=== PATIENT | female | born 1950 | race Caucasian/White ===

== ENCOUNTER → 2016-11-09 | Outpatient (CLI) | payer MEDICARE ==
[2016-11-09 07:26] LABS: INR 2.87
== END ==
LOC: M LAB 06:56
PROVIDERS: ATTEND Nurse Practitioner Family
DX: Z95.4 Presence of other heart-valve replacement (principal); Z51.81 Encounter for therapeutic drug level monitoring; Z79.01 Long term (current) use of anticoagulants

== ENCOUNTER → 2016-12-14 | Outpatient (CLI) | payer MEDICARE ==
[2016-12-14 12:28] LABS: INR 2.77
== END ==
LOC: M LAB 11:22
PROVIDERS: ATTEND Nurse Practitioner Family
DX: Z51.81 Encounter for therapeutic drug level monitoring (principal); Z79.01 Long term (current) use of anticoagulants; Z95.2 Presence of prosthetic heart valve

== ENCOUNTER → 2017-01-11 | Outpatient (CLI) | payer MEDICARE ==
[2017-01-11 07:12] LABS: MEAN CORPUSCULAR HEMOGLOBIN 31.2 pg (27.0-33.0); MEAN CORPUSCULAR HGB CONC 33.3 g/dl (32.0-36.5); MEAN CORPUSCULAR VOLUME 93.6 fl (80.0-96.0)
[2017-01-11 07:19] LABS: INR 2.64
[2017-01-11 07:40] LABS: ALBUMIN 3.6 GM/DL (3.2-5.2); ALBUMIN/GLOBULIN RATIO 1.16 (1.00-1.93); ALKALINE PHOSPHATASE 87 U/L (45-117); ALT/SGPT 31 U/L (12-78); ANION GAP 9 MEQ/L (8-16); AST/SGOT 25 U/L (15-37); BILIRUBIN,TOTAL 0.5 MG/DL (0.2-1.0); BLOOD UREA NITROGEN 15 MG/DL (7-18); CALCIUM LEVEL 8.2 MG/DL (8.8-10.2); CARBON DIOXIDE LEVEL 26 MEQ/L (21-32); CHLORIDE LEVEL 108 MEQ/L (98-107); CHOLESTEROL LEVEL 166 MG/DL (<200); GLOMERULAR FILTRATION RATE > 60.0 (>45); GLUCOSE, FASTING 84 MG/DL (80-110); POTASSIUM SERUM 3.8 MEQ/L (3.5-5.1); SODIUM LEVEL 143 MEQ/L (136-145); TOTAL PROTEIN 6.7 GM/DL (6.4-8.2); TRIGLYCERIDES LEVEL 71 MG/DL (<150)
== END ==
LOC: M LAB 06:47
PROVIDERS: ATTEND Internal Medicine Cardiovascular Disease
DX: I35.0 Nonrheumatic aortic (valve) stenosis (principal); Z79.01 Long term (current) use of anticoagulants; I10 Essential (primary) hypertension; E78.5 Hyperlipidemia, unspecified; E55.9 Vitamin D deficiency, unspecified

== ENCOUNTER → 2017-02-11 | Outpatient (CLI) | payer MEDICARE ==
[2017-02-11 14:35] LABS: INR 2.86
== END ==
LOC: M LAB 13:58
PROVIDERS: ATTEND Internal Medicine Cardiovascular Disease
DX: Z51.81 Encounter for therapeutic drug level monitoring (principal); Z79.01 Long term (current) use of anticoagulants

== ENCOUNTER → 2017-03-16 | Outpatient (CLI) | payer MEDICARE ==
[2017-03-16 15:38] LABS: INR 2.87
== END ==
LOC: M LAB 14:52
PROVIDERS: ATTEND Nurse Practitioner Family
DX: Z51.81 Encounter for therapeutic drug level monitoring (principal); Z79.01 Long term (current) use of anticoagulants

== ENCOUNTER → 2017-03-31 | Outpatient (CLI) | payer MEDICARE ==
[~2017-03-31] MED LIST: BUPR150T5 PO; BUPR200T; COUM1TAB17 PO; COUM2.5T11 PO; CYCL10TA PO; CYCL5TA PO; DRIS50002 PO; ESCI10TA2 PO; GABA-279 PO; GABA-283; GABA-283 PO; METO10TA2 PO; MIRA3350 PO; NORCOTAB PO; OMEP20CA3 PO; OYSCTAB PO; PERC5TAB6 PO; SIMV20TA2; SIMV20TA2 PO; TIZA4CAP3 PO; TRAM50TA2; TRAM50TA2 PO; TYLE500T78 PO; WARF-18
--- NOTE | 2017-03-31 13:42 | REPMRS ---
Patient History The patient states she had a clinical breast exam in 03/2017. Patient is postmenopausal. Family history of breast cancer in mother at age 50 or over. Digital Woman Screen Mammo: March 31, 2017 - Exam #: [id number] Bilateral CC and MLO view(s) were taken. Technologist: Sally Garner, Technologist Prior study comparison: December 19, 2015, digital woman screen mammo performed at [facility]. November 12, 2014, digital woman screen mammo performed at [facility]. November 10, 2013, digital woman screen mammo performed at [facility]. FINDINGS: There are scattered fibroglandular densities. There is a moderate amount of residual fibroglandular tissue which is fairly symmetric. There is no interval development of dominant mass, architectural distortion, or clustered microcalcification typical of malignancy. There has been no change in the appearance of the mammogram from the prior studies. ASSESSMENT: BI-RADS/ACR category 1 mammogram. Negative. Recommendation Routine screening mammogram of both breasts in 1 year (for women over age 40). This mammogram was interpreted with the aid of an FDA-approved computer-aided dectection system. Electronically Signed By: John Garnica MD 03/31/17 [id number]
== END ==
LOC: M WHC 10:40
PROVIDERS: ATTEND Nurse Practitioner Family
DX: Z12.31 Encounter for screening mammogram for malignant neoplasm of breast (principal); Z78.0 Asymptomatic menopausal state; Z80.3 Family history of malignant neoplasm of breast
CPT/HCPCS: G0202; G0463

== ENCOUNTER 2017-04-07 16:26 | Emergency (ER) | payer MEDICARE ==
[~2017-04-07] VITALS: Ht 154.9 cm; Wt 65.9 kg
[2017-04-07 16:27] VITALS: BP 119/72
[2017-04-07] MEDS ORDERED: OMEP20CA3 PO (16:43)
[2017-04-07] MEDS ORDERED: TRAM50TA2 (16:43)
[2017-04-07] MEDS ORDERED: WARF-18 (16:43)
[2017-04-07] MEDS ORDERED: SIMV20TA2 (16:43)
[2017-04-07] MEDS ORDERED: GABA-283 (16:43)
[2017-04-07] MEDS ORDERED: GABA-279 PO (16:43)
[2017-04-07] MEDS ORDERED: BUPR200T (16:43)
[2017-04-07] MEDS ORDERED: METO10TA2 PO (16:43)
[2017-04-07] MEDS ORDERED: NORCOTAB PO (17:05)
[2017-04-07] MEDS ORDERED: MIRA3350 PO (17:05)
[2017-04-07] MEDS ORDERED: CYCL5TA PO (17:08)
[2017-04-23] MEDS ORDERED: COUM2.5T11 PO (13:09)
== END 2017-04-07 17:27 | disposition home or self-care (01) ==
LOC: M ED 16:59
DX: S39.012A Strain of muscle, fascia and tendon of lower back, initial encounter (principal); X50.9XXA Other and unspecified overexertion or strenuous movements or postures, initial encounter; Y92.019 Unspecified place in single-family (private) house as the place of occurrence of the external cause; Y93.89 Activity, other specified; Y99.8 Other external cause status; K21.9 Gastro-esophageal reflux disease without esophagitis; F32.9 Major depressive disorder, single episode, unspecified; F17.200 Nicotine dependence, unspecified, uncomplicated; Z95.2 Presence of prosthetic heart valve; Z90.79 Acquired absence of other genital organ(s); Z95.820 Peripheral vascular angioplasty status with implants and grafts; Z87.39 Personal history of other diseases of the musculoskeletal system and connective tissue; Z79.01 Long term (current) use of anticoagulants; Z79.899 Other long term (current) drug therapy

== ENCOUNTER 2017-04-09 16:04 | Emergency (ER) | payer MEDICARE ==
[~2017-04-09] VITALS: Ht 154.9 cm; Wt 65.0 kg
[~2017-04-09 16:04] MED LIST changes: -BUPR150T5 PO; -COUM1TAB17 PO; -COUM2.5T11 PO; -CYCL10TA PO; -DRIS50002 PO; -ESCI10TA2 PO; -GABA-283 PO; -OYSCTAB PO; -PERC5TAB6 PO; -SIMV20TA2 PO; -TIZA4CAP3 PO; -TRAM50TA2 PO; -TYLE500T78 PO
[2017-04-09] MEDS ORDERED: COUM1TAB17 PO (16:21)
[2017-04-09] MEDS ORDERED: PERC5TAB6 PO (18:46)
[2017-04-09] MEDS ORDERED: CYCL10TA PO (18:46)
[2017-04-09 18:53] VITALS: BP 134/84
[2017-04-23] MEDS ORDERED: COUM2.5T11 PO (13:09)
== END 2017-04-09 18:56 | disposition home or self-care (01) ==
LOC: M ED 18:50
DX: M54.5 Low back pain (principal); M54.6 Pain in thoracic spine; Z79.899 Other long term (current) drug therapy

== ENCOUNTER → 2017-04-14 | Outpatient (CLI) | payer MEDICARE ==
[~2017-04-14] MED LIST changes: +BUPR150T5 PO; +COUM1TAB17 PO; +COUM2.5T11 PO; +CYCL10TA PO; +DRIS50002 PO; +ESCI10TA2 PO; +GABA-283 PO; +OYSCTAB PO; +PERC5TAB6 PO; +SIMV20TA2 PO; +TIZA4CAP3 PO; +TRAM50TA2 PO; +TYLE500T78 PO
--- NOTE | 2017-04-14 18:17 | REP ---
Lumbar spine series, complete: 04/14/2017. Comparison MRI lumbar spine 02/20/2013, x-ray 04/06/2012. Clinical history: Low back pain. Five views show pedicles, spinous and transverse processes grossly intact. There is very subtle dextrorotation of the upper lumbar spine. Lower thoracic levels and visualized ribs intact. Heavy vascular calcification aorta and iliac vessels. SI joints with some sclerosis iliac margin, left greater than right. No narrowing of the joint spaces, erosion or visible fractures of the sacrum. That portion of iliac wings and acetabuli seen intact. Hip joint spaces preserved. Oblique views show facet arthropathy at L5-S1, less at L4-5 but there is no spondylolysis or spondylolisthesis. There is disc space narrowing at L5-S1, L4-5 and with a few millimeters of anterolisthesis of L4 on L5, felt related to that facet arthritis. There is no spondylolysis, compression deformity or other acute finding. Impression: 1. Facet arthropathy at L4-5 and L5-S1, some degenerative disc disease at those levels. Slight disc space narrowing, and a few millimeters of anterolisthesis of L4 on L5 due to facet arthritis. There is no compression deformity or destructive lesion. 2. Heavy vascular calcifications aortoiliac vessels. 3. Incidental note of cardiac valve replacement. Signed by Humberto Shafer MD 04/14/2017 08:28 P
== END ==
LOC: M WUC 16:03
PROVIDERS: ATTEND Physician Assistant
DX: M54.5 Low back pain (principal)

== ENCOUNTER → 2017-04-19 | Outpatient (CLI) | payer MEDICARE ==
[2017-04-19 14:53] LABS: MEAN CORPUSCULAR HEMOGLOBIN 31.2 pg (27.0-33.0); MEAN CORPUSCULAR HGB CONC 32.6 g/dl (32.0-36.5); MEAN CORPUSCULAR VOLUME 95.5 fl (80.0-96.0); RED CELL DISTRIBUTION WIDTH 13.5 % (11.5-14.5); WHITE BLOOD COUNT 5.6 K/mm3 (4.0-10.0)
[2017-04-19 15:02] LABS: INR 3.39
[2017-04-19 15:36] LABS: ALBUMIN 3.5 GM/DL (3.2-5.2); ALKALINE PHOSPHATASE 129 U/L (45-117); ALT/SGPT 38 U/L (12-78); ANION GAP 7 MEQ/L (8-16); AST/SGOT 26 U/L (15-37); BILIRUBIN,TOTAL 0.6 MG/DL (0.2-1.0); BLOOD UREA NITROGEN 16 MG/DL (7-18); CALCIUM LEVEL 8.4 MG/DL (8.8-10.2); CARBON DIOXIDE LEVEL 26 MEQ/L (21-32); CHLORIDE LEVEL 110 MEQ/L (98-107); CHOLESTEROL LEVEL 150 MG/DL (<200); CREATININE FOR GFR 0.91 MG/DL (0.55-1.02); GLOMERULAR FILTRATION RATE > 60.0 (>45); GLUCOSE, FASTING 99 MG/DL (80-110); POTASSIUM SERUM 3.9 MEQ/L (3.5-5.1); SODIUM LEVEL 143 MEQ/L (136-145); TRIGLYCERIDES LEVEL 92 MG/DL (<150)
== END ==
LOC: M LAB 14:03
PROVIDERS: ATTEND Nurse Practitioner Family
DX: I10 Essential (primary) hypertension (principal); Z79.01 Long term (current) use of anticoagulants

== ENCOUNTER 2017-04-23 09:51 | Inpatient (IN) | payer MEDICARE ==
[~2017-04-23] VITALS: Ht 154.9 cm; Wt 65.7 kg
[~2017-04-23 09:51] MED LIST changes: -BUPR150T5 PO; -COUM2.5T11 PO; -CYCL5TA PO; +CYCL5TAB PO; -DRIS50002 PO; -ESCI10TA2 PO; -GABA-283 PO; -OYSCTAB PO; +PERC5TAB12 PO; -PERC5TAB6 PO; -SIMV20TA2 PO; -TIZA4CAP3 PO; -TRAM50TA2 PO; -TYLE500T78 PO
[2017-04-23] MEDS ORDERED: MORPHINE 4 MG/ML 1ML SYRINGE IV ONE ×2 (10:15→11:30)
[2017-04-23] MEDS ORDERED: ONDANSETRON 4MG/2ML VIAL (J2405) IV ONE (10:15)
[2017-04-23 10:33] LABS: MEAN CORPUSCULAR HEMOGLOBIN 31.2 pg (27.0-33.0); MEAN CORPUSCULAR HGB CONC 33.5 g/dl (32.0-36.5); RED CELL DISTRIBUTION WIDTH 13.5 % (11.5-14.5); WHITE BLOOD COUNT 11.2 K/mm3 (4.0-10.0)
[2017-04-23 10:43] LABS: INR 3.52
[2017-04-23 10:56] LABS: ANION GAP 9 MEQ/L (8-16); BLOOD UREA NITROGEN 14 MG/DL (7-18); CALCIUM LEVEL 8.8 MG/DL (8.8-10.2); CARBON DIOXIDE LEVEL 22 MEQ/L (21-32); CHLORIDE LEVEL 108 MEQ/L (98-107); CREATININE FOR GFR 0.79 MG/DL (0.55-1.02); GLOMERULAR FILTRATION RATE > 60.0 (>45); GLUCOSE, FASTING 102 MG/DL (80-110); POTASSIUM SERUM 3.8 MEQ/L (3.5-5.1); SODIUM LEVEL 139 MEQ/L (136-145)
--- NOTE | 2017-04-23 11:16 | REP ---
CT BRAIN WITHOUT CONTRAST: REASON: Fall. Patient on Coumadin. COMPARISON: 04/22/2012 TECHNIQUE: 4.5 mm contiguous transaxial sections were obtained from the skull base to the cerebral convexities with thin cuts through the posterior fossa without the administration of intravenous contrast. FINDINGS: The ventricles and sulci are consistent with the patient's age. There are no extra-axial fluid collections. There is no mass effect. The deep cerebral white matter is consistent with the patient's age. The orbital and petrous structures , cerebellopontine angles, and posterior fossa are unremarkable. The sella turcica, cavernous, and paracavernous structures are essentially unremarkable. The visualized portions of the paranasal sinuses and mastoid air cells are clear. Images of the skull base show no gross abnormality. IMPRESSION: Essentially unremarkable CT examination of the brain. There has been no significant change from the prior exam. Incidental note is again made of cavum septum pellucidum et vergae and there is an unchanged tiny lacunar infarct in the left basal ganglia. Signed by Duane Fuller DO 04/23/2017 12:58 P
--- NOTE | 2017-04-23 11:34 | REP ---
Clinical: Trauma. Technique: Two neutral views of the left shoulder. Findings: There is a comminuted fracture involving the distal clavicle. Underlying osteopenia and age-related degenerative changes are appreciated. The glenohumeral joint appears intact. Impression: Comminuted fracture of the distal clavicle. Signed by Figueroa Blount MD 04/23/2017 11:26 A
--- NOTE | 2017-04-23 11:38 | REP ---
Clinical: Trauma . Technique: AP, lateral, bilateral oblique views of the left elbow. Findings: No acute fracture or dislocation is appreciated. Joint spaces and surrounding soft tissues appear normal. Lateral view demonstrates normal positioning to the anterior and posterior fat pads without evidence for effusion/hemarthrosis. No subcutaneous emphysema or foreign body identified. Impression: Normal left elbow radiographs. Signed by Figueroa Blount MD 04/23/2017 11:30 A
--- NOTE | 2017-04-23 11:40 | REP ---
Clinical: Trauma. Technique: PA and lateral. Comparison: 04/22/2012 Findings: Mediastinum and cardiac silhouette are stable. Lung chaney demonstrate diffuse chronic interstitial changes and chronic-appearing fibroatelectatic changes. Superimposed left lower lobe infiltrate and possible small layering effusion suggested. No pneumothorax. Comminuted fracture to the left clavicle. Impression: 1. Chronic changes with superimposed left lower lobe infiltrate and possible small pleural effusion. 2. Comminuted fracture to the distal left clavicle. Signed by Figueroa Blount MD 04/23/2017 11:32 A
--- NOTE | 2017-04-23 12:28 | REP ---
Clinical: Trauma. Comparison: None. Findings: A comminuted fracture of the distal left clavicle is appreciated. The remainder of the left shoulder appears intact. The remainder of the osseous structures demonstrate age-related osteopenia and degenerative changes without further acute fracture or pathology identified. Lung chaney demonstrate chronic changes with moderate bilateral lower lobe consolidations. No pleural effusion or pneumothorax. Tracheobronchial tree is patent. The mediastinum demonstrates cardiomegaly with extensive atherosclerotic changes to the thoracic aorta and coronary arteries as well as evidence for prior sternotomy, CABG, and aortic valve repair. Ascending thoracic aortic aneurysm measures between 4.7 - 5.5 cm diameter. No evidence for mediastinal fluid or trauma/injury. No significant adenopathy. Impression: 1. Acute comminuted fracture of the distal left clavicle. The remainder of the visualized osseous structures throughout the thorax appear intact. 2. Ascending thoracic aortic aneurysm measuring between 4.7 - 5.5 cm along with cardiomegaly and extensive atherosclerotic changes to the thoracic aorta and coronary arteries as well as evidence for prior sternotomy, CABG and aortic valve repair. No prior examinations are available for comparison. Correlation is recommended. 3. Moderate bibasilar consolidations without effusion or pneumothorax. Signed by Figueroa Blount MD 04/23/2017 12:20 P
[2017-04-23] MEDS ORDERED: GABA-283 PO (13:09)
[2017-04-23] MEDS ORDERED: COUM2.5T17 PO (13:09)
[2017-04-23] MEDS ORDERED: SIMV20TA2 PO (13:09)
[2017-04-23] MEDS ORDERED: GABA-279 PO (13:09)
[2017-04-23] MEDS ORDERED: METO10TA2 PO (13:09)
[2017-04-23] MEDS ORDERED: OMEP20CA3 PO (13:09)
[2017-04-23] MEDS ORDERED: TRAM50TA2 PO (13:13)
[2017-04-23] MEDS ORDERED: BUPR150T5 PO (13:13)
[2017-04-23] MEDS ORDERED: ESCI10TA2 PO (13:13)
[2017-04-23] MEDS ORDERED: TYLE500T78 PO (13:15)
[2017-04-23] MEDS ORDERED: DRIS50002 PO (13:15)
[2017-04-23] MEDS ORDERED: TIZA4CAP3 PO (13:16)
[2017-04-23] MEDS ORDERED: OYSCTAB PO (13:18)
[2017-04-23] MEDS ORDERED: HYDROmorphone 2 MG TAB PO ONE (14:30)
[2017-04-23] MEDS ORDERED: ACETAMINOPHEN 500 MG TAB PO PRN (14:45)
[2017-04-23 16:00] VITALS: BP 167/91
[2017-04-23] MEDS: GABAPENTIN 400 MG CAP PO SCH ×2 (16:26→20:23)
[2017-04-23] MEDS: NS 1,000 ML IV SCH (16:26)
[2017-04-23] MEDS: METOCLOPRAMIDE 10 MG TAB PO SCH ×2 (16:26→20:22)
[2017-04-23] MEDS: cefTRIAXone SOD 2 GM in D5W MINI-BAG PLUS 50 ML IV SCH (16:27)
[2017-04-23] MEDS: AZITHROMYCIN INJ 500 MG, VIAL MATE ADAPTER 1 EACH in D5W 250 ML IV SCH (16:27)
[2017-04-23 18:40] LABS: INR 3.73
[2017-04-23] MEDS: SIMVASTATIN 20 MG TAB PO SCH (20:21)
[2017-04-23] MEDS: buPROPion **SR TABLET** (ZYBAN) 150MG PO SCH (20:21)
[2017-04-23] MEDS: tiZANidine 4 MG TAB PO PRN (20:21)
[2017-04-23] MEDS: DOCUSATE SODIUM 100 MG CAP PO SCH (20:22)
[2017-04-23] MEDS: GABAPENTIN 100 MG CAP PO SCH (20:22)
[2017-04-23] MEDS: MORPHINE 2 MG/ML 1ML SYRINGE IV PRN (20:23)
[2017-04-23] MEDS: ACETAMINOPHEN TAB 650MG DOSE (2X325MG) PO PRN (20:23)
[2017-04-23 22:00] VITALS: BP 110/69
--- NOTE | 2017-04-24 01:11 | HPE ---
DATE OF ADMISSION: 04/23/2017 PRIMARY CARE PROVIDER: Karen Broussard NP. CHIEF COMPLAINT: Status post fall. HISTORY OF PRESENT ILLNESS: 66-year-old female who woke up this morning attempting to get off the bed, rolled off and fell landing on the left side striking her shoulder and chest on the floor. She also struck her head by the night stand, sustained a left shoulder bruise. In the emergency department (ED), x-ray revealed comminuted fracture of the clavicle. Patient reports history of osteoporosis. She reports severe pain along the clavicle, left shoulder and left side of chest. REVIEW OF SYSTEMS: 10-point systems assessed are negative except listed above in history of present illness (HPI). PAST MEDICAL HISTORY: Includes: 1. Aortic stenosis. 2. Abdominal aortic aneurysm (AAA) thoracic. 3. Osteoporosis. 4. Hyperlipidemia. 5. Depression. 6. Lacunar infarct. 7. Lower back sprain. PAST SURGICAL HISTORY: 1. Status post aortic valve replacement with mechanical valve. 2. Status post mitral valve replacement with mechanical valve. 3. Hysterectomy. 4. Carpal tunnel surgery. 5. Coronary artery bypass graft (CABG). FAMILY HISTORY: Father had rheumatoid arthritis. Mother had breast cancer. SOCIAL HISTORY: Patient is an ex-smoker, quit 2 days ago, smoked a pack a day for 18 years or more. Drinks alcohol, wine occasionally. Denies illicit drug use. She is a and has two children. 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 ALLERGIES TO MEDICATIONS: None. LIST OF HOME MEDICATIONS: Includes: - calcium 500 mg once a day - tramadol 50 mg three times a day as needed for pain - vitamin D 50,000 units once a month - warfarin 2.5 mg four times a week and then 5 mg three times a week - bupropion 150 mg by mouth twice a day - escitalopram 10 mg daily - gabapentin 100 mg at night - gabapentin 400 mg by mouth three times a day - metoclopramide 10 mg by mouth four times a day - omeprazole 20 mg daily - simvastatin 20 mg at night - tizanidine 4 mg by mouth twice a day as needed for spasm PHYSICAL EXAMINATION: VITAL SIGNS: Blood pressure 167/91, pulse 97, respiratory rate 18, oxygen saturation 98% on 2 liters of oxygen, temperature 98.9 degrees Fahrenheit. GENERAL: Patient is alert, oriented to person, place, time and circumstance in agony now secondary to pain. HEENT: Pupils are equal, round and reactive to light. Extraocular muscles are intact. Anicteric sclerae. Mucous membranes are moist. Neck is supple, tender along the clavicle. No palpable adenopathy. CARDIOVASCULAR SYSTEM: S1, S2 present, positive systolic murmur. RESPIRATORY SYSTEM: Positive rales at the left lower base. Appropriate air entry with lungs. GASTROINTESTINAL: Abdomen is soft, nontender, nondistended. Bowel sounds are normal. RECTAL: Exam deferred. MUSCULOSKELETAL SYSTEM: Patient has no edema, cyanosis or calf tenderness. Pulses are palpable in all extremities. The shoulder the left side is tender, so is the chest on the left. SKIN: Warm, dry, acyanotic with bruising on the left shoulder. NEUROLOGIC: Nonfocal findings. LABORATORIES: Hematology: White blood cell count 11, hemoglobin 13, hematocrit 38, platelets 251. Coagulopathy: INR of 3.73, PT 38.8. Chemistry: Sodium 139, potassium 3.8, chloride 108, bicarbonate 22, BUN 14, creatinine 0.79, fasting glucose 102, GFR greater than 60, calcium 8.8. Total CK 286, troponin I less than 0.02. IMAGING STUDIES: X-ray of the shoulder on the left showed comminuted fracture of the distal clavicle. CT scan of the brain revealed no significant change from prior scan. X-ray of the elbow is normal. Chest x-ray: Chronic changes with superimposed left lower lobe infiltrate and possible small effusion, comminuted fracture of the distal left clavicle. CT scan of the chest without contrast confirmed left lower lobe pneumonia, ascending thoracic aneurysm measuring 4.7-5.5 along with cardiomegaly, signs of CABG and aortic repair, moderate bibasilar consolidation without effusion or pneumothorax. IMPRESSION: Includes: 1. Left clavicular pathological fracture. 2. Left shoulder contusion. 3. Bilateral lower lobe pneumonia. 4. History of osteoporosis. 5. History of depression, stable. 6. History of hyperlipidemia. PLAN: Patient is admitted to medical/surgical floor. Continued antibiotics for the pneumonia, Rocephin, Zithromax. Morphine for pain control. Home medications were resumed except for Coumadin due to slightly elevated international normalized ratio (INR). Please resume when INR is less than 3 or close to 3.
[2017-04-24] MEDS: NS 1,000 ML IV SCH ×2 (01:29→10:03)
[2017-04-24] MEDS: ACETAMINOPHEN TAB 650MG DOSE (2X325MG) PO PRN ×3 (04:45→15:58)
[2017-04-24] MEDS: MORPHINE 2 MG/ML 1ML SYRINGE IV PRN ×6 (04:46→21:34)
[2017-04-24 06:00] VITALS: BP 126/75
--- NOTE | 2017-04-24 07:21 | ECGEPIP ---
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
--- NOTE | 2017-04-24 09:43 | CR ---
DATE OF CONSULTATION: 04/24/2017 CHIEF COMPLAINT: Left shoulder pain. HISTORY: I was asked to see this 66-year-old because she had fell and broke her clavicle. She had been treated for pneumonia. She injured herself 2 days ago; she was seen in the emergency room (ER) where they did x-rays of the shoulder that reflected a comminuted distal clavicle fracture. She had rings on her fingers, but she knew enough to take the rings off her fingers once she fell and felt the shoulder was injured. REVIEW OF SYSTEMS: 10-point review of systems assessed, negative aside from the pain in the left shoulder under musculoskeletal. MEDICAL HISTORY: Aortic stenosis, aortic abdominal aneurysm, osteoporosis, hyperlipidemia, depression, lacunar infarct, low back sprain for which she treats with Dr. [facility]. SURGICAL HISTORY: Includes aortic valve replacement, mitral valve replacement, hysterectomy, carpal tunnel release, bypass graft. FAMILY HISTORY: Rheumatoid arthritis and breast cancer. SOCIAL HISTORY: Does not smoke but smoked up until just a couple of days ago when she was diagnosed with pneumonia. Drinks occasionally. She is a and retired. ALLERGIES: No known drug allergies. MEDICATIONS AT HOME: Include calcium, tramadol, vitamin D, warfarin, bupropion, escitalopram, gabapentin, metoclopramide, omeprazole, simvastatin, tizanidine. CLINICAL EXAMINATION: She is alert, oriented and cooperative. Mood and affect are appropriate. She is charming. She is out of bed, sitting at the bedside. There is mild edema in the left hand and wrist and no rings on the fingers. She had no pain with elbow motion on the left side. No deformity on the right side. Left shoulder - there is some left shoulder pain with movement, with forward flexion and abduction and there is ecchymosis and swelling over the distal clavicle. She is otherwise neurologically intact. She is not short of breath. Healthy skin in the face, upper and lower extremities. Imaging studies reflect comminuted left distal clavicle fracture. IMPRESSION: Left distal clavicle fracture, closed, comminuted, traumatic. RECOMMENDATIONS: I recommend use of a sling to protect the shoulder when she is out and about. This will need to come off several times a day, and this was carefully explained to the patient, who voiced an understanding. She can do pendulum exercises. She can followup in the orthopedic group anytime in the next 1-2 weeks. This was explained to the patient. For further details, please refer to medical record.
[2017-04-24] MEDS: tiZANidine 4 MG TAB PO PRN ×2 (10:04→18:02)
[2017-04-24] MEDS: GABAPENTIN 400 MG CAP PO SCH ×3 (10:04→21:00)
[2017-04-24] MEDS: buPROPion **SR TABLET** (ZYBAN) 150MG PO SCH ×2 (10:04→21:00)
[2017-04-24] MEDS: METOCLOPRAMIDE 10 MG TAB PO SCH ×4 (10:04→21:00)
[2017-04-24] MEDS: OMEPRAZOLE 20 MG CAP PO SCH (10:05)
[2017-04-24] MEDS: ESCITALOPRAM OXALATE 10 MG TAB (LEXAPRO) PO SCH (10:05)
[2017-04-24] MEDS: DOCUSATE SODIUM 100 MG CAP PO SCH ×2 (10:05→21:00)
[2017-04-24 10:45] LABS: MEAN CORPUSCULAR HGB CONC 33.1 g/dl (32.0-36.5); MEAN CORPUSCULAR VOLUME 93.6 fl (80.0-96.0); RED CELL DISTRIBUTION WIDTH 13.5 % (11.5-14.5); WHITE BLOOD COUNT 7.8 K/mm3 (4.0-10.0)
[2017-04-24 10:51] LABS: INR 4.34
[2017-04-24 11:27] LABS: ANION GAP 6 MEQ/L (8-16); BLOOD UREA NITROGEN 13 MG/DL (7-18); CARBON DIOXIDE LEVEL 24 MEQ/L (21-32); CHLORIDE LEVEL 111 MEQ/L (98-107); CREATININE FOR GFR 0.65 MG/DL (0.55-1.02); GLOMERULAR FILTRATION RATE > 60.0 (>45); GLUCOSE, FASTING 104 MG/DL (80-110); POTASSIUM SERUM 3.6 MEQ/L (3.5-5.1); SODIUM LEVEL 141 MEQ/L (136-145)
[2017-04-24] MEDS ORDERED: VITAMIN D 50,000 UNITS CAPSULE (ERGOCALCIFEROL 1.25MG) PO ONE (12:00)
[2017-04-24] MEDS: traMADol 50 MG TAB PO PRN ×2 (12:20→21:32)
--- NOTE | 2017-04-24 13:14 | IPN ---
DATE: 04/24/2017 The patient is seen and examined. Reported significant left shoulder and left chest wall pain, worsened with breathing, worsened with movement, bruising on the left shoulder. Denies any palpitations, abdominal pain, diarrhea, constipation. Tolerating oral. No nausea or vomiting. VITAL SIGNS: Temperature 98.6, pulse 90, respirations 16, blood pressure 126/75, pulse oximetry 92% on 2 liters nasal cannula. LABORATORY DATA: CBC: WBC 7.8, hemoglobin and hematocrit 11.8/35.7, platelets 240. Chemistry: Sodium 141, potassium 3.6, chloride 111, bicarbonate 24, BUN 13, creatinine 0.65. PHYSICAL EXAMINATION: GENERAL: The patient is alert, comfortable, in no acute distress. HEENT: Pupils are equal and reactive. Normocephalic, atraumatic. CARDIAC: 2/6 systolic murmur, regular. S1, S2. PULMONARY: Diminished breath sounds in the left lower base. No wheeze, rales or rhonchi. GASTROINTESTINAL: Soft and nontender. Positive bowel sounds. EXTREMITIES: No edema in bilateral lower extremities. Left shoulder tender to palpation with bruising. Left sided chest is also tender to palpation. ASSESSMENT AND PLAN: This is a 66-year-old female patient with underlying medical history of aortic stenosis, abdominal aortic aneurysm, and thoracic aortic aneurysm, osteoporosis, dyslipidemia, depression, lacunar infarction, lower back pain, who presented status post fall. The patient woke in the morning and attempted to get off the bed and subsequently rolled off and fell and hit her left sided body. Was found to have a left distal clavicle fracture, closed. 1. Left distal clavicular fracture. Orthopedics consulted. Sling has been ordered. Physical therapy (PT) and occupational therapy (OT). Pain medication as prescribed. 2. Left chest wall contusion. Incentive spirometry. Pain medication as prescribed. Continue to monitor. 3. Bilateral lower lobe pneumonia versus atelectasis. Continue antibiotics as ordered. The patient is on azithromycin and Rocephin. Followup cultures. 4. Supratherapeutic INR. The patient has a mechanical valve. Holding Coumadin. Goal INR of 2.5 to 3.5. Continue to monitor. We will give fresh frozen plasma if it is too much elevation. 5. Dyslipidemia. Continue statin. 6. Aortic stenosis of aortic and mitral valve. Coumadin on hold given supratherapeutic INR. Continue to follow. Monitor INR. 7. Depression. Continue current medications. 8. Chronic lower back pain. Continue current medications. 9. Deep vein thrombosis (DVT) prophylaxis. The patient has supratherapeutic INR. Continue to follow. DISPOSITION: Pending clinical improvement. Physical therapy (PT) and occupational therapy (OT).
[2017-04-24 14:00] VITALS: BP 103/67
[2017-04-24] MEDS: cefTRIAXone SOD 2 GM in D5W MINI-BAG PLUS 50 ML IV SCH (15:59)
[2017-04-24] MEDS: AZITHROMYCIN INJ 500 MG, VIAL MATE ADAPTER 1 EACH in D5W 250 ML IV SCH (17:09)
[2017-04-24] MEDS ORDERED: tiZANidine 4 MG TAB PO PRN (21:00)
[2017-04-24] MEDS: SIMVASTATIN 20 MG TAB PO SCH (21:00)
[2017-04-24] MEDS: GABAPENTIN 100 MG CAP PO SCH (21:18)
[2017-04-24 22:00] VITALS: BP 106/65
[2017-04-25] MEDS: tiZANidine 4 MG TAB PO PRN ×3 (02:56→18:15)
[2017-04-25] MEDS: MORPHINE 2 MG/ML 1ML SYRINGE IV PRN ×5 (02:57→21:51)
[2017-04-25 05:44] LABS: MEAN CORPUSCULAR HEMOGLOBIN 30.3 pg (27.0-33.0); MEAN CORPUSCULAR HGB CONC 32.7 g/dl (32.0-36.5); MEAN CORPUSCULAR VOLUME 92.7 fl (80.0-96.0); RED CELL DISTRIBUTION WIDTH 13.6 % (11.5-14.5); WHITE BLOOD COUNT 6.8 K/mm3 (4.0-10.0)
[2017-04-25 05:52] LABS: INR 3.76
[2017-04-25 06:00] VITALS: BP 101/62
[2017-04-25] MEDS: traMADol 50 MG TAB PO PRN ×2 (06:20→15:54)
[2017-04-25 06:24] LABS: ANION GAP 7 MEQ/L (8-16); BLOOD UREA NITROGEN 13 MG/DL (7-18); CALCIUM LEVEL 7.8 MG/DL (8.8-10.2); CARBON DIOXIDE LEVEL 24 MEQ/L (21-32); CHLORIDE LEVEL 109 MEQ/L (98-107); CREATININE FOR GFR 0.65 MG/DL (0.55-1.02); GLOMERULAR FILTRATION RATE > 60.0 (>45); GLUCOSE, FASTING 95 MG/DL (80-110); POTASSIUM SERUM 3.2 MEQ/L (3.5-5.1); SODIUM LEVEL 140 MEQ/L (136-145)
[2017-04-25] MEDS: POTASSIUM CHLORIDE 10 MEQ SR TABLET PO SCH (10:00)
[2017-04-25] MEDS: buPROPion **SR TABLET** (ZYBAN) 150MG PO SCH ×2 (10:01→21:49)
[2017-04-25] MEDS: METOCLOPRAMIDE 10 MG TAB PO SCH ×4 (10:01→21:49)
[2017-04-25] MEDS: GABAPENTIN 400 MG CAP PO SCH ×3 (10:01→21:50)
[2017-04-25] MEDS: ESCITALOPRAM OXALATE 10 MG TAB (LEXAPRO) PO SCH (10:01)
[2017-04-25] MEDS: DOCUSATE SODIUM 100 MG CAP PO SCH ×2 (10:01→21:50)
[2017-04-25] MEDS: OMEPRAZOLE 20 MG CAP PO SCH (10:01)
[2017-04-25] MEDS: ACETAMINOPHEN TAB 650MG DOSE (2X325MG) PO PRN ×2 (10:57→21:48)
--- NOTE | 2017-04-25 13:05 | IPN ---
DATE OF SERVICE: 04/25/2017 The patient is seen and examined. Reported left shoulder and left chest wall pain to be improving, but still pretty painful. Denies any shortness of breath, palpitations, diarrhea, or constipation. Tolerating oral. No nausea or vomiting. VITAL SIGNS: Temperature 98.3, pulse 78, respirations 16, blood pressure 106/65, pulse oximetry 92% on room air. LABORATORY DATA: WBC 6.8, hemoglobin and hematocrit 11.1 over 30.8, platelets 218. Chemistry: Sodium 140, potassium 3.2, chloride 109, bicarbonate 24, BUN 13, creatinine 0.65. C-reactive protein 6.6. INR 3.76. PHYSICAL EXAMINATION: GENERAL: The patient is alert and oriented times three, in no acute distress. HEENT: Normocephalic, atraumatic. Pupils are equal and reactive. CARDIAC: Mechanical sounds 2 or 3/6 systolic murmurs. S1, S2. PULMONARY: Diminished breath sounds left lower base. No wheeze, rales or rhonchi. GASTROINTESTINAL: Soft and nontender. Positive bowel sounds. EXTREMITIES: No edema in bilateral lower extremities. Left shoulder tender to palpation with bruising and left chest wall also tender to palpation. ASSESSMENT AND PLAN: This is a 66-year-old female patient with underlying medical history of aortic stenosis, abdominal aortic aneurysm, and thoracic aortic aneurysm, osteoporosis, dyslipidemia, depression, lacunar infarct, lower back pain, who presented status post fall. The patient woke in the morning and attempted to get off the bed and subsequently rolled off and fell hitting her left side of her body. Was found to have a left distal clavicle fracture, closed. PROBLEMS: 1. Left distal clavicular fracture. Orthopedics consulted. A sling has been ordered. Physical therapy (PT) and occupational therapy (OT). Pain medication as prescribed. 2. Left chest wall contusion. Incentive spirometry. Pain medication as prescribed. Continue to monitor. 3. Bilateral lower lobe pneumonia versus atelectasis. Continue antibiotics as ordered. The patient is on azithromycin and Rocephin. Followup cultures. 4. Supratherapeutic INR. The patient has mechanical valves. Restarting Coumadin. Goal INR of 2.5 to 3.5. Continue to monitor for signs of bleeding. 5. Dyslipidemia. Continue statin. 6. Aortic stenosis of aortic and mitral valve. Coumadin is on hold given supratherapeutic INR. Continue to monitor. 7. Depression. Continue current medication. 8. Chronic lower back pain. Continue current medications. 9. Deep vein thrombosis (DVT) prophylaxis. The patient has supratherapeutic INR on anticoagulation. DISPOSITION: Pending clinical improvement. Physical therapy (PT) and occupational therapy (OT).
[2017-04-25 14:00] VITALS: BP 104/65
[2017-04-25] MEDS: cefTRIAXone SOD 2 GM in D5W MINI-BAG PLUS 50 ML IV SCH (16:03)
[2017-04-25] MEDS: WARFARIN SOD 2.5 MG TAB PO SCH (16:03)
[2017-04-25] MEDS: AZITHROMYCIN 250 MG TAB PO SCH (18:15)
[2017-04-25] MEDS: GABAPENTIN 100 MG CAP PO SCH (21:48)
[2017-04-25] MEDS: SIMVASTATIN 20 MG TAB PO SCH (21:50)
[2017-04-25 22:00] VITALS: BP 119/79
[2017-04-26] MEDS: traMADol 50 MG TAB PO PRN ×3 (01:34→17:09)
[2017-04-26] MEDS: MORPHINE 2 MG/ML 1ML SYRINGE IV PRN ×3 (04:53→21:30)
[2017-04-26] MEDS: tiZANidine 4 MG TAB PO PRN ×2 (04:53→14:58)
[2017-04-26] MEDS: ACETAMINOPHEN TAB 650MG DOSE (2X325MG) PO PRN (04:54)
[2017-04-26 06:00] VITALS: BP 119/70
[2017-04-26 06:18] LABS: MEAN CORPUSCULAR HEMOGLOBIN 31.3 pg (27.0-33.0); MEAN CORPUSCULAR HGB CONC 33.2 g/dl (32.0-36.5); MEAN CORPUSCULAR VOLUME 94.1 fl (80.0-96.0); RED CELL DISTRIBUTION WIDTH 13.8 % (11.5-14.5); WHITE BLOOD COUNT 6.5 K/mm3 (4.0-10.0)
[2017-04-26 06:24] LABS: INR 3.47
[2017-04-26 06:32] LABS: ANION GAP 5 MEQ/L (8-16); BLOOD UREA NITROGEN 13 MG/DL (7-18); CALCIUM LEVEL 8.4 MG/DL (8.8-10.2); CARBON DIOXIDE LEVEL 26 MEQ/L (21-32); CHLORIDE LEVEL 111 MEQ/L (98-107); CREATININE FOR GFR 0.58 MG/DL (0.55-1.02); GLOMERULAR FILTRATION RATE > 60.0 (>45); GLUCOSE, FASTING 84 MG/DL (80-110); MAGNESIUM LEVEL 2.1 MG/DL (1.8-2.4); POTASSIUM SERUM 3.9 MEQ/L (3.5-5.1); SODIUM LEVEL 142 MEQ/L (136-145)
[2017-04-26] MEDS: ESCITALOPRAM OXALATE 10 MG TAB (LEXAPRO) PO SCH (09:04)
[2017-04-26] MEDS: POTASSIUM CHLORIDE 10 MEQ SR TABLET PO SCH (09:04)
[2017-04-26] MEDS: DOCUSATE SODIUM 100 MG CAP PO SCH ×2 (09:04→20:52)
[2017-04-26] MEDS: GABAPENTIN 400 MG CAP PO SCH ×3 (09:04→20:52)
[2017-04-26] MEDS: METOCLOPRAMIDE 10 MG TAB PO SCH ×4 (09:04→20:52)
[2017-04-26] MEDS: OMEPRAZOLE 20 MG CAP PO SCH (09:04)
[2017-04-26] MEDS: buPROPion **SR TABLET** (ZYBAN) 150MG PO SCH ×2 (09:07→20:52)
--- NOTE | 2017-04-26 13:27 | IPN ---
DATE OF SERVICE: 04/26/2017 The patient is seen and examined. Continues to report left shoulder pain and left sided chest wall pain. Denies any fevers or chills, abdominal pain, shortness of breath. Coughing has improved. Tolerating oral. Reported about 6 out of 10 pain. VITAL SIGNS: Temperature 98.4, pulse 77, respirations 18, blood pressure 119/70, pulse oximetry 94% on 1 liter nasal cannula. LABORATORY DATA: WBC 6.5, hemoglobin and hematocrit 10.2 over 30.6, platelets 235. Chemistry: Sodium 142, potassium 3.9, chloride 111, bicarbonate 26, BUN 13, creatinine 0.58. PHYSICAL EXAMINATION: GENERAL: The patient is alert and oriented times three, in no acute distress. HEENT: Normocephalic, atraumatic. Pupils equal, round and reactive. CARDIAC: Mechanical heart sounds, 3/6 systolic murmur. S1, S2, regular. PULMONARY: Diminished breath sounds left lower base. No wheeze, rales or rhonchi. GASTROINTESTINAL: Soft and nontender. Positive bowel sounds. EXTREMITIES: No edema in bilateral lower extremities. Left shoulder tender to palpation with bruising. Chest wall also tender to palpation. ASSESSMENT AND PLAN: This is a 66-year-old female patient with underlying medical history of aortic stenosis, abdominal aortic aneurysm, thoracic aortic aneurysm, osteoporosis, dyslipidemia, depression, lacunar infarct and lower back pain who presented status post fall. The patient woke in the morning and attempted to get off the bed and subsequently rolled off and fell hitting her left side of her body. She was found to have a left distal clavicle fracture, closed. PROBLEMS: 1. Closed left distal clavicular fracture. Orthopedics consulted. A sling has been ordered. Physical therapy (PT) and occupational therapy (OT). Pain medication as prescribed. 2. Left chest wall contusion. Incentive spirometry. Radiologic image appreciated. Pain medication as ordered. 3. Bilateral lower lobe pneumonia versus atelectasis. Incentive spirometry. Continue antibiotics, azithromycin and Rocephin. Followup cultures. 4. Supratherapeutic INR. The patient has mechanical valve. Restarting Coumadin. Goal INR of 2.5 to 3.5. Continue to monitor for signs of bleeding. Monitor H/H. 5. Dyslipidemia. Continue statin. 6. Aortic stenosis and artifical aortic and mitral valve. Continue Coumadin. Followup INR. 7. Depression. Continue current medication. 8. Chronic lower back pain. Continue current medication. 9. Deep vein thrombosis (DVT) prophylaxis. The patient on Coumadin with therapeutic INR. Continue to monitor. DISPOSITION: Physical therapy (PT) and occupational therapy (OT).
[2017-04-26 14:00] VITALS: BP 110/69
[2017-04-26] MEDS: cefTRIAXone SOD 2 GM in D5W MINI-BAG PLUS 50 ML IV SCH (15:05)
[2017-04-26] MEDS ORDERED: WARFARIN SOD 4 MG TAB PO SCH (17:00)
[2017-04-26] MEDS ORDERED: WARFARIN SOD 5 MG TAB PO SCH (17:00)
[2017-04-26] MEDS: AZITHROMYCIN 250 MG TAB PO SCH (18:00)
[2017-04-26] MEDS: SIMVASTATIN 20 MG TAB PO SCH (20:52)
[2017-04-26] MEDS: GABAPENTIN 100 MG CAP PO SCH (20:52)
[2017-04-26 22:00] VITALS: BP 144/83
[2017-04-27 05:53] LABS: MEAN CORPUSCULAR HEMOGLOBIN 31.4 pg (27.0-33.0); MEAN CORPUSCULAR HGB CONC 32.9 g/dl (32.0-36.5); MEAN CORPUSCULAR VOLUME 95.5 fl (80.0-96.0); RED CELL DISTRIBUTION WIDTH 13.8 % (11.5-14.5); WHITE BLOOD COUNT 5.9 K/mm3 (4.0-10.0)
[2017-04-27 05:59] LABS: INR 2.89
[2017-04-27 06:00] VITALS: BP 148/82
[2017-04-27 06:19] LABS: ANION GAP 7 MEQ/L (8-16); BLOOD UREA NITROGEN 10 MG/DL (7-18); CALCIUM LEVEL 8.6 MG/DL (8.8-10.2); CARBON DIOXIDE LEVEL 25 MEQ/L (21-32); CHLORIDE LEVEL 110 MEQ/L (98-107); CREATININE FOR GFR 0.61 MG/DL (0.55-1.02); GLOMERULAR FILTRATION RATE > 60.0 (>45); GLUCOSE, FASTING 86 MG/DL (80-110); MAGNESIUM LEVEL 2.2 MG/DL (1.8-2.4); SODIUM LEVEL 142 MEQ/L (136-145)
[2017-04-27] MEDS: GABAPENTIN 400 MG CAP PO SCH ×3 (08:35→20:15)
[2017-04-27] MEDS: OMEPRAZOLE 20 MG CAP PO SCH (08:35)
[2017-04-27] MEDS: DOCUSATE SODIUM 100 MG CAP PO SCH ×2 (08:35→20:15)
[2017-04-27] MEDS: buPROPion **SR TABLET** (ZYBAN) 150MG PO SCH ×2 (08:35→20:15)
[2017-04-27] MEDS: METOCLOPRAMIDE 10 MG TAB PO SCH ×4 (08:36→20:16)
[2017-04-27] MEDS: ESCITALOPRAM OXALATE 10 MG TAB (LEXAPRO) PO SCH (08:36)
[2017-04-27] MEDS: traMADol 50 MG TAB PO PRN (08:36)
[2017-04-27] MEDS: POTASSIUM CHLORIDE 10 MEQ SR TABLET PO SCH (08:37)
[2017-04-27] MEDS: PERCOCET 5MG/325MG TAB PO PRN ×2 (11:35→16:19)
[2017-04-27 12:00] VITALS: BP 122/76
[2017-04-27] MEDS: LIDOCAINE 5% OINT 30 GM TOP SCH ×2 (12:33→20:16)
[2017-04-27 14:00] VITALS: BP 132/77
[2017-04-27] MEDS ORDERED: MORPHINE 2 MG/ML 1ML SYRINGE IV PRN (14:30)
[2017-04-27] MEDS: tiZANidine 4 MG TAB PO PRN (14:37)
[2017-04-27] MEDS: cefTRIAXone SOD 2 GM in D5W MINI-BAG PLUS 50 ML IV SCH (15:38)
[2017-04-27] MEDS: WARFARIN SOD 2.5 MG TAB PO SCH (16:18)
--- NOTE | 2017-04-27 16:38 | IPN ---
DATE: 04/27/2017 The patient is seen and examined. Continues to report left shoulder pain and left chest wall pain. The patient reported that the pain medication is only taking off the edge of the left shoulder and the left chest wall pain. The left chest wall pain seems to worsen with breathing and coughing. Denies any fevers or chills, abdominal pain, nausea or vomiting. Tolerating diet. VITAL SIGNS: Temperature 98.5, pulse 90, respirations 18, blood pressure 122/76, pulse oximetry 90% on room air. LABORATORY DATA: WBC 5.9, hemoglobin and hematocrit 10.3/31.3, platelets 265. Chemistry: Sodium 142, potassium 4, chloride 110, bicarbonate 25, BUN 10, creatinine 0.6. PHYSICAL EXAMINATION: GENERAL: The patient is alert and oriented times three, in no acute distress. HEENT: Normocephalic, atraumatic. Pupils equal, round and reactive. CARDIAC: Mechanical heart sounds, 3/6 systolic murmur. S1, S2, regular. PULMONARY: Diminished breath sounds in left lower base. No wheeze, rales or rhonchi. GASTROINTESTINAL: Soft and nontender. Positive bowel sounds. EXTREMITIES: No edema in bilateral lower extremities. Left shoulder tender to palpation. Chest wall also tender to palpation. ASSESSMENT AND PLAN: This is a 66-year-old female patient with underlying medical history of aortic stenosis, abdominal and thoracic aortic aneurysm, osteoporosis, dyslipidemia, depression, lacunar infarct and lower back pain who presented status post fall. The patient woke in the morning and attempted to get off the bed and subsequently rolled off and fell hitting her left side of her body. She was found to have a left distal clavicle fracture, closed. PROBLEMS: 1. Closed left distal clavicular fracture. Orthopedics consulted. A sling has been ordered. Physical therapy (PT) and occupational therapy (OT). Pain medication as prescribed. Attempted to switch from IV to oral. Percocet has been ordered along with the patient's tramadol, as well as Lidocaine ointment. 2. Left chest wall pain. Incentive spirometry. Radiologic image appreciated. Pain medication as ordered. Lidocaine ointment. 3. Bilateral lower lobe pneumonia versus atelectasis. Incentive spirometry. Continue antibiotics, azithromycin and Rocephin. Followup cultures. 4. Supratherapeutic INR. The patient has mechanical valve. Continue Coumadin. Goal INR of 2.5 to 3.5. Continue to monitor for signs of bleeding. Followup hemoglobin and hematocrit. 5. Dyslipidemia. Continue statin. 6. Aortic stenosis with mechanical aortic and mitral valve. Continue Coumadin. Followup INR. 7. Depression. Continue current medication. 8. Chronic lower back pain. Continue current medication. 9. Deep vein thrombosis (DVT) prophylaxis. The patient on Coumadin with therapeutic INR. Continue to monitor. DISPOSITION: Physical therapy (PT) and occupational therapy (OT). Pain control.
[2017-04-27] MEDS: AZITHROMYCIN 250 MG TAB PO SCH (17:51)
[2017-04-27] MEDS: SIMVASTATIN 20 MG TAB PO SCH (20:16)
[2017-04-27] MEDS: GABAPENTIN 100 MG CAP PO SCH (20:16)
[2017-04-27 22:00] VITALS: BP 134/86
[2017-04-28] MEDS: PERCOCET 5MG/325MG TAB PO PRN ×2 (00:18→10:32)
[2017-04-28 06:00] VITALS: BP 129/81
[2017-04-28 07:08] LABS: MEAN CORPUSCULAR HEMOGLOBIN 31.1 pg (27.0-33.0); MEAN CORPUSCULAR HGB CONC 33.2 g/dl (32.0-36.5); MEAN CORPUSCULAR VOLUME 93.8 fl (80.0-96.0); RED CELL DISTRIBUTION WIDTH 13.5 % (11.5-14.5); WHITE BLOOD COUNT 5.1 K/mm3 (4.0-10.0)
[2017-04-28 07:12] LABS: INR 2.76
[2017-04-28 07:26] LABS: ANION GAP 9 MEQ/L (8-16); BLOOD UREA NITROGEN 10 MG/DL (7-18); CALCIUM LEVEL 8.8 MG/DL (8.8-10.2); CARBON DIOXIDE LEVEL 24 MEQ/L (21-32); CHLORIDE LEVEL 109 MEQ/L (98-107); CREATININE FOR GFR 0.61 MG/DL (0.55-1.02); GLOMERULAR FILTRATION RATE > 60.0 (>45); GLUCOSE, FASTING 84 MG/DL (80-110); MAGNESIUM LEVEL 2.2 MG/DL (1.8-2.4); POTASSIUM SERUM 3.9 MEQ/L (3.5-5.1); SODIUM LEVEL 142 MEQ/L (136-145)
[2017-04-28] MEDS: DOCUSATE SODIUM 100 MG CAP PO SCH (08:53)
[2017-04-28] MEDS: GABAPENTIN 400 MG CAP PO SCH (08:53)
[2017-04-28] MEDS: OMEPRAZOLE 20 MG CAP PO SCH (08:53)
[2017-04-28] MEDS: buPROPion **SR TABLET** (ZYBAN) 150MG PO SCH (08:53)
[2017-04-28] MEDS: traMADol 50 MG TAB PO PRN (08:53)
[2017-04-28] MEDS: ESCITALOPRAM OXALATE 10 MG TAB (LEXAPRO) PO SCH (08:53)
[2017-04-28] MEDS: POTASSIUM CHLORIDE 10 MEQ SR TABLET PO SCH (08:54)
[2017-04-28] MEDS: METOCLOPRAMIDE 10 MG TAB PO SCH ×2 (08:54→12:27)
[2017-04-28] MEDS: LIDOCAINE 5% OINT 30 GM TOP SCH (09:00)
[2017-04-28 10:02] VITALS: O2SAT 98
[2017-04-28] MEDS ORDERED: LIDO5OIN28 TOP (11:48)
[2017-04-28] MEDS ORDERED: OXYC1TAB23 PO (11:48)
[2017-04-28] MEDS ORDERED: CEFD1CAP8 PO (11:48)
--- NOTE | 2017-04-28 16:33 | DSES ---
DATE OF ADMISSION: 04/23/2017 DATE OF DISCHARGE: 04/28/2017 PRIMARY CARE PROVIDER: Karen Broussard NP ORTHOPEDIC SURGEON: Michael Cid MD FINAL DIAGNOSES: 1. Closed left distal clavicular fracture. 2. Chest wall bruising. 3. Bilateral lower lobe pneumonia. 4. Supratherapeutic INR. 5. Dyslipidemia. 6. History of aortic stenosis with mechanical aortic and mitral valve. 7. Depression. 8. Chronic lower back pain. HISTORY OF PRESENT ILLNESS: This is a 66-year-old female patient with underlying medical history of valvular heart disease with mechanical valve, abdominal aortic aneurysm and thoracic aortic aneurysm, osteoporosis, dyslipidemia, depression, lacunar infarct, lower back pain. Patient woke up in the morning, attempted to get off the bed, rolled off the bed and fell, landing on the left side of her body, striking her shoulder and left side of her chest to the floor, also hitting her head on the night stand, sustaining a left shoulder bruise. Presented to the emergency room with pain, found to have a clavicular fracture. Subsequently, patient was admitted. CT scan of the head was done along with CT of the chest, x-ray of the chest, x-ray of the elbow and shoulders. Fracture was noticed. Orthopedics was consulted. Physical therapy/occupational therapy (PT/OT) was done. Pain regimen was given. INR was followed and managed. Coumadin was managed and dosage was adjusted. Antibiotics were started. Culture was sent. Patient's condition progressively improved with treatment. Tolerating PT and OT. Home health care referral was made for home with OT. Appreciate orthopedic consultation. Splint was given to the patient. Patient currently tolerating oral, comfortable, in no acute distress, ready for discharge with further care as outpatient. Followup with orthopedic surgeon as outpatient. VITAL SIGNS: Temperature 98.1, pulse 84, respirations 18, blood pressure 129/81, pulse oximetry 92% on room air. GENERAL: Patient alert and oriented times three, in no acute distress. HEENT: Normocephalic, atraumatic. CARDIAC: 3/6 systolic murmur, mechanical sound, S1, S2, regular. PULMONARY: Diminished breath sounds left lower base. No wheezes, rales, or rhonchi. GASTROINTESTINAL (GI): Soft, nontender. Positive bowel sounds. EXTREMITIES: No edema bilateral lower extremities. Left shoulder tender to palpation. Mild bruise chest wall, left-sided, tenderness to palpation. LABORATORY DATA: WBC 5.1, hemoglobin and hematocrit 10.3/31, platelets 256. Chemistry: Sodium 142, potassium 3.9, chloride 109, bicarbonate 24, BUN 10, creatinine 0.6. Respiratory panel negative. Blood cultures negative to date. DISCHARGE MEDICATIONS: - cefdinir 300 mg by mouth twice a day for 5 more days - lidocaine ointment 5% twice a day one tube for 7 days - Percocet 5/325 every 6 hours as needed - acetaminophen 500 mg by mouth daily as needed - bupropion 150 mg by mouth twice a day - Lexapro 10 mg by mouth daily - gabapentin 400 mg by mouth three times a day and 100 mg by mouth nightly - Reglan 10 mg by mouth four times a day - omeprazole 20 mg by mouth daily - Os-Anand 500 mg by mouth daily - Zocor 20 mg by mouth daily - Zanaflex 4 mg by mouth twice a day - tramadol 50 mg by mouth three times a day as needed - vitamin D 50,000 units by mouth once monthly - Coumadin 5 mg by mouth three times a week and 2.5 mg by mouth four times a week DISCHARGE INSTRUCTIONS: Patient is instructed to followup with primary care provider in 7 days and followup with orthopedic surgeon in 10 days. Home with occupational therapy (OT). Return to the hospital if symptoms worsen.
[2017-04-28] MEDS ORDERED: WARFARIN SOD 5 MG TAB PO SCH (17:00)
== END 2017-04-28 13:00 | disposition home health service (06) | DRG 562 ==
LOC: M ED 09:51 → M ED INP 14:24 → M MSPAV 15:53 → M MS5PR 04-27 11:45
PROVIDERS: ADMIT Hospitalist; ATTEND Hospitalist
DX: S42.032A Displaced fracture of lateral end of left clavicle, initial encounter for closed fracture (principal); J18.9 Pneumonia, unspecified organism; S20.20XA Contusion of thorax, unspecified, initial encounter; M54.5 Low back pain; F32.9 Major depressive disorder, single episode, unspecified; I35.0 Nonrheumatic aortic (valve) stenosis; E78.5 Hyperlipidemia, unspecified; I71.4 Abdominal aortic aneurysm, without rupture; I71.2 Thoracic aortic aneurysm, without rupture; W06.XXXA Fall from bed, initial encounter; Y92.009 Unspecified place in unspecified non-institutional (private) residence as the place of occurrence of the external cause; Z79.899 Other long term (current) drug therapy; Z87.891 Personal history of nicotine dependence

== ENCOUNTER → 2017-05-11 | Outpatient (REF) | payer MEDICARE ==
[~2017-05-11] MED LIST changes: +BUPR150T5 PO; +CEFD1CAP8 PO; +COUM2.5T17 PO; +DRIS50002 PO; +ESCI10TA2 PO; +GABA-283 PO; +LIDO5OIN28 TOP; +OXYC1TAB23 PO; +OYSCTAB PO; +SIMV20TA2 PO; +TIZA4CAP3 PO; +TRAM50TA2 PO; +TYLE500T78 PO
[2017-05-12 10:27] LABS: INR 4.16
== END ==
LOC: M LAB REF 10:25
PROVIDERS: ATTEND Internal Medicine Cardiovascular Disease
DX: I48.91 Unspecified atrial fibrillation (principal)

== ENCOUNTER → 2017-05-13 | Outpatient (REF) | payer MEDICARE ==
[2017-05-13 14:57] LABS: INR 2.59
== END ==
LOC: M LAB REF 13:54
PROVIDERS: ATTEND Nurse Practitioner Family
DX: Z51.81 Encounter for therapeutic drug level monitoring (principal); Z79.01 Long term (current) use of anticoagulants; I48.0 Paroxysmal atrial fibrillation

== ENCOUNTER → 2017-06-03 | Outpatient (REF) | payer MEDICARE ==
[2017-06-03 18:12] LABS: INR 3.67
== END ==
LOC: M LAB REF 17:01
PROVIDERS: ATTEND Nurse Practitioner Family
DX: Z51.81 Encounter for therapeutic drug level monitoring (principal); Z79.01 Long term (current) use of anticoagulants

== ENCOUNTER → 2017-06-10 | Outpatient (REF) | payer MEDICARE ==
[2017-06-10 15:53] LABS: INR 3.83
== END ==
LOC: M LAB REF 15:11
PROVIDERS: ATTEND Internal Medicine Cardiovascular Disease
DX: Z86.73 Personal history of transient ischemic attack (TIA), and cerebral infarction without residual deficits (principal); I48.91 Unspecified atrial fibrillation; I10 Essential (primary) hypertension

== ENCOUNTER → 2017-06-18 | Outpatient (CLI) | payer MEDICARE ==
[2017-06-18 09:37] LABS: INR 2.14
== END ==
LOC: M LAB 08:41
PROVIDERS: ATTEND Internal Medicine Cardiovascular Disease
DX: Z51.81 Encounter for therapeutic drug level monitoring (principal); Z79.01 Long term (current) use of anticoagulants

== ENCOUNTER → 2017-06-25 | Outpatient (CLI) | payer MEDICARE ==
[2017-06-25 11:22] LABS: MEAN CORPUSCULAR HEMOGLOBIN 31.7 pg (27.0-33.0); MEAN CORPUSCULAR VOLUME 93.3 fl (80.0-96.0); RED CELL DISTRIBUTION WIDTH 13.4 % (11.5-14.5); WHITE BLOOD COUNT 6.4 K/mm3 (4.0-10.0)
[2017-06-25 11:52] LABS: INR 2.62
[2017-06-25 12:27] LABS: ALBUMIN/GLOBULIN RATIO 1.14 (1.00-1.93); ALKALINE PHOSPHATASE 127 U/L (45-117); ALT/SGPT 39 U/L (12-78); ANION GAP 9 MEQ/L (8-16); AST/SGOT 24 U/L (15-37); BILIRUBIN,TOTAL 0.7 MG/DL (0.2-1.0); BLOOD UREA NITROGEN 14 MG/DL (7-18); CALCIUM LEVEL 8.9 MG/DL (8.8-10.2); CARBON DIOXIDE LEVEL 25 MEQ/L (21-32); CHLORIDE LEVEL 107 MEQ/L (98-107); CHOLESTEROL LEVEL 156 MG/DL (<200); CREATININE FOR GFR 0.87 MG/DL (0.55-1.02); GLOMERULAR FILTRATION RATE > 60.0 (>45); GLUCOSE, FASTING 82 MG/DL (80-110); POTASSIUM SERUM 4.8 MEQ/L (3.5-5.1); SODIUM LEVEL 141 MEQ/L (136-145); TOTAL PROTEIN 7.5 GM/DL (6.4-8.2); TRIGLYCERIDES LEVEL 75 MG/DL (<150)
== END ==
LOC: M LAB 10:12
PROVIDERS: ATTEND Nurse Practitioner Family
DX: E78.00 Pure hypercholesterolemia, unspecified (principal); I10 Essential (primary) hypertension; Z51.81 Encounter for therapeutic drug level monitoring; Z79.01 Long term (current) use of anticoagulants

== ENCOUNTER → 2017-07-27 | Outpatient (CLI) | payer MEDICARE ==
[2017-07-27 06:52] LABS: INR 2.23
== END ==
LOC: M LAB 06:22
PROVIDERS: ATTEND Nurse Practitioner Family
DX: Z95.2 Presence of prosthetic heart valve (principal)

== ENCOUNTER → 2017-09-01 | Outpatient (CLI) | payer MEDICARE ==
[2017-09-01 11:21] LABS: INR 1.55
== END ==
LOC: M LAB 10:22
PROVIDERS: ATTEND Nurse Practitioner Family
DX: Z95.2 Presence of prosthetic heart valve (principal); Z79.01 Long term (current) use of anticoagulants

== ENCOUNTER → 2017-09-10 | Outpatient (CLI) | payer MEDICARE ==
[2017-09-10 07:15] LABS: INR 2.13
== END ==
LOC: M LAB 06:15
PROVIDERS: ATTEND Nurse Practitioner Family
DX: Z51.81 Encounter for therapeutic drug level monitoring (principal); Z79.01 Long term (current) use of anticoagulants; Z95.2 Presence of prosthetic heart valve

== ENCOUNTER → 2017-09-17 | Outpatient (CLI) | payer MEDICARE ==
[2017-09-17 08:57] LABS: INR 2.53
== END ==
LOC: M LAB 07:35
PROVIDERS: ATTEND Nurse Practitioner Family
DX: I35.1 Nonrheumatic aortic (valve) insufficiency (principal)

== ENCOUNTER → 2017-09-24 | Outpatient (CLI) | payer MEDICARE ==
[2017-09-24 15:18] LABS: INR 2.27
== END ==
LOC: M LAB 14:28
PROVIDERS: ATTEND Nurse Practitioner Family
DX: Z95.2 Presence of prosthetic heart valve (principal)

== ENCOUNTER → 2017-10-19 | Outpatient (CLI) | payer MEDICARE ==
[2017-10-19 10:54] LABS: INR 2.94
== END ==
LOC: M LAB 10:18
PROVIDERS: ATTEND Nurse Practitioner Family
DX: Z79.01 Long term (current) use of anticoagulants (principal)

== ENCOUNTER → 2017-11-03 | Outpatient (CLI) | payer MEDICARE ==
[2017-11-03 13:32] LABS: HEMATOCRIT 40.5 % (36.0-47.0); MEAN CORPUSCULAR HEMOGLOBIN 29.3 pg (27.0-33.0); MEAN CORPUSCULAR HGB CONC 32.1 g/dl (32.0-36.5); MEAN CORPUSCULAR VOLUME 91.4 fl (80.0-96.0); PLATELET COUNT, AUTOMATED 208 10^3/uL (150-450); RED BLOOD COUNT 4.43 10^6/uL (4.00-5.40); RED CELL DISTRIBUTION WIDTH 13.8 % (11.5-14.5); WHITE BLOOD COUNT 5.5 10^3/uL (4.0-10.0)
[2017-11-03 13:49] LABS: INR 2.17
[2017-11-03 15:09] LABS: TOTAL 25(OH) VITAMIN D 49.2 NG/ML (30.0-100.0)
[2017-11-03 15:15] LABS: ALBUMIN 3.9 GM/DL (3.2-5.2); ALBUMIN/GLOBULIN RATIO 1.08 (1.00-1.93); ALKALINE PHOSPHATASE 108 U/L (45-117); ALT/SGPT 34 U/L (12-78); ANION GAP 9 MEQ/L (8-16); AST/SGOT 24 U/L (7-37); BILIRUBIN,TOTAL 0.7 MG/DL (0.2-1.0); BLOOD UREA NITROGEN 16 MG/DL (7-18); CALCIUM LEVEL 8.8 MG/DL (8.8-10.2); CARBON DIOXIDE LEVEL 25 MEQ/L (21-32); CHLORIDE LEVEL 107 MEQ/L (98-107); CHOLESTEROL LEVEL 187 MG/DL (<200); CHOLESTEROL RISK RATIO 1.908 (<5); CPK CREATINE PHOSPHOKINASE 126 U/L (26-192); CREATININE FOR GFR 0.84 MG/DL (0.55-1.02); GLOMERULAR FILTRATION RATE > 60.0 (>45); GLUCOSE, FASTING 81 MG/DL (80-110); HDL CHOLESTEROL 98 MG/DL (>40); LDL CHOLESTEROL 74.4 MG/DL (<100); NON-HDL-C 89 MG/DL; SODIUM LEVEL 141 MEQ/L (136-145); TOTAL PROTEIN 7.5 GM/DL (6.4-8.2); TRIGLYCERIDES LEVEL 73 MG/DL (<150)
== END ==
LOC: M LAB 12:44
DX: Z51.81 Encounter for therapeutic drug level monitoring (principal); Z79.01 Long term (current) use of anticoagulants; E78.00 Pure hypercholesterolemia, unspecified; I10 Essential (primary) hypertension; E55.9 Vitamin D deficiency, unspecified; Z95.2 Presence of prosthetic heart valve
CPT/HCPCS: 82550

== ENCOUNTER → 2017-11-17 | Outpatient (CLI) | payer MEDICARE ==
[2017-11-17 14:52] LABS: INR 1.91; PROTHROMBIN TIME 22.5 SECONDS (12.4-14.5)
== END ==
LOC: M LAB 13:52
DX: Z79.01 Long term (current) use of anticoagulants (principal); Z95.2 Presence of prosthetic heart valve
CPT/HCPCS: 85610

== ENCOUNTER → 2017-12-08 | Outpatient (CLI) | payer MEDICARE ==
[2017-12-08 14:09] LABS: PROTHROMBIN TIME 29.8 SECONDS (12.4-14.5)
== END ==
LOC: M LAB 13:33
DX: Z95.2 Presence of prosthetic heart valve (principal)
CPT/HCPCS: 85610

== ENCOUNTER → 2018-01-11 | Outpatient (CLI) | payer MEDICARE ==
[2018-01-11 09:43] LABS: HEMATOCRIT 40.8 % (36.0-47.0); HEMOGLOBIN 13.1 g/dl (12.0-16.0); MEAN CORPUSCULAR HEMOGLOBIN 29.6 pg (27.0-33.0); MEAN CORPUSCULAR HGB CONC 32.1 g/dl (32.0-36.5); MEAN CORPUSCULAR VOLUME 92.1 fl (80.0-96.0); PLATELET COUNT, AUTOMATED 208 10^3/uL (150-450); RED BLOOD COUNT 4.43 10^6/uL (4.00-5.40); RED CELL DISTRIBUTION WIDTH 13.3 % (11.5-14.5); WHITE BLOOD COUNT 5.3 10^3/uL (4.0-10.0)
[2018-01-11 09:57] LABS: INR 2.85; PROTHROMBIN TIME 31.1 SECONDS (12.4-14.5)
[2018-01-11 10:15] LABS: TOTAL 25(OH) VITAMIN D 48.6 NG/ML (30.0-100.0)
[2018-01-11 10:44] LABS: ALBUMIN 3.8 GM/DL (3.2-5.2); ALBUMIN/GLOBULIN RATIO 1.15 (1.00-1.93); ALKALINE PHOSPHATASE 93 U/L (45-117); ALT/SGPT 36 U/L (12-78); ANION GAP 9 MEQ/L (8-16); AST/SGOT 28 U/L (7-37); BILIRUBIN,TOTAL 0.7 MG/DL (0.2-1.0); BLOOD UREA NITROGEN 16 MG/DL (7-18); CALCIUM LEVEL 8.8 MG/DL (8.8-10.2); CARBON DIOXIDE LEVEL 27 MEQ/L (21-32); CHLORIDE LEVEL 107 MEQ/L (98-107); CHOLESTEROL LEVEL 165 MG/DL (<200); CHOLESTEROL RISK RATIO 2.115 (<5); CPK CREATINE PHOSPHOKINASE 96 U/L (26-192); CREATININE FOR GFR 0.93 MG/DL (0.55-1.30); GLOMERULAR FILTRATION RATE > 60.0 (>45); GLUCOSE, FASTING 74 MG/DL (70-100); HDL CHOLESTEROL 78 MG/DL (>40); NON-HDL-C 87 MG/DL; SODIUM LEVEL 143 MEQ/L (136-145); TOTAL PROTEIN 7.1 GM/DL (6.4-8.2); TRIGLYCERIDES LEVEL 95 MG/DL (<150)
== END ==
LOC: M LAB 08:47
DX: Z51.81 Encounter for therapeutic drug level monitoring (principal); Z79.01 Long term (current) use of anticoagulants; Z95.2 Presence of prosthetic heart valve; E55.9 Vitamin D deficiency, unspecified; E78.5 Hyperlipidemia, unspecified; I10 Essential (primary) hypertension
CPT/HCPCS: 82550

== ENCOUNTER → 2018-02-10 | Outpatient (CLI) | payer MEDICARE ==
[2018-02-10 11:27] LABS: INR 3.74; PROTHROMBIN TIME 38.8 SECONDS (12.4-14.5)
== END ==
LOC: M LAB 10:17
DX: Z51.81 Encounter for therapeutic drug level monitoring (principal); Z79.01 Long term (current) use of anticoagulants; Z95.2 Presence of prosthetic heart valve
CPT/HCPCS: 85610

== ENCOUNTER → 2018-03-07 | Outpatient (CLI) | payer MEDICARE ==
[2018-03-07 11:10] LABS: INR 3.14; PROTHROMBIN TIME 33.7 SECONDS (12.4-14.5)
== END ==
LOC: M LAB 10:32
DX: Z95.2 Presence of prosthetic heart valve (principal); Z79.01 Long term (current) use of anticoagulants
CPT/HCPCS: 85610

== ENCOUNTER → 2018-03-28 | Outpatient (CLI) | payer MEDICARE | LOC: M PAIN 09:45 | DX: M54.40 Lumbago with sciatica, unspecified side (principal); M54.2 Cervicalgia; G89.29 Other chronic pain; M19.90 Unspecified osteoarthritis, unspecified site; M85.80 Other specified disorders of bone density and structure, unspecified site; Z79.01 Long term (current) use of anticoagulants; Z79.899 Other long term (current) drug therapy; Z87.891 Personal history of nicotine dependence; Z86.73 Personal history of transient ischemic attack (TIA), and cerebral infarction without residual deficits; Z95.2 Presence of prosthetic heart valve | CPT/HCPCS: G0463 ==

== ENCOUNTER → 2018-04-13 | Outpatient (CLI) | payer MEDICARE ==
[2018-04-13 10:25] LABS: INR 3.17
== END ==
LOC: M LAB 09:44
DX: Z51.81 Encounter for therapeutic drug level monitoring (principal); Z79.01 Long term (current) use of anticoagulants
CPT/HCPCS: 85610

== ENCOUNTER → 2018-04-25 | Outpatient (CLI) | payer MEDICARE | LOC: M PAIN 14:00 | DX: M54.40 Lumbago with sciatica, unspecified side (principal); M54.2 Cervicalgia; G89.29 Other chronic pain; J44.9 Chronic obstructive pulmonary disease, unspecified; M19.90 Unspecified osteoarthritis, unspecified site; K21.9 Gastro-esophageal reflux disease without esophagitis; M85.80 Other specified disorders of bone density and structure, unspecified site; Z79.899 Other long term (current) drug therapy; Z79.01 Long term (current) use of anticoagulants; Z87.891 Personal history of nicotine dependence | CPT/HCPCS: G0463 ==

== ENCOUNTER → 2018-05-09 | Outpatient (CLI) | payer MEDICARE ==
[2018-05-09 07:19] LABS: HEMATOCRIT 41.4 % (36.0-47.0); HEMOGLOBIN 13.8 g/dl (12.0-15.5); MEAN CORPUSCULAR HEMOGLOBIN 30.2 pg (27.0-33.0); MEAN CORPUSCULAR HGB CONC 33.3 g/dl (32.0-36.5); MEAN CORPUSCULAR VOLUME 90.6 fl (80.0-96.0); PLATELET COUNT, AUTOMATED 232 10^3/uL (150-450); RED BLOOD COUNT 4.57 10^6/uL (4.00-5.40); RED CELL DISTRIBUTION WIDTH 13.2 % (11.5-14.5); WHITE BLOOD COUNT 6.9 10^3/uL (4.0-10.0)
[2018-05-09 07:33] LABS: INR 3.17; PROTHROMBIN TIME 33.3 SECONDS (12.1-14.4)
[2018-05-09 07:53] LABS: ALBUMIN 3.7 GM/DL (3.2-5.2); ALBUMIN/GLOBULIN RATIO 1.03 (1.00-1.93); ALKALINE PHOSPHATASE 112 U/L (45-117); ALT/SGPT 21 U/L (12-78); ANION GAP 10 MEQ/L (8-16); AST/SGOT 14 U/L (7-37); BILIRUBIN,TOTAL 0.7 MG/DL (0.2-1.0); BLOOD UREA NITROGEN 19 MG/DL (7-18); CALCIUM LEVEL 8.7 MG/DL (8.8-10.2); CARBON DIOXIDE LEVEL 25 MEQ/L (21-32); CHLORIDE LEVEL 108 MEQ/L (98-107); CHOLESTEROL LEVEL 164 MG/DL (<200); CHOLESTEROL RISK RATIO 2.216 (<5); CPK CREATINE PHOSPHOKINASE 80 U/L (26-192); CREATININE FOR GFR 1.01 MG/DL (0.55-1.30); GLOMERULAR FILTRATION RATE 58.2 (>45); GLUCOSE, FASTING 93 MG/DL (70-100); HDL CHOLESTEROL 74 MG/DL (>40); LDL CHOLESTEROL 71.8 MG/DL (<100); NON-HDL-C 90 MG/DL; POTASSIUM SERUM 3.7 MEQ/L (3.5-5.1); SODIUM LEVEL 143 MEQ/L (136-145); TOTAL PROTEIN 7.3 GM/DL (6.4-8.2); TRIGLYCERIDES LEVEL 91 MG/DL (<150)
== END ==
LOC: M LAB 06:33
DX: Z95.2 Presence of prosthetic heart valve (principal); E78.00 Pure hypercholesterolemia, unspecified; E55.9 Vitamin D deficiency, unspecified
CPT/HCPCS: 82550

== ENCOUNTER → 2018-06-03 | Outpatient (CLI) | payer MEDICARE | LOC: M PAIN 09:45 | DX: G89.29 Other chronic pain (principal); M54.40 Lumbago with sciatica, unspecified side; M54.2 Cervicalgia; M81.0 Age-related osteoporosis without current pathological fracture; K21.9 Gastro-esophageal reflux disease without esophagitis; J44.9 Chronic obstructive pulmonary disease, unspecified; H26.9 Unspecified cataract; Z87.891 Personal history of nicotine dependence; Z79.01 Long term (current) use of anticoagulants; Z79.891 Long term (current) use of opiate analgesic; Z79.899 Other long term (current) drug therapy | CPT/HCPCS: G0463 ==

== ENCOUNTER → 2018-06-08 | Outpatient (CLI) | payer MEDICARE ==
[2018-06-08 10:55] LABS: PROTHROMBIN TIME 46.9 SECONDS (12.1-14.4)
== END ==
LOC: M LAB 10:15
DX: I48.0 Paroxysmal atrial fibrillation (principal); Z95.2 Presence of prosthetic heart valve
CPT/HCPCS: 85610

== ENCOUNTER → 2018-07-11 | Outpatient (CLI) | payer MEDICARE | LOC: M PAIN 13:45 | DX: M54.40 Lumbago with sciatica, unspecified side (principal); M54.2 Cervicalgia; J44.9 Chronic obstructive pulmonary disease, unspecified; M19.90 Unspecified osteoarthritis, unspecified site; M81.0 Age-related osteoporosis without current pathological fracture; Z79.01 Long term (current) use of anticoagulants; Z79.891 Long term (current) use of opiate analgesic; Z79.899 Other long term (current) drug therapy; Z87.891 Personal history of nicotine dependence | CPT/HCPCS: G0463 ==

== ENCOUNTER 2018-07-14 21:24 | Emergency (ER) | payer MEDICARE ==
[2018-07-14] MEDS: ALBUTEROL SULFATE 2.5 MG/0.5 ML INH NEB SOLN NEB ×3 (23:37)
[2018-07-15 00:36] LABS: BASO % 0.3 % (0.0-1.0); EOS # 0.1 10^3/uL (0.0-0.50); EOS % 0.8 % (0.0-3.0); HEMATOCRIT 44.5 % (36.0-47.0); HEMOGLOBIN 14.4 g/dl (12.0-15.5); IMMATURE GRANULOCYTE % 0.6 % (0-3.0); LYMPH # 1.8 10^3/uL (1.5-4.5); LYMPH % 22.9 % (24.0-44.0); MEAN CORPUSCULAR HEMOGLOBIN 30.4 pg (27.0-33.0); MEAN CORPUSCULAR HGB CONC 32.4 g/dl (32.0-36.5); MEAN CORPUSCULAR VOLUME 93.9 fl (80.0-96.0); MONO # 0.8 10^3/uL (0.0-0.8); MONO % 10.9 % (0.0-5.0); NEUTROPHILS % 64.5 % (36.0-66.0); PLATELET COUNT, AUTOMATED 224 10^3/uL (150-450); RED BLOOD COUNT 4.74 10^6/uL (4.00-5.40); RED CELL DISTRIBUTION WIDTH 13.6 % (11.5-14.5); WHITE BLOOD COUNT 7.7 10^3/uL (4.0-10.0)
[2018-07-15 01:09] LABS: INR 2.17; PROTHROMBIN TIME 24.6 SECONDS (12.1-14.4)
[2018-07-15 01:10] LABS: PARTIAL THROMBOPLASTIN TIME 33.5 SECONDS (25.4-37.6)
[2018-07-15 01:35] LABS: ALBUMIN 4.2 GM/DL (3.2-5.2); ALBUMIN/GLOBULIN RATIO 1.11 (1.00-1.93); ALKALINE PHOSPHATASE 104 U/L (45-117); ALT/SGPT 31 U/L (12-78); ANION GAP 13 MEQ/L (8-16); AST/SGOT 27 U/L (7-37); BILIRUBIN,DIRECT 0.2 MG/DL (0.0-0.2); BILIRUBIN,TOTAL 0.6 MG/DL (0.2-1.0); BLOOD UREA NITROGEN 20 MG/DL (7-18); CALCIUM LEVEL 8.9 MG/DL (8.8-10.2); CARBON DIOXIDE LEVEL 22 MEQ/L (21-32); CHLORIDE LEVEL 108 MEQ/L (98-107); CPK CREATINE PHOSPHOKINASE 124 U/L (26-192); CREATININE FOR GFR 1.08 MG/DL (0.55-1.30); FREE T4 1.15 NG/DL (0.76-1.46); GLOMERULAR FILTRATION RATE 53.9 (>45); GLUCOSE, FASTING 98 MG/DL (70-100); LIPASE 181 U/L (73-393); MB/CK RELATIVE INDEX 0.97 (< OR =4); NT-PRO BNP 224 PG/ML (<125); POTASSIUM SERUM 3.6 MEQ/L (3.5-5.1); SODIUM LEVEL 143 MEQ/L (136-145); TROPONIN I < 0.02 NG/ML (< 0.10)
[2018-07-15] MEDS: methylPREDNISolone INJ 125 MG/2 ML VIAL (J2930) IV (01:49)
== END 2018-07-15 02:13 | disposition home or self-care (01) ==
LOC: M ED 21:24
DX: I44.7 Left bundle-branch block, unspecified (principal); E78.5 Hyperlipidemia, unspecified; K21.9 Gastro-esophageal reflux disease without esophagitis; M54.9 Dorsalgia, unspecified; F32.9 Major depressive disorder, single episode, unspecified; Z87.891 Personal history of nicotine dependence; Z79.01 Long term (current) use of anticoagulants
CPT/HCPCS: J2930

== ENCOUNTER → 2018-07-27 | Outpatient (CLI) | payer MEDICARE | LOC: M WHC 13:28 | DX: Z12.31 Encounter for screening mammogram for malignant neoplasm of breast (principal); Z78.0 Asymptomatic menopausal state; Z80.3 Family history of malignant neoplasm of breast | CPT/HCPCS: 77067 ==

== ENCOUNTER → 2018-08-01 | Outpatient (CLI) | payer MEDICARE ==
[2018-08-01 14:01] LABS: INR 3.09; PROTHROMBIN TIME 32.6 SECONDS (12.1-14.4)
== END ==
LOC: M LAB 13:17
DX: I48.0 Paroxysmal atrial fibrillation (principal); Z95.2 Presence of prosthetic heart valve
CPT/HCPCS: 85610

== ENCOUNTER → 2018-09-05 | Outpatient (CLI) | payer MEDICARE ==
[2018-09-05 08:26] LABS: HEMATOCRIT 41.1 % (36.0-47.0); HEMOGLOBIN 13.5 g/dl (12.0-15.5); MEAN CORPUSCULAR HEMOGLOBIN 30.8 pg (27.0-33.0); MEAN CORPUSCULAR HGB CONC 32.8 g/dl (32.0-36.5); MEAN CORPUSCULAR VOLUME 93.8 fl (80.0-96.0); PLATELET COUNT, AUTOMATED 211 10^3/uL (150-450); RED BLOOD COUNT 4.38 10^6/uL (4.00-5.40); RED CELL DISTRIBUTION WIDTH 13.1 % (11.5-14.5); WHITE BLOOD COUNT 4.5 10^3/uL (4.0-10.0)
[2018-09-05 08:50] LABS: INR 2.87; PROTHROMBIN TIME 30.7 SECONDS (12.1-14.4)
[2018-09-05 09:42] LABS: ALBUMIN 3.5 GM/DL (3.2-5.2); ALBUMIN/GLOBULIN RATIO 1.06 (1.00-1.93); ALKALINE PHOSPHATASE 89 U/L (45-117); ALT/SGPT 36 U/L (12-78); ANION GAP 9 MEQ/L (8-16); AST/SGOT 30 U/L (7-37); BILIRUBIN,TOTAL 0.5 MG/DL (0.2-1.0); BLOOD UREA NITROGEN 18 MG/DL (7-18); CALCIUM LEVEL 8.5 MG/DL (8.8-10.2); CARBON DIOXIDE LEVEL 25 MEQ/L (21-32); CHLORIDE LEVEL 108 MEQ/L (98-107); CHOLESTEROL LEVEL 154 MG/DL (<200); CHOLESTEROL RISK RATIO 2.444 (<5); CPK CREATINE PHOSPHOKINASE 83 U/L (26-192); CREATININE FOR GFR 0.95 MG/DL (0.55-1.30); GLOMERULAR FILTRATION RATE > 60.0 (>45); GLUCOSE, FASTING 76 MG/DL (70-100); HDL CHOLESTEROL 63 MG/DL (>40); LDL CHOLESTEROL 71 MG/DL (<100); NON-HDL-C 91 MG/DL; POTASSIUM SERUM 3.9 MEQ/L (3.5-5.1); SODIUM LEVEL 142 MEQ/L (136-145); TOTAL PROTEIN 6.8 GM/DL (6.4-8.2); TRIGLYCERIDES LEVEL 100 MG/DL (<150)
[2018-09-05 10:27] LABS: TOTAL 25(OH) VITAMIN D 57.5 NG/ML (30.0-100.0)
== END ==
LOC: M LAB 07:28
DX: E78.00 Pure hypercholesterolemia, unspecified (principal); I10 Essential (primary) hypertension; E55.9 Vitamin D deficiency, unspecified; Z79.01 Long term (current) use of anticoagulants; Z79.899 Other long term (current) drug therapy
CPT/HCPCS: 82550

== ENCOUNTER → 2018-09-12 | Outpatient (CLI) | payer MEDICARE | LOC: M CARPUL 10:52 | DX: Z95.2 Presence of prosthetic heart valve (principal); I44.7 Left bundle-branch block, unspecified | CPT/HCPCS: 93306 ==

== ENCOUNTER → 2018-09-21 | Outpatient (CLI) | payer MEDICARE | LOC: M PAIN 13:15 | DX: M54.40 Lumbago with sciatica, unspecified side (principal); G89.29 Other chronic pain; J44.9 Chronic obstructive pulmonary disease, unspecified; K21.9 Gastro-esophageal reflux disease without esophagitis; M19.90 Unspecified osteoarthritis, unspecified site; Z79.01 Long term (current) use of anticoagulants; Z79.891 Long term (current) use of opiate analgesic; Z79.899 Other long term (current) drug therapy; Z87.891 Personal history of nicotine dependence; Z95.2 Presence of prosthetic heart valve | CPT/HCPCS: G0463 ==

== ENCOUNTER → 2018-10-10 | Outpatient (CLI) | payer MEDICARE ==
[~2018-10-10] MED LIST changes: +ALBU83IN NEB; +COMP1MIS3 XX; -DRIS50002 PO; +DRIS50003 PO; +GABA-1171 PO; -GABA-279 PO; -GABA-283; -GABA-283 PO; +GABA-845; +GABA-845 PO; +PRED20TA PO; +TIZA4CAP PO; -TIZA4CAP3 PO; +VENTAER INH
[2018-10-10 07:40] LABS: INR 2.36; PROTHROMBIN TIME 26.3 SECONDS (12.1-14.4)
== END ==
LOC: M LAB 06:55
PROVIDERS: ATTEND Nurse Practitioner Family
DX: I48.0 Paroxysmal atrial fibrillation (principal); Z95.2 Presence of prosthetic heart valve

== ENCOUNTER → 2018-11-14 | Outpatient (CLI) | payer MEDICARE ==
[2018-11-14 12:47] LABS: INR 2.65; PROTHROMBIN TIME 28.8 SECONDS (12.1-14.4)
== END ==
LOC: M LAB 11:55
PROVIDERS: ATTEND Nurse Practitioner Family
DX: Z95.2 Presence of prosthetic heart valve (principal); I48.0 Paroxysmal atrial fibrillation

== ENCOUNTER → 2018-12-06 | Outpatient (CLI) | payer MEDICARE ==
--- NOTE | 2018-12-21 00:43 | ECWPNPC ---
PATIENT NAME: SANDRO LOVE : 1950 GENDER: FEMALE VISIT DATE: 12/06/2018 DISCHARGE DATE: 12/06/18 1515 VISIT LOCKED DATE TIME: PHYSICIAN: CARLOS GARZA RESOURCE: CARLOS GARZA REASON FOR APPOINTMENT 1. BACK HISTORY OF PRESENT ILLNESS HISTORY OF PRESENT ILLNESS: HHERE FOR F/U OF CHRONIC GENERALIZED PAIN.RATING PAIN VAS 8/10.PAIN IS DESCRIBED CONTINUOUS,ACHING AND BURNING.PAIN IS AWAKENING HER FROM SLEEP.TRAMADOL IS INEFFECTIVE AND SHE IS TAKING 4 PER DAY. PAIN THE PATIENT DESCRIBES THE PAIN... FALL RISK SCREENING: SCREENING :NO FALLS IN THE PAST YEAR CURRENT MEDICATIONS TAKING NEURONTIN 400MG CAPSULE 1 CAP ORALLY THREE X DAILY TAKING WARFARIN SODIUM 2.5 MG TABLET 1 TAB ORALLY 2TABS ON SAT/ OTHERWISE 1 TAB TAKING WELLBUTRIN SR 200 MG TABLET EXTENDED RELEASE 12 HOUR 1 TABLET ORALLY TWICE A DAY TAKING GABAPENTIN 100 MG CAPSULE ORALLY AT BEDTIME, TAKES 400MG 3 X DAILY BESIDES TAKING SIMVASTATIN 20 MG TABLET 1 TABLET IN THE EVENING ORALLY ONCE A DAY TAKING VITAMIN D 64353 U CAPSULE 1 CAPSULE ORALLY ONCE A MONTH TAKING METOCLOPRAMIDE HCL 10 MG TABLET ORALLY FOUR TIMES DAILY TAKING SYMBICORT 160-4.5 MCG/ACT AEROSOL 2 PUFFS INHALATION DAILY TAKING TRAMADOL HCL 50 MG TABLET 1-2 ORALLY 1 AM,1@12N,1 LATE AFTERNOON AND 1 AT BED MDD4 NOT-TAKING OMEPRAZOLE 20 MG CAPSULE DELAYED RELEASE 1 CAPSULE ORALLY ONCE A DAY NOT-TAKING DULERA 200-5 MCG/ACT AEROSOL 2 PUFFS INHALATION TWICE A DAY NOT-TAKING BUTRANS 10 MCG/HR PATCH WEEKLY 1 PATCH TO SKIN TRANSDERMAL 1 PATCH Q7 DAYS=MDD DISCONTINUED GABAPENTIN 400 MG CAPSULE 1 CAPSULE ORALLY THREE TIMES A DAY DISCONTINUED TRAMADOL HCL 50 MG TABLET 1 TABLET NEEDED ORALLY EVERY 6 HRS MDD4 MEDICATION LIST REVIEWED AND RECONCILED WITH THE PATIENT PAST MEDICAL HISTORY OSTEOPOROSIS (NO TREATMENT)BMD YEARS AGO DDD/DD CATARACTS FX LEFT KNEE 09/2015 ARTHRITIS ACID REFLUX CHRONIC PAIN COPD ALLERGIES N.K.D.A. SURGICAL HISTORY HYSTERECTOMY / BSO--HEAVY BLEEDING 1977 WRIST SURGERY FELICIA. AORTA AND MITRAL VALVE REPLACED 1969 AND 1994 REPAIR OF FX. LEFT WRIST, PLATE AND SCREWS 06/07 COLONOSCOPY X 1 REFUSES ANYMORE FAMILY HISTORY FATHER: 72 YRS, [place], DIAGNOSED WITH DIABETES, HEART DISEASE, OTHER MOTHER: 62 YRS, CANCER, BREAST WITH METS, DIAGNOSED WITH CANCER SIBLINGS: ALIVE, LUNG CANCER SISTER.SISTER BLADDER CANCER 2 SON(S) - HEALTHY. NO OVARY OR COLON CANCER NEPHEW BRAIN CANCER AT AGE 34MOTHER HAD BREAST CANCER. SOCIAL HISTORY GENERAL: TOBACCO USE ARE YOU A:FORMER SMOKER BMI CARE GOAL FOLLOW-UP ABOVE NORMAL BMI FOLLOW-UPGIVING ENCOURAGEMENT TO EXERCISE ALCOHOL SCREENING DID YOU HAVE A DRINK CONTAINING ALCOHOL IN THE PAST YEAR?NO POINTS0 INTERPRETATIONNEGATIVE RECREATIONAL DRUG USE DRUG USE?NO CAFFEINE >5/DAY. HIV / HEP-C SCREENING HIV TEST OFFERED TO PATIENT:NO HEP-C TEST OFFERED TO PATIENT:NO MANDAEISM [id number] JEW LANGUAGE LANGUAGES SPOKEN:[place] EDUCATION LEVEL OF EDUCATION:FINISHED HIGH SCHOOL LEARNING BARRIERS / SPECIAL NEEDS CHANGE FROM LAST VISIT?NO BARRIERS TO LEARNING?NO HEARING IMPAIRED?NO VISION IMPAIRED?YES :CORRECTIVE LENSES COGNITIVELY IMPAIRED?NO READINESS TO LEARN?YES LEARNING PREFERENCES?NO LEARNING CAPABILITIES PRESENT?YES EMOTIONAL BARRIERS?NO SPECIAL DEVICES?NO PARKING PATROLLER NEEDED?NO DOMESTIC VIOLENCE NONE. OCCUPATION: 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 EXERCISE: NO REGULAR EXERCISE. MARITAL STATUS: . OTHERS AT HOME: ROOM-MATE, MALE. PAIN CLINIC PFS, CLERGY, PUBLIC HEALTH REFERRALS HAS THE PATIENT BEEN EDUCATED REGARDING HIS/HER PLAN OF CARE?YES HAS THE PATIENT BEEN EDUCATED REGARDING PAIN, THE RISK FOR PAIN, THE IMPORTANCE OF EFFECTIVE PAIN MANAGEMENT, AND THE PAIN ASSESSMENT PROCESS?YES ADVANCE DIRECTIVE ADVANCE DIRECTIVE DISCUSSED WITH PATIENT:YES DECLINED INFO AT THIS TIME HOSPITALIZATION/MAJOR DIAGNOSTIC PROCEDURE NONE OTHER THAN SURGERIES REVIEW OF SYSTEMS REVIEWED BY: PROVIDER: CARLOS TABOR . CONSTITUTIONAL: ANY CHANGE IN YOUR MEDICAL CONDITION? NO . CHILLS NO . FEVER NO . INFECTION: DO YOU HAVE NEW INFECTIONS? NO . DO YOU HAVE HISTORY OF MRSA? NO . MUSCULOSKELETAL: ANY NEW PATTERNS OF PAIN OR NUMBNESS? NO . GASTROENTEROLOGY: ANY NEW CHANGE IN BOWEL CONTROL? NO . GENITOURINARY: ANY NEW CHANGE IN BLADDER CONTROL? NO . IS THERE A CHANCE YOU COULD BE ? NO . HEMATOLOGY/LYMPH: DO YOU TAKE ANY BLOOD THINNERS? (FOR EXAMPLE- COUMADIN, PLAVIX, AGGRENOX, PLATEL, PRADAXA, OR XARELTO) YES, COUMADIN . WHEN WAS YOUR LAST DOSE? DATE: TIME: . NEUROLOGY: HAVE YOU FALLEN IN THE PAST 12 MONTHS? NO . ANY NEW EXTREMITY NUMBNESS OR WEAKNESS? NO . CARDIOLOGY: DO YOU HAVE A PACEMAKER OR DEFIBRILLATOR? NO . RESPIRATORY: HAVE YOU BEEN SICK IN THE PAST WEEK? NO . FEVER NO . FLU LIKE SYMPTOMS? NO . COUGH NO . INTEGUMENTARY: DO YOU HAVE ANY RASHES OR OPEN SORES? NO . ALLERGIC/IMMUNO: ARE YOU ALLERGIC TO IV DYE? NO . ANY NEW ALLERGIES? NO . PSYCHIATRIC: DO YOU HAVE THOUGHTS OF HURTING YOURSELF OR SOMEONE ELSE? NO . ARE YOU ABUSED, NEGLECTED, OR IN AN UNSAFE ENVIRONMENT? NO . ENDOCRINOLOGY: ARE YOU DIABETIC? NO . OTHER: DO YOU NEED ANY PRESCRIPTIONS? NO . IF YES, PLEASE LIST: ____ . ANY NEW PROBLEMS WITH YOUR MEDICATIONS? NO . WHEN DID YOU LAST EAT? ____ . WHEN DID YOU LAST DRINK? ____ . WHAT DID YOU LAST DRINK? ____ . NAME OF PERSON DRIVING YOU HOME? ____ . DO YOU HAVE ANY OTHER QUESTIONS OR CONCERNS YES, SHINGLES VACCINE 12/04/18 . VITAL SIGNS WT 155.2 LBS, HT 61 IN, BMI 29.32 INDEX, BP 137/80 MM HG, HR 93 /MIN, RR 16 /MIN, TEMP 97.5 F, OXYGEN SAT % 96%, NA INITIALS SC 14:27. EXAMINATION GENERAL EXAMINATION: GENERAL APPEARANCE:AWAKE,ALERT ,PLEAASANT . PSYCHAFFECT NORMAL . LUNGS:LUNG HERNANDEZ ARE CLEAR TO AUSCULTATION BILATERALLY. GOOD MOVEMENT OF AIR . HEART:S1, S2 IN A REGULAR RATE AND RHYTHM. NO SIGNIFICANT MURMURS, RUBS OR GALLOPS NOTED . ASSESSMENTS LUMBAGO OF MULTIPLE SITES IN SPINE WITH SCIATICA - M54.40 (PRIMARY) TREATMENT LUMBAGO OF MULTIPLE SITES IN SPINE WITH SCIATICA START ACETAMINOPHEN-CODEINE TABLET, 300-30 MG, 1 TABLET NEEDED, ORALLY, EVERY 6 HRS PRN MDD4, 30 DAY(S), 100, REFILLS 0 NOTES: STOP TRAMADOL, ISTOP REGISTRY REVIEWED AND DEMONSTRATES COMPLLIANCE. (REF # ) , [facility] NARCOTIC AGREEMENT WAS REVIEWED AND SIGNED TODAY BY THE PATIENT. SEE ATTACHED DOCUMENT FOR FULL DETAILS; SPECIFIC ISSUES WERE REVIEWED: 1) KEEP PAIN MEDS IN THEIR ORIGINAL BOTTLES AND ANY WEEKLY PLANNERS ARE TO BE BROUGHT TO THE PAIN CENTER AT EVERY VISIT. 2) THE PATIENT IS NOT TO INCREASE DOSING OR TIMING OF THEIR PAIN MEDICATION WITHOUT SPECIFIC DIRECTION OF THEIR PAIN CENTERPROVIDER (NOT ER OR OTHER PROVIDERS). 3) ALL PAIN MEDS ARE TO BE KEPT SECURED, IN A LOCKED BOX. 4) NO PAIN MEDS ARE TO BE SHARED WITH ANY OTHER PERSON FOR ANY REASON. 5) NO PAIN MEDS MAY BE TAKEN FROM ANY FRIENDS OR RELATIVES FOR ANY REASON 6) NO MEDS OR SUBSTANCES WHICH ARE NOT LEGAL ARE TO BE USED- NO MARIJUANA, NO COCAINE, AMPHETAMINES, HEROIN, OR OTHERS ARE EVER TO BE USED. 7)URINE TESTING IS DONE TO ACCOUNT FOR MEDS AND SUBSTANCES BEING TAKEN AND WILL BE DONE RANDOMLY., RISKS AND BENEFITS OF NARCOTIC/OPIOD MEDICATIONS WERE REVIEWED WITH PATIENT - THIS INCLUDES BUT IS NOT LIMITED TO RISK OF DEPENDANCE/DEVELOPMENT OF ADDICTION, MOOD DISTURBANCE AND DEPRESSION, OSTEOPOROSIS, HORMONAL AND LABIDAL CHANGES, RESPIRATORY DEPRESSION AND . PATIENT IS ADVISED NOT TO DRIVE OR DRINK ALCOHOL WHILE ON THESE MEDICATIONS. PREVENTIVE MEDICINE PAIN CLINIC TEACHING: MEDICATIONS MEDICATION CHANGES REVIEWED WITH PATIENT. PROCEDURE CODES FA211 ESTABILISHED PATIENT [facility] CHARGE DISPOSITION & COMMUNICATION FOLLOW UP 2 MONTHS ELECTRONICALLY SIGNED BY LEANDER SALEH ON 12/20/2018 AT 05:15 PM EST DISCLAIMER : THIS IS A VISIT SUMMARY EXTRACTED FROM THE [employer] CHART. IT IS NOT A COPY OF THE [employer] PROGRESS NOTE. MARVIN
== END ==
LOC: M PAIN 14:15
PROVIDERS: ATTEND Nurse Practitioner Family
DX: M54.40 Lumbago with sciatica, unspecified side (principal); G89.29 Other chronic pain; M19.90 Unspecified osteoarthritis, unspecified site; J44.9 Chronic obstructive pulmonary disease, unspecified; M81.0 Age-related osteoporosis without current pathological fracture; Z79.01 Long term (current) use of anticoagulants; Z79.899 Other long term (current) drug therapy; Z95.2 Presence of prosthetic heart valve; Z87.891 Personal history of nicotine dependence

== ENCOUNTER → 2018-12-13 | Outpatient (CLI) | payer MEDICARE ==
[2018-12-13 12:02] LABS: INR 2.17; PROTHROMBIN TIME 24.6 SECONDS (12.1-14.4)
== END ==
LOC: M LAB 11:09
PROVIDERS: ATTEND Nurse Practitioner Family
DX: Z79.01 Long term (current) use of anticoagulants (principal)

== ENCOUNTER → 2018-12-20 | Outpatient (CLI) | payer MEDICARE ==
[2018-12-20 11:14] LABS: INR 1.82; PROTHROMBIN TIME 21.4 SECONDS (12.1-14.4)
== END ==
LOC: M LAB 10:30
PROVIDERS: ATTEND Nurse Practitioner Family
DX: I48.0 Paroxysmal atrial fibrillation (principal); Z95.2 Presence of prosthetic heart valve

== ENCOUNTER → 2019-01-04 | Outpatient (CLI) | payer MEDICARE ==
[2019-01-04 10:45] LABS: INR 1.98; PROTHROMBIN TIME 22.9 SECONDS (12.1-14.4)
== END ==
LOC: M LAB 09:52
PROVIDERS: ATTEND Nurse Practitioner Family
DX: Z79.01 Long term (current) use of anticoagulants (principal)

== ENCOUNTER → 2019-01-18 | Outpatient (CLI) | payer MEDICARE ==
[2019-01-18 14:45] LABS: INR 2.17; PROTHROMBIN TIME 24.6 SECONDS (12.1-14.4)
== END ==
LOC: M LAB 14:17
PROVIDERS: ATTEND Nurse Practitioner Family
DX: Z51.81 Encounter for therapeutic drug level monitoring (principal); Z79.01 Long term (current) use of anticoagulants; Z95.2 Presence of prosthetic heart valve

== ENCOUNTER → 2019-02-01 | Outpatient (CLI) | payer MEDICARE ==
[~2019-02-01] MED LIST changes: +HYDR-3715 PO; -NORCOTAB PO
[2019-02-01 08:54] LABS: INR 2.86; PROTHROMBIN TIME 30.6 SECONDS (12.1-14.4)
== END ==
LOC: M LAB 08:01
PROVIDERS: ATTEND Nurse Practitioner Family
DX: Z79.01 Long term (current) use of anticoagulants (principal); Z95.4 Presence of other heart-valve replacement

== ENCOUNTER → 2019-02-03 | Outpatient (CLI) | payer MEDICARE ==
--- NOTE | 2019-02-04 00:29 | ECWPNPC ---
PATIENT NAME: SANDRO LOVE : 1950 GENDER: FEMALE VISIT DATE: 02/03/2019 DISCHARGE DATE: 02/03/19 1416 VISIT LOCKED DATE TIME: PHYSICIAN: FRANTZ BRIZUELA RESOURCE: FRANTZ BRIZUELA REASON FOR APPOINTMENT 1. BACK HISTORY OF PRESENT ILLNESS HISTORY OF PRESENT ILLNESS: PAIN THE PATIENT DESCRIBES THE PAINDURING THE LAST MONTH SEVERITY - PAIN SCORE OF8/10 68 YR OD FEMALE WITH HX OF LOW BACK PAIN.SHE RATES HER PAIN AT 8/10 AND SAYS THIS IS HER BASELINE. PATIENT WOULD ALSO LIKE T DISCARD TYLENOL #3 TODAY HERE IN OFFICE. FALL RISK SCREENING: SCREENING :NO FALLS REPORTED IN THE LAST YEAR CURRENT MEDICATIONS TAKING NEURONTIN 400MG CAPSULE 1 CAP ORALLY THREE X DAILY TAKING WARFARIN SODIUM 2.5 MG TABLET 1 TAB ORALLY 2TABS ON , WEDNESDAY, WEDNESDAY. 1 TABLET ON WED, WED, WED, SUN TAKING WELLBUTRIN SR 200 MG TABLET EXTENDED RELEASE 12 HOUR 1 TABLET ORALLY TWICE A DAY TAKING GABAPENTIN 100 MG CAPSULE ORALLY AT BEDTIME, TAKES 400MG 3 X DAILY BESIDES TAKING SIMVASTATIN 20 MG TABLET 1 TABLET IN THE EVENING ORALLY ONCE A DAY TAKING VITAMIN D 28075 U CAPSULE 1 CAPSULE ORALLY ONCE A MONTH TAKING METOCLOPRAMIDE HCL 10 MG TABLET ORALLY FOUR TIMES DAILY TAKING SYMBICORT 160-4.5 MCG/ACT AEROSOL 2 PUFFS INHALATION DAILY TAKING TRAMADOL HCL 50 MG TABLET DIRECTED ORALLY Q6H PRN MDD4 TAKING TYLENOL EX ST ARTHRITIS PAIN 500 MG TABLET 1 TABLET NEEDED ORALLY EVERY 6 HRS NOT-TAKING TRAMADOL HCL 50 MG TABLET 1-2 ORALLY 1 AM,1@12N,1 LATE AFTERNOON AND 1 AT BED MDD4, NOTES: DUPLICATE NOT-TAKING ACETAMINOPHEN-CODEINE 300-30 MG TABLET 1 TABLET NEEDED ORALLY EVERY 6 HRS NOT-TAKING COLACE 100 MG CAPSULE 1 CAPSULE NEEDED ORALLY BID NOT-TAKING ACETAMINOPHEN-CODEINE 300-30 MG TABLET 1 TABLET NEEDED ORALLY Q8H PRN MDD3 #45TAB SHOULD LAST 30 DAYS NOT-TAKING TYLENOL WITH CODEINE #3 300-30 MG TABLET 1 TABLET NEEDED Q 8 HOURS PRN MDD3 ORALLY DIRECTED NOT-TAKING OMEPRAZOLE 20 MG CAPSULE DELAYED RELEASE 1 CAPSULE ORALLY ONCE A DAY NOT-TAKING DULERA 200-5 MCG/ACT AEROSOL 2 PUFFS INHALATION TWICE A DAY NOT-TAKING BUTRANS 10 MCG/HR PATCH WEEKLY 1 PATCH TO SKIN TRANSDERMAL 1 PATCH Q7 DAYS=MDD MEDICATION LIST REVIEWED AND RECONCILED WITH THE PATIENT PAST MEDICAL HISTORY OSTEOPOROSIS (NO TREATMENT)BMD YEARS AGO DDD/DD CATARACTS FX LEFT KNEE 09/2015 ARTHRITIS ACID REFLUX CHRONIC PAIN COPD ALLERGIES N.K.D.A. SURGICAL HISTORY HYSTERECTOMY / BSO--HEAVY BLEEDING 1977 WRIST SURGERY FELICIA. AORTA AND MITRAL VALVE REPLACED 1969 AND 1994 REPAIR OF FX. LEFT WRIST, PLATE AND SCREWS 06/07 COLONOSCOPY X 1 REFUSES ANYMORE FAMILY HISTORY FATHER: 72 YRS, [place], DIAGNOSED WITH DIABETES, HEART DISEASE, OTHER MOTHER: 62 YRS, CANCER, BREAST WITH METS, CANCER SIBLINGS: ALIVE, LUNG CANCER SISTER.SISTER BLADDER CANCER 2 SON(S) - HEALTHY. NO OVARY OR COLON CANCER NEPHEW BRAIN CANCER AT AGE 34\NMOTHER HAD BREAST CANCER. SOCIAL HISTORY GENERAL: TOBACCO USE ARE YOU A:FORMER SMOKER LATEX QUESTIONNAIRE LATEX ALLERGY : HAVE YOU EVER DEVELOPED ANY TYPE OF REACTION AFTER HANDLING LATEX PRODUCTS SUCH RUBBER GLOVES, CONDOMS, DIAPHRAGMS, BALLOONS, SOCKS, OR UNDERWEAR?NO LATEX ALLERGY : HAVE YOU EVER DEVELOPED ANY TYPE OF REACTION DURING OR AFTER DENTAL APPOINTMENT, VAGINAL/RECTAL EXAMINATION, SURGICAL PROCEDURE, OR ANY OTHER EXPOSURE?NO LATEX RISK : HAVE YOU EVER HAD ANY DIFFICULTY BREATHING OR HIVES AFTER EATING OR HANDLING ANY FRUITS, OR VEGETABLES; SUCH KIWI, BANANAS, STONE FRUITS, OR CHESTNUTSNO LATEX RISK : DO YOU HAVE A PREVIOUS PERSONAL HISTORY OF MORE THAN NINE SURGERIES, SPINA BIFIDA, OR REPEATED CATHERTIZATIONS? NO LATEX RISK : ARE YOU FREQUENTLY EXPOSED TO LATEX PRODUCTS IN YOUR OCCUPATION?NO DATE ASKED : 02/03/2019 BMI CARE GOAL FOLLOW-UP ABOVE NORMAL BMI FOLLOW-UPGIVING ENCOURAGEMENT TO EXERCISE ALCOHOL SCREENING DID YOU HAVE A DRINK CONTAINING ALCOHOL IN THE PAST YEAR?NO POINTS0 INTERPRETATIONNEGATIVE RECREATIONAL DRUG USE DRUG USE?NO CAFFEINE >5/DAY. HIV / HEP-C SCREENING HIV TEST OFFERED TO PATIENT:NO HEP-C TEST OFFERED TO PATIENT:NO MU-ISM [id number] SHINTO LANGUAGE LANGUAGES SPOKEN:SYRIAC EDUCATION LEVEL OF EDUCATION:FINISHED HIGH SCHOOL LEARNING BARRIERS / SPECIAL NEEDS CHANGE FROM LAST VISIT?NO BARRIERS TO LEARNING?NO HEARING IMPAIRED?NO VISION IMPAIRED?YES :CORRECTIVE LENSES COGNITIVELY IMPAIRED?NO READINESS TO LEARN?YES LEARNING PREFERENCES?NO LEARNING CAPABILITIES PRESENT?YES EMOTIONAL BARRIERS?NO SPECIAL DEVICES?NO PATTERNMAKER PLASTICS NEEDED?NO DOMESTIC VIOLENCE NONE. OCCUPATION: 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 EXERCISE: NO REGULAR EXERCISE. MARITAL STATUS: . OTHERS AT HOME: ROOM-MATE, MALE. PAIN CLINIC PFS, CLERGY, PUBLIC HEALTH REFERRALS HAS THE PATIENT BEEN EDUCATED REGARDING HIS/HER PLAN OF CARE?YES HAS THE PATIENT BEEN EDUCATED REGARDING PAIN, THE RISK FOR PAIN, THE IMPORTANCE OF EFFECTIVE PAIN MANAGEMENT, AND THE PAIN ASSESSMENT PROCESS?YES ADVANCE DIRECTIVE ADVANCE DIRECTIVE DISCUSSED WITH PATIENT:YES DECLINED INFO AND ASSISTANCE AT THIS TIME 02/03/19 REVIEWED WITH PT 02/03/19 1335 BV. HOSPITALIZATION/MAJOR DIAGNOSTIC PROCEDURE NONE OTHER THAN SURGERIES REVIEW OF SYSTEMS REVIEWED BY: PROVIDER: RAJ . CONSTITUTIONAL: ANY CHANGE IN YOUR MEDICAL CONDITION? NO . CHILLS NO . FEVER NO . INFECTION: DO YOU HAVE NEW INFECTIONS? NO . DO YOU HAVE HISTORY OF MRSA? NO . MUSCULOSKELETAL: ANY NEW PATTERNS OF PAIN OR NUMBNESS? NO . GASTROENTEROLOGY: ANY NEW CHANGE IN BOWEL CONTROL? NO . GENITOURINARY: ANY NEW CHANGE IN BLADDER CONTROL? YES, PT COMPLAINS OF URGENCY AND STRESS INCONTINENCE FOR THE PAST MONTH THAT SHE STATES IS NEW TO HER. . IS THERE A CHANCE YOU COULD BE ? NO . HEMATOLOGY/LYMPH: DO YOU TAKE ANY BLOOD THINNERS? (FOR EXAMPLE- COUMADIN, PLAVIX, AGGRENOX, PLATEL, PRADAXA, OR XARELTO) COUMADIN, YES . WHEN WAS YOUR LAST DOSE? DATE: TIME: . NEUROLOGY: HAVE YOU FALLEN IN THE PAST 12 MONTHS? NO . ANY NEW EXTREMITY NUMBNESS OR WEAKNESS? NO . CARDIOLOGY: DO YOU HAVE A PACEMAKER OR DEFIBRILLATOR? NO . RESPIRATORY: HAVE YOU BEEN SICK IN THE PAST WEEK? NO . FEVER NO . FLU LIKE SYMPTOMS? NO . COUGH NO . INTEGUMENTARY: DO YOU HAVE ANY RASHES OR OPEN SORES? NO . ALLERGIC/IMMUNO: ARE YOU ALLERGIC TO IV DYE? NO . ANY NEW ALLERGIES? NO . PSYCHIATRIC: DO YOU HAVE THOUGHTS OF HURTING YOURSELF OR SOMEONE ELSE? NO . ARE YOU ABUSED, NEGLECTED, OR IN AN UNSAFE ENVIRONMENT? NO . ENDOCRINOLOGY: ARE YOU DIABETIC? NO . OTHER: DO YOU NEED ANY PRESCRIPTIONS? NO . IF YES, PLEASE LIST: ____ . ANY NEW PROBLEMS WITH YOUR MEDICATIONS? NO . WHEN DID YOU LAST EAT? ____ . WHEN DID YOU LAST DRINK? ____ . WHAT DID YOU LAST DRINK? ____ . NAME OF PERSON DRIVING YOU HOME? ____ . DO YOU HAVE ANY OTHER QUESTIONS OR CONCERNS NO . VITAL SIGNS WT 154 LBS, HT 61 IN, BMI 29.09 INDEX, BP 134/75 MM HG, HR 82 /MIN, RR 16 /MIN, TEMP 98.2 F, OXYGEN SAT % 95%, NA INITIALS AW 1319, REVIEWED BY: BV. EXAMINATION GENERAL EXAMINATION: GENERAL APPEARANCE:NO ACUTE DISTRESS, WELL NOURISHED AND HYDRATED. PSYCHAPPROPRIATE MOOD AND AFFECT . LUNGS:CLEAR TO AUSCULTATION BILATERALLY, NO WHEEZES, RHONCHI, RALES. HEART:NO MURMURS, REGULAR RATE AND RHYTHM. BACK:LIMITED ROM PAIN WITH TENDERNESS TO LUMBAR PARASPINAL MUSCLES. ASSESSMENTS LUMBAGO OF MULTIPLE SITES IN SPINE WITH SCIATICA - M54.40 (PRIMARY) TREATMENT LUMBAGO OF MULTIPLE SITES IN SPINE WITH SCIATICA STOP ACETAMINOPHEN-CODEINE TABLET, 300-30 MG, 1 TABLET NEEDED, ORALLY, EVERY 6 HRS CLINICAL NOTES: PATIENT SAYS SHE HAS SOPPED TAKING TYLENOL #3 AND RE STARTED TRAMADOL., ISTOP REGISTRY REVIEWED AND DEMONSTRATES COMPLLIANCE. (REF #[id number] ) BRINGS IN MEDICATIONS WHICH IS APPROPRIATE FOR WHAT WAS DISPENSED. RECENT URINE TOXICOLOGY REVIEWED. NO UNAUTHORIZED MEDICATIONS. NO ILLICIT SUBSTANCES AND PRESCRIBED MEDICATIONS WERE PRESENT. URINE TOX TODAY. PROCEDURE CODES FA211 ESTABILISHED PATIENT [facility] FACILITY CHARGE DISPOSITION & COMMUNICATION FOLLOW UP 3 MONTHS ELECTRONICALLY SIGNED BY LEANDER SWANSON ON 02/03/2019 AT 03:34 PM EDT DISCLAIMER : THIS IS A VISIT SUMMARY EXTRACTED FROM THE [employer] CHART. IT IS NOT A COPY OF THE [employer] PROGRESS NOTE. MARVIN
== END ==
LOC: M PAIN 13:30
PROVIDERS: ATTEND Nurse Practitioner Family
DX: M54.40 Lumbago with sciatica, unspecified side (principal); J44.9 Chronic obstructive pulmonary disease, unspecified; M19.90 Unspecified osteoarthritis, unspecified site; M81.0 Age-related osteoporosis without current pathological fracture; Z79.01 Long term (current) use of anticoagulants; Z79.899 Other long term (current) drug therapy; Z87.891 Personal history of nicotine dependence

== ENCOUNTER → 2019-03-29 | Outpatient (CLI) | payer MEDICARE ==
[2019-03-29 10:36] LABS: HEMOGLOBIN 14.3 g/dl (12.0-15.5); MEAN CORPUSCULAR HEMOGLOBIN 32.1 pg (27.0-33.0); MEAN CORPUSCULAR HGB CONC 33.3 g/dl (32.0-36.5); MEAN CORPUSCULAR VOLUME 96.6 fl (80.0-96.0); PLATELET COUNT, AUTOMATED 204 10^3/uL (150-450); RED BLOOD COUNT 4.45 10^6/uL (4.00-5.40)
[2019-03-29 10:47] LABS: INR 3.32; PROTHROMBIN TIME 34.5 SECONDS (12.1-14.4)
[2019-03-29 11:17] LABS: ALT/SGPT 29 U/L (12-78); BILIRUBIN,TOTAL 0.7 MG/DL (0.2-1.0); BLOOD UREA NITROGEN 19 MG/DL (7-18); CARBON DIOXIDE LEVEL 26 MEQ/L (21-32); CHLORIDE LEVEL 106 MEQ/L (98-107); CHOLESTEROL LEVEL 177 MG/DL (<200); CPK CREATINE PHOSPHOKINASE 86 U/L (26-192); CREATININE FOR GFR 0.88 MG/DL (0.55-1.30); GLOMERULAR FILTRATION RATE > 60.0 (>45); GLUCOSE, FASTING 84 MG/DL (70-100); HDL CHOLESTEROL 79 MG/DL (>40); LDL CHOLESTEROL 80 MG/DL (<100); NON-HDL-C 98 MG/DL; POTASSIUM SERUM 4.1 MEQ/L (3.5-5.1); SODIUM LEVEL 140 MEQ/L (136-145); TOTAL PROTEIN 7.3 GM/DL (6.4-8.2); TRIGLYCERIDES LEVEL 91 MG/DL (<150)
== END ==
LOC: M LAB 10:06
PROVIDERS: ATTEND Nurse Practitioner Family
DX: I48.0 Paroxysmal atrial fibrillation (principal); Z95.2 Presence of prosthetic heart valve; Z79.01 Long term (current) use of anticoagulants

== ENCOUNTER → 2019-05-05 | Outpatient (CLI) | payer MEDICARE ==
[~2019-05-05] MED LIST changes: -OMEP20CA3 PO; +OMEP20CA4 PO
--- NOTE | 2019-05-17 02:11 | ECWPNPC ---
PATIENT NAME: SANDRO LOVE : 1950 GENDER: FEMALE VISIT DATE: 05/05/2019 DISCHARGE DATE: 05/05/19 1032 VISIT LOCKED DATE TIME: PHYSICIAN: CARLOS GARZA RESOURCE: CARLOS GARZA REASON FOR APPOINTMENT 1. BACK HISTORY OF PRESENT ILLNESS HISTORY OF PRESENT ILLNESS: HERE FOR F/U OF CHRONIC GENERALIZED PAIN.RATING PAIN VAS 8/10.PAIN IS DESCRIBED CONTINUOUS,ACHING AND BURNING.PAIN IS AWAKENING HER FROM SLEEP.TRAMADOL IS SOMEWHAT EFFECTIVE.STATES HIP PAIN IS WORSE LATELY. PAIN THE PATIENT DESCRIBES THE PAIN... THE PATIENT DESCRIBES THE PAIN... FALL RISK SCREENING: SCREENING :NO FALLS REPORTED IN THE LAST YEAR CURRENT MEDICATIONS TAKING NEURONTIN 400MG CAPSULE 1 CAP ORALLY THREE X DAILY TAKING WARFARIN SODIUM 2.5 MG TABLET 1 TAB ORALLY 2TABS ON , WEDNESDAY, WEDNESDAY. 1 TABLET ON WED, WED, WED, SUN TAKING WELLBUTRIN SR 200 MG TABLET EXTENDED RELEASE 12 HOUR 1 TABLET ORALLY TWICE A DAY TAKING GABAPENTIN 100 MG CAPSULE 2 TABS ORALLY AT BEDTIME, TAKES 400MG 3 X DAILY BESIDES TAKING SIMVASTATIN 20 MG TABLET 1 TABLET IN THE EVENING ORALLY ONCE A DAY TAKING VITAMIN D 86578 U CAPSULE 1 CAPSULE ORALLY ONCE A MONTH TAKING METOCLOPRAMIDE HCL 10 MG TABLET ORALLY FOUR TIMES DAILY TAKING SYMBICORT 160-4.5 MCG/ACT AEROSOL 2 PUFFS INHALATION DAILY TAKING TYLENOL EX ST ARTHRITIS PAIN 500 MG TABLET 1 TABLET NEEDED ORALLY EVERY 6 HRS TAKING TRAMADOL HCL 50 MG TABLET DIRECTED ORALLY Q6H PRN MDD4 TAKING OMEPRAZOLE 20 MG CAPSULE DELAYED RELEASE 1 CAPSULE ORALLY ONCE A DAY NOT-TAKING TRAMADOL HCL 50 MG TABLET 1-2 ORALLY 1 AM,1@12N,1 LATE AFTERNOON AND 1 AT BED MDD4, NOTES: DUPLICATE NOT-TAKING COLACE 100 MG CAPSULE 1 CAPSULE NEEDED ORALLY BID NOT-TAKING ACETAMINOPHEN-CODEINE 300-30 MG TABLET 1 TABLET NEEDED ORALLY Q8H PRN MDD3 #45TAB SHOULD LAST 30 DAYS NOT-TAKING TYLENOL WITH CODEINE #3 300-30 MG TABLET 1 TABLET NEEDED Q 8 HOURS PRN MDD3 ORALLY DIRECTED NOT-TAKING DULERA 200-5 MCG/ACT AEROSOL 2 PUFFS INHALATION TWICE A DAY NOT-TAKING BUTRANS 10 MCG/HR PATCH WEEKLY 1 PATCH TO SKIN TRANSDERMAL 1 PATCH Q7 DAYS=MDD MEDICATION LIST REVIEWED AND RECONCILED WITH THE PATIENT PAST MEDICAL HISTORY OSTEOPOROSIS (NO TREATMENT)BMD YEARS AGO DDD/DD CATARACTS FX LEFT KNEE 09/2015 ARTHRITIS ACID REFLUX CHRONIC PAIN COPD LUMBAGP MULTIPLE SITES WITH SCIATICA ALLERGIES N.K.D.A. SURGICAL HISTORY HYSTERECTOMY / BSO--HEAVY BLEEDING 1977 WRIST SURGERY FELICIA. AORTA AND MITRAL VALVE REPLACED 1969 AND 1994 REPAIR OF FX. LEFT WRIST, PLATE AND SCREWS 06/07 COLONOSCOPY X 1 REFUSES ANYMORE FAMILY HISTORY FATHER: 72 YRS, [place], DIAGNOSED WITH OTHER, DIABETES, HEART DISEASE MOTHER: 62 YRS, CANCER, BREAST WITH METS, CANCER SIBLINGS: ALIVE, LUNG CANCER SISTER. SISTER BLADDER CANCER,LUNG CANCER, HEART DISEASE, CANCER 2 SON(S) - HEALTHY. NO OVARY OR COLON CANCER NEPHEW BRAIN CANCER AT AGE 34\NMOTHER HAD BREAST CANCER. SOCIAL HISTORY GENERAL: TOBACCO USE ARE YOU A:FORMER SMOKER HIV / HEP-C SCREENING HIV TEST OFFERED TO PATIENT:NO HEP-C TEST OFFERED TO PATIENT:NO OTHERS AT HOME: ROOM-MATE, MALE. EDUCATION LEVEL OF EDUCATION:FINISHED HIGH SCHOOL DIET: REGULAR. LANGUAGE LANGUAGES SPOKEN:GREENLANDIC DOMESTIC VIOLENCE NONE. BMI CARE GOAL FOLLOW-UP ABOVE NORMAL BMI FOLLOW-UPGIVING ENCOURAGEMENT TO EXERCISE RECREATIONAL DRUG USE DRUG USE?NO EXERCISE: NO REGULAR EXERCISE. LEARNING BARRIERS / SPECIAL NEEDS CHANGE FROM LAST VISIT?NO BARRIERS TO LEARNING?NO HEARING IMPAIRED?NO VISION IMPAIRED?YES :CORRECTIVE LENSES COGNITIVELY IMPAIRED?NO READINESS TO LEARN?YES LEARNING PREFERENCES?NO LEARNING CAPABILITIES PRESENT?YES EMOTIONAL BARRIERS?NO SPECIAL DEVICES?NO MANAGEMENT TRAINEE NEEDED?NO PAIN CLINIC PFS, CLERGY, PUBLIC HEALTH REFERRALS HAS THE PATIENT BEEN EDUCATED REGARDING HIS/HER PLAN OF CARE?YES HAS THE PATIENT BEEN EDUCATED REGARDING PAIN, THE RISK FOR PAIN, THE IMPORTANCE OF EFFECTIVE PAIN MANAGEMENT, AND THE PAIN ASSESSMENT PROCESS?YES LATEX QUESTIONNAIRE LATEX ALLERGY : HAVE YOU EVER DEVELOPED ANY TYPE OF REACTION AFTER HANDLING LATEX PRODUCTS SUCH RUBBER GLOVES, CONDOMS, DIAPHRAGMS, BALLOONS, SOCKS, OR UNDERWEAR?NO LATEX ALLERGY : HAVE YOU EVER DEVELOPED ANY TYPE OF REACTION DURING OR AFTER DENTAL APPOINTMENT, VAGINAL/RECTAL EXAMINATION, SURGICAL PROCEDURE, OR ANY OTHER EXPOSURE?NO LATEX RISK : HAVE YOU EVER HAD ANY DIFFICULTY BREATHING OR HIVES AFTER EATING OR HANDLING ANY FRUITS, OR VEGETABLES; SUCH KIWI, BANANAS, STONE FRUITS, OR CHESTNUTSNO LATEX RISK : DO YOU HAVE A PREVIOUS PERSONAL HISTORY OF MORE THAN NINE SURGERIES, SPINA BIFIDA, OR REPEATED CATHERIZATIONS? NO LATEX RISK : ARE YOU FREQUENTLY EXPOSED TO LATEX PRODUCTS IN YOUR OCCUPATION?NO DATE ASKED : 05/05/2019 CAFFEINE >5/DAY. ADVANCE DIRECTIVE ADVANCE DIRECTIVE DISCUSSED WITH PATIENT:YES 05/05/19 PT DOES NOT HAVE ANY ADVANCED DIRECTIVES AND SHE DECLINES INFORMATION ON HCP AT THIS TIME. AD JAINISM [id number] [facility] STATUS: . ALCOHOL SCREENING DID YOU HAVE A DRINK CONTAINING ALCOHOL IN THE PAST YEAR?NO POINTS0 INTERPRETATIONNEGATIVE OCCUPATION: [employer]. REVIEWED WITH PT 02/03/19 1335 BV. HOSPITALIZATION/MAJOR DIAGNOSTIC PROCEDURE FRACTURED LEFT SHOULDER 2018 REVIEW OF SYSTEMS REVIEWED BY: PROVIDER: CARLOS TABOR . CONSTITUTIONAL: ANY CHANGE IN YOUR MEDICAL CONDITION? NO . CHILLS NO . FEVER NO . INFECTION: DO YOU HAVE NEW INFECTIONS? NO . DO YOU HAVE HISTORY OF MRSA? NO . MUSCULOSKELETAL: ANY NEW PATTERNS OF PAIN OR NUMBNESS? YES, INCREASE IN BILATERAL HIP PAIN FOR THE PAST 2 MONTHS. STATES WHEN SHE WALKS SHE FEELS LIKE SHE IS GOING TO FALL FORWARD. SHE HAS TO STOP AND REST OFTEN . GASTROENTEROLOGY: ANY NEW CHANGE IN BOWEL CONTROL? NO . GENITOURINARY: ANY NEW CHANGE IN BLADDER CONTROL? NO . IS THERE A CHANCE YOU COULD BE ? NO . HEMATOLOGY/LYMPH: DO YOU TAKE ANY BLOOD THINNERS? (FOR EXAMPLE- COUMADIN, PLAVIX, AGGRENOX, PLATEL, PRADAXA, OR XARELTO) YES, COUMADIN . WHEN WAS YOUR LAST DOSE? DATE: TIME:05/04/191999 . NEUROLOGY: HAVE YOU FALLEN IN THE PAST 12 MONTHS? NO . ANY NEW EXTREMITY NUMBNESS OR WEAKNESS? NO . CARDIOLOGY: DO YOU HAVE A PACEMAKER OR DEFIBRILLATOR? NO . RESPIRATORY: HAVE YOU BEEN SICK IN THE PAST WEEK? NO . FEVER NO . FLU LIKE SYMPTOMS? NO . COUGH NO . INTEGUMENTARY: DO YOU HAVE ANY RASHES OR OPEN SORES? NO . ALLERGIC/IMMUNO: ARE YOU ALLERGIC TO IV DYE? NO . ANY NEW ALLERGIES? NO . PSYCHIATRIC: DO YOU HAVE THOUGHTS OF HURTING YOURSELF OR SOMEONE ELSE? NO . ARE YOU ABUSED, NEGLECTED, OR IN AN UNSAFE ENVIRONMENT? NO . ENDOCRINOLOGY: ARE YOU DIABETIC? NO . OTHER: DO YOU NEED ANY PRESCRIPTIONS? NO . IF YES, PLEASE LIST: ____ . ANY NEW PROBLEMS WITH YOUR MEDICATIONS? NO . WHEN DID YOU LAST EAT? ____ . WHEN DID YOU LAST DRINK? ____ . WHAT DID YOU LAST DRINK? ____ . NAME OF PERSON DRIVING YOU HOME? ____ . DO YOU HAVE ANY OTHER QUESTIONS OR CONCERNS NO STATES SHE IS THAT THE PAIN IN HER HIPS ARE INTERFERRING WITH HER WALKING . VITAL SIGNS WT 151.8 LBS, HT 61 IN, BMI 28.68 INDEX, BP 120/70 MM HG, HR 74 /MIN, RR 16 /MIN, TEMP 96.9 F, OXYGEN SAT % 94%, SAFE IN ENV? (Y/N) Y, NA INITIALS SC 09:36, REVIEWED BY: MARIBEL. EXAMINATION GENERAL EXAMINATION: GENERALAWAKE,ALERT ,PLEAASANT . PSYCHAFFECT NORMAL . LUNGS:LUNG HERNANDEZ ARE CLEAR TO AUSCULTATION BILATERALLY. GOOD MOVEMENT OF AIR . HEART:S1, S2 IN A REGULAR RATE AND RHYTHM. NO SIGNIFICANT MURMURS, RUBS OR GALLOPS NOTED . ASSESSMENTS LUMBAGO OF MULTIPLE SITES IN SPINE WITH SCIATICA - M54.40 (PRIMARY) TREATMENT LUMBAGO OF MULTIPLE SITES IN SPINE WITH SCIATICA CONTINUE GABAPENTIN CAPSULE, 100 MG, 2 TABS, ORALLY, AT BEDTIME, TAKES 400MG 3 X DAILY BESIDES CONTINUE TRAMADOL HCL TABLET, 50 MG, DIRECTED, ORALLY, Q6H PRN MDD4 CONTINUE TYLENOL EX ST ARTHRITIS PAIN TABLET, 500 MG, 1 TABLET NEEDED, ORALLY, EVERY 6 HRS NOTES: ISTOP REGISTRY REVIEWED AND DEMONSTRATES COMPLLIANCE. BRINGS IN MEDICATIONS WHICH IS APPROPRIATE FOR WHAT WAS DISPENSED. RECENT URINE TOXICOLOGY REVIEWED. NO UNAUTHORIZED MEDICATIONS. NO ILLICIT SUBSTANCES AND PRESCRIBED MEDICATIONS WERE PRESENT. , RISKS AND BENEFITS OF NARCOTIC/OPIOD MEDICATIONS WERE REVIEWED WITH PATIENT - THIS INCLUDES BUT IS NOT LIMITED TO RISK OF DEPENDANCE/DEVELOPMENT OF ADDICTION, MOOD DISTURBANCE AND DEPRESSION, OSTEOPOROSIS, HORMONAL AND LABIDAL CHANGES, RESPIRATORY DEPRESSION AND . PATIENT IS ADVISED NOT TO DRIVE OR DRINK ALCOHOL WHILE ON THESE MEDICATIONS. PROCEDURE CODES FA211 ESTABILISHED PATIENT [facility] CHARGE DISPOSITION & COMMUNICATION FOLLOW UP 3 MONTHS (REASON: MED MGMNT) ELECTRONICALLY SIGNED BY LEANDER SALEH ON 05/15/2019 AT 01:27 PM EDT DISCLAIMER : THIS IS A VISIT SUMMARY EXTRACTED FROM THE [employer] CHART. IT IS NOT A COPY OF THE [employer] PROGRESS NOTE. MTDD
== END ==
LOC: M PAIN 09:30
PROVIDERS: ATTEND Nurse Practitioner Family
DX: M54.40 Lumbago with sciatica, unspecified side (principal); G89.29 Other chronic pain; M81.0 Age-related osteoporosis without current pathological fracture; M19.90 Unspecified osteoarthritis, unspecified site; K21.9 Gastro-esophageal reflux disease without esophagitis; J44.9 Chronic obstructive pulmonary disease, unspecified; Z95.4 Presence of other heart-valve replacement; Z87.891 Personal history of nicotine dependence; Z79.01 Long term (current) use of anticoagulants; Z79.891 Long term (current) use of opiate analgesic; Z79.899 Other long term (current) drug therapy

== ENCOUNTER → 2019-05-11 | Outpatient (CLI) | payer MEDICARE ==
[2019-05-11 11:02] LABS: INR 3.03; PROTHROMBIN TIME 31.3 SECONDS (11.8-14.0)
== END ==
LOC: M LAB 10:20
PROVIDERS: ATTEND Nurse Practitioner Family
DX: Z79.01 Long term (current) use of anticoagulants (principal)

== ENCOUNTER → 2019-06-13 | Outpatient (CLI) | payer MEDICARE ==
[2019-06-13 12:20] LABS: PROTHROMBIN TIME 47.8 SECONDS (11.8-14.0)
[2019-06-13 13:50] LABS: INR 5.14
== END ==
LOC: M LAB 11:26
PROVIDERS: ATTEND Nurse Practitioner Family
DX: Z79.01 Long term (current) use of anticoagulants (principal); Z95.2 Presence of prosthetic heart valve

== ENCOUNTER → 2019-06-15 | Outpatient (CLI) | payer MEDICARE ==
[2019-06-15 14:08] LABS: INR 2.44; PROTHROMBIN TIME 26.3 SECONDS (11.8-14.0)
== END ==
LOC: M LAB 13:05
PROVIDERS: ATTEND Nurse Practitioner Family
DX: Z79.01 Long term (current) use of anticoagulants (principal)

== ENCOUNTER → 2019-07-12 | Outpatient (CLI) | payer MEDICARE ==
[~2019-07-12] MED LIST changes: +OMEP1CAP73 PO; -OMEP20CA4 PO; -SIMV20TA2; -SIMV20TA2 PO; +SIMV20TA22; +SIMV20TA22 PO
[2019-07-12 15:04] LABS: INR 1.93; PROTHROMBIN TIME 21.8 SECONDS (11.8-14.0)
== END ==
LOC: M LAB 14:15
PROVIDERS: ATTEND Nurse Practitioner Family
DX: Z51.81 Encounter for therapeutic drug level monitoring (principal); Z79.01 Long term (current) use of anticoagulants

== ENCOUNTER → 2019-07-26 | Outpatient (CLI) | payer MEDICARE ==
[~2019-07-26] MED LIST changes: -OMEP1CAP73 PO; +OMEP20CA4 PO; +SIMV20TA2; +SIMV20TA2 PO; -SIMV20TA22; -SIMV20TA22 PO
[2019-07-26 16:05] LABS: INR 3.02; PROTHROMBIN TIME 31.3 SECONDS (11.8-14.0)
== END ==
LOC: M LAB 14:26
PROVIDERS: ATTEND Nurse Practitioner Family
DX: Z95.2 Presence of prosthetic heart valve (principal)

== ENCOUNTER → 2019-07-28 | Outpatient (CLI) | payer MEDICARE ==
--- NOTE | 2019-07-28 21:34 | ECHO ---
DATE OF PROCEDURE: 07/28/2019 REFERRING PHYSICIAN: Karen Broussard NP INDICATION: Aortic valve replacement, shortness of breath. HEIGHT: 61 inches WEIGHT: 150 pounds DIMENSIONS IVS: 1.0 LV: 4.3 LVPW: 1.0 LA: 4.0 Aorta: 5.8 Ascending aorta: 4.4 Mitral E-wave velocity 70, A-wave: 115 FINDINGS The study is of very limited technical quality with extremely poor visualization. The patient is in sinus rhythm. Left ventricle is normal size and overall probably normal systolic function, but the visualization was limited and I cannot rule out even substantial wall motion abnormalities. Right ventricle was also poorly seen. Left atrium is enlarged. Right atrium was poorly visualized. There is probably bioprosthetic valve in aortic position but it was so poorly seen that I cannot comment on its structure. Same applies for mitral likely bioprosthesis. Tricuspid valve appears normal. Pulmonic valve also appears normal. No pericardial effusion is noted. Inferior vena cava is relatively small caliber. Aortic root is markedly dilated at 5.8 cm and ascending aorta is enlarged as well as 4.4 cm. Abdominal aorta appears normal. Doppler interrogation of aortic probably bioprosthesis reveals mean gradient 8 and peak gradient 15. No apparent insufficiency. Mitral valve appears functionally competent. I do not appreciate any evidence for stenosis or insufficiency based on very limited views. Tricuspid valve is functionally competent. Pulmonic valve is the same. Evaluation of diastolic function is inconclusive, based on mitral inflow pattern, most likely grade 1 diastolic dysfunction. CONCLUSION 1. Study is of markedly limited technical quality. 2. Normal LV size with overall likely normal systolic function, grade 1 diastolic dysfunction. 3. Poorly visualized bioprosthesis in aortic position, gradient is within normal range and no apparent insufficiency. 4. Poorly visualized bioprosthesis in mitral position without significant insufficiency. 5. Suggestive of normal central venous pressure. 6. Unable to estimate pulmonary artery pressure. 7. Very dilated aortic root at 5.8 cm and ascending aorta 4.4 cm. COMMENT SBE prophylaxis is recommended. If not previously known further evaluation for ascending aorta should be performed most likely CT scan. MTDD
== END ==
LOC: M CARPUL 12:19
PROVIDERS: ATTEND Nurse Practitioner Family
DX: R07.9 Chest pain, unspecified (principal); I34.0 Nonrheumatic mitral (valve) insufficiency

== ENCOUNTER → 2019-08-02 | Outpatient (CLI) | payer MEDICARE ==
[2019-08-02 15:20] LABS: HEMATOCRIT 41.4 % (36.0-47.0); HEMOGLOBIN 13.6 g/dl (12.0-15.5); MEAN CORPUSCULAR HEMOGLOBIN 32.1 pg (27.0-33.0); MEAN CORPUSCULAR HGB CONC 32.9 g/dl (32.0-36.5); MEAN CORPUSCULAR VOLUME 97.6 fl (80.0-96.0); PLATELET COUNT, AUTOMATED 218 10^3/uL (150-450); RED BLOOD COUNT 4.24 10^6/uL (4.00-5.40); WHITE BLOOD COUNT 5.4 10^3/uL (4.0-10.0)
[2019-08-02 15:43] LABS: ALBUMIN 3.6 GM/DL (3.2-5.2); ALT/SGPT 26 U/L (12-78); BILIRUBIN,TOTAL 0.7 MG/DL (0.2-1.0); BLOOD UREA NITROGEN 17 MG/DL (7-18); CALCIUM LEVEL 8.8 MG/DL (8.8-10.2); CARBON DIOXIDE LEVEL 30 MEQ/L (21-32); CHLORIDE LEVEL 109 MEQ/L (98-107); CHOLESTEROL LEVEL 152 MG/DL (<200); CHOLESTEROL RISK RATIO 2.202 (<5); CPK CREATINE PHOSPHOKINASE 87 U/L (26-192); CREATININE FOR GFR 0.91 MG/DL (0.55-1.30); GLOMERULAR FILTRATION RATE > 60.0 (>45); GLUCOSE, FASTING 76 MG/DL (70-100); HDL CHOLESTEROL 69 MG/DL (>40); LDL CHOLESTEROL 49 MG/DL (<100); NON-HDL-C 83 MG/DL; POTASSIUM SERUM 3.8 MEQ/L (3.5-5.1); SODIUM LEVEL 144 MEQ/L (136-145); TOTAL PROTEIN 6.8 GM/DL (6.4-8.2); TRIGLYCERIDES LEVEL 169 MG/DL (<150)
== END ==
LOC: M LAB 14:21
PROVIDERS: ATTEND Internal Medicine Cardiovascular Disease
DX: E78.5 Hyperlipidemia, unspecified (principal)

== ENCOUNTER → 2019-08-08 | Outpatient (CLI) | payer MEDICARE | LOC: M PAIN 10:00 | PROVIDERS: ATTEND Nurse Practitioner Family | DX: M54.40 Lumbago with sciatica, unspecified side (principal); G89.29 Other chronic pain; M81.0 Age-related osteoporosis without current pathological fracture; M19.90 Unspecified osteoarthritis, unspecified site; K21.9 Gastro-esophageal reflux disease without esophagitis; J44.9 Chronic obstructive pulmonary disease, unspecified; Z87.891 Personal history of nicotine dependence; Z79.01 Long term (current) use of anticoagulants; Z79.891 Long term (current) use of opiate analgesic; Z79.899 Other long term (current) drug therapy ==

== ENCOUNTER → 2019-08-15 | Outpatient (CLI) | payer MEDICARE ==
[2019-08-15 15:03] LABS: INR 4.97; PROTHROMBIN TIME 46.5 SECONDS (11.8-14.0)
== END ==
LOC: M LAB 13:44
PROVIDERS: ATTEND Nurse Practitioner Family
DX: Z51.81 Encounter for therapeutic drug level monitoring (principal); Z79.01 Long term (current) use of anticoagulants

== ENCOUNTER → 2019-08-18 | Outpatient (CLI) | payer MEDICARE ==
[2019-08-18 10:44] LABS: INR 2.23; PROTHROMBIN TIME 24.5 SECONDS (11.8-14.0)
== END ==
LOC: M LAB 09:54
PROVIDERS: ATTEND Nurse Practitioner Family
DX: Z51.81 Encounter for therapeutic drug level monitoring (principal); Z79.01 Long term (current) use of anticoagulants

== ENCOUNTER → 2019-08-25 | Outpatient (CLI) | payer MEDICARE ==
[2019-08-25 10:43] LABS: INR 1.88; PROTHROMBIN TIME 21.4 SECONDS (11.8-14.0)
== END ==
LOC: M LAB 09:54
PROVIDERS: ATTEND Nurse Practitioner Family
DX: Z79.01 Long term (current) use of anticoagulants (principal)

== ENCOUNTER → 2019-08-28 | Outpatient (CLI) | payer MEDICARE ==
--- NOTE | 2019-08-28 09:20 | REP ---
BILATERAL SCREENING DIGITAL MAMMOGRAM WITH 3D TOMOSYNTHESIS: There are no palpable abnormalities or other breast complaints. The the patient states she had a clinical breast examination 08/2019. The the patient states she performs self-breast examinations zero times per year. The Tyrer Cuzick Score is: 4.9% . Comparison is 11/09/2012. The breasts are heterogeneously dense, which could obscure small masses. There is no dominant mass, micro calcific cluster or architectural distortion that would indicate malignancy. There are multiple benign calcifications, as previously. There are no additional findings on 3D tomosynthesiss. There is no change from the prior study. Impression: BIRADS/ACR category 2 mammogram. Benign findings. Recommendation: Routine annual screening mammography. Because of the increased breast density, annual adjunctive breast MRI in addition to screening mammography is recommended. These can be performed at alternating six month intervals. This mammogram was interpreted with the aid of a FDA approved computer-aided detection system. A. Negative mammogram reports should not delay biopsy if a dominant or clinically suspicious mass is present. B. Not all breast cancers are identified by mammography or tomosynthesis. C. Adenosis and dense breasts may obscure an underlying neoplasm. Patient letter M1 dense breasts. Electronically Signed by Nain Cohen MD 08/28/2019 09:11 A
== END ==
LOC: M WHC 07:59
PROVIDERS: ATTEND Nurse Practitioner Family
DX: Z12.31 Encounter for screening mammogram for malignant neoplasm of breast (principal); R92.1 Mammographic calcification found on diagnostic imaging of breast
CPT/HCPCS: 77063; 77067; G0463

== ENCOUNTER → 2019-09-04 | Outpatient (CLI) | payer MEDICARE ==
--- NOTE | 2019-09-04 13:30 | REP ---
Single view left hip: 09/04/2019. Indication: Left hip pain. Comparison: New 06/19/2014. New. Findings: There is no fracture, subluxation or dislocation. Joint space narrowing is present. Femoral artery atherosclerotic disease is noted. No additional significant soft tissue abnormalities are detected. Impression: There is no evidence of acute fracture. Electronically Signed by Chong Rod DO 09/04/2019 01:22 P
== END ==
LOC: M WUC 12:15
PROVIDERS: ATTEND Nurse Practitioner Family
DX: M25.552 Pain in left hip (principal)

== ENCOUNTER → 2019-09-20 | Outpatient (CLI) | payer MEDICARE ==
[~2019-09-20] MED LIST changes: -SIMV20TA2; -SIMV20TA2 PO; +SIMV20TA22; +SIMV20TA22 PO
[2019-09-20 10:21] LABS: INR 3.33; PROTHROMBIN TIME 33.7 SECONDS (11.8-14.0)
== END ==
LOC: M LAB 09:38
PROVIDERS: ATTEND Nurse Practitioner Family
DX: Z79.01 Long term (current) use of anticoagulants (principal)

== ENCOUNTER → 2019-11-02 | Outpatient (CLI) | payer MEDICARE ==
[~2019-11-02] MED LIST changes: +OMEP-172 PO; -OMEP20CA4 PO
--- NOTE | 2019-11-02 12:07 | REP ---
INDICATION: Spondylolisthesis. PROCEDURE: MRI lumbar spine without contrast COMPARISON STUDIES: No prior similar studies FINDINGS: There is evidence of compression deformity at the inferior endplate of L1 and superior endplate of L2 with perhaps 25% loss of height of L2. The conus ends normally at the L1-2 disc level. There is no evidence of cord impingement or cord compression although there is mild retropulsion of the disc at the levels of the compression fracture. On the sagittal T2-weighted images, alignment is otherwise within normal limits. There is no significant canal stenosis. On review of axial images, At L1-2 disc bulge with cmli-am-gbwxtnqo canal narrowing and qxgk-gw-plcqyjhw bilateral foraminal narrowing At L2-3 no significant canal or foraminal narrowing At L3-4 disc bulge centered to the left narrows the left neural foramen, there is moderate foraminal narrowing. At L4-5 there is a slight anterolisthesis of L4 over L5 with ryqr-rq-yuzeqmcf canal narrowing and rdbp-on-mqymsrva bilateral foraminal narrowing At L5-S1 loss of disc height results in mild canal narrowing and moderate bilateral foraminal narrowing. There is also chronic compression deformity of T12 and inferior endplate depressions at T11 and T10 levels. IMPRESSION: 1. Chronic compression deformities as described without limiting canal stenosis. 2. Signal characteristics suggest that the inferior endplate depression and L1 may be recent. 3. Multilevel foraminal narrowing as described, appears more significant at L3-4 and L5 S1 levels on the left. Electronically Signed by Hira Pollock MD 11/02/2019 11:59 A
== END ==
LOC: M PLARAD 08:59
PROVIDERS: ATTEND Physician Assistant Surgical
DX: M43.16 Spondylolisthesis, lumbar region (principal); M51.26 Other intervertebral disc displacement, lumbar region

== ENCOUNTER → 2019-11-08 | Outpatient (CLI) | payer MEDICARE ==
[~2019-11-08] MED LIST changes: -OMEP-172 PO; +OMEP1CAP73 PO
--- NOTE | 2019-11-25 08:53 | ECWPNPC ---
PATIENT NAME: SANDRO LOVE : 1950 GENDER: FEMALE VISIT DATE: 11/08/2019 DISCHARGE DATE: 11/08/19 1110 VISIT LOCKED DATE TIME: PHYSICIAN: CARLOS GARZA RESOURCE: CARLOS GARZA REASON FOR APPOINTMENT 1. MED MGMNT HISTORY OF PRESENT ILLNESS HISTORY OF PRESENT ILLNESS: HERE FOR F/U OF CHRONIC GENERALIZED PAIN.RATING PAIN VAS 8/10.TRAMADOL IS MINIMALLY EFFECTIVE.STATES FELL IN AUGUST AND LEFT HIP PAIN IS WORSE LATELY.USING TRAMADOL 50MG QID.ON GABAPENTIN 400MG TID PLUS 200MG AT BEDTIME FOR RLS PRESCRIBED BY PRIMARY CARE. PAIN THE PATIENT DESCRIBES THE PAIN... FALL RISK SCREENING: SCREENING :NO FALLS REPORTED IN THE LAST YEAR CURRENT MEDICATIONS TAKING NEURONTIN 400MG CAPSULE 1 CAP ORALLY THREE X DAILY TAKING WARFARIN SODIUM 2.5 MG TABLET 1 TAB ORALLY 2 TABS ON AND WED, 1 TAB REMAINING DAYS TAKING WELLBUTRIN SR 200 MG TABLET EXTENDED RELEASE 12 HOUR 1 TABLET ORALLY TWICE A DAY TAKING SIMVASTATIN 20 MG TABLET 1 TABLET IN THE EVENING ORALLY ONCE A DAY TAKING VITAMIN D 34734 U CAPSULE 1 CAPSULE ORALLY ONCE A MONTH TAKING METOCLOPRAMIDE HCL 10 MG TABLET ORALLY FOUR TIMES DAILY TAKING SYMBICORT 160-4.5 MCG/ACT AEROSOL 2 PUFFS INHALATION DAILY TAKING OMEPRAZOLE 20 MG CAPSULE DELAYED RELEASE 1 CAPSULE ORALLY ONCE A DAY TAKING GABAPENTIN 100 MG CAPSULE 2 TABS ORALLY AT BEDTIME, TAKES 400MG 3 X DAILY BESIDES TAKING TYLENOL EX ST ARTHRITIS PAIN 500 MG TABLET 1 TABLET NEEDED ORALLY EVERY 6 HRS TAKING TRAMADOL HCL 50 MG TABLET DIRECTED ORALLY Q6H PRN MDD4 NOT-TAKING COLACE 100 MG CAPSULE 1 CAPSULE NEEDED ORALLY BID NOT-TAKING ACETAMINOPHEN-CODEINE 300-30 MG TABLET 1 TABLET NEEDED ORALLY Q8H PRN MDD3 #45TAB SHOULD LAST 30 DAYS NOT-TAKING TYLENOL WITH CODEINE #3 300-30 MG TABLET 1 TABLET NEEDED Q 8 HOURS PRN MDD3 ORALLY DIRECTED NOT-TAKING DULERA 200-5 MCG/ACT AEROSOL 2 PUFFS INHALATION TWICE A DAY NOT-TAKING BUTRANS 10 MCG/HR PATCH WEEKLY 1 PATCH TO SKIN TRANSDERMAL 1 PATCH Q7 DAYS=MDD MEDICATION LIST REVIEWED AND RECONCILED WITH THE PATIENT PAST MEDICAL HISTORY OSTEOPOROSIS (NO TREATMENT)BMD YEARS AGO DDD/DD CATARACTS FX LEFT KNEE 09/2015 ARTHRITIS ACID REFLUX CHRONIC PAIN COPD LUMBAGP MULTIPLE SITES WITH SCIATICA ALLERGIES N.K.D.A. SURGICAL HISTORY HYSTERECTOMY / BSO--HEAVY BLEEDING 1977 WRIST SURGERY FELICIA. AORTA AND MITRAL VALVE REPLACED 1969 AND 1994 REPAIR OF FX. LEFT WRIST, PLATE AND SCREWS 06/07 COLONOSCOPY X 1 REFUSES ANYMORE HOSPITALIZATION/MAJOR DIAGNOSTIC PROCEDURE FRACTURED LEFT SHOULDER 2018 SURGERIES REVIEW OF SYSTEMS REVIEWED BY: PROVIDER: CARLOS TABOR . CONSTITUTIONAL: ANY CHANGE IN YOUR MEDICAL CONDITION? NO . CHILLS NO . FEVER NO . INFECTION: DO YOU HAVE NEW INFECTIONS? NO . DO YOU HAVE HISTORY OF MRSA? NO . MUSCULOSKELETAL: ANY NEW PATTERNS OF PAIN OR NUMBNESS? YES PAIN "ITS A CONSTANT ACHE" IN BACK AND HURTS TO TAKE A STEP . GASTROENTEROLOGY: ANY NEW CHANGE IN BOWEL CONTROL? NO . GENITOURINARY: ANY NEW CHANGE IN BLADDER CONTROL? NO . IS THERE A CHANCE YOU COULD BE ? NO . HEMATOLOGY/LYMPH: DO YOU TAKE ANY BLOOD THINNERS? (FOR EXAMPLE- COUMADIN, PLAVIX, AGGRENOX, PLATEL, PRADAXA, OR XARELTO) NO . WHEN WAS YOUR LAST DOSE? DATE: TIME:11-07-19 8 PM . NEUROLOGY: HAVE YOU FALLEN IN THE PAST 12 MONTHS? YES FELL AUGUST 31 2019 AND IS SEEING ORTHOPEDICS . ANY NEW EXTREMITY NUMBNESS OR WEAKNESS? NO . CARDIOLOGY: DO YOU HAVE A PACEMAKER OR DEFIBRILLATOR? NO . RESPIRATORY: HAVE YOU BEEN SICK IN THE PAST WEEK? NO . FEVER NO . FLU LIKE SYMPTOMS? NO . COUGH NO . INTEGUMENTARY: DO YOU HAVE ANY RASHES OR OPEN SORES? NO . ALLERGIC/IMMUNO: ARE YOU ALLERGIC TO IV DYE? NO . ANY NEW ALLERGIES? NO . PSYCHIATRIC: DO YOU HAVE THOUGHTS OF HURTING YOURSELF OR SOMEONE ELSE? NO . ARE YOU ABUSED, NEGLECTED, OR IN AN UNSAFE ENVIRONMENT? NO . ENDOCRINOLOGY: ARE YOU DIABETIC? NO . OTHER: DO YOU NEED ANY PRESCRIPTIONS? NO . IF YES, PLEASE LIST: ____ . ANY NEW PROBLEMS WITH YOUR MEDICATIONS? NO . WHEN DID YOU LAST EAT? ____ . WHEN DID YOU LAST DRINK? ____ . WHAT DID YOU LAST DRINK? ____ . NAME OF PERSON DRIVING YOU HOME? ____ . DO YOU HAVE ANY OTHER QUESTIONS OR CONCERNS NO . VITAL SIGNS WT 150 LBS, HT 61 IN, BMI 28.34 INDEX, BP 135/77 MM HG, HR 83 /MIN, RR 18 /MIN, TEMP 98.2 F, REVIEWED BY: KG. EXAMINATION GENERAL EXAMINATION: GENERALAWAKE,ALERT ,PLEAASANT . PSYCHAFFECT NORMAL . LUNGS:LUNG HERNANDEZ ARE CLEAR TO AUSCULTATION BILATERALLY. GOOD MOVEMENT OF AIR . HEART:S1, S2 IN A REGULAR RATE AND RHYTHM. NO SIGNIFICANT MURMURS, RUBS OR GALLOPS NOTED . ASSESSMENTS LUMBAGO OF MULTIPLE SITES IN SPINE WITH SCIATICA - M54.40 (PRIMARY) TREATMENT LUMBAGO OF MULTIPLE SITES IN SPINE WITH SCIATICA STOP TRAMADOL HCL TABLET, 50 MG, DIRECTED, ORALLY, Q6H PRN MDD4 REFILL COLACE CAPSULE, 100 MG, 1 CAPSULE NEEDED, ORALLY, BID, 30 DAY(S), 60 CAPSULE, REFILLS 5 START NORCO TABLET, 5-325 MG, 1 TABLET NEEDED, ORALLY, EVERY 6 HRS FOR SEVERE PAIN EPISODES MDD4 #100 TAB SHOULD LAST 30 DAYS, 30 DAYS, 100, REFILLS 0 NOTES: ISTOP REGISTRY REVIEWED AND DEMONSTRATES COMPLLIANCE. BRINGS IN MEDICATIONS WHICH IS APPROPRIATE FOR WHAT WAS DISPENSED. RECENT URINE TOXICOLOGY REVIEWED. NO UNAUTHORIZED MEDICATIONS. NO ILLICIT SUBSTANCES AND PRESCRIBED MEDICATIONS WERE PRESENT. , RISKS OF NARCOTIC/OPIOD MEDICATIONS INCLUDES BUT IS NOT LIMITED TO RISK OF DEPENDANCE/DEVELOPMENT OF ADDICTION, MOOD DISTURBANCE AND DEPRESSION, OSTEOPOROSIS, HORMONAL AND LABIDAL CHANGES, RESPIRATORY DEPRESSION AND . PATIENT IS ADVISED NOT TO DRIVE OR DRINK ALCOHOL WHILE ON THESE MEDICATIONS. PREVENTIVE MEDICINE PAIN CLINIC TEACHING: MEDICATIONS HYDROCODONE AND COLACE PRINTED INFORMATION GIVEN. PROCEDURE CODES FA211 ESTABILISHED PATIENT [facility] CHARGE DISPOSITION & COMMUNICATION FOLLOW UP 4-6 WEEKS (REASON: MED MANAGEMENT) ELECTRONICALLY SIGNED BY LEANDER SALEH ON 11/24/2019 AT 09:45 AM EST DISCLAIMER : THIS IS A VISIT SUMMARY EXTRACTED FROM THE [employer] CHART. IT IS NOT A COPY OF THE [employer] PROGRESS NOTE. MARVIN
== END ==
LOC: M PAIN 10:00
PROVIDERS: ATTEND Nurse Practitioner Family
DX: M54.40 Lumbago with sciatica, unspecified side (principal); Z79.891 Long term (current) use of opiate analgesic; Z79.899 Other long term (current) drug therapy
CPT/HCPCS: 36415; 85610; G0463

== ENCOUNTER → 2019-11-08 | Outpatient (CLI) | payer MEDICARE ==
[2019-11-08 12:50] LABS: INR 2.87
== END ==
LOC: M LAB 11:20
PROVIDERS: ATTEND Nurse Practitioner Family
DX: Z51.81 Encounter for therapeutic drug level monitoring (principal); Z79.01 Long term (current) use of anticoagulants; Z95.2 Presence of prosthetic heart valve

== ENCOUNTER → 2019-12-06 | Outpatient (CLI) | payer MEDICARE ==
[2019-12-06 13:19] LABS: INR 2.76; PROTHROMBIN TIME 29.1 SECONDS (11.8-14.0)
== END ==
LOC: M LAB 12:19
PROVIDERS: ATTEND Nurse Practitioner Family
DX: Z51.81 Encounter for therapeutic drug level monitoring (principal); Z79.01 Long term (current) use of anticoagulants

== ENCOUNTER → 2019-12-06 | Outpatient (CLI) | payer MEDICARE ==
--- NOTE | 2019-12-22 05:12 | ECWPNPC ---
PATIENT NAME: SANDRO LOVE : 1950 GENDER: FEMALE VISIT DATE: 12/06/2019 DISCHARGE DATE: 12/06/19 1151 VISIT LOCKED DATE TIME: PHYSICIAN: CARLOS GARZA RESOURCE: CARLOS GARZA REASON FOR APPOINTMENT 1. 4-6 WEEKS HISTORY OF PRESENT ILLNESS HISTORY OF PRESENT ILLNESS: HERE FOR FOLLOW-UP AND MEDICINE MANAGEMENT OF CHRONIC LOW BACK PAIN. AT HER LAST VISIT, WE STOPPED TRAMADOL AND STARTED HYDROCODONE 5/325 WITH INSTRUCTIONS TO TAKE IT SPARINGLY FOR SEVERE PAIN EPISODES. STATES THAT THIS IS VERY HELPFUL. SHE BROUGHT IN TRAMADOL FOR FORMAL WASTING. BRINGS IN HYDROCODONE, WHICH DEMONSTRATES THAT SHE IS USING THIS SPARINGLY WITH 100 TABLETS TO LAST 30 DAYS. RATING PAIN LEVEL 7/10 VAS. REPORTING BETTER SLEEP DUE TO IMPROVED PAIN CONTROL. PAIN THE PATIENT DESCRIBES THE PAIN... FALL RISK SCREENING: SCREENING :NO FALLS REPORTED IN THE LAST YEAR CURRENT MEDICATIONS TAKING NEURONTIN 400MG CAPSULE 1 CAP ORALLY THREE X DAILY TAKING WARFARIN SODIUM 2.5 MG TABLET 1 TAB ORALLY 2 TABS ON AND WED, 1 TAB REMAINING DAYS TAKING WELLBUTRIN SR 200 MG TABLET EXTENDED RELEASE 12 HOUR 1 TABLET ORALLY TWICE A DAY TAKING SIMVASTATIN 20 MG TABLET 1 TABLET IN THE EVENING ORALLY ONCE A DAY TAKING VITAMIN D 67732 U CAPSULE 1 CAPSULE ORALLY ONCE A MONTH TAKING METOCLOPRAMIDE HCL 10 MG TABLET ORALLY FOUR TIMES DAILY TAKING SYMBICORT 160-4.5 MCG/ACT AEROSOL 2 PUFFS INHALATION DAILY TAKING OMEPRAZOLE 20 MG CAPSULE DELAYED RELEASE 1 CAPSULE ORALLY ONCE A DAY TAKING GABAPENTIN 100 MG CAPSULE 2 TABS ORALLY AT BEDTIME, TAKES 400MG 3 X DAILY BESIDES TAKING TYLENOL EX ST ARTHRITIS PAIN 500 MG TABLET 1 TABLET NEEDED ORALLY EVERY 6 HRS TAKING COLACE 100 MG CAPSULE 1 CAPSULE NEEDED ORALLY BID TAKING NORCO 5-325 MG TABLET 1 TABLET NEEDED ORALLY EVERY 6 HRS FOR SEVERE PAIN EPISODES MDD4 #100 TAB SHOULD LAST 30 DAYS NOT-TAKING ACETAMINOPHEN-CODEINE 300-30 MG TABLET 1 TABLET NEEDED ORALLY Q8H PRN MDD3 #45TAB SHOULD LAST 30 DAYS NOT-TAKING TYLENOL WITH CODEINE #3 300-30 MG TABLET 1 TABLET NEEDED Q 8 HOURS PRN MDD3 ORALLY DIRECTED NOT-TAKING DULERA 200-5 MCG/ACT AEROSOL 2 PUFFS INHALATION TWICE A DAY NOT-TAKING BUTRANS 10 MCG/HR PATCH WEEKLY 1 PATCH TO SKIN TRANSDERMAL 1 PATCH Q7 DAYS=MDD MEDICATION LIST REVIEWED AND RECONCILED WITH THE PATIENT PAST MEDICAL HISTORY OSTEOPOROSIS (NO TREATMENT)BMD YEARS AGO DDD/DD CATARACTS FX LEFT KNEE 09/2015 ARTHRITIS ACID REFLUX CHRONIC PAIN COPD LUMBAGP MULTIPLE SITES WITH SCIATICA ALLERGIES N.K.D.A. SURGICAL HISTORY HYSTERECTOMY / BSO--HEAVY BLEEDING 1977 WRIST SURGERY FELICIA. AORTA AND MITRAL VALVE REPLACED 1969 AND 1994 REPAIR OF FX. LEFT WRIST, PLATE AND SCREWS 06/07 COLONOSCOPY X 1 REFUSES ANYMORE FAMILY HISTORY FATHER: 72 YRS, [place], DIAGNOSED WITH DIABETES, UNSPECIFIED HEART DISEASE, OTHER SPECIFIED CONDITIONS INFLUENCING HEALTH STATUS MOTHER: 62 YRS, CANCER, BREAST WITH METS, OTHER MALIGNANT NEOPLASM OF UNSPECIFIED SITE SIBLINGS: ALIVE, SISTER SHERRY LUNG AND BLADDER CANCER SISTER DELORES LUNG CANCER [place], UNSPECIFIED HEART DISEASE, OTHER MALIGNANT NEOPLASM OF UNSPECIFIED SITE 2 SON(S) - HEALTHY. NO OVARY OR COLON CANCER NEPHEW BRAIN CANCER AT AGE 34\NMOTHER HAD BREAST CANCER. SOCIAL HISTORY GENERAL: TOBACCO USE ARE YOU A:FORMER SMOKER HOW LONG HAS IT BEEN SINCE YOU LAST SMOKED?1-5 YEARS HIV / HEP-C SCREENING HIV TEST OFFERED TO PATIENT:NO HEP-C TEST OFFERED TO PATIENT:NO OTHERS AT HOME: ROOM-MATE, MALE. EDUCATION LEVEL OF EDUCATION:FINISHED HIGH SCHOOL DIET: REGULAR. LANGUAGE LANGUAGES SPOKEN:SAMI DOMESTIC VIOLENCE DO YOU FEEL SAFE IN YOUR ENVIRONMENT?YES BMI CARE GOAL FOLLOW-UP ABOVE NORMAL BMI FOLLOW-UPGIVING ENCOURAGEMENT TO EXERCISE RECREATIONAL DRUG USE DRUG USE?NO EXERCISE: NO REGULAR EXERCISE. LEARNING BARRIERS / SPECIAL NEEDS CHANGE FROM LAST VISIT?NO BARRIERS TO LEARNING?NO HEARING IMPAIRED?NO VISION IMPAIRED?YES COGNITIVELY IMPAIRED?NO :CORRECTIVE LENSES READINESS TO LEARN?YES LEARNING PREFERENCES?NO LEARNING CAPABILITIES PRESENT?YES EMOTIONAL BARRIERS?NO SPECIAL DEVICES?NO BENCH JEWELER NEEDED?NO PAIN CLINIC PFS, CLERGY, PUBLIC HEALTH REFERRALS HAS THE PATIENT BEEN EDUCATED REGARDING HIS/HER PLAN OF CARE?YES HAS THE PATIENT BEEN EDUCATED REGARDING PAIN, THE RISK FOR PAIN, THE IMPORTANCE OF EFFECTIVE PAIN MANAGEMENT, AND THE PAIN ASSESSMENT PROCESS?YES LATEX QUESTIONNAIRE LATEX ALLERGY : HAVE YOU EVER DEVELOPED ANY TYPE OF REACTION AFTER HANDLING LATEX PRODUCTS SUCH RUBBER GLOVES, CONDOMS, DIAPHRAGMS, BALLOONS, SOCKS, OR UNDERWEAR?NO LATEX ALLERGY : HAVE YOU EVER DEVELOPED ANY TYPE OF REACTION DURING OR AFTER DENTAL APPOINTMENT, VAGINAL/RECTAL EXAMINATION, SURGICAL PROCEDURE, OR ANY OTHER EXPOSURE?NO LATEX RISK : HAVE YOU EVER HAD ANY DIFFICULTY BREATHING OR HIVES AFTER EATING OR HANDLING ANY FRUITS, OR VEGETABLES; SUCH KIWI, BANANAS, STONE FRUITS, OR CHESTNUTSNO LATEX RISK : DO YOU HAVE A PREVIOUS PERSONAL HISTORY OF MORE THAN NINE SURGERIES, SPINA BIFIDA, OR REPEATED CATHERIZATIONS? NO LATEX RISK : ARE YOU FREQUENTLY EXPOSED TO LATEX PRODUCTS IN YOUR OCCUPATION?NO DATE ASKED : 08/28/2019 CAFFEINE >5/DAY. ADVANCE DIRECTIVE ADVANCE DIRECTIVE DISCUSSED WITH PATIENT:YES 12/06/2019 PT DOES NOT HAVE ANY ADVANCED DIRECTIVES AND SHE DECLINES INFORMATION ON HCP AT THIS TIME. JS CONFUCIANIST [id number] CONGREGATIONAL MARITAL STATUS: . 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 REVIEWED WITH PT 02/03/19 1335 BVREVIEWED WITH PATIENT 12/06/2019 1128 JS. HOSPITALIZATION/MAJOR DIAGNOSTIC PROCEDURE FRACTURED LEFT SHOULDER 2018 SURGERIES REVIEW OF SYSTEMS REVIEWED BY: PROVIDER: CARLOS TABOR . CONSTITUTIONAL: ANY CHANGE IN YOUR MEDICAL CONDITION? NO . CHILLS NO . FEVER NO . INFECTION: DO YOU HAVE NEW INFECTIONS? NO . DO YOU HAVE HISTORY OF MRSA? NO . MUSCULOSKELETAL: ANY NEW PATTERNS OF PAIN OR NUMBNESS? NO . GASTROENTEROLOGY: ANY NEW CHANGE IN BOWEL CONTROL? NO . GENITOURINARY: ANY NEW CHANGE IN BLADDER CONTROL? NO . IS THERE A CHANCE YOU COULD BE ? NO . HEMATOLOGY/LYMPH: DO YOU TAKE ANY BLOOD THINNERS? (FOR EXAMPLE- COUMADIN, PLAVIX, AGGRENOX, PLATEL, PRADAXA, OR XARELTO) YES, COUMADIN . WHEN WAS YOUR LAST DOSE? DATE: 12/05/19TIME: 1999 . NEUROLOGY: HAVE YOU FALLEN IN THE PAST 12 MONTHS? YES, STATES FALL PRIOR TO LAST VISIT, DISCUSSED AT PREVIOUS VISIT . ANY NEW EXTREMITY NUMBNESS OR WEAKNESS? NO . CARDIOLOGY: DO YOU HAVE A PACEMAKER OR DEFIBRILLATOR? NO . RESPIRATORY: HAVE YOU BEEN SICK IN THE PAST WEEK? NO . FEVER NO . FLU LIKE SYMPTOMS? NO . COUGH NO . INTEGUMENTARY: DO YOU HAVE ANY RASHES OR OPEN SORES? NO . ALLERGIC/IMMUNO: ARE YOU ALLERGIC TO IV DYE? NO . ANY NEW ALLERGIES? NO . PSYCHIATRIC: DO YOU HAVE THOUGHTS OF HURTING YOURSELF OR SOMEONE ELSE? NO . ARE YOU ABUSED, NEGLECTED, OR IN AN UNSAFE ENVIRONMENT? NO . ENDOCRINOLOGY: ARE YOU DIABETIC? NO . OTHER: DO YOU NEED ANY PRESCRIPTIONS? YES . IF YES, PLEASE LIST: ____HYDROCODONE . ANY NEW PROBLEMS WITH YOUR MEDICATIONS? NO . WHEN DID YOU LAST EAT? ____ . WHEN DID YOU LAST DRINK? ____ . WHAT DID YOU LAST DRINK? ____ . NAME OF PERSON DRIVING YOU HOME? ____ . DO YOU HAVE ANY OTHER QUESTIONS OR CONCERNS NO . VITAL SIGNS WT 153.8 LBS, HT 61 IN, BMI 29.06 INDEX, BP 128/72 MM HG, HR 74 /MIN, RR 18 /MIN, TEMP 97.5 F, OXYGEN SAT % 97%, SAFE IN ENV? (Y/N) YES, REVIEWED BY: OMAR. EXAMINATION GENERAL EXAMINATION: GENERALAWAKE,ALERT ,PLEAASANT . PSYCHAFFECT NORMAL . LUNGS:LUNG HERNANDEZ ARE CLEAR TO AUSCULTATION BILATERALLY. GOOD MOVEMENT OF AIR . HEART:S1, S2 IN A REGULAR RATE AND RHYTHM. NO SIGNIFICANT MURMURS, RUBS OR GALLOPS NOTED . ASSESSMENTS LUMBAGO OF MULTIPLE SITES IN SPINE WITH SCIATICA - M54.40 (PRIMARY) TREATMENT LUMBAGO OF MULTIPLE SITES IN SPINE WITH SCIATICA REFILL NORCO TABLET, 5-325 MG, 1 TABLET NEEDED, ORALLY, EVERY 6 HRS FOR SEVERE PAIN EPISODES MDD4 #100 TAB SHOULD LAST 30 DAYS, 30 DAYS, 100, REFILLS 0 CONTINUE COLACE CAPSULE, 100 MG, 1 CAPSULE NEEDED, ORALLY, BID NOTES: ISTOP REGISTRY REVIEWED AND DEMONSTRATES COMPLLIANCE. BRINGS IN MEDICATIONS WHICH IS APPROPRIATE FOR WHAT WAS DISPENSED. RECENT URINE TOXICOLOGY REVIEWED. NO UNAUTHORIZED MEDICATIONS. NO ILLICIT SUBSTANCES AND PRESCRIBED MEDICATIONS WERE PRESENT. , RISKS OF NARCOTIC/OPIOD MEDICATIONS INCLUDES BUT IS NOT LIMITED TO RISK OF DEPENDANCE/DEVELOPMENT OF ADDICTION, MOOD DISTURBANCE AND DEPRESSION, OSTEOPOROSIS, HORMONAL AND LABIDAL CHANGES, RESPIRATORY DEPRESSION AND . PATIENT IS ADVISED NOT TO DRIVE OR DRINK ALCOHOL WHILE ON THESE MEDICATIONS. PROCEDURE CODES FA211 ESTABILISHED PATIENT [facility] CHARGE DISPOSITION & COMMUNICATION FOLLOW UP 3 MONTHS (REASON: MED MGMNT) ELECTRONICALLY SIGNED BY LEANDER SALEH ON 12/21/2019 AT 12:42 PM EST DISCLAIMER : THIS IS A VISIT SUMMARY EXTRACTED FROM THE [employer] CHART. IT IS NOT A COPY OF THE [employer] PROGRESS NOTE. MELISSAD
== END ==
LOC: M PAIN 10:45
PROVIDERS: ATTEND Nurse Practitioner Family
DX: M54.40 Lumbago with sciatica, unspecified side (principal); M81.0 Age-related osteoporosis without current pathological fracture; K21.9 Gastro-esophageal reflux disease without esophagitis; G89.29 Other chronic pain; J44.9 Chronic obstructive pulmonary disease, unspecified; Z87.891 Personal history of nicotine dependence; Z79.01 Long term (current) use of anticoagulants; Z79.891 Long term (current) use of opiate analgesic; Z79.899 Other long term (current) drug therapy

== ENCOUNTER → 2019-12-20 | Outpatient (CLI) | payer MEDICARE ==
[2019-12-20 15:22] LABS: HEMATOCRIT 42.1 % (36.0-47.0); HEMOGLOBIN 13.4 g/dl (12.0-15.5); MEAN CORPUSCULAR HGB CONC 31.8 g/dl (32.0-36.5); MEAN CORPUSCULAR VOLUME 94.4 fl (80.0-96.0); PLATELET COUNT, AUTOMATED 215 10^3/uL (150-450); RED BLOOD COUNT 4.46 10^6/uL (4.00-5.40); WHITE BLOOD COUNT 6.5 10^3/uL (4.0-10.0)
[2019-12-20 15:51] LABS: ALBUMIN 4.1 GM/DL (3.2-5.2); ALT/SGPT 38 U/L (12-78); BILIRUBIN,TOTAL 1.3 MG/DL (0.2-1.0); BLOOD UREA NITROGEN 13 MG/DL (7-18); CALCIUM LEVEL 8.9 MG/DL (8.8-10.2); CARBON DIOXIDE LEVEL 28 MEQ/L (21-32); CHLORIDE LEVEL 108 MEQ/L (98-107); CHOLESTEROL LEVEL 183 MG/DL (<200); CHOLESTEROL RISK RATIO 2.407 (<5); CPK CREATINE PHOSPHOKINASE 93 U/L (26-192); CREATININE FOR GFR 0.82 MG/DL (0.55-1.30); GLOMERULAR FILTRATION RATE > 60.0 (>45); GLUCOSE, FASTING 81 MG/DL (70-100); HDL CHOLESTEROL 76 MG/DL (>40); LDL CHOLESTEROL 79 MG/DL (<100); NON-HDL-C 107 MG/DL; POTASSIUM SERUM 3.8 MEQ/L (3.5-5.1); SODIUM LEVEL 142 MEQ/L (136-145); TOTAL PROTEIN 7.1 GM/DL (6.4-8.2); TRIGLYCERIDES LEVEL 142 MG/DL (<150)
[2019-12-20 15:59] LABS: TOTAL 25(OH) VITAMIN D 32.5 NG/ML (30.0-100.0)
== END ==
LOC: M LAB 14:22
PROVIDERS: ATTEND Nurse Practitioner Family
DX: I10 Essential (primary) hypertension (principal); E78.5 Hyperlipidemia, unspecified; E55.9 Vitamin D deficiency, unspecified

== ENCOUNTER → 2020-01-09 | Outpatient (CLI) | payer MEDICARE ==
[2020-01-09 14:24] LABS: INR 3.26; PROTHROMBIN TIME 33.2 SECONDS (11.8-14.0)
== END ==
LOC: M LAB 13:23
PROVIDERS: ATTEND Internal Medicine Cardiovascular Disease
DX: Z51.81 Encounter for therapeutic drug level monitoring (principal); Z79.01 Long term (current) use of anticoagulants

== ENCOUNTER → 2020-01-09 | Outpatient (CLI) | payer MEDICARE ==
[~2020-01-09] MED LIST changes: +CYCL-707 PO; -CYCL10TA PO
--- NOTE | 2020-01-25 03:05 | ECWPNPC ---
PATIENT NAME: SANDRO LOVE : 1950 GENDER: FEMALE VISIT DATE: 01/09/2020 DISCHARGE DATE: 01/09/20 1549 VISIT LOCKED DATE TIME: PHYSICIAN: CARLOS GARZA RESOURCE: CARLOS GARZA REASON FOR APPOINTMENT 1. NBP HIP HISTORY OF PRESENT ILLNESS HISTORY OF PRESENT ILLNESS: HERE FOR FOLLOW-UP OF CHRONIC GENERALIZED BACK PAIN. DESCRIBES PAIN CONTINUOUS, ACHING AND SORE. RATING PAIN LEVEL AN 8/10 VAS. USING HYDROCODONE SPARINGLY FOR SEVERE PAIN EPISODES AND FINDS IT HELPFUL. DENIES SIDE EFFECTS. PAIN THE PATIENT DESCRIBES THE PAIN... FALL RISK SCREENING: SCREENING :NO FALLS REPORTED IN THE LAST YEAR CURRENT MEDICATIONS TAKING NEURONTIN 400MG CAPSULE 1 CAP ORALLY THREE X DAILY TAKING WARFARIN SODIUM 2.5 MG TABLET 1 TAB ORALLY 2 TABS ON AND WED, 1 TAB REMAINING DAYS TAKING WELLBUTRIN SR 200 MG TABLET EXTENDED RELEASE 12 HOUR 1 TABLET ORALLY TWICE A DAY TAKING SIMVASTATIN 20 MG TABLET 1 TABLET IN THE EVENING ORALLY ONCE A DAY TAKING VITAMIN D 27031 U CAPSULE 1 CAPSULE ORALLY ONCE A MONTH TAKING METOCLOPRAMIDE HCL 10 MG TABLET ORALLY FOUR TIMES DAILY TAKING SYMBICORT 160-4.5 MCG/ACT AEROSOL 2 PUFFS INHALATION DAILY TAKING OMEPRAZOLE 20 MG CAPSULE DELAYED RELEASE 1 CAPSULE ORALLY ONCE A DAY TAKING GABAPENTIN 100 MG CAPSULE 2 TABS ORALLY AT BEDTIME, TAKES 400MG 3 X DAILY BESIDES TAKING TYLENOL EX ST ARTHRITIS PAIN 500 MG TABLET 1 TABLET NEEDED ORALLY EVERY 6 HRS TAKING COLACE 100 MG CAPSULE 1 CAPSULE NEEDED ORALLY BID TAKING NORCO 5-325 MG TABLET 1 TABLET NEEDED ORALLY EVERY 6 HRS FOR SEVERE PAIN EPISODES MDD4 #100 TAB SHOULD LAST 30 DAYS NOT-TAKING ACETAMINOPHEN-CODEINE 300-30 MG TABLET 1 TABLET NEEDED ORALLY Q8H PRN MDD3 #45TAB SHOULD LAST 30 DAYS NOT-TAKING TYLENOL WITH CODEINE #3 300-30 MG TABLET 1 TABLET NEEDED Q 8 HOURS PRN MDD3 ORALLY DIRECTED NOT-TAKING DULERA 200-5 MCG/ACT AEROSOL 2 PUFFS INHALATION TWICE A DAY NOT-TAKING BUTRANS 10 MCG/HR PATCH WEEKLY 1 PATCH TO SKIN TRANSDERMAL 1 PATCH Q7 DAYS=MDD MEDICATION LIST REVIEWED AND RECONCILED WITH THE PATIENT PAST MEDICAL HISTORY OSTEOPOROSIS (NO TREATMENT)BMD YEARS AGO DDD/DD CATARACTS FX LEFT KNEE 09/2015 ARTHRITIS ACID REFLUX CHRONIC PAIN COPD LUMBAGP MULTIPLE SITES WITH SCIATICA ALLERGIES N.K.D.A. SURGICAL HISTORY HYSTERECTOMY / BSO--HEAVY BLEEDING 1977 WRIST SURGERY FELICIA. AORTA AND MITRAL VALVE REPLACED 1969 AND 1994 REPAIR OF FX. LEFT WRIST, PLATE AND SCREWS 06/07 COLONOSCOPY X 1 REFUSES ANYMORE FAMILY HISTORY FATHER: 72 YRS, [place], DIAGNOSED WITH DIABETES, UNSPECIFIED HEART DISEASE, OTHER SPECIFIED CONDITIONS INFLUENCING HEALTH STATUS MOTHER: 62 YRS, CANCER, BREAST WITH METS, OTHER MALIGNANT NEOPLASM OF UNSPECIFIED SITE SIBLINGS: ALIVE, SISTER SHERRY LUNG AND BLADDER CANCER SISTER DELORES LUNG CANCER [place], UNSPECIFIED HEART DISEASE, OTHER MALIGNANT NEOPLASM OF UNSPECIFIED SITE 2 SON(S) - HEALTHY. NO OVARY OR COLON CANCER NEPHEW BRAIN CANCER AT AGE 34\NMOTHER HAD BREAST CANCER. SOCIAL HISTORY GENERAL: TOBACCO USE ARE YOU A:FORMER SMOKER HOW LONG HAS IT BEEN SINCE YOU LAST SMOKED?1-5 YEARS HIV / HEP-C SCREENING HIV TEST OFFERED TO PATIENT:NO HEP-C TEST OFFERED TO PATIENT:NO OTHERS AT HOME: ROOM-MATE, MALE. EDUCATION LEVEL OF EDUCATION:FINISHED HIGH SCHOOL DIET: REGULAR. LANGUAGE LANGUAGES SPOKEN:UPPER SORBIAN DOMESTIC VIOLENCE DO YOU FEEL SAFE IN YOUR ENVIRONMENT?YES BMI CARE GOAL FOLLOW-UP ABOVE NORMAL BMI FOLLOW-UPGIVING ENCOURAGEMENT TO EXERCISE RECREATIONAL DRUG USE DRUG USE?NO EXERCISE: NO REGULAR EXERCISE. LEARNING BARRIERS / SPECIAL NEEDS CHANGE FROM LAST VISIT?NO BARRIERS TO LEARNING?NO HEARING IMPAIRED?NO VISION IMPAIRED?YES COGNITIVELY IMPAIRED?NO :CORRECTIVE LENSES READINESS TO LEARN?YES LEARNING PREFERENCES?NO LEARNING CAPABILITIES PRESENT?YES EMOTIONAL BARRIERS?NO SPECIAL DEVICES?NO SILVER CHASER NEEDED?NO PAIN CLINIC PFS, CLERGY, PUBLIC HEALTH REFERRALS WAS THE PROVIDER NOTIFIED OF ANY PERTINENT INFO?YES HAS THE PATIENT BEEN EDUCATED REGARDING HIS/HER PLAN OF CARE?YES HAS THE PATIENT BEEN EDUCATED REGARDING PAIN, THE RISK FOR PAIN, THE IMPORTANCE OF EFFECTIVE PAIN MANAGEMENT, AND THE PAIN ASSESSMENT PROCESS?YES LATEX QUESTIONNAIRE LATEX ALLERGY : HAVE YOU EVER DEVELOPED ANY TYPE OF REACTION AFTER HANDLING LATEX PRODUCTS SUCH RUBBER GLOVES, CONDOMS, DIAPHRAGMS, BALLOONS, SOCKS, OR UNDERWEAR?NO LATEX ALLERGY : HAVE YOU EVER DEVELOPED ANY TYPE OF REACTION DURING OR AFTER DENTAL APPOINTMENT, VAGINAL/RECTAL EXAMINATION, SURGICAL PROCEDURE, OR ANY OTHER EXPOSURE?NO DATE ASKED : 08/28/2019 LATEX RISK : HAVE YOU EVER HAD ANY DIFFICULTY BREATHING OR HIVES AFTER EATING OR HANDLING ANY FRUITS, OR VEGETABLES; SUCH KIWI, BANANAS, STONE FRUITS, OR CHESTNUTSNO LATEX RISK : DO YOU HAVE A PREVIOUS PERSONAL HISTORY OF MORE THAN NINE SURGERIES, SPINA BIFIDA, OR REPEATED CATHERIZATIONS? NO LATEX RISK : ARE YOU FREQUENTLY EXPOSED TO LATEX PRODUCTS IN YOUR OCCUPATION?NO CAFFEINE >5/DAY. ADVANCE DIRECTIVE ADVANCE DIRECTIVE DISCUSSED WITH PATIENT:YES PT DOES NOT HAVE ANY ADVANCED DIRECTIVES AND SHE DECLINES INFORMATION ON HCP AT THIS TIME. JAIN [id number] EPISCOPAL MARITAL STATUS: . 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 HOSPITALIZATION/MAJOR DIAGNOSTIC PROCEDURE FRACTURED LEFT SHOULDER 2018 SURGERIES REVIEW OF SYSTEMS REVIEWED BY: PROVIDER: CARLOS TABOR . CONSTITUTIONAL: ANY CHANGE IN YOUR MEDICAL CONDITION? NO . CHILLS NO . FEVER NO . INFECTION: DO YOU HAVE NEW INFECTIONS? NO . DO YOU HAVE HISTORY OF MRSA? NO . MUSCULOSKELETAL: ANY NEW PATTERNS OF PAIN OR NUMBNESS? NO . GASTROENTEROLOGY: ANY NEW CHANGE IN BOWEL CONTROL? NO . GENITOURINARY: ANY NEW CHANGE IN BLADDER CONTROL? NO . IS THERE A CHANCE YOU COULD BE ? NO . HEMATOLOGY/LYMPH: DO YOU TAKE ANY BLOOD THINNERS? (FOR EXAMPLE- COUMADIN, PLAVIX, AGGRENOX, PLATEL, PRADAXA, OR XARELTO) YES, COUMADIN 01/07 8PM . WHEN WAS YOUR LAST DOSE? DATE: TIME: . NEUROLOGY: HAVE YOU FALLEN IN THE PAST 12 MONTHS? YES, PT STATES THAT SHE FELL WHILE AT MD APPT, CUT ABOVE EYE, WAS GOING TO MRI APPT, PT STATES THAT SHE TOOK VALIUM PRIOR TO MRI APPT AND PT STATES THAT IT MADE HER SLEEPY AND SHE FELL. DS . ANY NEW EXTREMITY NUMBNESS OR WEAKNESS? NO . CARDIOLOGY: DO YOU HAVE A PACEMAKER OR DEFIBRILLATOR? NO . RESPIRATORY: HAVE YOU BEEN SICK IN THE PAST WEEK? NO . FEVER NO . FLU LIKE SYMPTOMS? NO . COUGH NO . INTEGUMENTARY: DO YOU HAVE ANY RASHES OR OPEN SORES? NO . ALLERGIC/IMMUNO: ARE YOU ALLERGIC TO IV DYE? NO . ANY NEW ALLERGIES? NO . PSYCHIATRIC: DO YOU HAVE THOUGHTS OF HURTING YOURSELF OR SOMEONE ELSE? NO . ARE YOU ABUSED, NEGLECTED, OR IN AN UNSAFE ENVIRONMENT? NO . ENDOCRINOLOGY: ARE YOU DIABETIC? NO . OTHER: DO YOU NEED ANY PRESCRIPTIONS? NO . IF YES, PLEASE LIST: ____ . ANY NEW PROBLEMS WITH YOUR MEDICATIONS? NO . WHEN DID YOU LAST EAT? ____ . WHEN DID YOU LAST DRINK? ____ . WHAT DID YOU LAST DRINK? ____ . NAME OF PERSON DRIVING YOU HOME? ____ . DO YOU HAVE ANY OTHER QUESTIONS OR CONCERNS NO . VITAL SIGNS WT 156.0 LBS, HT 61 IN, BMI 29.47 INDEX, BP 135/75 MM HG, HR 73 /MIN, RR 16 /MIN, TEMP 98.0 F, OXYGEN SAT % 97, SAFE IN ENV? (Y/N) Y, REVIEWED BY: SUZANNE. EXAMINATION GENERAL EXAMINATION: GENERALAWAKE,ALERT ,PLEAASANT . PSYCHAFFECT NORMAL . LUNGS:LUNG HERNANDEZ ARE CLEAR TO AUSCULTATION BILATERALLY. GOOD MOVEMENT OF AIR . HEART:S1, S2 IN A REGULAR RATE AND RHYTHM. NO SIGNIFICANT MURMURS, RUBS OR GALLOPS NOTED . ASSESSMENTS LUMBAGO OF MULTIPLE SITES IN SPINE WITH SCIATICA - M54.40 (PRIMARY) TREATMENT LUMBAGO OF MULTIPLE SITES IN SPINE WITH SCIATICA CONTINUE COLACE CAPSULE, 100 MG, 1 CAPSULE NEEDED, ORALLY, BID CONTINUE NORCO TABLET, 5-325 MG, 1 TABLET NEEDED, ORALLY, EVERY 6 HRS FOR SEVERE PAIN EPISODES MDD4 #100 TAB SHOULD LAST 30 DAYS NOTES: ISTOP REGISTRY REVIEWED AND DEMONSTRATES COMPLLIANCE. BRINGS IN MEDICATIONS WHICH IS APPROPRIATE FOR WHAT WAS DISPENSED. RECENT URINE TOXICOLOGY REVIEWED. NO UNAUTHORIZED MEDICATIONS. NO ILLICIT SUBSTANCES AND PRESCRIBED MEDICATIONS WERE PRESENT.RISKS OF NARCOTIC/OPIOD MEDICATIONS INCLUDES BUT IS NOT LIMITED TO RISK OF DEPENDANCE/DEVELOPMENT OF ADDICTION, MOOD DISTURBANCE AND DEPRESSION, OSTEOPOROSIS, HORMONAL AND LABIDAL CHANGES, RESPIRATORY DEPRESSION AND . PATIENT IS ADVISED NOT TO DRIVE OR DRINK ALCOHOL WHILE ON THESE MEDICATIONS,. PREVENTIVE MEDICINE PAIN CLINIC TEACHING: THE PATIENT HAS BEEN EDUCATED REGARDING HIS/HER PLAN OF CARE : DISCUSSED AND REVIEWED WRITTEN AND VERBAL INSTRUCTIONS WITH PATIENT REGARDING TREATMENT PLAN, PT ACKNOWLEDGED UNDERSTANDING. SUZANNE PROCEDURE CODES FA211 ESTABILISHED PATIENT [facility] CHARGE DISPOSITION & COMMUNICATION FOLLOW UP 3 MONTHS (REASON: MED MGMNT) ELECTRONICALLY SIGNED BY LEANDER SALEH ON 01/24/2020 AT 12:15 PM EDT DISCLAIMER : THIS IS A VISIT SUMMARY EXTRACTED FROM THE [employer] CHART. IT IS NOT A COPY OF THE [employer] PROGRESS NOTE. MARVIN
== END ==
LOC: M PAIN 14:15
PROVIDERS: ATTEND Nurse Practitioner Family
DX: M54.40 Lumbago with sciatica, unspecified side (principal); M81.0 Age-related osteoporosis without current pathological fracture; K21.9 Gastro-esophageal reflux disease without esophagitis; G89.29 Other chronic pain; J44.9 Chronic obstructive pulmonary disease, unspecified; H26.9 Unspecified cataract; Z87.891 Personal history of nicotine dependence; Z79.01 Long term (current) use of anticoagulants; Z79.891 Long term (current) use of opiate analgesic; Z79.899 Other long term (current) drug therapy
CPT/HCPCS: 36415; 85610; G0463

== ENCOUNTER → 2020-02-06 | Outpatient (CLI) | payer MEDICARE ==
[2020-02-06 11:24] LABS: INR 3.2; PROTHROMBIN TIME 32.7 SECONDS (11.8-14.0)
== END ==
LOC: M LAB 10:41
PROVIDERS: ATTEND Nurse Practitioner Family
DX: Z79.01 Long term (current) use of anticoagulants (principal)

== ENCOUNTER → 2020-03-06 | Outpatient (CLI) | payer MEDICARE ==
--- NOTE | 2020-03-07 00:29 | ECWPNPC ---
PATIENT NAME: SANDRO LOVE : 1950 GENDER: FEMALE VISIT DATE: 03/06/2020 DISCHARGE DATE: 03/06/20935 VISIT LOCKED DATE TIME: PHYSICIAN: CARLOS GARZA RESOURCE: CARLOS GARZA REASON FOR APPOINTMENT 1. BACK/MED MGMNT HISTORY OF PRESENT ILLNESS HISTORY OF PRESENT ILLNESS: HERE FOR FOLLOW-UP OF CHRONIC GENERALIZED BACK PAIN. DESCRIBES PAIN CONTINUOUS, ACHING AND SORE. RATING PAIN LEVEL AN 7/10 VAS. USING HYDROCODONE SPARINGLY FOR SEVERE PAIN EPISODES AND FINDS IT HELPFUL. DENIES SIDE EFFECTS. PAIN THE PATIENT DESCRIBES THE PAIN... FALL RISK SCREENING: SCREENING :NO FALLS REPORTED IN THE LAST YEAR CURRENT MEDICATIONS TAKING NEURONTIN 400MG CAPSULE 1 CAP ORALLY THREE X DAILY TAKING WARFARIN SODIUM 2.5 MG TABLET 1 TAB ORALLY DAILY TAKING WELLBUTRIN SR 200 MG TABLET EXTENDED RELEASE 12 HOUR 1 TABLET ORALLY TWICE A DAY TAKING SIMVASTATIN 20 MG TABLET 1 TABLET IN THE EVENING ORALLY ONCE A DAY TAKING VITAMIN D 58649 U CAPSULE 1 CAPSULE ORALLY ONCE A MONTH TAKING METOCLOPRAMIDE HCL 10 MG TABLET ORALLY FOUR TIMES DAILY TAKING OMEPRAZOLE 20 MG CAPSULE DELAYED RELEASE 1 CAPSULE ORALLY ONCE A DAY TAKING GABAPENTIN 100 MG CAPSULE 2 TABS ORALLY AT BEDTIME, TAKES 400MG 3 X DAILY BESIDES TAKING TYLENOL EX ST ARTHRITIS PAIN 500 MG TABLET 1 TABLET NEEDED ORALLY EVERY 6 HRS TAKING NORCO 5-325 MG TABLET 1 TABLET NEEDED ORALLY EVERY 6 HRS FOR SEVERE PAIN EPISODES MDD4 #100 TAB SHOULD LAST 30 DAYS NOT-TAKING SYMBICORT 160-4.5 MCG/ACT AEROSOL 2 PUFFS INHALATION DAILY NOT-TAKING COLACE 100 MG CAPSULE 1 CAPSULE NEEDED ORALLY BID NOT-TAKING ACETAMINOPHEN-CODEINE 300-30 MG TABLET 1 TABLET NEEDED ORALLY Q8H PRN MDD3 #45TAB SHOULD LAST 30 DAYS NOT-TAKING TYLENOL WITH CODEINE #3 300-30 MG TABLET 1 TABLET NEEDED Q 8 HOURS PRN MDD3 ORALLY DIRECTED NOT-TAKING DULERA 200-5 MCG/ACT AEROSOL 2 PUFFS INHALATION TWICE A DAY NOT-TAKING BUTRANS 10 MCG/HR PATCH WEEKLY 1 PATCH TO SKIN TRANSDERMAL 1 PATCH Q7 DAYS=MDD MEDICATION LIST REVIEWED AND RECONCILED WITH THE PATIENT PAST MEDICAL HISTORY OSTEOPOROSIS (NO TREATMENT)BMD YEARS AGO DDD/DD CATARACTS FX LEFT KNEE 09/2015 ARTHRITIS ACID REFLUX CHRONIC PAIN COPD LUMBAGP MULTIPLE SITES WITH SCIATICA ALLERGIES N.K.D.A. SURGICAL HISTORY HYSTERECTOMY / BSO--HEAVY BLEEDING 1977 WRIST SURGERY FELICIA. AORTA AND MITRAL VALVE REPLACED 1969 AND 1994 REPAIR OF FX. LEFT WRIST, PLATE AND SCREWS 06/07 COLONOSCOPY X 1 REFUSES ANYMORE FAMILY HISTORY FATHER: 72 YRS, [place], DIAGNOSED WITH OTHER SPECIFIED CONDITIONS INFLUENCING HEALTH STATUS, DIABETES, UNSPECIFIED HEART DISEASE MOTHER: 62 YRS, CANCER, BREAST WITH METS, OTHER MALIGNANT NEOPLASM OF UNSPECIFIED SITE SIBLINGS: ALIVE, SISTER SHERRY LUNG AND BLADDER CANCER SISTER DELORES LUNG CANCER MT, UNSPECIFIED HEART DISEASE, OTHER MALIGNANT NEOPLASM OF UNSPECIFIED SITE 2 SON(S) - HEALTHY. NO OVARY OR COLON CANCER NEPHEW BRAIN CANCER AT AGE 34\NMOTHER HAD BREAST CANCER. SOCIAL HISTORY GENERAL: TOBACCO USE ARE YOU A:FORMER SMOKER HOW LONG HAS IT BEEN SINCE YOU LAST SMOKED?1-5 YEARS LATEX QUESTIONNAIRE LATEX ALLERGY : HAVE YOU EVER DEVELOPED ANY TYPE OF REACTION AFTER HANDLING LATEX PRODUCTS SUCH RUBBER GLOVES, CONDOMS, DIAPHRAGMS, BALLOONS, SOCKS, OR UNDERWEAR?NO LATEX ALLERGY : HAVE YOU EVER DEVELOPED ANY TYPE OF REACTION DURING OR AFTER DENTAL APPOINTMENT, VAGINAL/RECTAL EXAMINATION, SURGICAL PROCEDURE, OR ANY OTHER EXPOSURE?NO DATE ASKED : 08/28/2019 LATEX RISK : HAVE YOU EVER HAD ANY DIFFICULTY BREATHING OR HIVES AFTER EATING OR HANDLING ANY FRUITS, OR VEGETABLES; SUCH KIWI, BANANAS, STONE FRUITS, OR CHESTNUTSNO LATEX RISK : DO YOU HAVE A PREVIOUS PERSONAL HISTORY OF MORE THAN NINE SURGERIES, SPINA BIFIDA, OR REPEATED CATHERIZATIONS? NO LATEX RISK : ARE YOU FREQUENTLY EXPOSED TO LATEX PRODUCTS IN YOUR OCCUPATION?NO BMI CARE GOAL FOLLOW-UP ABOVE NORMAL BMI FOLLOW-UPGIVING ENCOURAGEMENT TO EXERCISE ALCOHOL SCREENING DID YOU HAVE A DRINK CONTAINING ALCOHOL IN THE PAST YEAR?YES HOW OFTEN DID YOU HAVE SIX OR MORE DRINKS ON ONE OCCASION IN THE PAST YEAR?NEVER (0 POINTS) HOW MANY DRINKS DID YOU HAVE ON A TYPICAL DAY WHEN YOU WERE DRINKING IN THE PAST YEAR?1 OR 2 (0 POINTS) HOW OFTEN DID YOU HAVE A DRINK CONTAINING ALCOHOL IN THE PAST YEAR?MONTHLY OR LESS (1 POINT) POINTS1 INTERPRETATIONNEGATIVE RECREATIONAL DRUG USE DRUG USE?NO CAFFEINE >5/DAY. 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 EXERCISE: NO REGULAR EXERCISE. MARITAL STATUS: . OTHERS AT HOME: ROOM-MATE, MALE. NEW PATIENT PAIN DIARY TODAY'S VISIT 03/06/20 PATIENT DESCRIBES PAIN :ACHING, BURNING, HAVE IT ALL THE TIME FROM 0-10, WHAT LEVEL IS YOUR PAIN TODAY?7 UP TO 9 AT TIMES, BASELINE PAIN LEVEL IS A 7 PRECIPITATING FACTORS WORSE WITH ACTIVITY SUCH SWEEPING, VACUUMING ALLEVIATING FACTORS REST, PAIN MEDICATIONS PAIN CLINIC PFS, CLERGY, PUBLIC HEALTH REFERRALS WAS THE PROVIDER NOTIFIED OF ANY PERTINENT INFO?YES HAS THE PATIENT BEEN EDUCATED REGARDING HIS/HER PLAN OF CARE?YES HAS THE PATIENT BEEN EDUCATED REGARDING PAIN, THE RISK FOR PAIN, THE IMPORTANCE OF EFFECTIVE PAIN MANAGEMENT, AND THE PAIN ASSESSMENT PROCESS?YES ADVANCE DIRECTIVE ADVANCE DIRECTIVE DISCUSSED WITH PATIENT:YES PT DOES NOT HAVE ANY ADVANCED DIRECTIVES AND SHE DECLINES INFORMATION ON HCP AT THIS TIME. HOSPITALIZATION/MAJOR DIAGNOSTIC PROCEDURE FRACTURED LEFT SHOULDER 2018 SURGERIES REVIEW OF SYSTEMS REVIEWED BY: PROVIDER: CARLOS TABOR . CONSTITUTIONAL: ANY CHANGE IN YOUR MEDICAL CONDITION? NO . CHILLS NO . FEVER NO . INFECTION: DO YOU HAVE NEW INFECTIONS? NO . DO YOU HAVE HISTORY OF MRSA? NO . MUSCULOSKELETAL: ANY NEW PATTERNS OF PAIN OR NUMBNESS? NO . GASTROENTEROLOGY: ANY NEW CHANGE IN BOWEL CONTROL? NO . GENITOURINARY: ANY NEW CHANGE IN BLADDER CONTROL? NO . IS THERE A CHANCE YOU COULD BE ? NO . HEMATOLOGY/LYMPH: DO YOU TAKE ANY BLOOD THINNERS? (FOR EXAMPLE- COUMADIN, PLAVIX, AGGRENOX, PLATEL, PRADAXA, OR XARELTO) YES COUMADIN . WHEN WAS YOUR LAST DOSE? DATE: TIME: . NEUROLOGY: HAVE YOU FALLEN IN THE PAST 12 MONTHS? NO . ANY NEW EXTREMITY NUMBNESS OR WEAKNESS? NO . CARDIOLOGY: DO YOU HAVE A PACEMAKER OR DEFIBRILLATOR? NO . RESPIRATORY: HAVE YOU BEEN SICK IN THE PAST WEEK? NO . FEVER NO . FLU LIKE SYMPTOMS? NO . COUGH NO . INTEGUMENTARY: DO YOU HAVE ANY RASHES OR OPEN SORES? NO . ALLERGIC/IMMUNO: ARE YOU ALLERGIC TO IV DYE? NO . ANY NEW ALLERGIES? NO . PSYCHIATRIC: DO YOU HAVE THOUGHTS OF HURTING YOURSELF OR SOMEONE ELSE? NO . ARE YOU ABUSED, NEGLECTED, OR IN AN UNSAFE ENVIRONMENT? NO . ENDOCRINOLOGY: ARE YOU DIABETIC? NO . OTHER: DO YOU NEED ANY PRESCRIPTIONS? YES . IF YES, PLEASE LIST: ____NORCO . ANY NEW PROBLEMS WITH YOUR MEDICATIONS? NO . WHEN DID YOU LAST EAT? ____ . WHEN DID YOU LAST DRINK? ____ . WHAT DID YOU LAST DRINK? ____ . NAME OF PERSON DRIVING YOU HOME? ____ . DO YOU HAVE ANY OTHER QUESTIONS OR CONCERNS NO . VITAL SIGNS WT 156.8 LBS, HT 61 IN, BMI 29.62 INDEX, BP 124/72 MM HG, HR 83 /MIN, RR 16 /MIN, TEMP 97.2 F, OXYGEN SAT % 97%, SAFE IN ENV? (Y/N) YES, NA INITIALS AW 0855, REVIEWED BY: ILYA. EXAMINATION GENERAL EXAMINATION: GENERALAWAKE,ALERT ,PLEAASANT . PSYCHAFFECT NORMAL . LUNGS:LUNG HERNANDEZ ARE CLEAR TO AUSCULTATION BILATERALLY. GOOD MOVEMENT OF AIR . HEART:S1, S2 IN A REGULAR RATE AND RHYTHM. NO SIGNIFICANT MURMURS, RUBS OR GALLOPS NOTED . ASSESSMENTS LUMBAGO OF MULTIPLE SITES IN SPINE WITH SCIATICA - M54.40 (PRIMARY) TREATMENT LUMBAGO OF MULTIPLE SITES IN SPINE WITH SCIATICA REFILL NORCO TABLET, 5-325 MG, 1 TABLET NEEDED, ORALLY, EVERY 6 HRS FOR SEVERE PAIN EPISODES MDD4 #100 TAB SHOULD LAST 30 DAYS, 30 DAYS, 100, REFILLS 0 NOTES: ISTOP REGISTRY REVIEWED AND DEMONSTRATES COMPLLIANCE. BRINGS IN MEDICATIONS WHICH IS APPROPRIATE FOR WHAT WAS DISPENSED. RECENT URINE TOXICOLOGY REVIEWED. NO UNAUTHORIZED MEDICATIONS. NO ILLICIT SUBSTANCES AND PRESCRIBED MEDICATIONS WERE PRESENT. PROCEDURE CODES FA211 ESTABILISHED PATIENT [facility] FACILITY CHARGE DISPOSITION & COMMUNICATION FOLLOW UP 3 MONTHS (REASON: MED MGMNT) ELECTRONICALLY SIGNED BY LEANDER SALEH ON 03/06/2020 AT 12:26 PM EDT DISCLAIMER : THIS IS A VISIT SUMMARY EXTRACTED FROM THE [employer] CHART. IT IS NOT A COPY OF THE [employer] PROGRESS NOTE. MTDD
== END ==
LOC: M PAIN 09:15
PROVIDERS: ATTEND Nurse Practitioner Family
DX: M54.40 Lumbago with sciatica, unspecified side (principal); G89.29 Other chronic pain; K21.9 Gastro-esophageal reflux disease without esophagitis; J44.9 Chronic obstructive pulmonary disease, unspecified; Z87.891 Personal history of nicotine dependence; Z95.2 Presence of prosthetic heart valve; Z79.01 Long term (current) use of anticoagulants; Z79.899 Other long term (current) drug therapy
CPT/HCPCS: 36415; 85610; G0463

== ENCOUNTER → 2020-03-06 | Outpatient (CLI) | payer MEDICARE ==
[2020-03-06 11:04] LABS: INR 3.26; PROTHROMBIN TIME 33.2 SECONDS (11.8-14.0)
== END ==
LOC: M LAB 10:04
PROVIDERS: ATTEND Nurse Practitioner Family
DX: Z95.2 Presence of prosthetic heart valve (principal); Z79.01 Long term (current) use of anticoagulants

== ENCOUNTER → 2020-03-26 | Outpatient (CLI) | payer MEDICARE ==
[2020-03-26 07:22] LABS: HEMATOCRIT 43.1 % (36.0-47.0); HEMOGLOBIN 13.9 g/dl (12.0-15.5); MEAN CORPUSCULAR HEMOGLOBIN 30.1 pg (27.0-33.0); MEAN CORPUSCULAR HGB CONC 32.3 g/dl (32.0-36.5); MEAN CORPUSCULAR VOLUME 93.3 fl (80.0-96.0); PLATELET COUNT, AUTOMATED 200 10^3/uL (150-450); RED BLOOD COUNT 4.62 10^6/uL (4.00-5.40); WHITE BLOOD COUNT 5.1 10^3/uL (4.0-10.0)
[2020-03-26 07:32] LABS: INR 3.28; PROTHROMBIN TIME 33.4 SECONDS (11.8-14.0)
[2020-03-26 07:49] LABS: ALBUMIN 3.8 GM/DL (3.2-5.2); ALT/SGPT 28 U/L (12-78); BILIRUBIN,TOTAL 0.8 MG/DL (0.2-1.0); BLOOD UREA NITROGEN 18 MG/DL (7-18); CARBON DIOXIDE LEVEL 30 MEQ/L (21-32); CHLORIDE LEVEL 107 MEQ/L (98-107); CHOLESTEROL LEVEL 183 MG/DL (<200); CHOLESTEROL RISK RATIO 2.652 (<5); CPK CREATINE PHOSPHOKINASE 72 U/L (26-192); CREATININE FOR GFR 0.86 MG/DL (0.55-1.30); GLOMERULAR FILTRATION RATE > 60.0 (>45); GLUCOSE, FASTING 87 MG/DL (70-100); HDL CHOLESTEROL 69 MG/DL (>40); LDL CHOLESTEROL 83 MG/DL (<100); NON-HDL-C 114 MG/DL; POTASSIUM SERUM 3.9 MEQ/L (3.5-5.1); SODIUM LEVEL 141 MEQ/L (136-145); TOTAL PROTEIN 7.2 GM/DL (6.4-8.2); TRIGLYCERIDES LEVEL 154 MG/DL (<150)
[2020-03-26 09:17] LABS: TOTAL 25(OH) VITAMIN D 57.7 NG/ML (30.0-100.0)
== END ==
LOC: M LAB 06:58
PROVIDERS: ATTEND Nurse Practitioner Family
DX: Z51.81 Encounter for therapeutic drug level monitoring (principal); Z79.01 Long term (current) use of anticoagulants; Z95.2 Presence of prosthetic heart valve; I10 Essential (primary) hypertension; E78.5 Hyperlipidemia, unspecified; E55.9 Vitamin D deficiency, unspecified

== ENCOUNTER → 2020-05-14 | Outpatient (CLI) | payer MEDICARE ==
[~2020-05-14] MED LIST changes: +BUPR1TAB52 PO; +HYDR-3713 PO; +SYMB16INH INH; +VITA50005 PO; +WARF-18 PO
[2020-05-14 08:40] LABS: INR 2.36; PROTHROMBIN TIME 25.6 SECONDS (11.8-14.0)
== END ==
LOC: M LAB 07:32
PROVIDERS: ATTEND Nurse Practitioner Family
DX: Z95.2 Presence of prosthetic heart valve (principal); Z79.01 Long term (current) use of anticoagulants

== ENCOUNTER 2020-06-05 14:20 | Inpatient (IN) | payer MEDICARE ==
[~2020-06-05 14:20] MED LIST changes: -BUPR1TAB52 PO; -HYDR-3713 PO; -SYMB16INH INH; -VITA50005 PO; -WARF-18 PO
[2020-06-05] MEDS ORDERED: MORPHINE 2 MG/ML 1ML VIAL (J2270) ONE (15:52)
[2020-06-05] MEDS ORDERED: SENOKOT S TAB As Ordered ONE (20:45)
[2020-06-05] MEDS ORDERED: SIMVASTATIN 20 MG TAB As Ordered ONE (20:46)
[2020-06-05] MEDS ORDERED: buPROPion **XL** TABLET 150MG (WELLBUTRIN XL) As Ordered ONE (20:46)
[2020-06-05] MEDS ORDERED: GABAPENTIN 100 MG CAP As Ordered ONE (20:46)
[2020-06-05] MEDS ORDERED: PERCOCET 5MG/325MG TAB As Ordered ONE (20:46)
[2020-06-06] MEDS ORDERED: zolPIDEM TARTRATE 5 MG TAB As Ordered ONE (02:21)
[2020-06-06] MEDS ORDERED: PERCOCET 5MG/325MG TAB As Ordered ONE ×4 (02:31→18:16)
[2020-06-06] MEDS ORDERED: GABAPENTIN 400 MG CAP As Ordered ONE ×3 (06:20→18:16)
[2020-06-06] MEDS ORDERED: SENOKOT S TAB As Ordered ONE ×2 (08:57→20:40)
[2020-06-06] MEDS ORDERED: OMEPRAZOLE 20 MG CAP As Ordered ONE (08:57)
[2020-06-06] MEDS ORDERED: METOCLOPRAMIDE 10 MG TAB As Ordered ONE (08:58)
[2020-06-06] MEDS ORDERED: buPROPion (WELLBUTRIN SR) 100 MG SR TAB ONE (09:00)
[2020-06-06] MEDS ORDERED: SYMBICORT 160/4.5MCG INHALER 6GM ONE (10:00)
[2020-06-06] MEDS ORDERED: SIMVASTATIN 20 MG TAB As Ordered ONE (20:40)
[2020-06-06] MEDS ORDERED: GABAPENTIN 100 MG CAP As Ordered ONE (20:40)
[2020-06-06] MEDS ORDERED: WARFARIN SOD 2.5MG TAB As Ordered ONE (21:07)
[2020-06-07] MEDS ORDERED: GABAPENTIN 400 MG CAP As Ordered ONE ×3 (06:29→18:35)
[2020-06-07] MEDS ORDERED: PERCOCET 5MG/325MG TAB As Ordered ONE ×4 (06:56→20:22)
[2020-06-07] MEDS ORDERED: buPROPion **XL** TABLET 150MG (WELLBUTRIN XL) As Ordered ONE (09:08)
[2020-06-07] MEDS ORDERED: OMEPRAZOLE 20 MG CAP As Ordered ONE (09:08)
[2020-06-07] MEDS ORDERED: SENNA 8.6 MG TAB (SENOKOT) As Ordered ONE (09:08)
[2020-06-07] MEDS ORDERED: METOCLOPRAMIDE 10 MG TAB As Ordered ONE (09:08)
[2020-06-07] MEDS ORDERED: POTASSIUM CHLORIDE 10 MEQ SR TABLET As Ordered ONE (09:13)
[2020-06-07] MEDS ORDERED: SYMBICORT 160/4.5MCG INHALER 6GM ONE (10:00)
[2020-06-07] MEDS ORDERED: GABAPENTIN 100 MG CAP As Ordered ONE (20:21)
[2020-06-07] MEDS ORDERED: SENOKOT S TAB As Ordered ONE (20:22)
[2020-06-07] MEDS ORDERED: WARFARIN SOD 2.5MG TAB As Ordered ONE (20:22)
[2020-06-07] MEDS ORDERED: SIMVASTATIN 20 MG TAB As Ordered ONE (20:22)
[2020-06-08] MEDS ORDERED: PERCOCET 5MG/325MG TAB As Ordered ONE ×5 (01:21→23:40)
[2020-06-08] MEDS ORDERED: GABAPENTIN 400 MG CAP As Ordered ONE ×3 (06:04→17:22)
[2020-06-08] MEDS ORDERED: SENOKOT S TAB As Ordered ONE ×2 (09:54→23:34)
[2020-06-08] MEDS ORDERED: OMEPRAZOLE 20 MG CAP As Ordered ONE (09:54)
[2020-06-08] MEDS ORDERED: buPROPion **XL** TABLET 150MG (WELLBUTRIN XL) As Ordered ONE (09:55)
[2020-06-08] MEDS ORDERED: METOCLOPRAMIDE 10 MG TAB As Ordered ONE (09:55)
[2020-06-08] MEDS ORDERED: SYMBICORT 160/4.5MCG INHALER 6GM ONE (10:00)
[2020-06-08] MEDS ORDERED: buPROPion (WELLBUTRIN SR) 100 MG SR TAB ONE (11:00)
[2020-06-08] MEDS ORDERED: SIMVASTATIN 20 MG TAB As Ordered ONE (23:34)
[2020-06-08] MEDS ORDERED: MORPHINE 2 MG/ML 1ML VIAL (J2270) As Ordered ONE (23:34)
[2020-06-08] MEDS ORDERED: GABAPENTIN 100 MG CAP As Ordered ONE (23:34)
[2020-06-08] MEDS ORDERED: WARFARIN SOD 2.5MG TAB As Ordered ONE (23:35)
[2020-06-09] MEDS ORDERED: GABAPENTIN 400 MG CAP As Ordered ONE ×3 (06:36→17:35)
[2020-06-09] MEDS ORDERED: PERCOCET 5MG/325MG TAB As Ordered ONE ×2 (06:39→15:26)
[2020-06-09] MEDS ORDERED: OMEPRAZOLE 20 MG CAP As Ordered ONE (09:15)
[2020-06-09] MEDS ORDERED: METOCLOPRAMIDE 10 MG TAB As Ordered ONE (09:16)
[2020-06-09] MEDS ORDERED: SENOKOT S TAB As Ordered ONE ×2 (09:16→20:31)
[2020-06-09] MEDS ORDERED: SYMBICORT 160/4.5MCG INHALER 6GM ONE (10:00)
[2020-06-09] MEDS ORDERED: ACETAMINOPHEN TAB 650MG DOSE (2X325MG) As Ordered ONE ×2 (10:50→20:37)
[2020-06-09] MEDS ORDERED: traMADol 50 MG TAB As Ordered ONE (10:50)
[2020-06-09] MEDS ORDERED: GABAPENTIN 100 MG CAP As Ordered ONE (20:31)
[2020-06-09] MEDS ORDERED: WARFARIN SOD 2.5MG TAB As Ordered ONE (20:31)
[2020-06-09] MEDS ORDERED: SIMVASTATIN 20 MG TAB As Ordered ONE (20:31)
[2020-06-10] MEDS ORDERED: ACETAMINOPHEN TAB 650MG DOSE (2X325MG) As Ordered ONE (03:11)
[2020-06-10] MEDS ORDERED: traMADol 50 MG TAB As Ordered ONE (03:12)
[2020-06-10] MEDS ORDERED: GABAPENTIN 400 MG CAP As Ordered ONE ×2 (05:39→12:26)
[2020-06-10] MEDS ORDERED: OMEPRAZOLE 20 MG CAP As Ordered ONE (08:25)
[2020-06-10] MEDS ORDERED: METOCLOPRAMIDE 10 MG TAB As Ordered ONE (08:26)
[2020-06-10] MEDS ORDERED: SENOKOT S TAB As Ordered ONE (08:26)
[2020-06-10] MEDS ORDERED: PERCOCET 5MG/325MG TAB As Ordered ONE (08:38)
[2020-06-10] MEDS ORDERED: SYMBICORT 160/4.5MCG INHALER 6GM ONE (10:00)
[2020-06-10] MEDS ORDERED: buPROPion (WELLBUTRIN SR) 100 MG SR TAB ONE (12:00)
[2020-06-11] MEDS ORDERED: HYDR-3713 PO (09:29)
[2020-06-11] MEDS ORDERED: BUPR1TAB52 PO (09:29)
[2020-06-11] MEDS ORDERED: GABA-845 PO (09:29)
[2020-06-11] MEDS ORDERED: WARF-18 PO (09:29)
[2020-06-11] MEDS ORDERED: SYMB16INH INH (09:29)
[2020-06-11] MEDS ORDERED: GABA-1171 PO (09:29)
[2020-06-11] MEDS ORDERED: VITA50005 PO (09:29)
--- NOTE | 2020-06-27 14:02 | CR ---
DATE: 06/06/2020 ATTENDING: Michael Cid MD CHIEF COMPLAINT: Left shoulder and left pelvic fractures. HISTORY OF PRESENT ILLNESS: Jyoti came into the emergency room yesterday after having fallen two weeks ago in her home. She states the pain got to be so bad that she had to call an ambulance to come into the emergency room. She states her pain is in the inguinal crease on the left side. Also, significant pain in the left shoulder with any kind of movement. She denies any paresthesias. PAST MEDICAL HISTORY: Her past medical history was reviewed. PHYSICAL EXAMINATION: Reveals a well-developed, well-nourished in no acute distress alert female. She was alert and oriented times three. Normocephalic, atraumatic. Lungs: Clear to auscultation bilaterally. Heart: Regular rate and rhythm. Abdomen: Bowel sounds were present. Abdomen was soft and nontender. Musculoskeletal: Inspection of the left shoulder revealed diffuse swelling to the glenohumeral joints, diffuse tenderness to palpation about the left shoulder. Range of motion was not attempted due to pain. She showed intact sensation to light touch throughout the upper extremities. She had good car groomer strength. Palpable radial pulse. Inspection of the pelvis revealed intact skin. She is tender over the pubic symphysis. Has pain with pelvic compression. Left leg showed intact sensation to light touch throughout. She had good strength to the ankle on the left. Palpable distal pulses. Internal/external rotation of the hip was non-irritable. IMAGES: I did review the CT scan and x-rays showing a displaced left superior and inferior pubic ramus fractures, incidental note of significant pubic symphysis degenerative change. CT of the left shoulder showed a comminuted glenoid fracture and the distal clavicle fracture. There is a small fragment involving the inferior glenoid that is displaced, but otherwise the remainder of the glenoid surface is intact. IMPRESSION: 1. Displaced left glenoid fracture and left clavicle fracture. 2. Displaced left superior and inferior public ramus fractures. PLAN: Plan will be to recommend subacute rehab while she is healing. She was a poor ambulator with no assistive devices before the fall. It is going to be difficult given the nature of her injuries with both being on the left side to get her into a walker, so we are recommending right lower extremity pivot transfers and slide board transfers only. She is going to use a wheelchair for longer distances. She is nonweightbearing to the left upper extremity and toe touch weightbearing to the left lower extremity. She will follow up in our office within two weeks whether or not she is discharged home or in subacute rehab. Will need updated x-rays at that visit. She communicated understanding and agreement of the plan and this was relayed to her nurse. For further information, please see the medical record. MARVIN
[2020-07-23 09:05] LABS: INR 4.38; PROTHROMBIN TIME 42.9 SECONDS (12.5-14.3)
[2020-07-23 09:06] LABS: PARTIAL THROMBOPLASTIN TIME 87.8 SECONDS (24.2-38.5)
[2020-07-24 20:39] LABS: BASO % 0.1 % (0.0-1.0); EOS # 0.1 10^3/uL (0.0-0.5); EOS % 0.9 % (0.0-3.0); HEMOGLOBIN 8.3 g/dl (12.0-15.5); LYMPH # 0.5 10^3/uL (1.5-5.0); MEAN CORPUSCULAR HEMOGLOBIN 30.1 pg (27.0-33.0); MEAN CORPUSCULAR HGB CONC 31.9 g/dl (32.0-36.5); MEAN CORPUSCULAR VOLUME 94.2 fl (80.0-96.0); MONO # 0.9 10^3/uL (0.0-0.8); NEUTROPHILS # 6.1 10^3/uL (1.5-8.5); NEUTROPHILS % 78.8 % (36.0-66.0); PLATELET COUNT, AUTOMATED 302 10^3/uL (150-450); RED BLOOD COUNT 2.76 10^6/uL (4.00-5.40); WHITE BLOOD COUNT 7.7 10^3/uL (4.0-10.0)
[2020-07-28 16:43] LABS: BASO % 0.3 % (0.0-1.0); EOS # 0.2 10^3/uL (0.0-0.5); EOS % 2.9 % (0.0-3.0); HEMATOCRIT 26.2 % (36.0-47.0); HEMOGLOBIN 8.3 g/dl (12.0-15.5); LYMPH # 0.7 10^3/uL (1.5-5.0); LYMPH % 9.4 % (24.0-44.0); MEAN CORPUSCULAR HEMOGLOBIN 30.5 pg (27.0-33.0); MEAN CORPUSCULAR HGB CONC 31.7 g/dl (32.0-36.5); MEAN CORPUSCULAR VOLUME 96.3 fl (80.0-96.0); MONO # 0.9 10^3/uL (0.0-0.8); MONO % 12.4 % (0.0-5.0); NEUTROPHILS # 5.4 10^3/uL (1.5-8.5); NEUTROPHILS % 73.5 % (36.0-66.0); PLATELET COUNT, AUTOMATED 313 10^3/uL (150-450); RED BLOOD COUNT 2.72 10^6/uL (4.00-5.40); WHITE BLOOD COUNT 7.3 10^3/uL (4.0-10.0)
[2020-07-28 17:29] LABS: INR 3.69; PROTHROMBIN TIME 37.5 SECONDS (12.5-14.3)
[2020-08-04 06:50] LABS: INR 3.47; PROTHROMBIN TIME 35.7 SECONDS (12.5-14.3)
[2020-08-04 18:21] LABS: INR 3.24; PROTHROMBIN TIME 33.8 SECONDS (12.5-14.3)
[2020-08-20 09:58] LABS: INR 2.3; PROTHROMBIN TIME 25.8 SECONDS (12.5-14.3)
[2020-08-28 04:46] LABS: ALBUMIN 2.9 GM/DL (3.2-5.2); ALT/SGPT 21 U/L (12-78); BILIRUBIN,DIRECT 0.3 MG/DL (0.0-0.2); BILIRUBIN,TOTAL 1.5 MG/DL (0.2-1.0); BLOOD UREA NITROGEN 15 MG/DL (7-18); CALCIUM LEVEL 7.9 MG/DL (8.8-10.2); CARBON DIOXIDE LEVEL 26 MEQ/L (21-32); CHLORIDE LEVEL 109 MEQ/L (98-107); GLOMERULAR FILTRATION RATE > 60.0 (>45); GLUCOSE, FASTING 91 MG/DL (70-100); POTASSIUM SERUM 3.4 MEQ/L (3.5-5.1); SODIUM LEVEL 140 MEQ/L (136-145); TOTAL PROTEIN 6.2 GM/DL (6.4-8.2)
[2020-08-28 22:09] LABS: ALBUMIN 2.8 GM/DL (3.2-5.2); ALT/SGPT 21 U/L (12-78); BILIRUBIN,TOTAL 1.4 MG/DL (0.2-1.0); BLOOD UREA NITROGEN 16 MG/DL (7-18); CALCIUM LEVEL 8.4 MG/DL (8.8-10.2); CARBON DIOXIDE LEVEL 27 MEQ/L (21-32); CHLORIDE LEVEL 106 MEQ/L (98-107); CREATININE FOR GFR 0.67 MG/DL (0.55-1.30); GLOMERULAR FILTRATION RATE > 60.0 (>45); GLUCOSE, FASTING 85 MG/DL (70-100); POTASSIUM SERUM 3.2 MEQ/L (3.5-5.1); SODIUM LEVEL 139 MEQ/L (136-145); TOTAL PROTEIN 6.1 GM/DL (6.4-8.2)
== END 2020-06-10 12:40 | DRG 563 ==
LOC: M ED 14:20 → M MS5PR 16:15 → M ED 16:20
PROVIDERS: ADMIT Family Medicine; ATTEND Family Medicine
DX: S42.142A Displaced fracture of glenoid cavity of scapula, left shoulder, initial encounter for closed fracture (principal); S32.592A Other specified fracture of left pubis, initial encounter for closed fracture; W10.9XXA Fall (on) (from) unspecified stairs and steps, initial encounter; Y92.009 Unspecified place in unspecified non-institutional (private) residence as the place of occurrence of the external cause; I10 Essential (primary) hypertension; Z95.2 Presence of prosthetic heart valve

== ENCOUNTER 2020-06-10 12:40 | Inpatient (IN) | payer MEDICARE ==
[2020-06-10] MEDS ORDERED: buPROPion (WELLBUTRIN SR) 100 MG SR TAB ONE (13:00)
[2020-06-10] MEDS ORDERED: ACETAMINOPHEN TAB 650MG DOSE (2X325MG) As Ordered ONE (13:54)
[2020-06-10] MEDS ORDERED: GABAPENTIN 400 MG CAP As Ordered ONE (16:09)
[2020-06-10] MEDS ORDERED: WARFARIN SOD 2.5MG TAB As Ordered ONE (16:09)
[2020-06-10] MEDS ORDERED: ACETAMINOPHEN 500 MG TAB As Ordered ONE ×2 (16:09→21:00)
[2020-06-10] MEDS ORDERED: oxyCODONE 5MG TAB As Ordered ONE ×2 (16:10→21:01)
[2020-06-10] MEDS ORDERED: LIDOCAINE 5% (LIDODERM) PATCH As Ordered ONE (20:58)
[2020-06-10] MEDS ORDERED: SENOKOT S TAB As Ordered ONE (20:59)
[2020-06-10] MEDS ORDERED: GABAPENTIN 300 MG CAP As Ordered ONE (20:59)
[2020-06-10] MEDS ORDERED: SIMVASTATIN 20 MG TAB As Ordered ONE (20:59)
[2020-06-10] MEDS ORDERED: SENNA 8.6 MG TAB (SENOKOT) As Ordered ONE (21:00)
[2020-06-11] MEDS ORDERED: oxyCODONE 5MG TAB As Ordered ONE ×3 (05:21→15:41)
[2020-06-11] MEDS ORDERED: OMEPRAZOLE 20 MG CAP As Ordered ONE (08:04)
[2020-06-11] MEDS ORDERED: GABAPENTIN 400 MG CAP As Ordered ONE ×2 (08:04→15:40)
[2020-06-11] MEDS ORDERED: ACETAMINOPHEN 500 MG TAB As Ordered ONE ×2 (08:05→15:40)
[2020-06-11] MEDS ORDERED: SENNA 8.6 MG TAB (SENOKOT) As Ordered ONE (08:05)
[2020-06-11] MEDS ORDERED: METOCLOPRAMIDE 10 MG TAB As Ordered ONE (08:05)
[2020-06-11] MEDS ORDERED: BUPR1TAB52 PO (09:29)
[2020-06-11] MEDS ORDERED: HYDR-3713 PO (09:29)
[2020-06-11] MEDS ORDERED: GABA-1171 PO (09:29)
[2020-06-11] MEDS ORDERED: SYMB16INH INH (09:29)
[2020-06-11] MEDS ORDERED: VITA50005 PO (09:29)
[2020-06-11] MEDS ORDERED: WARF-18 PO (09:29)
[2020-06-11] MEDS ORDERED: GABA-845 PO (09:29)
[2020-06-11] MEDS ORDERED: ONDANSETRON 4 MG ORAL DISINTEGRATING TAB PO PRN (09:30)
[2020-06-11] MEDS ORDERED: traZODone 25MG PER 1/2 TABLET PO PRN (09:30)
[2020-06-11] MEDS ORDERED: WARFARIN SOD 3MG TAB As Ordered ONE (15:41)
[2020-06-11] MEDS ORDERED: WARFARIN SOD 2.5MG TAB PO SCH (17:00)
[2020-06-11 20:00] VITALS: BP 98/62
[2020-06-11] MEDS: SYMBICORT 160/4.5MCG INHALER 6GM INH SCH (20:00)
[2020-06-11] MEDS: IPRATROPIUM 0.5MG/ALBUTEROL 2.5MG INH SOL UD 3ML (DUONEB) NEB SCH (20:00)
[2020-06-11] MEDS: oxyCODONE 5MG TAB PO PRN (20:14)
[2020-06-11] MEDS: buPROPion (WELLBUTRIN SR) 100 MG SR TAB PO SCH (20:15)
[2020-06-11] MEDS: GABAPENTIN 300 MG CAP PO SCH (20:15)
[2020-06-11] MEDS: SIMVASTATIN 20 MG TAB PO SCH (20:15)
[2020-06-11] MEDS: SENOKOT S TAB PO SCH (20:15)
[2020-06-11] MEDS: LIDOCAINE 5% (LIDODERM) PATCH TD SCH (20:16)
[2020-06-11] MEDS: REMEDY PHYTOPLEX Z-GUARD PASTE 113GM TUBE (FROM STOREROOM PRODUCT) TOP SCH (20:16)
[2020-06-11 21:19] LABS: BASO % 0.3 % (0.0-1.0); EOS # 0.1 10^3/uL (0.0-0.5); EOS % 1.4 % (0.0-3.0); HEMATOCRIT 29.2 % (36.0-47.0); HEMOGLOBIN 8.9 g/dl (12.0-15.5); LYMPH # 0.6 10^3/uL (1.5-5.0); LYMPH % 7.5 % (24.0-44.0); MEAN CORPUSCULAR HEMOGLOBIN 30.4 pg (27.0-33.0); MEAN CORPUSCULAR HGB CONC 30.5 g/dl (32.0-36.5); MEAN CORPUSCULAR VOLUME 99.7 fl (80.0-96.0); MONO # 0.8 10^3/uL (0.0-0.8); MONO % 10.7 % (0.0-5.0); NEUTROPHILS # 6.2 10^3/uL (1.5-8.5); PLATELET COUNT, AUTOMATED 410 10^3/uL (150-450); RED BLOOD COUNT 2.93 10^6/uL (4.00-5.40); WHITE BLOOD COUNT 7.9 10^3/uL (4.0-10.0)
[2020-06-11 21:27] LABS: INR 2.75; PROTHROMBIN TIME 29.7 SECONDS (11.8-14.0)
[2020-06-11] MEDS: ACETAMINOPHEN 500 MG TAB PO SCH (22:24)
[2020-06-12] MEDS: ACETAMINOPHEN 500 MG TAB PO SCH ×3 (05:57→20:40)
[2020-06-12 06:00] VITALS: BP 134/69
[2020-06-12] MEDS: oxyCODONE 5MG TAB PO PRN ×4 (06:08→19:00)
[2020-06-12 07:49] LABS: INR 2.7; PROTHROMBIN TIME 29.3 SECONDS (11.8-14.0)
[2020-06-12] MEDS: IPRATROPIUM 0.5MG/ALBUTEROL 2.5MG INH SOL UD 3ML (DUONEB) NEB SCH ×3 (07:58→19:44)
[2020-06-12] MEDS: SYMBICORT 160/4.5MCG INHALER 6GM INH SCH ×2 (07:58→19:44)
[2020-06-12] MEDS: OMEPRAZOLE 20 MG CAP PO SCH (08:17)
[2020-06-12] MEDS: GABAPENTIN 400 MG CAP PO SCH ×2 (08:17→16:01)
[2020-06-12] MEDS: SENOKOT S TAB PO SCH ×2 (08:17→20:41)
[2020-06-12] MEDS: REMEDY PHYTOPLEX Z-GUARD PASTE 113GM TUBE (FROM STOREROOM PRODUCT) TOP SCH ×3 (08:18→20:41)
[2020-06-12] MEDS: buPROPion (WELLBUTRIN SR) 100 MG SR TAB PO SCH ×2 (08:18→20:41)
[2020-06-12] MEDS ORDERED: METOCLOPRAMIDE 10 MG TAB PO SCH (09:00)
[2020-06-12 14:00] VITALS: BP 110/66
[2020-06-12] MEDS: WARFARIN SOD 4MG TAB PO SCH (16:01)
[2020-06-12] MEDS ORDERED: WARFARIN SOD 3MG TAB PO SCH (17:00)
[2020-06-12 20:00] VITALS: BP 123/66
[2020-06-12] MEDS: SIMVASTATIN 20 MG TAB PO SCH (20:40)
[2020-06-12] MEDS: GABAPENTIN 300 MG CAP PO SCH (20:40)
[2020-06-12] MEDS: LIDOCAINE 5% (LIDODERM) PATCH TD SCH (20:41)
[2020-06-13] MEDS: oxyCODONE 5MG TAB PO PRN ×5 (00:57→19:33)
[2020-06-13] MEDS: ACETAMINOPHEN 500 MG TAB PO SCH ×3 (05:56→21:00)
[2020-06-13 06:00] VITALS: BP 129/66
[2020-06-13] MEDS: OMEPRAZOLE 20 MG CAP PO SCH (07:39)
[2020-06-13] MEDS: GABAPENTIN 400 MG CAP PO SCH ×2 (07:39→17:06)
[2020-06-13] MEDS: buPROPion (WELLBUTRIN SR) 100 MG SR TAB PO SCH ×2 (07:40→21:00)
[2020-06-13] MEDS: SENOKOT S TAB PO SCH ×3 (07:40→20:59)
[2020-06-13] MEDS: REMEDY PHYTOPLEX Z-GUARD PASTE 113GM TUBE (FROM STOREROOM PRODUCT) TOP SCH ×3 (07:40→20:11)
[2020-06-13] MEDS: IPRATROPIUM 0.5MG/ALBUTEROL 2.5MG INH SOL UD 3ML (DUONEB) NEB SCH ×3 (08:00→18:26)
[2020-06-13] MEDS: SYMBICORT 160/4.5MCG INHALER 6GM INH SCH ×2 (08:22→18:26)
[2020-06-13 08:44] LABS: INR 2.94; PROTHROMBIN TIME 31.3 SECONDS (11.8-14.0)
[2020-06-13 14:00] VITALS: BP 124/68
[2020-06-13] MEDS: WARFARIN SOD 4MG TAB PO SCH (17:06)
[2020-06-13] MEDS: METOCLOPRAMIDE 5 MG TAB PO SCH (18:27)
[2020-06-13 20:00] VITALS: BP 110/71
[2020-06-13] MEDS: SIMVASTATIN 20 MG TAB PO SCH (20:59)
[2020-06-13] MEDS: LIDOCAINE 5% (LIDODERM) PATCH TD SCH (20:59)
[2020-06-13] MEDS: GABAPENTIN 300 MG CAP PO SCH (21:00)
[2020-06-14] MEDS: oxyCODONE 5MG TAB PO PRN ×4 (04:23→21:10)
[2020-06-14] MEDS: ACETAMINOPHEN 500 MG TAB PO SCH ×3 (05:57→21:12)
[2020-06-14 06:00] VITALS: BP 93/69
[2020-06-14] MEDS: buPROPion (WELLBUTRIN SR) 100 MG SR TAB PO SCH ×2 (07:36→21:09)
[2020-06-14] MEDS: SENOKOT S TAB PO SCH ×2 (07:36→21:10)
[2020-06-14] MEDS: OMEPRAZOLE 20 MG CAP PO SCH (07:36)
[2020-06-14] MEDS: METOCLOPRAMIDE 5 MG TAB PO SCH (07:36)
[2020-06-14] MEDS: GABAPENTIN 300 MG CAP PO SCH ×3 (07:36→21:10)
[2020-06-14] MEDS: REMEDY PHYTOPLEX Z-GUARD PASTE 113GM TUBE (FROM STOREROOM PRODUCT) TOP SCH ×3 (07:37→21:00)
[2020-06-14] MEDS: IPRATROPIUM 0.5MG/ALBUTEROL 2.5MG INH SOL UD 3ML (DUONEB) NEB SCH ×3 (07:51→18:17)
[2020-06-14] MEDS: SYMBICORT 160/4.5MCG INHALER 6GM INH SCH ×2 (07:51→18:17)
[2020-06-14 08:38] LABS: BASO % 0.4 % (0.0-1.0); EOS # 0.1 10^3/uL (0.0-0.5); EOS % 0.8 % (0.0-3.0); HEMATOCRIT 29.5 % (36.0-47.0); HEMOGLOBIN 9.1 g/dl (12.0-15.5); LYMPH # 0.6 10^3/uL (1.5-5.0); LYMPH % 7.7 % (24.0-44.0); MEAN CORPUSCULAR HGB CONC 30.8 g/dl (32.0-36.5); MEAN CORPUSCULAR VOLUME 97.4 fl (80.0-96.0); MONO # 0.7 10^3/uL (0.0-0.8); MONO % 8.8 % (0.0-5.0); NEUTROPHILS % 81.2 % (36.0-66.0); PLATELET COUNT, AUTOMATED 452 10^3/uL (150-450); RED BLOOD COUNT 3.03 10^6/uL (4.00-5.40); WHITE BLOOD COUNT 7.4 10^3/uL (4.0-10.0)
[2020-06-14 08:43] LABS: INR 3.53; PROTHROMBIN TIME 36.2 SECONDS (11.8-14.0)
[2020-06-14 09:03] LABS: BLOOD UREA NITROGEN 15 MG/DL (7-18); CALCIUM LEVEL 8.6 MG/DL (8.8-10.2); CARBON DIOXIDE LEVEL 25 MEQ/L (21-32); CHLORIDE LEVEL 111 MEQ/L (98-107); CREATININE FOR GFR 0.65 MG/DL (0.55-1.30); GLOMERULAR FILTRATION RATE > 60.0 (>45); GLUCOSE, FASTING 144 MG/DL (70-100); POTASSIUM SERUM 3.5 MEQ/L (3.5-5.1); SODIUM LEVEL 141 MEQ/L (136-145)
[2020-06-14 14:00] VITALS: BP 106/61
[2020-06-14] MEDS: WARFARIN SOD 4MG TAB PO SCH (16:29)
[2020-06-14 20:30] VITALS: BP 111/67
[2020-06-14] MEDS: LIDOCAINE 5% (LIDODERM) PATCH TD SCH (21:09)
[2020-06-14] MEDS: SIMVASTATIN 20 MG TAB PO SCH (21:10)
[2020-06-15] MEDS: oxyCODONE 5MG TAB PO PRN ×4 (01:52→17:51)
[2020-06-15 05:44] VITALS: BP 124/68
[2020-06-15] MEDS: ACETAMINOPHEN 500 MG TAB PO SCH ×3 (05:53→20:35)
[2020-06-15] MEDS: SYMBICORT 160/4.5MCG INHALER 6GM INH SCH ×2 (06:27→18:04)
[2020-06-15] MEDS: IPRATROPIUM 0.5MG/ALBUTEROL 2.5MG INH SOL UD 3ML (DUONEB) NEB SCH ×3 (06:32→18:04)
[2020-06-15 07:24] LABS: INR 3.93; PROTHROMBIN TIME 39.4 SECONDS (11.8-14.0)
[2020-06-15] MEDS: buPROPion (WELLBUTRIN SR) 100 MG SR TAB PO SCH ×2 (08:34→20:34)
[2020-06-15] MEDS: OMEPRAZOLE 20 MG CAP PO SCH (08:34)
[2020-06-15] MEDS: METOCLOPRAMIDE 5 MG TAB PO SCH (08:34)
[2020-06-15] MEDS: GABAPENTIN 300 MG CAP PO SCH ×3 (08:34→20:35)
[2020-06-15] MEDS: SENOKOT S TAB PO SCH ×2 (08:34→20:34)
[2020-06-15] MEDS: REMEDY PHYTOPLEX Z-GUARD PASTE 113GM TUBE (FROM STOREROOM PRODUCT) TOP SCH ×3 (08:37→20:36)
--- NOTE | 2020-06-15 12:42 | CR.PDOC ---
General Date of Consultation: Jun 15, 2020 Consultation REASON FOR CONSULTATION/CHIEF COMPLAINT: Medical co-management HISTORY OF PRESENT ILLNESS: 69 yo female admitted to ARU s/p fall with left pe lvic fracture, left clavicle and humeral fracture. Medicine consulted for assistance with management of anti-coagulation therapy for mechanical prosthetic aortic, prosthetic mitral valve. ALLERGIES: Please see below. HOME MEDICATIONS: Please see below. 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 General: NAD, sitting comfortably in chair eating breakfast HEENT: NC/AT, EOMI Lungs: CTA B/L Heart: +S1S2, RRR Abd: soft, NT, +BS Ext: no edema LABORATORY DATA: Please see below. ASSESSMENT/PLAN: 69 yo female with PMHx mechanical prosthetic aortic/prosthetic mitral valve, admitted to ARU s/p fall, with left pelvic, clavicle and humeral fracture. #falls/fracture - as per primary team #mechanical prosthetic aortic, prosthetic mitral valve - INR elevated today - hold coumadin - ideal target for INR 3-3.5 - discussed with cardiology dr mcpherson, assistance appreciated #HTN/HLD #peripheral neuropathy #CHF? - fluid restriction #DVT prophylaxis - as above therapeutic on coumadin Dispo: continue to monitor INR, adjust coumadin as needed - will continue to follow. Vital Signs/I&O Vital Signs Date Time Temp Pulse Resp B/P (MAP) Pulse Ox O2 Delivery O2 Flow Rate FiO2 06/15/20 12:10 18 Room Air 06/15/20 05:44 97.4 78 124/68 (86) 96 I&O- Last 24 Hours up to 6 AM 06/15/20 06:00 Intake Total 1100 ml Balance 1100 ml Laboratory Data Labs 24H Laboratory Tests 2 06/15/20 06:43: Prothrombin Time 39.4H, Prothromb Time International Ratio 3.93 Allergies Coded Allergies: No Known Drug Allergies (Verified Allergy, Unknown, 06/11/20) Home Medications Scheduled Budesonide/Formoterol (Symbicort 160-4.5 Mcg Inhaler) 6 Gm Hfa.aer.ad, 2 PUFF INH DAILY, (Reported) PATIENT STATES ONLY TAKES DAILY Bupropion HCl (Bupropion HCl Sr) 100 Mg Tab.sr.12h, 200 MG PO BID, (Reported) Ergocalciferol (Vitamin D2) (Vitamin D2) 50,000 Units Cap, 50,000 UNITS PO QMONTH, (Reported) FIRST OF EVERY MONTH Gabapentin (Gabapentin) 100 Mg Capsule, 200 MG PO QHS, (Reported) Gabapentin (Gabapentin) 400 Mg Capsule, 400 MG PO TID, (Reported) Omeprazole (Omeprazole) 20 Mg Cap, 20 MG PO DAILY, (Reported) Simvastatin (Simvastatin) 20 Mg Tab, 20 MG PO QHS, (Reported) Warfarin Sodium (Warfarin Sodium) 2.5 Mg Tablet, 2.5 MG PO QHS, (Reported) Scheduled PRN Hydrocodone/Acetaminophen (Hydrocodone-Acetamin 5-325 mg) 1 Each Tablet, 1 TAB PO Q6H PRN for PAIN, (Reported) Metoclopramide HCl (Metoclopramide HCl) 10 Mg Tab, 10 MG PO DAILY PRN for NAUSEA OR VOMITING, (Reported) ÁNGEL NOONAN MD Jun 15, 2020 12:42
[2020-06-15 14:00] VITALS: BP 87/57
[2020-06-15 15:00] VITALS: BP 110/62
[2020-06-15 20:20] VITALS: BP 118/70
[2020-06-15] MEDS: SIMVASTATIN 20 MG TAB PO SCH (20:36)
[2020-06-15] MEDS: LIDOCAINE 5% (LIDODERM) PATCH TD SCH (20:36)
[2020-06-15 23:20] LABS: BLOOD UREA NITROGEN 13 MG/DL (7-18); CALCIUM LEVEL 8.4 MG/DL (8.8-10.2); CARBON DIOXIDE LEVEL 21 MEQ/L (21-32); CHLORIDE LEVEL 113 MEQ/L (98-107); CREATININE FOR GFR 0.55 MG/DL (0.55-1.30); GLOMERULAR FILTRATION RATE > 60.0 (>45); GLUCOSE, FASTING 82 MG/DL (70-100); POTASSIUM SERUM 4.3 MEQ/L (3.5-5.1); SODIUM LEVEL 141 MEQ/L (136-145)
[2020-06-16] MEDS: oxyCODONE 5MG TAB PO PRN ×3 (05:40→15:34)
[2020-06-16] MEDS: ACETAMINOPHEN 500 MG TAB PO SCH ×3 (05:41→21:03)
[2020-06-16 05:58] VITALS: BP 110/56
[2020-06-16] MEDS: OMEPRAZOLE 20 MG CAP PO SCH (07:30)
[2020-06-16] MEDS: buPROPion (WELLBUTRIN SR) 100 MG SR TAB PO SCH ×2 (07:30→21:02)
[2020-06-16] MEDS: METOCLOPRAMIDE 5 MG TAB PO SCH (07:30)
[2020-06-16] MEDS: SENOKOT S TAB PO SCH ×2 (07:30→21:02)
[2020-06-16] MEDS: GABAPENTIN 300 MG CAP PO SCH ×3 (07:30→21:02)
[2020-06-16] MEDS: REMEDY PHYTOPLEX Z-GUARD PASTE 113GM TUBE (FROM STOREROOM PRODUCT) TOP SCH ×3 (07:31→21:00)
[2020-06-16] MEDS: SYMBICORT 160/4.5MCG INHALER 6GM INH SCH ×2 (07:44→18:17)
[2020-06-16] MEDS: IPRATROPIUM 0.5MG/ALBUTEROL 2.5MG INH SOL UD 3ML (DUONEB) NEB SCH ×3 (07:45→18:17)
[2020-06-16 08:03] LABS: INR 3.25; PROTHROMBIN TIME 33.9 SECONDS (11.8-14.0)
[2020-06-16 14:00] VITALS: BP 115/63
[2020-06-16] MEDS: WARFARIN SOD 4MG TAB PO SCH (17:10)
[2020-06-16 17:21] LABS: INR 2.61; PROTHROMBIN TIME 28.5 SECONDS (11.8-14.0)
[2020-06-16 20:00] VITALS: BP 100/62
[2020-06-16] MEDS: SIMVASTATIN 20 MG TAB PO SCH (21:02)
[2020-06-16] MEDS: LIDOCAINE 5% (LIDODERM) PATCH TD SCH (21:03)
[2020-06-17] MEDS: oxyCODONE 5MG TAB PO PRN ×2 (03:02→09:04)
[2020-06-17] MEDS: ACETAMINOPHEN 500 MG TAB PO SCH (05:48)
[2020-06-17 06:00] VITALS: BP 103/62
[2020-06-17] MEDS: IPRATROPIUM 0.5MG/ALBUTEROL 2.5MG INH SOL UD 3ML (DUONEB) NEB SCH ×2 (07:20→12:58)
[2020-06-17] MEDS: SYMBICORT 160/4.5MCG INHALER 6GM INH SCH (07:20)
[2020-06-17 07:29] LABS: BASO % 0.4 % (0.0-1.0); EOS # 0.1 10^3/uL (0.0-0.5); EOS % 1.3 % (0.0-3.0); HEMATOCRIT 30.9 % (36.0-47.0); HEMOGLOBIN 9.3 g/dl (12.0-15.5); LYMPH # 0.6 10^3/uL (1.5-5.0); LYMPH % 10.8 % (24.0-44.0); MEAN CORPUSCULAR HEMOGLOBIN 30.2 pg (27.0-33.0); MEAN CORPUSCULAR HGB CONC 30.1 g/dl (32.0-36.5); MEAN CORPUSCULAR VOLUME 100.3 fl (80.0-96.0); MONO # 0.5 10^3/uL (0.0-0.8); MONO % 9.4 % (0.0-5.0); NEUTROPHILS # 4.3 10^3/uL (1.5-8.5); PLATELET COUNT, AUTOMATED 493 10^3/uL (150-450); RED BLOOD COUNT 3.08 10^6/uL (4.00-5.40); WHITE BLOOD COUNT 5.6 10^3/uL (4.0-10.0)
[2020-06-17 07:39] LABS: INR 3.27; PROTHROMBIN TIME 34.1 SECONDS (11.8-14.0)
[2020-06-17 08:06] LABS: BLOOD UREA NITROGEN 16 MG/DL (7-18); CALCIUM LEVEL 8.5 MG/DL (8.8-10.2); CARBON DIOXIDE LEVEL 26 MEQ/L (21-32); CHLORIDE LEVEL 109 MEQ/L (98-107); CREATININE FOR GFR 0.63 MG/DL (0.55-1.30); GLOMERULAR FILTRATION RATE > 60.0 (>45); GLUCOSE, FASTING 82 MG/DL (70-100); SODIUM LEVEL 142 MEQ/L (136-145)
[2020-06-17] MEDS: REMEDY PHYTOPLEX Z-GUARD PASTE 113GM TUBE (FROM STOREROOM PRODUCT) TOP SCH (09:00)
[2020-06-17] MEDS: METOCLOPRAMIDE 5 MG TAB PO SCH (09:00)
[2020-06-17] MEDS: buPROPion (WELLBUTRIN SR) 100 MG SR TAB PO SCH (09:03)
[2020-06-17] MEDS: OMEPRAZOLE 20 MG CAP PO SCH (09:04)
[2020-06-17] MEDS: SENOKOT S TAB PO SCH (09:04)
[2020-06-17] MEDS: GABAPENTIN 300 MG CAP PO SCH (09:04)
--- NOTE | 2020-06-20 12:42 | IPNPDOC ---
PM&R Progress Note DATE OF SERVICE: Jun 12, 2020 Junior Bookkeeper Progress Note SUBJECTIVE: Patient reporting she feels well overall and is looking forward to going home. MELODY- denies chest pain, difficulty breathing, diarrhea, constipation, + bilat LE tremor (chronic), + left groin and arm pain ALLERGIES: See Below MEDICATIONS: Reviewed, see below. OBJECTIVE: VITAL SIGNS: Please see below. PHYSICAL EXAMINATION: GENERAL: sitting up in bed, no acute distress HEENT: Normocephalic, atraumatic PERRL, EOMI CARDIOVASCULAR: S1, S2, +systolic murmur, No lower limb edema or calf tenderness LUNGS: CTA ABDOMEN: Soft, nontender, nondistended. Normoactive bowel sounds throughout MUSCULOSKELETAL: 5/5 RUE and RLE, law secretary on left 5/5 (limited due to recent fracture), LLE >3/5 (limited due to recent pelvic fracture) NEUROLOGICAL: Alert and oriented times three, sensation intact to light touch throughout +bilateral LE twitching SKIN: intact LABORATORY DATA: Reviewed. Please see below. MICROBIOLOGY: Please see below. ASSESSMENT AND PLAN:69 F pmh mitral/aortic valvel replacement s/p fall with left pubic fracture and left glenoid/clavicle fracture 1. Rehab- c/u PT/OT, patient advancing with angelo-walker, ok to do pendulum shoulder swings, NWB to LUE and WBAT to LLE -IMPROVEMENT RN ordered for intermittent dysphagia 2. Neuro- patient reporting ever since she started reglan she has had restless legs and that gabapentin was started by her physician to counteract these tremors- f/u with PMD 3. Cardiac- c/u COumadin goal INR 3-3.5 for mitral and aortic valve repair, per patient both are mechanical -recent ECHO showing chronic diastolic CHF, monitor for fluid overload 4. Resp- hx of COPD c/u symbicort and Duonebs 5. GI ppx- omeprazole 6. - patient voiding well 7. Pain- c/u tylenol, oxycodone, and gabapentin 8. Dispo- TBD Allergies Coded Allergies: No Known Drug Allergies (Verified Allergy, Unknown, 06/11/20) Vital Signs Vital Signs Date Time Temp Pulse Resp B/P (MAP) Pulse Ox O2 Delivery O2 Flow Rate FiO2 06/17/20 10:00 16 06/17/20 06:00 97.9 76 103/62 (76) 95 Room Air Current Medications Current Medications Current Medications Medications (Trade) Dose Ordered Sig/Peter Route PRN Reason Start Time Stop Time Status Last Admin Dose Admin Acetaminophen (Tylenol Tab) 1,000 mg Q8H PO 06/11/20 22:00 06/17/20 14:36 DC 06/17/20 05:48 Albuterol/ Ipratropium (Duoneb (Ipr 0.5mg/Alb 2.5mg)) 3 ml RTID NEB 06/11/20 20:00 06/17/20 14:36 DC 06/17/20 12:58 Budesonide/ Formoterol Fumarate (Symbicort 160/ 4.5mcg) 2 puff RBID INH 06/11/20 20:00 06/17/20 14:36 DC 06/17/20 07:20 Bupropion HCl (Wellbutrin Sr) 200 mg BID PO 06/11/20 21:00 06/17/20 14:36 DC 06/17/20 09:03 Gabapentin (Neurontin) 400 mg BID@0900,1600 PO 06/12/20 09:00 06/13/20 17:48 DC 06/13/20 17:06 Gabapentin (Neurontin) 600 mg BID@0900,1600 PO 06/14/20 09:00 06/17/20 14:36 DC 06/17/20 09:04 Gabapentin (Neurontin) 600 mg QHS PO 06/11/20 21:00 06/17/20 14:36 DC 06/16/20 21:02 Home Med (Med Rec Complete!) ASDIRECTED XX 06/11/20 09:30 06/11/20 09:31 DC Lidocaine (Lidoderm Patch) 1 patch QHS TD 06/11/20 21:00 06/17/20 14:36 DC 06/16/20 21:03 Metoclopramide HCl (Reglan) 5 mg DAILY PO 06/13/20 18:00 06/17/20 14:36 DC 06/16/20 07:30 Metoclopramide HCl (Reglan) 10 mg DAILY PO 06/12/20 09:00 06/12/20 14:43 DC 06/12/20 08:18 Non-Formulary Medication ( See Comment Field Below ) REMOVE LIDODERM PATCH DAILY@0900 XX 06/12/20 09:00 06/17/20 14:36 DC 06/17/20 09:06 Omeprazole (PriLOSEC) 20 mg DAILY PO 06/12/20 09:00 06/17/20 14:36 DC 06/17/20 09:04 Ondansetron HCl (Zofran Odt) 4 mg Q6HP PRN PO NAUSEA OR VOMITING 06/11/20 09:30 06/17/20 14:36 DC 06/15/20 16:58 Oxycodone HCl (Roxicodone, Oxyir) 5 mg Q4HP PRN PO PAIN >7/10 06/11/20 09:30 06/17/20 14:36 DC 06/17/20 09:04 Senna/Docusate Sodium (Senokot S) 1 tab BID PO 06/11/20 21:00 06/17/20 14:36 DC 06/17/20 09:04 Simvastatin (Zocor) 20 mg QHS PO 06/11/20 21:00 06/17/20 14:36 DC 06/16/20 21:02 Trazodone HCl (Desyrel) 25 mg QHSP PRN PO INSOMNIA 06/11/20 09:30 06/17/20 14:36 DC Warfarin Sodium (Coumadin) 2.5 mg DAILY@17 PO 06/11/20 17:00 06/11/20 14:45 DC Warfarin Sodium (Coumadin) 3 mg DAILY@17 PO 06/12/20 17:00 06/12/20 11:49 DC Warfarin Sodium (Coumadin) 4 mg DAILY@17 PO 06/12/20 17:00 06/17/20 14:36 DC 06/16/20 17:10 LYNDON MORALES MD Jun 20, 2020 12:42
--- NOTE | 2020-06-20 12:43 | IPNPDOC ---
PM&R Progress Note DATE OF SERVICE: Jun 13, 2020 Traffic And Transport Planner Progress Note SUBJECTIVE: Patient reporting she wants to go home Wednesday, but was advised to stay longer as she is still unsteady on her feet. MELODY- denies chest pain, difficulty breathing, diarrhea, constipation, + bilat LE tremor (chronic), + left groin and arm pain ALLERGIES: See Below MEDICATIONS: Reviewed, see below. OBJECTIVE: VITAL SIGNS: Please see below. PHYSICAL EXAMINATION: GENERAL: sitting up in bed, no acute distress HEENT: Normocephalic, atraumatic PERRL, EOMI CARDIOVASCULAR: S1, S2, +systolic murmur, No lower limb edema or calf tenderness LUNGS: CTA ABDOMEN: Soft, nontender, nondistended. Normoactive bowel sounds throughout MUSCULOSKELETAL: 5/5 RUE and RLE, mining support worker on left 5/5 (limited due to recent fracture), LLE >3/5 (limited due to recent pelvic fracture) NEUROLOGICAL: Alert and oriented times three, sensation intact to light touch throughout +bilateral LE twitching SKIN: intact LABORATORY DATA: Reviewed. Please see below. MICROBIOLOGY: Please see below. ASSESSMENT AND PLAN:69 F pmh mitral/aortic valvel replacement s/p fall with left pubic fracture and left glenoid/clavicle fracture 1. Rehab- c/u PT/OT, patient advancing with angelo-walker, ok to do pendulum shoulder swings, NWB to LUE and WBAT to LLE- patient still reuqiring assistance with mobility -BELT MOLDER ordered for intermittent dysphagia 2. Neuro- patient reporting ever since she started reglan she has had restless legs and that gabapentin was started by her physician to counteract these tremors- f/u with PMD 3. Cardiac- c/u COumadin goal INR 3-3.5 for mitral and aortic valve repair, per patient both are mechanical -recent ECHO showing chronic diastolic CHF, monitor for fluid overload 4. Resp- hx of COPD c/u symbicort and Duonebs 5. GI ppx- omeprazole 6. - patient voiding well 7. Pain- c/u tylenol, oxycodone, and gabapentin 8. Dispo- TBD Allergies Coded Allergies: No Known Drug Allergies (Verified Allergy, Unknown, 06/11/20) Vital Signs Vital Signs Date Time Temp Pulse Resp B/P (MAP) Pulse Ox O2 Delivery O2 Flow Rate FiO2 8/24/20 10:00 16 06/17/20 06:00 97.9 76 103/62 (76) 95 Room Air Current Medications Current Medications Current Medications Medications (Trade) Dose Ordered Sig/Peter Route PRN Reason Start Time Stop Time Status Last Admin Dose Admin Acetaminophen (Tylenol Tab) 1,000 mg Q8H PO 06/11/20 22:00 06/17/20 14:36 DC 06/17/20 05:48 Albuterol/ Ipratropium (Duoneb (Ipr 0.5mg/Alb 2.5mg)) 3 ml RTID NEB 06/11/20 20:00 06/17/20 14:36 DC 06/17/20 12:58 Budesonide/ Formoterol Fumarate (Symbicort 160/ 4.5mcg) 2 puff RBID INH 06/11/20 20:00 06/17/20 14:36 DC 06/17/20 07:20 Bupropion HCl (Wellbutrin Sr) 200 mg BID PO 06/11/20 21:00 06/17/20 14:36 DC 06/17/20 09:03 Gabapentin (Neurontin) 400 mg BID@0900,1600 PO 06/12/20 09:00 06/13/20 17:48 DC 06/13/20 17:06 Gabapentin (Neurontin) 600 mg BID@0900,1600 PO 06/14/20 09:00 06/17/20 14:36 DC 06/17/20 09:04 Gabapentin (Neurontin) 600 mg QHS PO 06/11/20 21:00 06/17/20 14:36 DC 06/16/20 21:02 Home Med (Med Rec Complete!) ASDIRECTED XX 06/11/20 09:30 06/11/20 09:31 DC Lidocaine (Lidoderm Patch) 1 patch QHS TD 06/11/20 21:00 06/17/20 14:36 DC 06/16/20 21:03 Metoclopramide HCl (Reglan) 5 mg DAILY PO 06/13/20 18:00 06/17/20 14:36 DC 06/16/20 07:30 Metoclopramide HCl (Reglan) 10 mg DAILY PO 06/12/20 09:00 06/12/20 14:43 DC 06/12/20 08:18 Non-Formulary Medication ( See Comment Field Below ) REMOVE LIDODERM PATCH DAILY@0900 XX 06/12/20 09:00 06/17/20 14:36 DC 06/17/20 09:06 Omeprazole (PriLOSEC) 20 mg DAILY PO 06/12/20 09:00 06/17/20 14:36 DC 06/17/20 09:04 Ondansetron HCl (Zofran Odt) 4 mg Q6HP PRN PO NAUSEA OR VOMITING 06/11/20 09:30 06/17/20 14:36 DC 06/15/20 16:58 Oxycodone HCl (Roxicodone, Oxyir) 5 mg Q4HP PRN PO PAIN >7/10 06/11/20 09:30 06/17/20 14:36 DC 06/17/20 09:04 Senna/Docusate Sodium (Senokot S) 1 tab BID PO 06/11/20 21:00 06/17/20 14:36 DC 06/17/20 09:04 Simvastatin (Zocor) 20 mg QHS PO 06/11/20 21:00 06/17/20 14:36 DC 06/16/20 21:02 Trazodone HCl (Desyrel) 25 mg QHSP PRN PO INSOMNIA 06/11/20 09:30 06/17/20 14:36 DC Warfarin Sodium (Coumadin) 2.5 mg DAILY@17 PO 06/11/20 17:00 06/11/20 14:45 DC Warfarin Sodium (Coumadin) 3 mg DAILY@17 PO 06/12/20 17:00 06/12/20 11:49 DC Warfarin Sodium (Coumadin) 4 mg DAILY@17 PO 06/12/20 17:00 06/17/20 14:36 DC 06/16/20 17:10 LYNDON MORALES MD Jun 20, 2020 12:43
--- NOTE | 2020-08-02 15:52 | PMRDS ---
DATE OF ADMISSION: 06/10/2020 DATE OF DISCHARGE: 06/17/2020 CHIEF COMPLAINT/ DISCHARGE DIAGNOSES: Left pelvic fracture and left glenoid and clavicle fracture. HISTORY OF PRESENT ILLNESS: A 69-year-old female with a past medical history of aortic/mitral valve mechanical valve replacement, hypertension, hyperlipidemia, peripheral polyneuropathy, who fell at home and presented to [facility] ([facility]) on 06/06/2020 after falling [address] of the shoulder showed a left glenoid fracture and left clavicle fracture, and CT pelvis showed "displaced left superior and inferior pubic ramus fracture." She was evaluated by therapy and deemed to be nonoperable and was treated for pain. She had anemia and difficulty urinating. She was evaluated by therapy and found to have impairments in mobility and activities of daily living (ADLs) and deemed to be medically appropriate for discharge to acute rehabilitation unit (ARU). On admission, patient reports she has had left-sided facial droop for years but does not recall having had a stroke. She states she is not urinating as well as she usually does but denies pain. PAST MEDICAL HISTORY: As per history of present illness (HPI). HOSPITAL COURSE: Patient was admitted and enrolled in a comprehensive physical therapy(PT)/occupational therapy (OT) program. She received 24-hour nursing supervision, and weekly team meetings were held to discuss her progress. Patient was maintained in therapeutic dosing of warfarin for her aortic and mitral valve. She maintained nonweightbearing to the left upper extremity and was weightbearing as tolerated the left lower extremity. Patient was able to void well, and her urinary status was monitored with bladder scans and postvoid residuals. Her pain was controlled with Tylenol and oxycodone in addition to gabapentin. She remained hemodynamically stable during her hospital course and made steady gains in therapy and was deemed medically and functionally stable to return home. DISCHARGE MEDICATIONS: As per instructions. FUNCTIONAL HISTORY ON DISCHARGE: Patient was functionally appropriate for discharge home with help to be provided by her housemate. Thank you for this referral. MARVIN
== END 2020-06-17 13:45 | disposition home or self-care (01) | DRG 560 ==
LOC: M PM&R 12:40
PROVIDERS: ADMIT Physical Medicine & Rehabilitation; ATTEND Physical Medicine & Rehabilitation
DX: S42.142D Displaced fracture of glenoid cavity of scapula, left shoulder, subsequent encounter for fracture with routine healing (principal); I50.32 Chronic diastolic (congestive) heart failure; S42.002D Fracture of unspecified part of left clavicle, subsequent encounter for fracture with routine healing; S32.512D Fracture of superior rim of left pubis, subsequent encounter for fracture with routine healing; W19.XXXD Unspecified fall, subsequent encounter; Y92.9 Unspecified place or not applicable; R29.810 Facial weakness; D64.9 Anemia, unspecified; R26.81 Unsteadiness on feet; R33.9 Retention of urine, unspecified; J44.9 Chronic obstructive pulmonary disease, unspecified; E78.5 Hyperlipidemia, unspecified; I11.0 Hypertensive heart disease with heart failure; R13.10 Dysphagia, unspecified; G62.9 Polyneuropathy, unspecified; G25.81 Restless legs syndrome; Z95.2 Presence of prosthetic heart valve; Z87.891 Personal history of nicotine dependence; Z79.01 Long term (current) use of anticoagulants; Z79.891 Long term (current) use of opiate analgesic; Z79.899 Other long term (current) drug therapy

== ENCOUNTER → 2020-06-19 | Outpatient (REF) | payer MEDICARE ==
[~2020-06-19] MED LIST changes: +BUPR1TAB52 PO; +HYDR-3713 PO; +SYMB16INH INH; +VITA50005 PO; +WARF-18 PO
[2020-06-19 16:17] LABS: INR 2.9
== END ==
LOC: M SHH 15:17
PROVIDERS: ATTEND Physical Medicine & Rehabilitation
DX: S32.89XA Fracture of other parts of pelvis, initial encounter for closed fracture (principal); S42.302A Unspecified fracture of shaft of humerus, left arm, initial encounter for closed fracture; X58.XXXA Exposure to other specified factors, initial encounter; Y92.9 Unspecified place or not applicable; G89.29 Other chronic pain; J44.9 Chronic obstructive pulmonary disease, unspecified; E78.00 Pure hypercholesterolemia, unspecified; F33.8 Other recurrent depressive disorders; R11.0 Nausea; K21.9 Gastro-esophageal reflux disease without esophagitis; Z79.01 Long term (current) use of anticoagulants; Z95.4 Presence of other heart-valve replacement

== ENCOUNTER → 2020-07-03 | Outpatient (REF) | payer MEDICARE ==
[2020-07-03 13:25] LABS: HEMATOCRIT 36.7 % (36.0-47.0); HEMOGLOBIN 11.5 g/dl (12.0-15.5); MEAN CORPUSCULAR HEMOGLOBIN 30.3 pg (27.0-33.0); MEAN CORPUSCULAR HGB CONC 31.3 g/dl (32.0-36.5); MEAN CORPUSCULAR VOLUME 96.8 fl (80.0-96.0); PLATELET COUNT, AUTOMATED 274 10^3/uL (150-450); RED BLOOD COUNT 3.79 10^6/uL (4.00-5.40); WHITE BLOOD COUNT 4.7 10^3/uL (4.0-10.0)
[2020-07-03 13:51] LABS: ALBUMIN 3.5 GM/DL (3.2-5.2); ALT/SGPT 21 U/L (12-78); BILIRUBIN,TOTAL 0.8 MG/DL (0.2-1.0); BLOOD UREA NITROGEN 20 MG/DL (7-18); CALCIUM LEVEL 8.8 MG/DL (8.8-10.2); CARBON DIOXIDE LEVEL 23 MEQ/L (21-32); CHLORIDE LEVEL 108 MEQ/L (98-107); CHOLESTEROL LEVEL 150 MG/DL (<200); CHOLESTEROL RISK RATIO 2.238 (<5); CPK CREATINE PHOSPHOKINASE 59 U/L (26-192); CREATININE FOR GFR 0.69 MG/DL (0.55-1.30); GLOMERULAR FILTRATION RATE > 60.0 (>45); GLUCOSE, FASTING 74 MG/DL (70-100); HDL CHOLESTEROL 67 MG/DL (>40); LDL CHOLESTEROL 67 MG/DL (<100); NON-HDL-C 83 MG/DL; POTASSIUM SERUM 3.8 MEQ/L (3.5-5.1); SODIUM LEVEL 137 MEQ/L (136-145); TRIGLYCERIDES LEVEL 79 MG/DL (<150)
[2020-07-03 13:58] LABS: TOTAL 25(OH) VITAMIN D 63.4 NG/ML (30.0-100.0)
== END ==
LOC: M SHH 12:33
PROVIDERS: ATTEND Nurse Practitioner Family
DX: I10 Essential (primary) hypertension (principal); E78.5 Hyperlipidemia, unspecified; E55.9 Vitamin D deficiency, unspecified; Z51.81 Encounter for therapeutic drug level monitoring

== ENCOUNTER → 2020-07-03 | Outpatient (REF) | payer MEDICARE ==
[2020-07-03 13:39] LABS: INR 3.19; PROTHROMBIN TIME 33.4 SECONDS (11.8-14.0)
== END ==
LOC: M SHH 12:36
PROVIDERS: ATTEND Physical Medicine & Rehabilitation
DX: Z51.81 Encounter for therapeutic drug level monitoring (principal)

== ENCOUNTER → 2020-07-15 | Outpatient (CLI) | payer MEDICARE | LOC: M PAIN 11:21 | PROVIDERS: ATTEND Nurse Practitioner Family | DX: M47.816 Spondylosis without myelopathy or radiculopathy, lumbar region (principal); Z79.891 Long term (current) use of opiate analgesic ==

== ENCOUNTER 2020-08-03 11:41 | Emergency (ER) | payer MEDICARE ==
[~2020-08-03] VITALS: Ht 154.9 cm; Wt 64.7 kg
--- NOTE | 2020-08-03 13:36 | REPVR ---
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 COMPARISON: CT Head without contrast 06/05/2020 12:37 PM FINDINGS: Brain: There are chronic lacunar infarcts. There is moderate high signal abnormality in the periventricular white matter and centrum semiovale, best seen on the flair images. These changes are nonspecific but likely represent chronic small vessel ischemic change. Cerebral ventricles: There is a cavum vergae. Bones/joints: Unremarkable. Paranasal sinuses: Normal as visualized. No acute sinusitis. Mastoid air cells: Normal as visualized. No mastoid effusion. Orbits: Unremarkable. Soft tissues: Unremarkable. IMPRESSION: 1. There are chronic lacunar infarcts. 2. There is moderate high signal abnormality in the periventricular white matter and centrum semiovale, best seen on the flair images. These changes are nonspecific but likely represent chronic small vessel ischemic change. No acute infarct is identified. Electronically signed by: Ulices Jansen On 08/03/2020 13:36:24 PM
--- NOTE | 2020-08-03 14:00 | REPVR ---
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 Exam focused on the arteries. COMPARISON: CT Head without contrast 06/05/2020 12:37 PM FINDINGS: ANTERIOR CIRCULATION: Right internal carotid artery: There is asymmetric diminished flow signal within the right cervical and intracranial internal carotid artery compared to the left. Right middle cerebral artery: No occlusion or significant stenosis. No aneurysm. Right anterior cerebral artery: See "Right vertebral artery" finding. Left internal carotid artery: There is asymmetric diminished flow signal within the right cervical and intracranial internal carotid artery compared to the left. Left middle cerebral artery: No occlusion or significant stenosis. No aneurysm. Left anterior cerebral artery: No occlusion or significant stenosis. No aneurysm. POSTERIOR CIRCULATION: Right vertebral artery: Flow signal within the right intracranial vertebral artery is not reliably identified. This appearance could be due to occlusion of this artery or congenital hypoplasia. Left vertebral artery: No occlusion or significant stenosis. No aneurysm. Basilar artery: No occlusion or significant stenosis. No aneurysm. Right posterior cerebral artery: No occlusion or significant stenosis. No aneurysm. Left posterior cerebral artery: No occlusion or significant stenosis. No aneurysm. Other findings: There is a cavum vergae. IMPRESSION: 1. Flow signal within the right intracranial vertebral artery is not reliably identified. This appearance could be due to occlusion of this artery or congenital hypoplasia. 2. There is asymmetric diminished flow signal within the right cervical and intracranial internal carotid artery compared to the left. Follow-up CT or MR angiography of the cervical vessels is recommended. Electronically signed by: Ulices Jansen On 08/03/2020 14:00:22 PM
[2020-08-03] MEDS ORDERED: ACETAMINOPHEN TAB 650MG DOSE (2X325MG) PO ONE (14:15)
[2020-08-03 14:34] VITALS: BP 161/85
[2020-08-03 14:49] LABS: HEMATOCRIT 40.5 % (36.0-47.0); HEMOGLOBIN 12.6 g/dl (12.0-15.5); MEAN CORPUSCULAR HEMOGLOBIN 29.4 pg (27.0-33.0); MEAN CORPUSCULAR HGB CONC 31.1 g/dl (32.0-36.5); MEAN CORPUSCULAR VOLUME 94.4 fl (80.0-96.0); PLATELET COUNT, AUTOMATED 240 10^3/uL (150-450); RED BLOOD COUNT 4.29 10^6/uL (4.00-5.40); WHITE BLOOD COUNT 5.2 10^3/uL (4.0-10.0)
[2020-08-03 15:00] LABS: INR 4.67; PROTHROMBIN TIME 45.1 SECONDS (12.5-14.3)
== END 2020-08-03 14:36 | disposition home or self-care (01) ==
LOC: M ED 11:41
DX: H54.61 Unqualified visual loss, right eye, normal vision left eye (principal); R93.0 Abnormal findings on diagnostic imaging of skull and head, not elsewhere classified; I51.9 Heart disease, unspecified; I10 Essential (primary) hypertension; Z79.01 Long term (current) use of anticoagulants; Z79.899 Other long term (current) drug therapy

== ENCOUNTER → 2020-08-09 | Outpatient (CLI) | payer MEDICARE | LOC: M LAB 10:57 | PROVIDERS: ATTEND Optometrist | DX: M31.6 Other giant cell arteritis (principal) ==

== ENCOUNTER → 2020-08-21 | Outpatient (CLI) | payer MEDICARE ==
[2020-08-21 11:14] LABS: INR 3.4; PROTHROMBIN TIME 35.1 SECONDS (12.5-14.3)
== END ==
LOC: M LAB 10:06
PROVIDERS: ATTEND Internal Medicine Cardiovascular Disease
DX: Z79.01 Long term (current) use of anticoagulants (principal)

== ENCOUNTER → 2020-09-30 | Outpatient (CLI) | payer MEDICARE ==
[2020-09-30 12:40] LABS: INR 3.52; PROTHROMBIN TIME 36.1 SECONDS (12.5-14.3)
== END ==
LOC: M LAB 11:52
PROVIDERS: ATTEND Nurse Practitioner Family
DX: Z79.01 Long term (current) use of anticoagulants (principal)

== ENCOUNTER → 2020-09-30 | Outpatient (CLI) | payer MEDICARE ==
[2020-09-30 12:28] LABS: HEMATOCRIT 42.4 % (36.0-47.0); HEMOGLOBIN 13.1 g/dl (12.0-15.5); MEAN CORPUSCULAR HEMOGLOBIN 28.7 pg (27.0-33.0); MEAN CORPUSCULAR HGB CONC 30.9 g/dl (32.0-36.5); PLATELET COUNT, AUTOMATED 212 10^3/uL (150-450); RED BLOOD COUNT 4.56 10^6/uL (4.00-5.40); WHITE BLOOD COUNT 5.3 10^3/uL (4.0-10.0)
[2020-09-30 12:40] LABS: INR 3.6; PROTHROMBIN TIME 36.7 SECONDS (12.5-14.3)
[2020-09-30 12:56] LABS: ALT/SGPT 33 U/L (12-78); BLOOD UREA NITROGEN 13 MG/DL (7-18); CARBON DIOXIDE LEVEL 26 MEQ/L (21-32); CHLORIDE LEVEL 108 MEQ/L (98-107); CHOLESTEROL LEVEL 159 MG/DL (<200); CHOLESTEROL RISK RATIO 2.038 (<5); CREATININE FOR GFR 0.81 MG/DL (0.55-1.30); GLOMERULAR FILTRATION RATE > 60.0 (>39); GLUCOSE, FASTING 85 MG/DL (70-100); HDL CHOLESTEROL 78 MG/DL (>40); LDL CHOLESTEROL 59 MG/DL (<100); NON-HDL-C 81 MG/DL; POTASSIUM SERUM 3.9 MEQ/L (3.5-5.1); SODIUM LEVEL 139 MEQ/L (136-145); TOTAL PROTEIN 7.4 GM/DL (6.4-8.2); TRIGLYCERIDES LEVEL 110 MG/DL (<150)
== END ==
LOC: M LAB 11:48
PROVIDERS: ATTEND Internal Medicine Cardiovascular Disease
DX: Z79.01 Long term (current) use of anticoagulants (principal); Z79.899 Other long term (current) drug therapy

== ENCOUNTER → 2020-10-08 | Outpatient (CLI) | payer MEDICARE ==
[2020-10-08 10:32] LABS: INR 2.11; PROTHROMBIN TIME 24.1 SECONDS (12.5-14.3)
== END ==
LOC: M LAB 09:41
PROVIDERS: ATTEND Nurse Practitioner Family
DX: Z95.2 Presence of prosthetic heart valve (principal); Z79.01 Long term (current) use of anticoagulants

== ENCOUNTER → 2020-10-14 | Outpatient (CLI) | payer MEDICARE ==
--- NOTE | 2020-10-15 05:25 | ECWPNPC ---
PATIENT NAME: SANDRO LOVE : 1950 GENDER: FEMALE VISIT DATE: 10/14/2020 DISCHARGE DATE: 10/14/20 1221 VISIT LOCKED DATE TIME: PHYSICIAN: CARLOS GARZA RESOURCE: CARLOS GARZA REASON FOR APPOINTMENT 1. BACK PAIN HISTORY OF PRESENT ILLNESS GENERAL: HERE FOR ROUTINE 3 MONTH FOLLOW-UP AND MEDICATION MANAGEMENT FOR CHRONIC LOW BACK PAIN. FINDS CURRENT CHRONIC PAIN MEDICATION, HYDROCODONE 7.5/325 SOMEWHAT EFFECTIVE AT REDUCING PAIN AND KEEPING HER FUNCTIONAL. DENIES ADVERSE SIDE EFFECTS WITH MEDICATION. BRINGS IN HER MEDICATION WHICH IS APPROPRIATE FOR WHAT WAS DISPENSED. REPORTING NORMAL BOWEL AND BLADDER FUNCTION. SUFFERS FROM PERSISTENT LEFT SHOULDER PAIN AND IS IN PHYSICAL THERAPY PER [facility]. SHE INJURED HER SHOULDER IN A FALL INJURY IN MAY 2020. -. FALL RISK SCREENING: SCREENING :TWO OR MORE FALLS WITH INJURY IN THE PAST YEAR PAIN SCREENING: PATIENT HAS A COMPLAINT OF ACUTE OR CHRONIC PAIN :YES LOCATION OF PAIN:LEFT SHOULDER, UPPER BACK, LOW BACK INTENSITY OF PAIN (SCALE OF 1 TO 10):8 WHAT DOES YOUR PAIN FEEL LIKE:ACHING DURATION:CONTINOUS PAIN IS INCREASED BY:ACTIVITIES, PROLONGED STANDING, OTHERS LIFTING PAIN IS DECREASED BY:USE OF PAIN MEDICATIONS, SITTING, OTHERS SITTING IN RECLINER CHAIR NURSING NOTE: -. PAIN CENTER INTAKE QUESTIONS: DO YOU HAVE A HISTORY OF MRSA? :NO DO YOU TAKE A BLOOD THINNERS? :YES DO YOU HAVE ANY BLEEDING DISORDERS? :NO ANY NEW NUMBNESS OR WEAKNESS IN YOUR LEGS OR ARMS? :NO ANY PACEMAKER,DEFIBRILLATOR, OR DORSAL COLUMN STIMULATOR? :NO DO YOU HAVE ANY RASHES OR OPEN SORES? :NO ARE YOU ALLERGIC TO IV DYE? :NO ARE YOU DIABETIC? :NO ANY NEW PROBLEMS WITH YOUR MEDICATIONS? :NO HAVE YOU RECEIVED A VACCINE IN THE PAST 30 DAYS? :NO DO YOU PLAN TO RECEIVE A VACCINE IN THE NEXT 21 DAYS? :NO DO YOU NEED ANY PRESCRIPTION? :NO DO YOU TAKE ANY IMMUNOSUPPRESSIVE MEDICATIONS? :NO IS THERE A CHANCE YOU COULD BE ? :NO ARE YOU BREAST FEEDING? :NO CURRENT MEDICATIONS TAKING NEURONTIN 400MG CAPSULE 1 CAP ORALLY THREE X DAILY TAKING WARFARIN SODIUM 2.5 MG TABLET 1 TAB ORALLY DAILY TAKING WELLBUTRIN SR 200 MG TABLET EXTENDED RELEASE 12 HOUR 1 TABLET ORALLY TWICE A DAY TAKING SIMVASTATIN 20 MG TABLET 1 TABLET IN THE EVENING ORALLY ONCE A DAY TAKING VITAMIN D 32117 U CAPSULE 1 CAPSULE ORALLY ONCE A MONTH TAKING METOCLOPRAMIDE HCL 10 MG TABLET ORALLY FOUR TIMES A DAY NEEDED TAKING OMEPRAZOLE 20 MG CAPSULE DELAYED RELEASE 1 CAPSULE ORALLY ONCE A DAY TAKING GABAPENTIN 100 MG CAPSULE 2 TABS ORALLY AT BEDTIME, TAKES 400MG 3 X DAILY BESIDES TAKING TYLENOL EX ST ARTHRITIS PAIN 500 MG TABLET 1 TABLET NEEDED ORALLY EVERY 6 HRS TAKING NORCO 7.5-325 MG TABLET 1 TABLET NEEDED ORALLY EVERY 6 HRS, MDD = 4 NOT-TAKING NORCO 5-325 MG TABLET 1 TABLET NEEDED ORALLY EVERY 6 HRS FOR SEVERE PAIN EPISODES MDD4 #100 TAB SHOULD LAST 30 DAYS NOT-TAKING SYMBICORT 160-4.5 MCG/ACT AEROSOL 2 PUFFS INHALATION DAILY NOT-TAKING COLACE 100 MG CAPSULE 1 CAPSULE NEEDED ORALLY BID NOT-TAKING ACETAMINOPHEN-CODEINE 300-30 MG TABLET 1 TABLET NEEDED ORALLY Q8H PRN MDD3 #45TAB SHOULD LAST 30 DAYS NOT-TAKING TYLENOL WITH CODEINE #3 300-30 MG TABLET 1 TABLET NEEDED Q 8 HOURS PRN MDD3 ORALLY DIRECTED NOT-TAKING DULERA 200-5 MCG/ACT AEROSOL 2 PUFFS INHALATION TWICE A DAY NOT-TAKING BUTRANS 10 MCG/HR PATCH WEEKLY 1 PATCH TO SKIN TRANSDERMAL 1 PATCH Q7 DAYS=MDD MEDICATION LIST REVIEWED AND RECONCILED WITH THE PATIENT PAST MEDICAL HISTORY OSTEOPOROSIS (NO TREATMENT)BMD YEARS AGO DDD/DD CATARACTS FX LEFT KNEE 09/2015 ARTHRITIS ACID REFLUX CHRONIC PAIN COPD LUMBAGP MULTIPLE SITES WITH SCIATICA FRACTURE LEFT SHOULDER 05/27/20 RIGHT EYE GLAUCOMA ALLERGIES N.K.D.A. SURGICAL HISTORY HYSTERECTOMY / BSO--HEAVY BLEEDING 1977 WRIST SURGERY FELICIA. AORTA AND MITRAL VALVE REPLACED 1969 AND 1994 REPAIR OF FX. LEFT WRIST, PLATE AND SCREWS 06/07 COLONOSCOPY X 1 REFUSES ANYMORE FAMILY HISTORY FATHER: 72 YRS, [place], DIAGNOSED WITH UNSPECIFIED HEART DISEASE, DIABETES, OTHER SPECIFIED CONDITIONS INFLUENCING HEALTH STATUS MOTHER: 62 YRS, CANCER, BREAST WITH METS, OTHER MALIGNANT NEOPLASM OF UNSPECIFIED SITE SIBLINGS: ALIVE, SISTER SHERRY LUNG AND BLADDER CANCER SISTER DELORES LUNG CANCER [place], UNSPECIFIED HEART DISEASE, OTHER MALIGNANT NEOPLASM OF UNSPECIFIED SITE 2 SON(S) - HEALTHY. NO OVARY OR COLON CANCER NEPHEW BRAIN CANCER AT AGE 34\NMOTHER HAD BREAST CANCER. SOCIAL HISTORY GENERAL: TOBACCO USE ARE YOU A:FORMER SMOKER HOW LONG HAS IT BEEN SINCE YOU LAST SMOKED?1-5 YEARS LATEX QUESTIONNAIRE LATEX ALLERGY : HAVE YOU EVER DEVELOPED ANY TYPE OF REACTION AFTER HANDLING LATEX PRODUCTS SUCH RUBBER GLOVES, CONDOMS, DIAPHRAGMS, BALLOONS, SOCKS, OR UNDERWEAR?NO LATEX ALLERGY : HAVE YOU EVER DEVELOPED ANY TYPE OF REACTION DURING OR AFTER DENTAL APPOINTMENT, VAGINAL/RECTAL EXAMINATION, SURGICAL PROCEDURE, OR ANY OTHER EXPOSURE?NO DATE ASKED : 08/28/2019 LATEX RISK : HAVE YOU EVER HAD ANY DIFFICULTY BREATHING OR HIVES AFTER EATING OR HANDLING ANY FRUITS, OR VEGETABLES; SUCH KIWI, BANANAS, STONE FRUITS, OR CHESTNUTSNO LATEX RISK : DO YOU HAVE A PREVIOUS PERSONAL HISTORY OF MORE THAN NINE SURGERIES, SPINA BIFIDA, OR REPEATED CATHERIZATIONS? NO LATEX RISK : ARE YOU FREQUENTLY EXPOSED TO LATEX PRODUCTS IN YOUR OCCUPATION?NO BMI CARE GOAL FOLLOW-UP ABOVE NORMAL BMI FOLLOW-UPGIVING ENCOURAGEMENT TO EXERCISE ALCOHOL SCREENING DID YOU HAVE A DRINK CONTAINING ALCOHOL IN THE PAST YEAR?YES HOW OFTEN DID YOU HAVE SIX OR MORE DRINKS ON ONE OCCASION IN THE PAST YEAR?NEVER (0 POINTS) HOW MANY DRINKS DID YOU HAVE ON A TYPICAL DAY WHEN YOU WERE DRINKING IN THE PAST YEAR?1 OR 2 (0 POINTS) HOW OFTEN DID YOU HAVE A DRINK CONTAINING ALCOHOL IN THE PAST YEAR?MONTHLY OR LESS (1 POINT) POINTS1 INTERPRETATIONNEGATIVE RECREATIONAL DRUG USE DRUG USE?NO CAFFEINE >5/DAY. 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 EXERCISE: NO REGULAR EXERCISE. MARITAL STATUS: . OTHERS AT HOME: ROOM-MATE, MALE. TODAY'S VISIT 03/06/20 PATIENT DESCRIBES PAIN :ACHING, BURNING, HAVE IT ALL THE TIME FROM 0-10, WHAT LEVEL IS YOUR PAIN TODAY?7 UP TO 9 AT TIMES, BASELINE PAIN LEVEL IS A 7 PRECIPITATING FACTORS WORSE WITH ACTIVITY SUCH SWEEPING, VACUUMING ALLEVIATING FACTORS REST, PAIN MEDICATIONS PAIN CLINIC PFS, CLERGY, PUBLIC HEALTH REFERRALS WAS THE PROVIDER NOTIFIED OF ANY PERTINENT INFO?YES HAS THE PATIENT BEEN EDUCATED REGARDING HIS/HER PLAN OF CARE?YES HAS THE PATIENT BEEN EDUCATED REGARDING PAIN, THE RISK FOR PAIN, THE IMPORTANCE OF EFFECTIVE PAIN MANAGEMENT, AND THE PAIN ASSESSMENT PROCESS?YES ADVANCE DIRECTIVE ADVANCE DIRECTIVE DISCUSSED WITH PATIENT:YES PT DOES NOT HAVE ANY ADVANCED DIRECTIVES AND SHE DECLINES INFORMATION ON HCP AT THIS TIME. HOSPITALIZATION/MAJOR DIAGNOSTIC PROCEDURE FRACTURED LEFT SHOULDER 2017 SURGERIES FRACTURE LEFT SHOULDER 05/2020 REVIEW OF SYSTEMS CONSTITUTIONAL: ANY RECENT FEVER NO . CHILLS NO . WEIGHT CHANGE OF UNKNOWN REASONS NO . GASTROENTEROLOGY: NEW UNEXPLAINABLE CHANGES IN BOWEL CONTROL NO . CONSTIPATION NO . GENITOURINARY: ANY NEW CHANGE IN BLADDER CONTROL? NO . NEUROLOGY: NEW ONSET DIZZINESS OR NEUROLOGICAL CHANGES NOT MENTIONED NO . NEW NUMBNESS OR PAIN PATTERNS NOT MENTIONED AND PERTINENT TO TODAY'S VISIT NO . CARDIOLOGY: NEW CHEST PRESSURE NO . NEW CHEST PAIN NO . RESPIRATORY: UNEXPLAINABLE COUGH NO . NEW SHORTNESS OF BREATH NO . VITAL SIGNS WT 141.1 LBS, HT 61 IN, BMI 26.66 INDEX, BP 129/83 MM HG, HR 79 /MIN, RR 15 /MIN, TEMP 97.7 F, OXYGEN SAT % 95%, SAFE IN ENV? (Y/N) YES, NA INITIALS AW [id number]/ 1201 REVIEWED. Thao ESPINOZA RN. EXAMINATION GENERAL EXAMINATION: GENERALAWAKE,ALERT ,PLEASANT . PSYCHAFFECT NORMAL . LUNGS:LUNG HERNANDEZ ARE CLEAR TO AUSCULTATION BILATERALLY. GOOD MOVEMENT OF AIR . HEART:S1, S2 IN A REGULAR RATE AND RHYTHM. NO SIGNIFICANT MURMURS, RUBS OR GALLOPS NOTED . ASSESSMENTS LUMBAGO OF MULTIPLE SITES IN SPINE WITH SCIATICA - M54.40 (PRIMARY) CHRONIC PRESCRIPTION OPIATE USE - Z79.891 TREATMENT LUMBAGO OF MULTIPLE SITES IN SPINE WITH SCIATICA REFILL NORCO TABLET, 7.5-325 MG, 1 TABLET NEEDED, ORALLY, EVERY 6 HRS, MDD = 4, 30 DAYS, 100, REFILLS 0 NOTES: CONTINUE HOME EXERCISE AND STRETCHING. CONTINUE PHYSICAL THERAPY FOR LEFT SHOULDER PER [facility]. USE HYDROCODONE 7.5/325 ONE TABLET EVERY 6 HOURS PERIODICALLY FOR SEVERE PAIN EPISODES AND NOT ON A SCHEDULE. 100 TABLETS SHOULD LAST 30 DAYS. ISTOP REGISTRY REVIEWED AND DEMONSTRATES COMPLLIANCE. BRINGS IN MEDICATIONS WHICH IS APPROPRIATE FOR WHAT WAS DISPENSED. RECENT URINE TOXICOLOGY REVIEWED. NO UNAUTHORIZED MEDICATIONS. NO ILLICIT SUBSTANCES AND PRESCRIBED MEDICATIONS WERE PRESENT. , . PROCEDURE CODES [id number] ESTABILISHED PATIENT [facility] FACILITY CHARGE DISPOSITION & COMMUNICATION FOLLOW UP 3 MONTHS (REASON: MEDICATION MANAGEMENT/URINE TOXICOLOGY) ELECTRONICALLY SIGNED BY LEANDER SALEH ON 10/14/2020 AT 02:43 PM EST DISCLAIMER : THIS IS A VISIT SUMMARY EXTRACTED FROM THE [employer] CHART. IT IS NOT A COPY OF THE [employer] PROGRESS NOTE. MTDD
== END ==
LOC: M PAIN 11:30
PROVIDERS: ATTEND Nurse Practitioner Family
DX: M54.40 Lumbago with sciatica, unspecified side (principal); G89.29 Other chronic pain; K21.9 Gastro-esophageal reflux disease without esophagitis; J44.9 Chronic obstructive pulmonary disease, unspecified; Z87.891 Personal history of nicotine dependence; Z79.01 Long term (current) use of anticoagulants; Z79.899 Other long term (current) drug therapy

== ENCOUNTER → 2020-11-07 | Outpatient (CLI) | payer MEDICARE ==
[~2020-11-07] MED LIST changes: -BUPR200T; +BUPR200T2; +ESCI10TA16 PO; -ESCI10TA2 PO
[2020-11-07 15:26] LABS: INR 3.66; PROTHROMBIN TIME 37.2 SECONDS (12.5-14.3)
== END ==
LOC: M LAB 13:07
PROVIDERS: ATTEND Nurse Practitioner Family
DX: Z51.81 Encounter for therapeutic drug level monitoring (principal); Z79.01 Long term (current) use of anticoagulants

== ENCOUNTER → 2020-11-25 | Outpatient (CLI) | payer MEDICARE ==
[2020-11-25 11:56] LABS: INR 2.54; PROTHROMBIN TIME 27.9 SECONDS (12.5-14.3)
== END ==
LOC: M LAB 11:11
PROVIDERS: ATTEND Nurse Practitioner Family
DX: Z79.01 Long term (current) use of anticoagulants (principal)

== ENCOUNTER → 2021-01-07 | Outpatient (CLI) | payer MEDICARE ==
[2021-01-07 12:21] LABS: INR 2.3; PROTHROMBIN TIME 25.8 SECONDS (12.5-14.3)
== END ==
LOC: M LAB 11:16
PROVIDERS: ATTEND Nurse Practitioner Family
DX: Z51.81 Encounter for therapeutic drug level monitoring (principal); Z79.01 Long term (current) use of anticoagulants

== ENCOUNTER → 2021-01-13 | Outpatient (CLI) | payer MEDICARE ==
--- NOTE | 2021-01-15 08:28 | ECWPNPC ---
PATIENT NAME: SANDRO LOVE : 1950 GENDER: FEMALE VISIT DATE: 01/13/2021 DISCHARGE DATE: 01/13/21 1145 VISIT LOCKED DATE TIME: PHYSICIAN: CARLOS GARZA RESOURCE: CARLOS GARZA REASON FOR APPOINTMENT 1. MEDICATION MANAGEMENT/URINE TOXICOLOGY HISTORY OF PRESENT ILLNESS GENERAL: HERE FOR ROUTINE 3 MONTH FOLLOW-UP AND MEDICATION MANAGEMENT FOR CHRONIC LOW BACK PAIN. FINDS CURRENT CHRONIC PAIN MEDICATION, HYDROCODONE 7.5/325 SOMEWHAT EFFECTIVE AT REDUCING PAIN AND KEEPING HER FUNCTIONAL. DENIES ADVERSE SIDE EFFECTS WITH MEDICATION. BRINGS IN HER MEDICATION WHICH IS APPROPRIATE FOR WHAT WAS DISPENSED. REPORTING NORMAL BOWEL AND BLADDER FUNCTION. SUFFERS FROM PERSISTENT LEFT SHOULDER PAIN AND IS IN PHYSICAL THERAPY PER [facility]. SHE INJURED HER SHOULDER IN A FALL INJURY IN MAY 2020. - -. FALL RISK SCREENING: SCREENING : NO FALLS REPORTED IN THE LAST YEAR. PAIN SCREENING: PATIENT HAS A COMPLAINT OF ACUTE OR CHRONIC PAIN :YES LOCATION OF PAIN:LOW BACK INTENSITY OF PAIN (SCALE OF 1 TO 10):5 WHAT DOES YOUR PAIN FEEL LIKE:ACHING, BURNING, SHARP, STABBING, THROBBING, SHOOTING DURATION:CONTINOUS, CONSTANT, ALL DAY PAIN IS INCREASED BY:ACTIVITIES, PROLONGED STANDING PAIN IS DECREASED BY:USE OF PAIN MEDICATIONS NURSING NOTE: -. PAIN CENTER INTAKE QUESTIONS: DO YOU HAVE A HISTORY OF MRSA? :NO DO YOU TAKE A BLOOD THINNERS? :YES DO YOU HAVE ANY BLEEDING DISORDERS? :NO ANY NEW NUMBNESS OR WEAKNESS IN YOUR LEGS OR ARMS? :NO ANY PACEMAKER,DEFIBRILLATOR, OR DORSAL COLUMN STIMULATOR? :NO DO YOU HAVE ANY RASHES OR OPEN SORES? :NO ARE YOU ALLERGIC TO IV DYE? :NO ARE YOU DIABETIC? :NO ANY NEW PROBLEMS WITH YOUR MEDICATIONS? :NO HAVE YOU RECEIVED A VACCINE IN THE PAST 30 DAYS? :YES IF SO WHAT VACCINE AND WHEN? 2ND COVID 12/31/2020 DO YOU PLAN TO RECEIVE A VACCINE IN THE NEXT 21 DAYS? :NO DO YOU NEED ANY PRESCRIPTION? :NO DO YOU TAKE ANY IMMUNOSUPPRESSIVE MEDICATIONS? :NO IS THERE A CHANCE YOU COULD BE ? :NO ARE YOU BREAST FEEDING? :NO CURRENT MEDICATIONS TAKING NEURONTIN 400MG CAPSULE 1 CAP ORALLY THREE X DAILY TAKING WARFARIN SODIUM 2.5 MG TABLET 1 TAB ORALLY DAILY TAKING WELLBUTRIN SR 200 MG TABLET EXTENDED RELEASE 12 HOUR 1 TABLET ORALLY TWICE A DAY TAKING SIMVASTATIN 20 MG TABLET 1 TABLET IN THE EVENING ORALLY ONCE A DAY TAKING VITAMIN D 25767 U CAPSULE 1 CAPSULE ORALLY ONCE A MONTH TAKING METOCLOPRAMIDE HCL 10 MG TABLET ORALLY FOUR TIMES A DAY NEEDED TAKING OMEPRAZOLE 20 MG CAPSULE DELAYED RELEASE 1 CAPSULE ORALLY ONCE A DAY TAKING GABAPENTIN 100 MG CAPSULE 2 TABS ORALLY AT BEDTIME, TAKES 400MG 3 X DAILY BESIDES TAKING TYLENOL EX ST ARTHRITIS PAIN 500 MG TABLET 1 TABLET NEEDED ORALLY EVERY 6 HRS TAKING HYDROCODONE-ACETAMINOPHEN 7.5-325 MG TABLET 1 TABLET NEEDED ORALLY EVERY 6 HRS MDD 4 NOT-TAKING SYMBICORT 160-4.5 MCG/ACT AEROSOL 2 PUFFS INHALATION DAILY NOT-TAKING COLACE 100 MG CAPSULE 1 CAPSULE NEEDED ORALLY BID NOT-TAKING ACETAMINOPHEN-CODEINE 300-30 MG TABLET 1 TABLET NEEDED ORALLY Q8H PRN MDD3 #45TAB SHOULD LAST 30 DAYS NOT-TAKING TYLENOL WITH CODEINE #3 300-30 MG TABLET 1 TABLET NEEDED Q 8 HOURS PRN MDD3 ORALLY DIRECTED NOT-TAKING DULERA 200-5 MCG/ACT AEROSOL 2 PUFFS INHALATION TWICE A DAY NOT-TAKING BUTRANS 10 MCG/HR PATCH WEEKLY 1 PATCH TO SKIN TRANSDERMAL 1 PATCH Q7 DAYS=MDD DISCONTINUED NORCO 7.5-325 MG TABLET 1 TABLET NEEDED ORALLY EVERY 6 HRS, MDD = 4 DISCONTINUED HYDROCODONE-ACETAMINOPHEN 7.5-325 MG TABLET 1 TABLET NEEDED ORALLY EVERY 6 HRS MDD4 #100 TAB SHOULD LAST 30 DAYS DISCONTINUED NORCO 5-325 MG TABLET 1 TABLET NEEDED ORALLY EVERY 6 HRS FOR SEVERE PAIN EPISODES MDD4 #100 TAB SHOULD LAST 30 DAYS MEDICATION LIST REVIEWED AND RECONCILED WITH THE PATIENT PAST MEDICAL HISTORY OSTEOPOROSIS (NO TREATMENT)BMD YEARS AGO DDD/DD CATARACTS FX LEFT KNEE 09/2015 ARTHRITIS ACID REFLUX CHRONIC PAIN COPD LUMBAGP MULTIPLE SITES WITH SCIATICA FRACTURE LEFT SHOULDER 05/27/20 RIGHT EYE GLAUCOMA ALLERGIES N.K.D.A. FAMILY HISTORY FATHER: 72 YRS, SD, DIAGNOSED WITH DIABETES, OTHER SPECIFIED CONDITIONS INFLUENCING HEALTH STATUS, UNSPECIFIED HEART DISEASE MOTHER: 62 YRS, CANCER, BREAST WITH METS, OTHER MALIGNANT NEOPLASM OF UNSPECIFIED SITE SIBLINGS: ALIVE, SISTER SHERRY LUNG AND BLADDER CANCER SISTER DELORES LUNG CANCER SD, UNSPECIFIED HEART DISEASE, OTHER MALIGNANT NEOPLASM OF UNSPECIFIED SITE 5 SISTER(S) . 2 SON(S) - HEALTHY. NO OVARY OR COLON CANCER NEPHEW BRAIN CANCER AT AGE 34\NMOTHER HAD BREAST CANCER/ ONE SISTER FROM LUNG CANCER. SOCIAL HISTORY GENERAL: TOBACCO USE ARE YOU A:FORMER SMOKER HOW LONG HAS IT BEEN SINCE YOU LAST SMOKED?1-5 YEARS LATEX QUESTIONNAIRE LATEX ALLERGY : HAVE YOU EVER DEVELOPED ANY TYPE OF REACTION AFTER HANDLING LATEX PRODUCTS SUCH RUBBER GLOVES, CONDOMS, DIAPHRAGMS, BALLOONS, SOCKS, OR UNDERWEAR?NO LATEX ALLERGY : HAVE YOU EVER DEVELOPED ANY TYPE OF REACTION DURING OR AFTER DENTAL APPOINTMENT, VAGINAL/RECTAL EXAMINATION, SURGICAL PROCEDURE, OR ANY OTHER EXPOSURE?NO LATEX RISK : HAVE YOU EVER HAD ANY DIFFICULTY BREATHING OR HIVES AFTER EATING OR HANDLING ANY FRUITS, OR VEGETABLES; SUCH KIWI, BANANAS, STONE FRUITS, OR CHESTNUTSNO LATEX RISK : DO YOU HAVE A PREVIOUS PERSONAL HISTORY OF MORE THAN NINE SURGERIES, SPINA BIFIDA, OR REPEATED CATHERIZATIONS? NO LATEX RISK : ARE YOU FREQUENTLY EXPOSED TO LATEX PRODUCTS IN YOUR OCCUPATION?NO DATE ASKED : 01/13/2021 ALCOHOL USE: YES, GLASS OF WINE ONCE IN A BLUE CAPUTO. BMI CARE GOAL FOLLOW-UP ABOVE NORMAL BMI FOLLOW-UPGIVING ENCOURAGEMENT TO EXERCISE ALCOHOL SCREENING DID YOU HAVE A DRINK CONTAINING ALCOHOL IN THE PAST YEAR?YES HOW OFTEN DID YOU HAVE SIX OR MORE DRINKS ON ONE OCCASION IN THE PAST YEAR?NEVER (0 POINTS) HOW MANY DRINKS DID YOU HAVE ON A TYPICAL DAY WHEN YOU WERE DRINKING IN THE PAST YEAR?1 OR 2 (0 POINTS) HOW OFTEN DID YOU HAVE A DRINK CONTAINING ALCOHOL IN THE PAST YEAR?MONTHLY OR LESS (1 POINT) POINTS1 INTERPRETATIONNEGATIVE RECREATIONAL DRUG USE DRUG USE?NO CAFFEINE >5/DAY. 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 EXERCISE: NO REGULAR EXERCISE. MARITAL STATUS: . OTHERS AT HOME: ROOM-MATE, MALE. TODAY'S VISIT 03/06/20 PATIENT DESCRIBES PAIN :ACHING, BURNING, HAVE IT ALL THE TIME FROM 0-10, WHAT LEVEL IS YOUR PAIN TODAY?7 UP TO 9 AT TIMES, BASELINE PAIN LEVEL IS A 7 PRECIPITATING FACTORS WORSE WITH ACTIVITY SUCH SWEEPING, VACUUMING ALLEVIATING FACTORS REST, PAIN MEDICATIONS - WAS THE PROVIDER NOTIFIED OF ANY PERTINENT INFO?YES HAS THE PATIENT BEEN EDUCATED REGARDING HIS/HER PLAN OF CARE?YES HAS THE PATIENT BEEN EDUCATED REGARDING PAIN, THE RISK FOR PAIN, THE IMPORTANCE OF EFFECTIVE PAIN MANAGEMENT, AND THE PAIN ASSESSMENT PROCESS?YES ADVANCE DIRECTIVE ADVANCE DIRECTIVE DISCUSSED WITH PATIENT:YES PT DOES NOT HAVE ANY ADVANCED DIRECTIVES AND SHE DECLINES INFORMATION ON HCP AT THIS TIME. REVIEW OF SYSTEMS CONSTITUTIONAL: ANY RECENT FEVER NO . CHILLS NO . WEIGHT CHANGE OF UNKNOWN REASONS NO . GASTROENTEROLOGY: NEW UNEXPLAINABLE CHANGES IN BOWEL CONTROL NO . CONSTIPATION NO . GENITOURINARY: ANY NEW CHANGE IN BLADDER CONTROL? NO . NEUROLOGY: NEW ONSET DIZZINESS OR NEUROLOGICAL CHANGES NOT MENTIONED NO . NEW NUMBNESS OR PAIN PATTERNS NOT MENTIONED AND PERTINENT TO TODAY'S VISIT NO . CARDIOLOGY: NEW CHEST PRESSURE NO . PATIENT DENIES NO . RESPIRATORY: UNEXPLAINABLE COUGH NO . NEW SHORTNESS OF BREATH NO . VITAL SIGNS WT 143 LBS, HT 61 IN, BMI 27.02 INDEX, BP 123/69 MM HG, HR 72 /MIN, RR 16 /MIN, TEMP 96.3 F, OXYGEN SAT % 97%, SAFE IN ENV? (Y/N) YEST.ERIK BLEVINS. EXAMINATION GENERAL EXAMINATION: GENERALAWAKE,ALERT ,PLEASANT . PSYCHAFFECT NORMAL . LUNGS:LUNG HERNANDEZ ARE CLEAR TO AUSCULTATION BILATERALLY. GOOD MOVEMENT OF AIR . HEART:S1, S2 IN A REGULAR RATE AND RHYTHM. NO SIGNIFICANT MURMURS, RUBS OR GALLOPS NOTED . ASSESSMENTS CHRONIC PRESCRIPTION OPIATE USE - Z79.891 (PRIMARY) LUMBAGO OF MULTIPLE SITES IN SPINE WITH SCIATICA - M54.40 TREATMENT CHRONIC PRESCRIPTION OPIATE USE REFILL COLACE CAPSULE, 100 MG, 1 CAPSULE NEEDED, ORALLY, BID, 30 DAYS, 60 CAPSULE, REFILLS 2 CONTINUE HYDROCODONE-ACETAMINOPHEN TABLET, 7.5-325 MG, 1 TABLET NEEDED, ORALLY, EVERY 6 HRS MDD 4 LAB: URINE TEST GROUP [facility] 01/13/2021 11:40:46 AM > LAST DOSE: GABAPENTIN 01/13/2021@8AM, HYDROCODONE 01/13/2021 @8AM NOTES: ISTOP REGISTRY REVIEWED AND DEMONSTRATES COMPLLIANCE. BRINGS IN MEDICATIONS WHICH IS APPROPRIATE FOR WHAT WAS DISPENSED. RECENT URINE TOXICOLOGY REVIEWED. NO UNAUTHORIZED MEDICATIONS. NO ILLICIT SUBSTANCES AND PRESCRIBED MEDICATIONS WERE PRESENT. PROCEDURE CODES FA211 ESTABILISHED PATIENT [facility] F[facility]ILITY CHARGE DISPOSITION & COMMUNICATION FOLLOW UP 3 MONTHS (REASON: UTOX REVIEW) ELECTRONICALLY SIGNED BY LEANDER SALEH ON 01/14/2021 AT 04:16 PM EDT DISCLAIMER : THIS IS A VISIT SUMMARY EXTRACTED FROM THE [employer] CHART. IT IS NOT A COPY OF THE ECL[employer]ICAL[employer] PROGRESS NOTE. MARVIN
== END ==
LOC: M PAIN 11:30
PROVIDERS: ATTEND Nurse Practitioner Family
DX: M54.40 Lumbago with sciatica, unspecified side (principal); G89.29 Other chronic pain; K21.9 Gastro-esophageal reflux disease without esophagitis; J44.9 Chronic obstructive pulmonary disease, unspecified; Z87.891 Personal history of nicotine dependence; Z79.01 Long term (current) use of anticoagulants; Z79.899 Other long term (current) drug therapy

== ENCOUNTER → 2021-01-29 | Outpatient (CLI) | payer MEDICARE ==
[2021-01-29 09:07] LABS: HEMOGLOBIN 13.2 g/dl (12.0-15.5); MEAN CORPUSCULAR HEMOGLOBIN 30.8 pg (27.0-33.0); MEAN CORPUSCULAR HGB CONC 32.2 g/dl (32.0-36.5); MEAN CORPUSCULAR VOLUME 95.8 fl (80.0-96.0); PLATELET COUNT, AUTOMATED 191 10^3/uL (150-450); RED BLOOD COUNT 4.28 10^6/uL (4.00-5.40); WHITE BLOOD COUNT 4.3 10^3/uL (4.0-10.0)
[2021-01-29 09:26] LABS: INR 1.73; PROTHROMBIN TIME 20.6 SECONDS (12.5-14.3)
[2021-01-29 09:32] LABS: ALBUMIN 3.7 GM/DL (3.2-5.2); ALT/SGPT 29 U/L (12-78); BILIRUBIN,TOTAL 0.7 MG/DL (0.2-1.0); BLOOD UREA NITROGEN 18 MG/DL (7-18); CARBON DIOXIDE LEVEL 27 MEQ/L (21-32); CHLORIDE LEVEL 112 MEQ/L (98-107); CHOLESTEROL LEVEL 165 MG/DL (<200); CHOLESTEROL RISK RATIO 2.062 (<5); CPK CREATINE PHOSPHOKINASE 78 U/L (26-192); CREATININE FOR GFR 0.73 MG/DL (0.55-1.30); GLOMERULAR FILTRATION RATE > 60.0 (>39); GLUCOSE, FASTING 79 MG/DL (70-100); HDL CHOLESTEROL 80 MG/DL (>40); LDL CHOLESTEROL 71 MG/DL (<100); NON-HDL-C 85 MG/DL; POTASSIUM SERUM 3.8 MEQ/L (3.5-5.1); SODIUM LEVEL 143 MEQ/L (136-145); TOTAL PROTEIN 6.9 GM/DL (6.4-8.2); TRIGLYCERIDES LEVEL 68 MG/DL (<150)
[2021-01-29 12:18] LABS: TOTAL 25(OH) VITAMIN D 51.4 NG/ML (30.0-100.0)
== END ==
LOC: M LAB 08:12
PROVIDERS: ATTEND Nurse Practitioner Family
DX: E78.5 Hyperlipidemia, unspecified (principal); E55.9 Vitamin D deficiency, unspecified; I10 Essential (primary) hypertension; Z79.01 Long term (current) use of anticoagulants; Z79.899 Other long term (current) drug therapy

== ENCOUNTER → 2021-02-11 | Outpatient (CLI) | payer MEDICARE ==
--- NOTE | 2021-02-11 17:03 | REP ---
INDICATION: OA, LT SHOULDER. Previous fracture. Pain swelling and immobility. History of a fall in May of 2020. COMPARISON: Comparison CT study of the left shoulder is from 26 August 2020.. TECHNIQUE: Axial T2 and oblique coronal T1 weighted scans were accomplished. There is some motion artifact. The patient was unable to tolerate completed exam due to pain. FINDINGS: Limited sequences demonstrate normal alignment of the glenohumeral articulation. The AC joint appears aligned as well. There is old posttraumatic deformity of the distal clavicle. There is a large somewhat heterogeneous subacromial subdeltoid bursal effusion noted on axial T2 weighted scans. The infraspinatus and subscapularis tendons appear to be intact. The biceps tendon is in the bony bicipital groove. There does appear to be swelling and increased signal intensity on oblique coronal T1 weighted scans in the distal supraspinatus tendon consistent with tendinosis. There is some post traumatic deformity of the glenoid corresponding with the fracture seen on CT. There is mild osteoarthritic spurring at the inferior margin of the humeral head. IMPRESSION: And post traumatic changes in the glenoid and distal clavicle. Early osteoarthritis. A very large is heterogeneous subacromial subdeltoid bursal effusion. Limited exam due to patient tolerance factors. <Electronically signed by John Garnica > 02/11/21 [id number]
== END ==
LOC: M PLARAD 15:20
PROVIDERS: ATTEND Orthopaedic Surgery
DX: M19.012 Primary osteoarthritis, left shoulder (principal); M25.412 Effusion, left shoulder

== ENCOUNTER → 2021-03-06 | Outpatient (CLI) | payer MEDICARE ==
[~2021-03-06] MED LIST changes: +GABA-283; +GABA-283 PO; -GABA-845; -GABA-845 PO; +HYDR-3719
--- NOTE | 2021-03-11 00:39 | ECWPNPC ---
PATIENT NAME: SANDRO LOVE : 1950 GENDER: FEMALE VISIT DATE: 03/06/2021 DISCHARGE DATE: 03/06/21 1408 VISIT LOCKED DATE TIME: PHYSICIAN: CARLOS GARZA RESOURCE: CARLOS GARZA REASON FOR APPOINTMENT 1. NBP SHOULDER HISTORY OF PRESENT ILLNESS DEPRESSION SCREENING: PHQ-9 LITTLE INTEREST OR PLEASURE IN DOING THINGSNEARLY EVERY DAY FEELING DOWN, DEPRESSED, OR HOPELESSMORE THAN HALF THE DAYS TROUBLE FALLING OR STAYING ASLEEP, OR SLEEPING TOO MUCHNEARLY EVERY DAY FEELING TIRED OR HAVING LITTLE ENERGYSEVERAL DAYS POOR APPETITE OR OVEREATING NOT AT ALL FEELING BAD ABOUT YOURSELF-OR THAT YOU ARE A FAILURE OR HAVE LET YOURSELF OR YOUR FAMILY DOWN NOT AT ALL TROUBLE CONCENTRATING ON THINGS, SUCH READING THE NEWSPAPER OR WATCHING TELEVISION MORE THAN HALF THE DAYS MOVING OR SPEAKING SO SLOWLY THAT OTHER PEOPLE COULD HAVE NOTICED. OR THE OPPOSITE- BEING SO FIDGETY OR RESTLESS THAT YOU HAVE BEEN MOVING AROUND A LOT MORE THAN USUALNOT AT ALL THOUGHTS THAT YOU WOULD BE BETTER OFF , OR OF HURTING YOURSELF IN SOME WAY?NOT AT ALL TOTAL SCORE:11 INTERPRETATIONMODERATE DEPRESSION PHQ-2 (2015 EDITION) LITTLE INTEREST OR PLEASURE IN DOING THINGS?NEARLY EVERY DAY FEELING DOWN, DEPRESSED, OR HOPELESS?MORE THAN HALF THE DAYS TOTAL SCORE5 GENERAL: PATIENT KNOWN TO OUR PRACTICE FOR CHRONIC LOW BACK PAIN IS BEING SEEN TODAY PER REFERRAL OF ORTHOPEDICS FOR PERSISTENT LEFT SHOULDER PAIN. 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 DR. RIOS HAS GIVEN HER TWO STEROID [id number] WITHOUT IMPROVEMENT IN PAIN. SHE FELL AGAIN DOWN STAIRS AND INJURED HER LEFT SHOULDER AGAIN ABOUT A MONTH AFTER FIRST FALL. RECENTLY INJURED HER RIGHT WRIST AFTER FALLING FORWARD. PATIENT DENIES ANY RECOLLECTION OF LOSS OF CONSCIOUSNESS WITH FALLING. PATIENT FEELS SHE IS CLUMSY. HAS TREMORS IN HER LEFT ARM OVER THE PAST YEAR. ALSO REPORTS FORWARD PROPELLING GAIT IF SHE FEELS LIKE SHE IS GOING TO FALL FORWARD. PATIENT DOES HAVE MASKLIKE EXPRESSION ACROSS THE MOUTH. DISCUSSED REFERRAL TO NEUROLOGY. REVIEWED TRIGGER POINT INJECTIONS AND PATIENT WOULD LIKE TO PROCEED WITH TRIAL OF TRIGGER POINT INJECTIONS. PAIN IS AGGRAVATED WITH USE OF LEFT ARM. -. FALL RISK SCREENING: SCREENING : NO FALLS REPORTED IN THE LAST YEAR, ONE FALL 02/27/2021 FALL BACKWARD AND FALL ON HER HAND, DID NOT GO THE ER. PAIN SCREENING: PATIENT HAS A COMPLAINT OF ACUTE OR CHRONIC PAIN :YES LOCATION OF PAIN:LEFT SHOULDER INTENSITY OF PAIN (SCALE OF 1 TO 10):8 WHAT DOES YOUR PAIN FEEL LIKE:ACHING, BURNING, SHARP, STABBING, TENDER, SORE DURATION:CONTINOUS, CONSTANT, ALL DAY PAIN IS INCREASED BY:ACTIVITIES PAIN IS DECREASED BY:USE OF PAIN MEDICATIONS NURSING NOTE: -. PAIN CENTER INTAKE QUESTIONS: DO YOU HAVE A HISTORY OF MRSA? :NO DO YOU TAKE A BLOOD THINNERS? :YES WARFARIN 5 DAYS BEFORE PROCEDURE AND RESTART NEXT DAY DO YOU HAVE ANY BLEEDING DISORDERS? :NO ANY NEW NUMBNESS OR WEAKNESS IN YOUR LEGS OR ARMS? :NO FINGER GES NUMBE IN RIGHT HAND ANY PACEMAKER,DEFIBRILLATOR, OR DORSAL COLUMN STIMULATOR? :NO DO YOU HAVE ANY RASHES OR OPEN SORES? :NO ARE YOU ALLERGIC TO IV DYE? :NO ARE YOU DIABETIC? :NO ANY NEW PROBLEMS WITH YOUR MEDICATIONS? :YES WOULD LIKE TO CHANGE THE DOSE OF NORCO HAVE YOU RECEIVED A VACCINE IN THE PAST 30 DAYS? :YES IF SO WHAT VACCINE AND WHEN? 2ND COVID 12/31/2020 DO YOU PLAN TO RECEIVE A VACCINE IN THE NEXT 21 DAYS? :NO DO YOU NEED ANY PRESCRIPTION? :NO DO YOU TAKE ANY IMMUNOSUPPRESSIVE MEDICATIONS? :NO IS THERE A CHANCE YOU COULD BE ? :NO ARE YOU BREAST FEEDING? :NO CURRENT MEDICATIONS TAKING NEURONTIN 400MG CAPSULE 1 CAP ORALLY THREE X DAILY TAKING WARFARIN SODIUM 2.5 MG TABLET 1 TAB ORALLY DAILY TAKING WELLBUTRIN SR 200 MG TABLET EXTENDED RELEASE 12 HOUR 1 TABLET ORALLY TWICE A DAY TAKING SIMVASTATIN 20 MG TABLET 1 TABLET IN THE EVENING ORALLY ONCE A DAY TAKING VITAMIN D 42280 U CAPSULE 1 CAPSULE ORALLY ONCE A MONTH TAKING METOCLOPRAMIDE HCL 10 MG TABLET ORALLY FOUR TIMES A DAY NEEDED TAKING OMEPRAZOLE 20 MG CAPSULE DELAYED RELEASE 1 CAPSULE ORALLY ONCE A DAY TAKING GABAPENTIN 100 MG CAPSULE 2 TABS ORALLY AT BEDTIME, TAKES 400MG 3 X DAILY BESIDES TAKING TYLENOL EX ST ARTHRITIS PAIN 500 MG TABLET 1 TABLET NEEDED ORALLY EVERY 6 HRS TAKING COLACE 100 MG CAPSULE 1 CAPSULE NEEDED ORALLY BID TAKING HYDROCODONE-ACETAMINOPHEN 7.5-325 MG TABLET 1 TABLET NEEDED ORALLY EVERY 6 HRS MDD 4 NOT-TAKING SYMBICORT 160-4.5 MCG/ACT AEROSOL 2 PUFFS INHALATION DAILY NOT-TAKING ACETAMINOPHEN-CODEINE 300-30 MG TABLET 1 TABLET NEEDED ORALLY Q8H PRN MDD3 #45TAB SHOULD LAST 30 DAYS NOT-TAKING TYLENOL WITH CODEINE #3 300-30 MG TABLET 1 TABLET NEEDED Q 8 HOURS PRN MDD3 ORALLY DIRECTED NOT-TAKING DULERA 200-5 MCG/ACT AEROSOL 2 PUFFS INHALATION TWICE A DAY NOT-TAKING BUTRANS 10 MCG/HR PATCH WEEKLY 1 PATCH TO SKIN TRANSDERMAL 1 PATCH Q7 DAYS=MDD MEDICATION LIST REVIEWED AND RECONCILED WITH THE PATIENT PAST MEDICAL HISTORY OSTEOPOROSIS (NO TREATMENT)BMD YEARS AGO DDD/DD CATARACTS FX LEFT KNEE 09/2015 ARTHRITIS ACID REFLUX CHRONIC PAIN COPD LUMBAGP MULTIPLE SITES WITH SCIATICA FRACTURE LEFT SHOULDER 05/27/20 RIGHT EYE GLAUCOMA 02/27/2021 FALL SPRAIN LEFT WRIST ALLERGIES N.K.D.A. SURGICAL HISTORY HYSTERECTOMY / BSO--HEAVY BLEEDING 1977 WRIST SURGERY FELICIA. AORTA AND MITRAL VALVE REPLACED 1969 AND 1994 REPAIR OF FX. LEFT WRIST, PLATE AND SCREWS 06/07 COLONOSCOPY X 1 REFUSES ANYMORE SOCIAL HISTORY GENERAL: TOBACCO USE ARE YOU A:FORMER SMOKER HOW LONG HAS IT BEEN SINCE YOU LAST SMOKED?1-5 YEARS LATEX QUESTIONNAIRE LATEX ALLERGY : HAVE YOU EVER DEVELOPED ANY TYPE OF REACTION AFTER HANDLING LATEX PRODUCTS SUCH RUBBER GLOVES, CONDOMS, DIAPHRAGMS, BALLOONS, SOCKS, OR UNDERWEAR?NO LATEX ALLERGY : HAVE YOU EVER DEVELOPED ANY TYPE OF REACTION DURING OR AFTER DENTAL APPOINTMENT, VAGINAL/RECTAL EXAMINATION, SURGICAL PROCEDURE, OR ANY OTHER EXPOSURE?NO LATEX RISK : HAVE YOU EVER HAD ANY DIFFICULTY BREATHING OR HIVES AFTER EATING OR HANDLING ANY FRUITS, OR VEGETABLES; SUCH KIWI, BANANAS, STONE FRUITS, OR CHESTNUTSNO LATEX RISK : DO YOU HAVE A PREVIOUS PERSONAL HISTORY OF MORE THAN NINE SURGERIES, SPINA BIFIDA, OR REPEATED CATHERIZATIONS? NO LATEX RISK : ARE YOU FREQUENTLY EXPOSED TO LATEX PRODUCTS IN YOUR OCCUPATION?NO DATE ASKED : 03/06/2021 ALCOHOL USE: YES, GLASS OF WINE ONCE IN A BLUE CAPUTO. BMI CARE GOAL FOLLOW-UP ABOVE NORMAL BMI FOLLOW-UPGIVING ENCOURAGEMENT TO EXERCISE ALCOHOL SCREENING DID YOU HAVE A DRINK CONTAINING ALCOHOL IN THE PAST YEAR?YES HOW OFTEN DID YOU HAVE SIX OR MORE DRINKS ON ONE OCCASION IN THE PAST YEAR?NEVER (0 POINTS) HOW MANY DRINKS DID YOU HAVE ON A TYPICAL DAY WHEN YOU WERE DRINKING IN THE PAST YEAR?1 OR 2 (0 POINTS) HOW OFTEN DID YOU HAVE A DRINK CONTAINING ALCOHOL IN THE PAST YEAR?MONTHLY OR LESS (1 POINT) POINTS1 INTERPRETATIONNEGATIVE RECREATIONAL DRUG USE DRUG USE?NO CAFFEINE >5/DAY. HIV / HEP-C SCREENING HIV TEST OFFERED TO PATIENT:NO HEP-C TEST OFFERED TO PATIENT:NO MORAVIAN [id number] RESTORATIONISM LANGUAGE LANGUAGES SPOKEN:CAMBODIAN EDUCATION LEVEL OF EDUCATION:FINISHED HIGH SCHOOL LEARNING BARRIERS / SPECIAL NEEDS CHANGE FROM LAST VISIT?NO BARRIERS TO LEARNING?NO HEARING IMPAIRED?NO VISION IMPAIRED?YES :CORRECTIVE LENSES COGNITIVELY IMPAIRED?NO READINESS TO LEARN?YES LEARNING PREFERENCES?NO LEARNING CAPABILITIES PRESENT?YES EMOTIONAL BARRIERS?NO SPECIAL DEVICES?NO PATHOLOGY LABORATORY AIDES TEACHER NEEDED?NO DOMESTIC VIOLENCE DO YOU FEEL SAFE IN YOUR ENVIRONMENT?YES 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 EXERCISE: NO REGULAR EXERCISE. MARITAL STATUS: . OTHERS AT HOME: ROOM-MATE, MALE. TODAY'S VISIT 03/06/20 PATIENT DESCRIBES PAIN :ACHING, BURNING, HAVE IT ALL THE TIME FROM 0-10, WHAT LEVEL IS YOUR PAIN TODAY?7 UP TO 9 AT TIMES, BASELINE PAIN LEVEL IS A 7 PRECIPITATING FACTORS WORSE WITH ACTIVITY SUCH SWEEPING, VACUUMING ALLEVIATING FACTORS REST, PAIN MEDICATIONS - WAS THE PROVIDER NOTIFIED OF ANY PERTINENT INFO?YES HAS THE PATIENT BEEN EDUCATED REGARDING HIS/HER PLAN OF CARE?YES HAS THE PATIENT BEEN EDUCATED REGARDING PAIN, THE RISK FOR PAIN, THE IMPORTANCE OF EFFECTIVE PAIN MANAGEMENT, AND THE PAIN ASSESSMENT PROCESS?YES ADVANCE DIRECTIVE ADVANCE DIRECTIVE DISCUSSED WITH PATIENT:YES PT DOES NOT HAVE ANY ADVANCED DIRECTIVES AND SHE DECLINES INFORMATION ON HCP AT THIS TIME. HOSPITALIZATION/MAJOR DIAGNOSTIC PROCEDURE FRACTURED LEFT SHOULDER 2017 SURGERIES FRACTURE LEFT SHOULDER 05/2020 REVIEW OF SYSTEMS CONSTITUTIONAL: ANY RECENT FEVER NO . CHILLS NO . WEIGHT CHANGE OF UNKNOWN REASONS NO . GASTROENTEROLOGY: NEW UNEXPLAINABLE CHANGES IN BOWEL CONTROL NO . CONSTIPATION NO . GENITOURINARY: ANY NEW CHANGE IN BLADDER CONTROL? NO . NEUROLOGY: NEW ONSET DIZZINESS OR NEUROLOGICAL CHANGES NOT MENTIONED NO . NEW NUMBNESS OR PAIN PATTERNS NOT MENTIONED AND PERTINENT TO TODAY'S VISIT NO . CARDIOLOGY: NEW CHEST PRESSURE NO . PATIENT DENIES NO . RESPIRATORY: UNEXPLAINABLE COUGH NO . NEW SHORTNESS OF BREATH NO . VITAL SIGNS WT 141.8 LBS, HT 61 IN, BMI 26.79 INDEX, BP 167/98 MM HG, HR 80 /MIN, RR 16 /MIN, TEMP 97.2 F, OXYGEN SAT % 95%, SAFE IN ENV? (Y/N) YEST.ERIK BLEVINS. EXAMINATION GENERAL EXAMINATION: GENERALNO ACUTE DISTRESS, WELL NOURISHED AND HYDRATED. PSYCHAPPROPRIATE MOOD AND AFFECT . FACE:NO FACIAL EXPRESSION . NECK:NO LYMPHADENOPATHY, SUPPLE. LUNGS:CLEAR TO AUSCULTATION BILATERALLY, NO WHEEZES, RHONCHI, RALES. HEART: HEART RATE REGULAR. MURMUR NOTED ASSOCIATED WITH VALVE REPLACEMENT. MUSCULOSKELETAL: TRIGGER POINTS:NOTED OVER LEFT NECK,LEFT THORACIC AND LEFT SHOULDER.. DIAGNOSTIC TESTS REVIEWED MRI LEFT SHOULDER 01/2021. ASSESSMENTS MYALGIA, OTHER SITE - M79.18 (PRIMARY) TREATMENT MYALGIA, OTHER SITE INCREASE HYDROCODONE-ACETAMINOPHEN TABLET, 10-325 MG, 1 TABLET NEEDED, ORALLY, Q8H PRN MDD3, 30 DAYS, 45, REFILLS 0 MEDICATION: VALIUM TAB 5MG ORALLY (DIAZEPAM) (ORDERED FOR 03/13/2021) MEDICATION: OXYCODONE HCL TAB 5MG ORALLY (ORDERED FOR 03/13/2021) NOTES: TRIGGER POINT INJECTIONS LEFT NECK,LEFT SHOULDER,LEFT THORACIC PRINTED AND REVIEWED PRE PROCEDURE INFORMATION, PATIENT VERBALIZED UNDERSTANDING, ALSO PRINTED MEDICATION DESTRUCTION FORM FOR PATIENT BRENTON BLEVINS . [facility]1 YEAR HISTORY OF FREQUENT FALLING, WORSENING TREMORS IN ARMS, PARKINSONIAN FEATURES, FORWARD PROPELLING GAIT PROCEDURE CODES FA211 ESTABILISHED PATIENT [facility] CHARGE DISPOSITION & COMMUNICATION FOLLOW UP POST (REASON: TRIGGER POINT INJECTIONS LEFT NECK,LEFT SHOULDER,LEFT THORACIC) ELECTRONICALLY SIGNED BY LEANDER SALEH ON 03/10/2021 AT 03:37 PM EDT DISCLAIMER : THIS IS A VISIT SUMMARY EXTRACTED FROM THE [employer] CHART. IT IS NOT A COPY OF THE [employer] PROGRESS NOTE. MARVIN
== END ==
LOC: M PAIN 13:00
PROVIDERS: ATTEND Nurse Practitioner Family
DX: M79.18 Myalgia, other site (principal); K21.9 Gastro-esophageal reflux disease without esophagitis; J44.9 Chronic obstructive pulmonary disease, unspecified; Z87.891 Personal history of nicotine dependence; Z79.01 Long term (current) use of anticoagulants; Z79.899 Other long term (current) drug therapy

== ENCOUNTER → 2021-03-08 | Outpatient (CLI) | payer MEDICARE ==
[~2021-03-08] MED LIST changes: -HYDR-3719
== END ==
LOC: M LABSMTC 11:35
PROVIDERS: ATTEND Anesthesiology
DX: Z20.822 Contact with and (suspected) exposure to COVID-19 (principal)

== ENCOUNTER 2021-03-11 09:50 | Emergency (ER) | payer MEDICARE ==
[~2021-03-11] VITALS: Ht 154.9 cm; Wt 63.2 kg
[2021-03-11] MEDS ORDERED: HYDR-3719 (10:19)
[2021-03-11] MEDS ORDERED: ACETAMINOPHEN TAB 650MG DOSE (2X325MG) PO ONE (11:45)
--- NOTE | 2021-03-11 11:52 | REP ---
INDICATION: right wrist injury 1 week ago, EFREMOSH. COMPARISON: None. TECHNIQUE: Four views FINDINGS: There is a comminuted distal radial fracture with dorsal angulation and dorsal displacement. There is no concomitant ulnar fracture. IMPRESSION: Colles fracture as described above. <Electronically signed by Duane Fuller > 03/11/21 [id number]
--- NOTE | 2021-03-11 11:53 | REP ---
INDICATION: right wrist injury 1 week ago, FOOSH, hand pain. COMPARISON: None. TECHNIQUE: Four views FINDINGS: Degenerative changes seen involving the intra digital joints particularly the DIP joints of digits 2 through 4 where there is asymmetric joint space narrowing and marginal osteophytosis. IMPRESSION: There are chronic changes seen involving the hand as described above. There is no evidence of an acute fracture involving the hand. See the wrist report. <Electronically signed by Duane Fuller > 03/11/21 [id number]
[2021-03-11] MEDS ORDERED: PERC5TAB12 PO (12:56)
[2021-03-11 13:12] VITALS: BP 170/80
== END 2021-03-11 13:15 | disposition home or self-care (01) ==
LOC: M ED 09:50
DX: S52.531A Colles' fracture of right radius, initial encounter for closed fracture (principal); W19.XXXA Unspecified fall, initial encounter; Y92.009 Unspecified place in unspecified non-institutional (private) residence as the place of occurrence of the external cause; Y93.9 Activity, unspecified; Y99.9 Unspecified external cause status; I10 Essential (primary) hypertension; J44.9 Chronic obstructive pulmonary disease, unspecified; F32.9 Major depressive disorder, single episode, unspecified; Z95.4 Presence of other heart-valve replacement; Z79.01 Long term (current) use of anticoagulants; Z79.899 Other long term (current) drug therapy

== ENCOUNTER → 2021-03-13 | Outpatient (CLI) | payer MEDICARE ==
[~2021-03-13] MED LIST changes: +BUPIVACAINE HCL 0.25% 10ML VIAL As Ordered ONE; +BUPIVACAINE HCL 0.25% 30ML VIAL As Ordered ONE; +HYDR-3719; +TRIAMCINOLONE ACETONIDE SUSP 40 MG/ML VIAL (J3301) As Ordered ONE; +diazePAM 5MG TABLET As Ordered ONE; +oxyCODONE 5MG TAB As Ordered ONE
--- NOTE | 2021-03-19 00:22 | ECWPNPC ---
PATIENT NAME: SANDRO LOVE : 1950 GENDER: FEMALE VISIT DATE: 03/13/2021 DISCHARGE DATE: 03/13/21 1332 VISIT LOCKED DATE TIME: PHYSICIAN: STEPH WOODS MD RESOURCE: STEPH WOODS MD REASON FOR APPOINTMENT 1. TRIGGER POINT INJECTIONS LEFT NECK, LEFT SHOULDER, LEFT THORACIC HISTORY OF PRESENT ILLNESS GENERAL: -. FALL RISK SCREENING: SCREENING FELL ABOUT A WEEK AGO INJURING WRIST. WENT TO [facility]. PAIN SCREENING: PATIENT HAS A COMPLAINT OF ACUTE OR CHRONIC PAIN :YES LOCATION OF PAIN:LEFT SHOULDER, HAND(S) LEFT SHOULDER, ARM AND HAND INTENSITY OF PAIN (SCALE OF 1 TO 10):10 WHAT DOES YOUR PAIN FEEL LIKE:SHARP, STABBING DURATION:CONTINOUS PAIN IS INCREASED BY:ACTIVITIES PAIN IS DECREASED BY:USE OF PAIN MEDICATIONS NURSING NOTE: PRE PROCEDURE, PT WAS RUBBING HER LEFT ARM, SQUIRMING IN HER CHAIR, MOANING. OFFERED COLD PACK, PT WELCOMED IT AND APPLIED TO LEFT UPPER ARM/SHOULDER AREA. PT APPEARED UPSET AND KEPT WRITHERING. PT HAS SPLINT ON RIGHT WRIST, PT STATES SHE HAS A RIGHT WRIST FX. REPORT WAS GIVEN TO Seng LANTIGUA RN. Kailyn OWENS RN BSN. PAIN CENTER INTAKE QUESTIONS: DO YOU HAVE A HISTORY OF MRSA? :NO DO YOU TAKE A BLOOD THINNERS? :YES WARFARIN DO YOU HAVE ANY BLEEDING DISORDERS? :NO ANY NEW NUMBNESS OR WEAKNESS IN YOUR LEGS OR ARMS? :NO ANY PACEMAKER,DEFIBRILLATOR, OR DORSAL COLUMN STIMULATOR? :NO DO YOU HAVE ANY RASHES OR OPEN SORES? :NO ARE YOU ALLERGIC TO IV DYE? :NO ARE YOU DIABETIC? :NO ANY NEW PROBLEMS WITH YOUR MEDICATIONS? :NO HAVE YOU RECEIVED A VACCINE IN THE PAST 30 DAYS? :NO DO YOU PLAN TO RECEIVE A VACCINE IN THE NEXT 21 DAYS? :NO COVID VACCINE ABOUT A MONTH AGO. IS UNSURE OF DATE. WILL LOCATE DATE BEFORE COMING FOR TPI DO YOU TAKE ANY IMMUNOSUPPRESSIVE MEDICATIONS? :NO ANY HISTORY OF SEIZURES? :NO ANY HISTORY OF CARDIAC ISSUES OR EVENTS? :YES CHF WITH VALVE REPLACEMENT IN 1969. MITRAL VALVE REPLACED IN 1994 DO YOU HAVE ANY KIDNEY OR LIVER DISEASE? :NO DO YOU HAVE SLEEP APNEA? :NO ANY RECENT HEAD INJURY? :NO DO YOU HAVE ANY NEW INFECTIONS? :NO IS THERE A CHANCE YOU COULD BE ? :NO ARE YOU BREAST FEEDING? :NO WHEN DID YOU LAST EAT? : 03/12/21 PM WHEN DID YOU LAST DRINK? : 03/13/21 0830 WHAT DID YOU LAST DRINK? : BLACK COFFEE NAME OF PERSON DRIVING YOU HOME? : -BILL DO YOU HAVE ANY OTHER QUESTIONS OR CONCERNS? : -DENIES CURRENT MEDICATIONS TAKING NEURONTIN 400MG CAPSULE 1 CAP ORALLY THREE X DAILY, NOTES: 03/12/21 TAKING WARFARIN SODIUM 2.5 MG TABLET 1 TAB ORALLY DAILY, NOTES: 03/12/21 TAKING WELLBUTRIN SR 200 MG TABLET EXTENDED RELEASE 12 HOUR 1 TABLET ORALLY TWICE A DAY TAKING SIMVASTATIN 20 MG TABLET 1 TABLET IN THE EVENING ORALLY ONCE A DAY TAKING VITAMIN D 25346 U CAPSULE 1 CAPSULE ORALLY ONCE A MONTH TAKING METOCLOPRAMIDE HCL 10 MG TABLET ORALLY TWICE A DAY TAKING OMEPRAZOLE 20 MG CAPSULE DELAYED RELEASE 1 CAPSULE ORALLY ONCE A DAY TAKING GABAPENTIN 100 MG CAPSULE 2 TABS ORALLY AT BEDTIME, TAKES 400MG 3 X DAILY BESIDES, NOTES: 03/12/[address] ARTHRITIS PAIN 500 MG TABLET 1 TABLET NEEDED ORALLY EVERY 6 HRS TAKING COLACE 100 MG CAPSULE 1 CAPSULE NEEDED ORALLY BID TAKING HYDROCODONE-ACETAMINOPHEN 10-325 MG TABLET 1 TABLET NEEDED ORALLY Q8H PRN MDD3, NOTES: 03/12/21 NOT-TAKING SYMBICORT 160-4.5 MCG/ACT AEROSOL 2 PUFFS INHALATION DAILY NOT-TAKING ACETAMINOPHEN-CODEINE 300-30 MG TABLET 1 TABLET NEEDED ORALLY Q8H PRN MDD3 #45TAB SHOULD LAST 30 DAYS NOT-TAKING TYLENOL WITH CODEINE #3 300-30 MG TABLET 1 TABLET NEEDED Q 8 HOURS PRN MDD3 ORALLY DIRECTED NOT-TAKING DULERA 200-5 MCG/ACT AEROSOL 2 PUFFS INHALATION TWICE A DAY NOT-TAKING BUTRANS 10 MCG/HR PATCH WEEKLY 1 PATCH TO SKIN TRANSDERMAL 1 PATCH Q7 DAYS=MDD MEDICATION LIST REVIEWED AND RECONCILED WITH THE PATIENT PAST MEDICAL HISTORY OSTEOPOROSIS (NO TREATMENT)BMD YEARS AGO DDD/DD CATARACTS FX LEFT KNEE 09/2015 ARTHRITIS ACID REFLUX CHRONIC PAIN COPD LUMBAGP MULTIPLE SITES WITH SCIATICA FRACTURE LEFT SHOULDER 05/27/20 RIGHT EYE GLAUCOMA 02/27/2021 FALL SPRAIN LEFT WRIST R WRIST FX 02/2021 ALLERGIES N.K.D.A. SOCIAL HISTORY GENERAL: TOBACCO USE ARE YOU A:FORMER SMOKER HOW LONG HAS IT BEEN SINCE YOU LAST SMOKED?1-5 YEARS LATEX QUESTIONNAIRE LATEX ALLERGY : HAVE YOU EVER DEVELOPED ANY TYPE OF REACTION AFTER HANDLING LATEX PRODUCTS SUCH RUBBER GLOVES, CONDOMS, DIAPHRAGMS, BALLOONS, SOCKS, OR UNDERWEAR?NO LATEX ALLERGY : HAVE YOU EVER DEVELOPED ANY TYPE OF REACTION DURING OR AFTER DENTAL APPOINTMENT, VAGINAL/RECTAL EXAMINATION, SURGICAL PROCEDURE, OR ANY OTHER EXPOSURE?NO DATE ASKED : 03/06/2021 LATEX RISK : HAVE YOU EVER HAD ANY DIFFICULTY BREATHING OR HIVES AFTER EATING OR HANDLING ANY FRUITS, OR VEGETABLES; SUCH KIWI, BANANAS, STONE FRUITS, OR CHESTNUTSNO LATEX RISK : DO YOU HAVE A PREVIOUS PERSONAL HISTORY OF MORE THAN NINE SURGERIES, SPINA BIFIDA, OR REPEATED CATHERIZATIONS? NO LATEX RISK : ARE YOU FREQUENTLY EXPOSED TO LATEX PRODUCTS IN YOUR OCCUPATION?NO ALCOHOL USE: YES, GLASS OF WINE ONCE IN A BLUE CAPUTO. BMI CARE GOAL FOLLOW-UP ABOVE NORMAL BMI FOLLOW-UPGIVING ENCOURAGEMENT TO EXERCISE ALCOHOL SCREENING DID YOU HAVE A DRINK CONTAINING ALCOHOL IN THE PAST YEAR?YES HOW OFTEN DID YOU HAVE SIX OR MORE DRINKS ON ONE OCCASION IN THE PAST YEAR?NEVER (0 POINTS) HOW MANY DRINKS DID YOU HAVE ON A TYPICAL DAY WHEN YOU WERE DRINKING IN THE PAST YEAR?1 OR 2 (0 POINTS) HOW OFTEN DID YOU HAVE A DRINK CONTAINING ALCOHOL IN THE PAST YEAR?MONTHLY OR LESS (1 POINT) POINTS1 INTERPRETATIONNEGATIVE RECREATIONAL DRUG USE DRUG USE?NO CAFFEINE >5/DAY. 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 EXERCISE: NO REGULAR EXERCISE. MARITAL STATUS: . OTHERS AT HOME: ROOM-MATE, MALE. TODAY'S VISIT 03/06/20 PATIENT DESCRIBES PAIN :ACHING, BURNING, HAVE IT ALL THE TIME FROM 0-10, WHAT LEVEL IS YOUR PAIN TODAY?7 UP TO 9 AT TIMES, BASELINE PAIN LEVEL IS A 7 PRECIPITATING FACTORS WORSE WITH ACTIVITY SUCH SWEEPING, VACUUMING ALLEVIATING FACTORS REST, PAIN MEDICATIONS - WAS THE PROVIDER NOTIFIED OF ANY PERTINENT INFO?YES HAS THE PATIENT BEEN EDUCATED REGARDING HIS/HER PLAN OF CARE?YES HAS THE PATIENT BEEN EDUCATED REGARDING PAIN, THE RISK FOR PAIN, THE IMPORTANCE OF EFFECTIVE PAIN MANAGEMENT, AND THE PAIN ASSESSMENT PROCESS?YES ADVANCE DIRECTIVE ADVANCE DIRECTIVE DISCUSSED WITH PATIENT:YES PT DOES NOT HAVE ANY ADVANCED DIRECTIVES AND SHE DECLINES INFORMATION ON HCP AT THIS TIME. VITAL SIGNS WT 141.0 LBS, HT 61 IN, BMI 26.64 INDEX, BP 162/87 MM HG, HR 94 /MIN, RR 18 /MIN, TEMP 96.2 F, OXYGEN SAT % 92%, NA INITIALS AW 1150, REVIEWED BY: EM. EXAMINATION GENERAL: A HISTORY AND PHYSICAL EXAM ON THE PATIENT WAS DONE ON 03/06/2021 (DATE OF ORIGINAL ASSESSMENT) IN PREPARATION OF SURGERY/PROCEDURE. I HAVE NOW REASSESSED THIS PATIENT'S HEALTH STATUS AND PERFORMED AN UPDATED EXAM TODAY. ALL CHANGES IN THE PATIENT'S HISTORY, PHYSICAL EXAM, PRE-EXISTING CONDITIONS, AND INDICATIONS/CONTRAINDICATIONS TO THE PLANNED PROCEDURE AND ANESTHESIA ARE DOCUMENTED AND EVALUATED BELOW. I ATTEST TO THE ADEQUACY AND APPROPRIATENESS OF MY ASSESSMENT, AND CONFIRM THE NECESSITY FOR THE PLANNED PROCEDURE. THE PATIENT IS ALERT, ORIENTED TIMES THREE AND COOPERATIVE. LUNGS ARE CLEAR TO AUSCULTATION. HEART SHOWS II/IV SYSTOLIC MURMUR. ASSESSMENTS MYALGIA, OTHER SITE - M79.18 (PRIMARY) TREATMENT MYALGIA, OTHER SITE COMPLETION OF PROCEDURAL VISIT WHEN MEETS CRITERIACHRISTINA GOMEZ 03/13/2021 1:24:18 PM > CRITERIA MET MEDICATION: VALIUM TAB 5MG ORALLY (DIAZEPAM)TRACY SMILEY 03/13/2021 12:21:25 PM > VERIFIED. FREDY OWENS 03/13/2021 12:25:28 PM > ADMINISTERED MEDICATION: OXYCODONE HCL TAB 5MG ORALLY TRACY SMILEY 03/13/2021 12:21:40 PM > VERIFIED. FREDY OWENS 03/13/2021 12:25:44 PM > ADMINISTERED NOTES: I WAS TAKING THIS PT TO HER CAR THE NEVER EVEN GOT OUT OF THE CAR TO HELP I HAD TO KNOCK ON THE WINDOEW TO HAVE HIM UNLOCKE THE CAR HE SAW US COMING OUT OF THE BUILDING. I GET HER IN THE CAR SHE HANDS HIM HER PAPER WORK HE WAD HER PAPER WORK AND STUFFED IT BETWEEN THE SEATS SO WAS HELPING HER WITH THE SEAT BELT AND HE WRIPTED IT OUT OF MY HAND SO I GO TO SHOUT THE CAR DOOR AND IT DIDNT SHUTALL THE WAY AND HE PUT THE CAR IN REVERSE I DID GET IT SHUT. RADHA ERWIN. CLINICAL NOTES: SHE ALSO HAD BRUISING ALONG THE RIGHT ARM. PROCEDURES PAIN NURSING RECORD PROCEDURE IN ROOM 1145, PHYSICIAN IN ROOM 1301, START 1305, FINISH 1308, PHYSICIAN OUT OF ROOM 1309, ECG N/A, PATIENT SHIELDED N/A, SAFETY STRAP N/A, PREP ALCOHOL DR. WOODS, DRESSING TEGADERM John GOMEZ RN LOC: TERI GOMEZIL R 03/13/2021 1:05:32 PM > , 1. ALERT, ORIENTED RESP: PETRTIMURCHRISTINA R 03/13/2021 1:05:35 PM > , 1. REGULAR, NO DYSPNEA COLOR: PETRTIMUR,CHRISTINA R 03/13/2021 1:05:37 PM > , 1. PINK SKIN: PETRTIMURCHRISTINA R 03/13/2021 1:05:40 PM > , 1. WARM, DRY POSITION: JASONCHRISTINA R 03/13/2021 1:05:45 PM > , 5. SITTING VITALS: PETRTIMURCHRISTINA R 03/13/2021 1:22:17 PM > 171/94, 85, 18, 96% NOTES Ivett OWENS RN, REPOT GIVEN TO Seng LANTIGUA RN @ [phone] COMPLETION OF PROCEDURE APPOINTMENT: POST PAIN 9, DRESSING SITE DRY AND INTACT, IV N/A, GAIT WHEELCHAIR, TEACHING COMPLETED, PATIENT ACKNOWLEDGES UNDERSTANDING YES, PROCEDURE APPOINTMENT COMPLETED AT 1332 BY: John GOMEZ RN PN TRIGGER POINT INJECTION WITH STEROIDS PRE PROCEDURE DIAGNOSIS 1. MYALGIA 2. PAIN AT LEFT NECK AREA, LEFT SHOULDER AREA AND LEFT THORACIC AREA POST PROCEDURE DIAGNOSIS 1. MYALGIA 2. PAIN AT LEFT NECK AREA, LEFT SHOULDER AREA AND LEFT THORACIC AREA PROCEDURE TRIGGER POINT INJECTION AT LEFT NECK AREA, LEFT SHOULDER AREA AND LEFT THORACIC AREA SURGEON DR. STEPH WOODS [employer] DEVELOPER NONE ANESTHESIA LOCAL PRE PROCEDURE NOTE THE PATIENT HAS A HISTORY OF CHRONIC PAIN AT THE LEFT NECK AREA, LEFT SHOULDER AREA AND LEFT THORACIC AREA. I EVALUATED THE PATIENT AND REVIEWED THE CHART. THERE IS EVIDENCE OF BANDS OF TISSUE WITH RESTRICTION OF MOVEMENT AND PRESENCE OF TRIGGER POINT AT THE LEFT NECK AREA, LEFT SHOULDER AREA AND LEFT THORACIC AREA. I WENT OVER THE RISKS, ALTERNATIVES, AND BENEFITS ASSOCIATED WITH THIS PROCEDURE. THE PATIENT WOULD LIKE TO PROCEED AND GIVE CONSENT TO PERFORMED THE PROCEDURE. THE PATIENT DENIES UNEXPLAINABLE WEIGHT LOSS, FEVER, CHILLS, OR NEW CHANGES IN URINARY OR BOWEL CONTROL. THE PATIENT IS COVID-19 NEGATIVE DESCRIPTION OF PROCEDURE THE PATIENT WAS BROUGHT TO THE PROCEDURE ROOM AND PLACED IN THE SITTING POSITION. THE AREA WAS CLEANED WITH ALCOHOL. THE PROCEDURE WAS DONE USING ASEPTIC STERILE TECHNIQUE. A TIMEOUT WAS PERFORMED WHERE THE CONSENTED SITE WAS VERIFIED WITH EVERYONE IN THE ROOM. USING A 25-GAUGE NEEDLE, TRIGGER POINTS WERE INJECTED AT THE LEFT NECK AREA, LEFT SHOULDER AREA AND LEFT THORACIC AREA WITH A TOTAL OF 40 ML OF BUPIVACAINE 0.25% AND KENALOG 40 MG. THE MEDICATIONS WERE VERIFIED WITH THE NURSE. THERE WAS NO EVIDENCE OF BLOOD OR PARESTHESIA DURING THE PROCEDURE. THE PATIENT WAS SENT TO THE RECOVERY ROOM. THE PATIENT WAS MOVING THE EXTREMITIES AND DOING WELL. THERE WERE NO COMPLICATIONS DURING THE PROCEDURE. ESTIMATED BLOOD LOSS WAS LESS THAN 5 ML POST PROCEDURE NOTE THE PROCEDURE DONE WAS DISCUSSED WITH THE PATIENT. THE PATIENT WILL BE SEEN IN A FOLLOW UP IN THE NEXT FEW WEEKS. I AM LOOKING FOR LONG LASTING PAIN RELIEF FOR THE PATIENT WITH THIS INTERVENTION. INSTRUCTIONS WERE GIVEN, QUESTIONS WERE ANSWERED, AND THE PATIENT EXPRESSED UNDERSTANDING AND AGREES WITH THE PLAN. I, MILA HOWELL, DOCUMENTED THE ABOVE INFORMATION ACTING A SCRIBE FOR DR. WOODS. I HAVE REVIEWED THE ABOVE DOCUMENT, WRITTEN BY MILA HOWELL, CARAMEL CUTTER HAND, AND I VERIFY THAT IT IS ACCURATE PROCEDURE CODES 88161 INJECT TRIGGER POINTS 3/> DISPOSITION & COMMUNICATION FOLLOW UP FOLLOW UP WITH EXPORT AGENT (REASON: POST TRIGGER POINT INJECTIONS LEFT NECK, LEFT SHOULDER AND LEFT THORACIC) ELECTRONICALLY SIGNED BY STEPH WOODS MD, MD ON 03/18/2021 AT 05:34 PM EDT DISCLAIMER : THIS IS A VISIT SUMMARY EXTRACTED FROM THE [facility] CHART. IT IS NOT A COPY OF THE [facility] PROGRESS NOTE. MTDKodi
== END ==
LOC: M PAIN 11:40
PROVIDERS: ATTEND Anesthesiology
DX: M79.18 Myalgia, other site (principal); K21.9 Gastro-esophageal reflux disease without esophagitis; J44.9 Chronic obstructive pulmonary disease, unspecified; Z87.891 Personal history of nicotine dependence; Z79.01 Long term (current) use of anticoagulants; Z79.899 Other long term (current) drug therapy
CPT/HCPCS: 20553; J3301

== ENCOUNTER → 2021-03-28 | Outpatient (CLI) | payer MEDICARE ==
[~2021-03-28] MED LIST changes: -BUPIVACAINE HCL 0.25% 10ML VIAL As Ordered ONE; -BUPIVACAINE HCL 0.25% 30ML VIAL As Ordered ONE; -TRIAMCINOLONE ACETONIDE SUSP 40 MG/ML VIAL (J3301) As Ordered ONE; -diazePAM 5MG TABLET As Ordered ONE; -oxyCODONE 5MG TAB As Ordered ONE
--- NOTE | 2021-03-28 13:45 | REP ---
INDICATION: F.U FX. COMPARISON: None. TECHNIQUE: AP, lateral, bilateral oblique views of the right wrist FINDINGS: Comminuted Colles' fracture of the distal radius with posterior angulation and displacement of the distal fracture component essentially unchanged in appearance. IMPRESSION: No significant change from prior examination. <Electronically signed by Figueroa Blount > 03/28/21 4717
== END ==
LOC: M SOG 13:11
PROVIDERS: ATTEND Orthopaedic Surgery Sports Medicine
DX: S52.571A Other intraarticular fracture of lower end of right radius, initial encounter for closed fracture (principal); X58.XXXA Exposure to other specified factors, initial encounter; Y92.9 Unspecified place or not applicable

== ENCOUNTER → 2021-04-03 | Outpatient (CLI) | payer MEDICARE ==
--- NOTE | 2021-04-06 23:02 | ECWPNPC ---
PATIENT NAME: SANDRO LOVE : 1950 GENDER: FEMALE VISIT DATE: 04/03/2021 DISCHARGE DATE: 04/03/21 1538 VISIT LOCKED DATE TIME: PHYSICIAN: CARLOS GARZA RESOURCE: CARLOS GARZA REASON FOR APPOINTMENT 1. SHOULDER (INCREASED PAIN) HISTORY OF PRESENT ILLNESS GENERAL: HERE FOR POST PROCEDURE FOLLOW-UP. HAD TRIGGER POINT INJECTIONS ON 03/13/2021 TO LEFT NECK, LEFT SHOULDER AND LEFT THORACIC. PATIENT HAD SEVERE AGGRAVATION IN PAIN POST PROCEDURE. WE HAD HER USE A SHORT COURSE OF SOMA AND TRAMADOL. CONTINUES TO HAVE SEVERE LEFT NECK AND LEFT ARM PAIN. HAS OBVIOUS TREMOR OVER HER LEFT ARM AT REST. WE HAVE REFERRED HER TO [facility] DUE TO SIGNS AND SYMPTOMS OF PARKINSON'S. SHE HAS NOT HEARD FROM REFERRAL. I HAVE NOTIFIED TRACY FREEMAN RN AND SHE IS INVESTIGATING THIS. NO RECENT IMAGING OF THE NECK. DISCUSSED MEDICATION AND TREATMENT PLAN. ACCOMPANIED IN THE EXAM ROOM WITH HER HOUSE MATE. -. FALL RISK SCREENING: SCREENING : NO FALLS REPORTED IN THE LAST YEAR. PAIN SCREENING: PATIENT HAS A COMPLAINT OF ACUTE OR CHRONIC PAIN :YES LOCATION OF PAIN:NECK, LEFT SHOULDER, MID BACK INTENSITY OF PAIN (SCALE OF 1 TO 10):7 WHAT DOES YOUR PAIN FEEL LIKE:ACHING, SORE DURATION:CONTINOUS, CONSTANT, ALL DAY PAIN IS INCREASED BY:ACTIVITIES PAIN IS DECREASED BY:USE OF PAIN MEDICATIONS NURSING NOTE: -. PAIN CENTER INTAKE QUESTIONS: DO YOU HAVE A HISTORY OF MRSA? :NO DO YOU TAKE A BLOOD THINNERS? :YES WARFARIN 5 DAYS BEFORE PROCEDURE AND RESTART NEXT DAY DO YOU HAVE ANY BLEEDING DISORDERS? :NO ANY NEW NUMBNESS OR WEAKNESS IN YOUR LEGS OR ARMS? :NO PAIN IN THE RIGHT SHOULDER AND THE RIGHT HAND ANY PACEMAKER,DEFIBRILLATOR, OR DORSAL COLUMN STIMULATOR? :NO DO YOU HAVE ANY RASHES OR OPEN SORES? :NO ARE YOU ALLERGIC TO IV DYE? :NO ARE YOU DIABETIC? :NO ANY NEW PROBLEMS WITH YOUR MEDICATIONS? :YES WOULD LIKE TO CHANGE THE DOSE OF NORCO HAVE YOU RECEIVED A VACCINE IN THE PAST 30 DAYS? :YES IF SO WHAT VACCINE AND WHEN? 2ND COVID 12/31/2020 DO YOU PLAN TO RECEIVE A VACCINE IN THE NEXT 21 DAYS? :NO DO YOU NEED ANY PRESCRIPTION? :NO DO YOU TAKE ANY IMMUNOSUPPRESSIVE MEDICATIONS? :NO IS THERE A CHANCE YOU COULD BE ? :NO ARE YOU BREAST FEEDING? :NO CURRENT MEDICATIONS TAKING NEURONTIN 400MG CAPSULE 1 CAP ORALLY THREE X DAILY TAKING WARFARIN SODIUM 2.5 MG TABLET 1 TAB ORALLY DAILY TAKING WELLBUTRIN SR 200 MG TABLET EXTENDED RELEASE 12 HOUR 1 TABLET ORALLY TWICE A DAY TAKING SIMVASTATIN 20 MG TABLET 1 TABLET IN THE EVENING ORALLY ONCE A DAY TAKING VITAMIN D 42876 U CAPSULE 1 CAPSULE ORALLY ONCE A MONTH TAKING METOCLOPRAMIDE HCL 10 MG TABLET ORALLY TWICE A DAY TAKING OMEPRAZOLE 20 MG CAPSULE DELAYED RELEASE 1 CAPSULE ORALLY ONCE A DAY TAKING GABAPENTIN 100 MG CAPSULE 2 TABS ORALLY AT BEDTIME, TAKES 400MG 3 X DAILY BESIDES TAKING TYLENOL EX ST ARTHRITIS PAIN 500 MG TABLET 1 TABLET NEEDED ORALLY EVERY 6 HRS TAKING COLACE 100 MG CAPSULE 1 CAPSULE NEEDED ORALLY BID TAKING TRAMADOL HCL 50 MG TABLET 1 TABLET NEEDED ORALLY Q6H PRN MDD4 NOT-TAKING SOMA 350 MG TABLET 1 TABLET NEEDED ORALLY BEFORE BEDTIME MDD1 NOT-TAKING HYDROCODONE-ACETAMINOPHEN 10-325 MG TABLET 1 TABLET NEEDED ORALLY Q8H PRN MDD3 NOT-TAKING SYMBICORT 160-4.5 MCG/ACT AEROSOL 2 PUFFS INHALATION DAILY NOT-TAKING ACETAMINOPHEN-CODEINE 300-30 MG TABLET 1 TABLET NEEDED ORALLY Q8H PRN MDD3 #45TAB SHOULD LAST 30 DAYS NOT-TAKING TYLENOL WITH CODEINE #3 300-30 MG TABLET 1 TABLET NEEDED Q 8 HOURS PRN MDD3 ORALLY DIRECTED NOT-TAKING DULERA 200-5 MCG/ACT AEROSOL 2 PUFFS INHALATION TWICE A DAY NOT-TAKING BUTRANS 10 MCG/HR PATCH WEEKLY 1 PATCH TO SKIN TRANSDERMAL 1 PATCH Q7 DAYS=MDD MEDICATION LIST REVIEWED AND RECONCILED WITH THE PATIENT PAST MEDICAL HISTORY OSTEOPOROSIS (NO TREATMENT)BMD YEARS AGO DDD/DD CATARACTS FX LEFT KNEE 09/2015 ARTHRITIS ACID REFLUX CHRONIC PAIN COPD LUMBAGP MULTIPLE SITES WITH SCIATICA FRACTURE LEFT SHOULDER 05/27/20 RIGHT EYE GLAUCOMA 02/27/2021 FALL SPRAIN LEFT WRIST R WRIST FX 02/2021 ALLERGIES N.K.D.A. SURGICAL HISTORY HYSTERECTOMY / BSO--HEAVY BLEEDING 1977 WRIST SURGERY FELICIA. AORTA AND MITRAL VALVE REPLACED 1969 AND 1994 REPAIR OF FX. LEFT WRIST, PLATE AND SCREWS 06/07 COLONOSCOPY X 1 REFUSES ANYMORE SOCIAL HISTORY GENERAL: TOBACCO USE ARE YOU A:FORMER SMOKER HOW LONG HAS IT BEEN SINCE YOU LAST SMOKED?1-5 YEARS LATEX QUESTIONNAIRE LATEX ALLERGY : HAVE YOU EVER DEVELOPED ANY TYPE OF REACTION AFTER HANDLING LATEX PRODUCTS SUCH RUBBER GLOVES, CONDOMS, DIAPHRAGMS, BALLOONS, SOCKS, OR UNDERWEAR?NO LATEX ALLERGY : HAVE YOU EVER DEVELOPED ANY TYPE OF REACTION DURING OR AFTER DENTAL APPOINTMENT, VAGINAL/RECTAL EXAMINATION, SURGICAL PROCEDURE, OR ANY OTHER EXPOSURE?NO LATEX RISK : HAVE YOU EVER HAD ANY DIFFICULTY BREATHING OR HIVES AFTER EATING OR HANDLING ANY FRUITS, OR VEGETABLES; SUCH KIWI, BANANAS, STONE FRUITS, OR CHESTNUTSNO LATEX RISK : DO YOU HAVE A PREVIOUS PERSONAL HISTORY OF MORE THAN NINE SURGERIES, SPINA BIFIDA, OR REPEATED CATHERIZATIONS? NO LATEX RISK : ARE YOU FREQUENTLY EXPOSED TO LATEX PRODUCTS IN YOUR OCCUPATION?NO DATE ASKED : 04/03/2021 ALCOHOL USE: YES, GLASS OF WINE ONCE IN A BLUE CAPUTO. BMI CARE GOAL FOLLOW-UP ABOVE NORMAL BMI FOLLOW-UPGIVING ENCOURAGEMENT TO EXERCISE ALCOHOL SCREENING DID YOU HAVE A DRINK CONTAINING ALCOHOL IN THE PAST YEAR?YES HOW OFTEN DID YOU HAVE SIX OR MORE DRINKS ON ONE OCCASION IN THE PAST YEAR?NEVER (0 POINTS) HOW MANY DRINKS DID YOU HAVE ON A TYPICAL DAY WHEN YOU WERE DRINKING IN THE PAST YEAR?1 OR 2 (0 POINTS) HOW OFTEN DID YOU HAVE A DRINK CONTAINING ALCOHOL IN THE PAST YEAR?MONTHLY OR LESS (1 POINT) POINTS1 INTERPRETATIONNEGATIVE RECREATIONAL DRUG USE DRUG USE?NO CAFFEINE >5/DAY. HIV / HEP-C SCREENING HIV TEST OFFERED TO PATIENT:NO HEP-C TEST OFFERED TO PATIENT:NO PRESYBETERIAN [id number] SIKHISM LANGUAGE LANGUAGES SPOKEN:SINGAPOREAN EDUCATION LEVEL OF EDUCATION:FINISHED HIGH SCHOOL LEARNING BARRIERS / SPECIAL NEEDS CHANGE FROM LAST VISIT?NO BARRIERS TO LEARNING?NO HEARING IMPAIRED?NO VISION IMPAIRED?YES :CORRECTIVE LENSES COGNITIVELY IMPAIRED?NO READINESS TO LEARN?YES LEARNING PREFERENCES?NO LEARNING CAPABILITIES PRESENT?YES EMOTIONAL BARRIERS?NO SPECIAL DEVICES?YES :CANE, BRACE HAND BRACE RECORD CHANGER NEEDED?NO DOMESTIC VIOLENCE DO YOU FEEL SAFE IN YOUR ENVIRONMENT?YES 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 EXERCISE: NO REGULAR EXERCISE. MARITAL STATUS: . OTHERS AT HOME: ROOM-MATE, MALE. TODAY'S VISIT 03/06/20 PATIENT DESCRIBES PAIN :ACHING, BURNING, HAVE IT ALL THE TIME FROM 0-10, WHAT LEVEL IS YOUR PAIN TODAY?7 UP TO 9 AT TIMES, BASELINE PAIN LEVEL IS A 7 PRECIPITATING FACTORS WORSE WITH ACTIVITY SUCH SWEEPING, VACUUMING ALLEVIATING FACTORS REST, PAIN MEDICATIONS - WAS THE PROVIDER NOTIFIED OF ANY PERTINENT INFO?YES HAS THE PATIENT BEEN EDUCATED REGARDING HIS/HER PLAN OF CARE?YES HAS THE PATIENT BEEN EDUCATED REGARDING PAIN, THE RISK FOR PAIN, THE IMPORTANCE OF EFFECTIVE PAIN MANAGEMENT, AND THE PAIN ASSESSMENT PROCESS?YES ADVANCE DIRECTIVE ADVANCE DIRECTIVE DISCUSSED WITH PATIENT:YES PT DOES NOT HAVE ANY ADVANCED DIRECTIVES AND SHE DECLINES INFORMATION ON HCP AT THIS TIME. HOSPITALIZATION/MAJOR DIAGNOSTIC PROCEDURE FRACTURED LEFT SHOULDER 2017 SURGERIES FRACTURE LEFT SHOULDER 05/2020 REVIEW OF SYSTEMS CONSTITUTIONAL: ANY RECENT FEVER NO . CHILLS NO . WEIGHT CHANGE OF UNKNOWN REASONS NO . GASTROENTEROLOGY: NEW UNEXPLAINABLE CHANGES IN BOWEL CONTROL NO . CONSTIPATION NO . GENITOURINARY: ANY NEW CHANGE IN BLADDER CONTROL? NO . NEUROLOGY: NEW ONSET DIZZINESS OR NEUROLOGICAL CHANGES NOT MENTIONED NO . NEW NUMBNESS OR PAIN PATTERNS NOT MENTIONED AND PERTINENT TO TODAY'S VISIT NO . CARDIOLOGY: NEW CHEST PRESSURE NO . PATIENT DENIES NO . RESPIRATORY: UNEXPLAINABLE COUGH NO . NEW SHORTNESS OF BREATH NO . VITAL SIGNS WT 133 LBS, HT 61 IN, BMI 25.13 INDEX, BP 129/72 MM HG, HR 86 /MIN, RR 18 /MIN, TEMP 96.6 F, OXYGEN SAT % 97%, SAFE IN ENV? (Y/N) YEST.ERIK BLEVINS. EXAMINATION GENERAL EXAMINATION: GENERALAWAKE,ALERT ,PLEASANT . PSYCHAFFECT NORMAL . LUNGS:LUNG HERNANDEZ ARE CLEAR TO AUSCULTATION BILATERALLY. GOOD MOVEMENT OF AIR . HEART:S1, S2 IN A REGULAR RATE AND RHYTHM. NO SIGNIFICANT MURMURS, RUBS OR GALLOPS NOTED . ASSESSMENTS LEFT SHOULDER PAIN - 719.41 (PRIMARY) CERVICALGIA - M54.2 TREATMENT LEFT SHOULDER PAIN CONTINUE NEURONTIN CAPSULE, 400MG, 1 CAP, ORALLY, THREE X DAILY CONTINUE GABAPENTIN CAPSULE, 100 MG, 2 TABS, ORALLY, AT BEDTIME, TAKES 400MG 3 X DAILY BESIDES CONTINUE TYLENOL EX ST ARTHRITIS PAIN TABLET, 500 MG, 1 TABLET NEEDED, ORALLY, EVERY 6 HRS CONTINUE COLACE CAPSULE, 100 MG, 1 CAPSULE NEEDED, ORALLY, BID CONTINUE TRAMADOL HCL TABLET, 50 MG, 2 TAB, ORALLY, AM AND PM MDD4, 30 DAYS, 120, REFILLS 2 NOTES: TODAY I HAVE ADVISED HER TO USE TRAMADOL 50 MG TABLET 2 TABLETS MORNING AND NIGHT. ADVISED TO USE ACETAMINOPHEN 500 MG 2 TABLETS NEEDED FOR SEVERE PAIN EPISODES. MRI OF THE CERVICAL SPINE IS ORDERED DUE TO SEVERE PAIN DESPITE CONSERVATIVE TREATMENT AND TRIGGER POINT INJECTIONS. WE WILL FOLLOW-UP ON REFERRAL TO [facility] THAT WAS MADE IN FEBRUARY. FOLLOW-UP IS SCHEDULED IN 2 MONTHS. [facility], CERVICAL WITHOUT [id number] PROCEDURE CODES [id number] ESTABILISHED PATIENT [facility] CHARGE DISPOSITION & COMMUNICATION FOLLOW UP 2 MONTHS (REASON: F/U MRI CERVICAL/NEUROLOGY REFERRAL) ELECTRONICALLY SIGNED BY LEANDER SALEH ON 04/06/2021 AT 08:27 PM EDT DISCLAIMER : THIS IS A VISIT SUMMARY EXTRACTED FROM THE [employer] CHART. IT IS NOT A COPY OF THE [employer] PROGRESS NOTE. MARVIN
== END ==
LOC: M PAIN 14:45
PROVIDERS: ATTEND Nurse Practitioner Family
DX: M54.2 Cervicalgia (principal); M81.0 Age-related osteoporosis without current pathological fracture; K21.9 Gastro-esophageal reflux disease without esophagitis; J44.9 Chronic obstructive pulmonary disease, unspecified; H40.9 Unspecified glaucoma; Z87.891 Personal history of nicotine dependence; Z79.891 Long term (current) use of opiate analgesic; Z79.899 Other long term (current) drug therapy; Z79.01 Long term (current) use of anticoagulants; Z95.2 Presence of prosthetic heart valve

== ENCOUNTER 2021-04-07 15:00 | Emergency (ER) | payer MEDICARE ==
[~2021-04-07] VITALS: Ht 154.9 cm; Wt 59.6 kg
--- NOTE | 2021-04-07 16:14 | REP ---
INDICATION: CHEST PAIN. COMPARISON: 07/15/2018 PA and lateral views FINDINGS: The technique utilized in obtaining the radiograph has magnified the cardiac silhouette and accentuated the interstitial markings. There is cardiomegaly accentuated by technique. 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 Interstitial fibrotic changes again seen throughout the lung chaney with basilar predominance which appears stable. No acute patchy parenchymal opacities or pleural effusions have developed. There is no change in the osseous structures. IMPRESSION: Stable appearing chronic changes as described above. <Electronically signed by Duane Fuller > 04/07/21 [id number]
[2021-04-07 16:22] LABS: BASO % 0.3 % (0.0-1.0); EOS % 0.3 % (0.0-3.0); HEMATOCRIT 43.9 % (36.0-47.0); LYMPH # 0.6 10^3/uL (1.5-5.0); LYMPH % 8.3 % (24.0-44.0); MEAN CORPUSCULAR HEMOGLOBIN 31.5 pg (27.0-33.0); MEAN CORPUSCULAR HGB CONC 31.9 g/dl (32.0-36.5); MEAN CORPUSCULAR VOLUME 98.7 fl (80.0-96.0); MONO # 0.6 10^3/uL (0.0-0.8); NEUTROPHILS # 5.8 10^3/uL (1.5-8.5); NEUTROPHILS % 82.5 % (36.0-66.0); PLATELET COUNT, AUTOMATED 212 10^3/uL (150-450); RED BLOOD COUNT 4.45 10^6/uL (4.00-5.40)
[2021-04-07 16:54] LABS: ALBUMIN 4.1 GM/DL (3.2-5.2); ALT/SGPT 24 U/L (12-78); BILIRUBIN,DIRECT 0.3 MG/DL (0.0-0.2); BILIRUBIN,TOTAL 1.2 MG/DL (0.2-1.0); BLOOD UREA NITROGEN 14 MG/DL (7-18); CALCIUM LEVEL 9.4 MG/DL (8.8-10.2); CARBON DIOXIDE LEVEL 20 MEQ/L (21-32); CHLORIDE LEVEL 107 MEQ/L (98-107); CK-MB VALUE MASS < 1.0 NG/ML (<3.6); CPK CREATINE PHOSPHOKINASE 85 U/L (26-192); CREATININE FOR GFR 0.57 MG/DL (0.55-1.30); GLOMERULAR FILTRATION RATE > 60.0 (>39); GLUCOSE, FASTING 74 MG/DL (70-100); LIPASE 102 U/L (73-393); MB/CK RELATIVE INDEX 1.18 (< OR =4); SODIUM LEVEL 138 MEQ/L (136-145); TOTAL PROTEIN 7.6 GM/DL (6.4-8.2); TROPONIN I < 0.02 NG/ML (< 0.10)
--- NOTE | 2021-04-07 17:07 | ECGEPIP ---
[facility] - ED Test Date: 2021-04-07 Pat Name: SANDRO LOVE Department: Room: - Gender: Female Supervisor Heat Treating: SAM : 1950 Requested By: JOSE Mcgee Order Number: [id number] Reading MD: Brandi Wray Measurements Intervals [place] Rate: 101 P: FL: QRS: -41 QRSD: 150 T: 109 QT: 396 QTc: 513 Interpretive Statements Atrial fibrillation with rapid ventricular response baseline artifact may affect interpretation Left axis deviation Left bundle branch block no prior Electronically Signed on 04-07-2021 17:07:11 EDT by Brandi Wray
[2021-04-07 17:19] LABS: INR 3.56; PROTHROMBIN TIME 36.4 SECONDS (12.5-14.3)
[2021-04-07] MEDS ORDERED: MORPHINE 4 MG/ML 1ML VIAL/SYRINGE (J2270) IV ONE (18:15)
[2021-04-07 18:45] VITALS: BP 152/87
== END 2021-04-07 18:48 | disposition home or self-care (01) ==
LOC: M ED 15:00
DX: M79.602 Pain in left arm (principal); I48.91 Unspecified atrial fibrillation; I44.7 Left bundle-branch block, unspecified; I51.7 Cardiomegaly; Z53.9 Procedure and treatment not carried out, unspecified reason; I10 Essential (primary) hypertension; G62.9 Polyneuropathy, unspecified; Z79.02 Long term (current) use of antithrombotics/antiplatelets; Z79.899 Other long term (current) drug therapy
CPT/HCPCS: 71045; 80048; 80076; 82550; 82553; 83690; 84484; 85025; 85610; 93005; 93041; 94760; 99285; J2270

== ENCOUNTER → 2021-05-05 | Outpatient (CLI) | payer MEDICARE ==
[~2021-05-05] MED LIST changes: +ERGO500029 PO; -VITA50005 PO
--- NOTE | 2021-05-06 08:10 | REP ---
INDICATION: CERVICALGIA. COMPARISON: Comparison cervical spine CT study June 05, 2020.. TECHNIQUE: The study is incomplete due to patient being unable to tolerate positioning and the confinement. She interrupted the exam after the sagittal T1 weighted sequences PIC and did not wish to continue. FINDINGS: The sagittal T1 weighted sequence demonstrates preserved vertebral body heights. Cortical and medullary bone signal is normal. Craniocervical junction is unremarkable. There is mild anterolisthesis at C5-6 measuring 2.8 mm. At C6-7 there is 2.0 mm anterolisthesis. These findings are unchanged from the comparison CT study from June 05, 2020. There is a central broad-based disc bulge or protrusion at C7-T1 effacing the ventral subarachnoid space. This appears to contact the ventral margin of the cord but no spinal stenosis or cord compression is seen. There is minimal disc bulging at C2-3 and C3-4 centrally. No other disc protrusion is appreciated. There is some osteoarthritic facet hypertrophy in the midcervical spine. IMPRESSION: Incomplete study. Degenerative disc changes. Anterolisthesis C5-6 and C6-7 as noted above unchanged. Central disc bulge or protrusion at C7-T1. <Electronically signed by John Garnica > 05/06/21 [id number]
== END ==
LOC: M RAD 12:32
PROVIDERS: ATTEND Nurse Practitioner Family
DX: M54.2 Cervicalgia (principal)

== ENCOUNTER → 2021-05-15 | Outpatient (CLI) | payer MEDICARE ==
[~2021-05-15] MED LIST changes: +BUPR1TAB56 PO; +CARI1TAB7 PO; +OMEP-218 PO
[2021-05-15 16:35] LABS: BASO % 0.4 % (0.0-1.0); EOS % 0.4 % (0.0-3.0); HEMATOCRIT 42.7 % (36.0-47.0); HEMOGLOBIN 13.7 g/dl (12.0-15.5); LYMPH # 0.8 10^3/uL (1.5-5.0); LYMPH % 14.1 % (24.0-44.0); MEAN CORPUSCULAR HEMOGLOBIN 31.8 pg (27.0-33.0); MEAN CORPUSCULAR HGB CONC 32.1 g/dl (32.0-36.5); MEAN CORPUSCULAR VOLUME 99.1 fl (80.0-96.0); MONO # 0.5 10^3/uL (0.0-0.8); MONO % 9.6 % (2.0-8.0); NEUTROPHILS % 74.9 % (36.0-66.0); PLATELET COUNT, AUTOMATED 219 10^3/uL (150-450); RED BLOOD COUNT 4.31 10^6/uL (4.00-5.40); WHITE BLOOD COUNT 5.4 10^3/uL (4.0-10.0)
[2021-05-15 16:59] LABS: ERYTHROCYTE SEDIMENTATION RATE 13 mm/hr (0-30)
[2021-05-15 17:12] LABS: ALBUMIN 4.2 GM/DL (3.2-5.2); ALT/SGPT 51 U/L (12-78); BILIRUBIN,TOTAL 0.9 MG/DL (0.2-1.0); BLOOD UREA NITROGEN 14 MG/DL (7-18); CALCIUM LEVEL 9.3 MG/DL (8.8-10.2); CARBON DIOXIDE LEVEL 28 MEQ/L (21-32); CHLORIDE LEVEL 107 MEQ/L (98-107); CREATININE FOR GFR 0.72 MG/DL (0.55-1.30); GLOMERULAR FILTRATION RATE > 60.0 (>39); GLUCOSE, FASTING 75 MG/DL (70-100); POTASSIUM SERUM 4.4 MEQ/L (3.5-5.1); RHEUMATOID FACTOR QUANT < 10.0 IU/ML (<15.0); SODIUM LEVEL 143 MEQ/L (136-145); TOTAL PROTEIN 7.5 GM/DL (6.4-8.2)
[2021-05-15 17:14] LABS: VITAMIN B12 LEVEL 234 PG/ML
[2021-05-15 17:15] LABS: FOLATE 6.5 NG/ML
[2021-05-22 16:08] LABS: ANTINUCLEAR ANTIBODIES DIRECT Negative (Negative); CERULOPLASMIN 31.1 mg/dL (19.0-39.0); COPPER PLASMA 127 ug/dL (80-158); LEAD BLOOD ADULT <1 ug/dL (0-4); MERCURY LEVEL <1.0 ug/L (0.0-14.9); VITAMIN B1 LEVEL WHOLE BLOOD 147.4 nmol/L (66.5-200.0); VITAMIN B6,PYRIDOXAL PHOSPHATE 5.9 ug/L (2.0-32.8); VITAMIN E(ALPHA TOCOPHEROL) 7.1 mg/L (9.0-29.0); VITAMIN E(GAMMA TOCOPHEROL) 1.2 mg/L (0.5-4.9)
== END ==
LOC: M LAB 15:24
PROVIDERS: ATTEND Psychiatry & Neurology Neurology
DX: R25.1 Tremor, unspecified (principal); E78.5 Hyperlipidemia, unspecified; I10 Essential (primary) hypertension; E55.9 Vitamin D deficiency, unspecified

== ENCOUNTER → 2021-05-15 | Outpatient (CLI) | payer MEDICARE ==
[2021-05-15 16:35] LABS: HEMATOCRIT 42.6 % (36.0-47.0); HEMOGLOBIN 13.7 g/dl (12.0-15.5); MEAN CORPUSCULAR HEMOGLOBIN 31.6 pg (27.0-33.0); MEAN CORPUSCULAR HGB CONC 32.2 g/dl (32.0-36.5); MEAN CORPUSCULAR VOLUME 98.2 fl (80.0-96.0); PLATELET COUNT, AUTOMATED 222 10^3/uL (150-450); RED BLOOD COUNT 4.34 10^6/uL (4.00-5.40); WHITE BLOOD COUNT 5.2 10^3/uL (4.0-10.0)
[2021-05-15 17:05] LABS: ALBUMIN 4.1 GM/DL (3.2-5.2); ALT/SGPT 52 U/L (12-78); BILIRUBIN,TOTAL 0.9 MG/DL (0.2-1.0); BLOOD UREA NITROGEN 14 MG/DL (7-18); CALCIUM LEVEL 9.2 MG/DL (8.8-10.2); CARBON DIOXIDE LEVEL 28 MEQ/L (21-32); CHLORIDE LEVEL 107 MEQ/L (98-107); CHOLESTEROL LEVEL 178 MG/DL (<200); CHOLESTEROL RISK RATIO 2.282 (<5); CPK CREATINE PHOSPHOKINASE 81 U/L (26-192); CREATININE FOR GFR 0.75 MG/DL (0.55-1.30); GLOMERULAR FILTRATION RATE > 60.0 (>39); GLUCOSE, FASTING 77 MG/DL (70-100); HDL CHOLESTEROL 78 MG/DL (>40); LDL CHOLESTEROL 72 MG/DL (<100); NON-HDL-C 100 MG/DL; POTASSIUM SERUM 4.3 MEQ/L (3.5-5.1); SODIUM LEVEL 142 MEQ/L (136-145); TOTAL PROTEIN 7.4 GM/DL (6.4-8.2); TRIGLYCERIDES LEVEL 138 MG/DL (<150)
[2021-05-15 17:14] LABS: TOTAL 25(OH) VITAMIN D 33.1 NG/ML (30.0-100.0)
== END ==
LOC: M LAB 15:20
PROVIDERS: ATTEND Nurse Practitioner Family
DX: E78.5 Hyperlipidemia, unspecified (principal); I10 Essential (primary) hypertension; E55.9 Vitamin D deficiency, unspecified

== ENCOUNTER 2021-05-17 13:02 | Inpatient (IN) | payer MEDICARE ==
[~2021-05-17] VITALS: Ht 154.9 cm; Wt 59.8 kg
[~2021-05-17 13:02] MED LIST changes: -BUPR1TAB56 PO; -CARI1TAB7 PO; -OMEP-218 PO
[2021-05-17] MEDS ORDERED: NS 500 ML IV ONE (13:35)
--- NOTE | 2021-05-17 13:39 | REP ---
INDICATION: TRAUMA ON THINNERS. COMPARISON: Comparison head CT study June 05, 2020.. TECHNIQUE: Helical scanning is acquired. 5 mm axial images were reformatted. Coronal MPR images were generated. FINDINGS: Bone window settings demonstrate an intact bony calvarium. There is no evidence of skull fracture or incidental bony calvarial lesion. The visualized paranasal sinuses appear clear. No intraorbital abnormality is seen. On soft tissue window setting images; the lateral, third, and fourth ventricles are normal in size and position. Pantoja-white differentiation pattern is normal above and below the tentorium. There are is no evidence of intracranial hemorrhage. No mass, edema, infarction, or midline shift is seen. No extra-axial fluid collection is appreciated. There is heavy vascular calcification at the skull base bilaterally. There is minimal right frontal scalp swelling. Generalized volume loss is seen. There is an old lacunar infarct in the left basal ganglia and small-vessel atherosclerotic changes are again noted. These findings are unchanged. IMPRESSION: Vascular calcification, generalized volume loss, small vessel atherosclerotic changes and old lacunar infarct in the left basal ganglia. No acute intracranial abnormality seen.. <Electronically signed by John Garnica > 05/17/21 [id number]
[2021-05-17] MEDS ORDERED: fentaNYL 100 MCG/2 ML INJECTION (J3010) IV ONE ×2 (13:40→16:35)
--- NOTE | 2021-05-17 13:45 | REP ---
INDICATION: TRAUMA ON THINNERS. COMPARISON: Comparison cervical spine study June 05, 2020. Comparison is made with chest x-ray from April 07, 2021.. TECHNIQUE: Helical scanning is acquired and overlapping 2 mm high resolution axial images were generated and reviewed at bone and soft tissue window settings. Coronal and sagittal multiplanar re-formations images are generated. FINDINGS: There is a levoconvex curvature in the cervical spine which is more pronounced today and may be positional. Cervical vertebral body heights are preserved. Alignment is otherwise normal. No fracture or collapse is seen. There is some facet arthropathy bilaterally. Mild degenerative disc changes are noted. Those findings are unchanged from the comparison study. No fracture is seen. No intraspinal or perispinal hematoma is appreciated. Vascular calcification is noted. Diffuse ectasia of the thoracic aortic arch is seen as noted on chest x-ray. The transverse diameter of the thoracic aortic arch is 4.05 cm. The lung apices are unremarkable.. IMPRESSION: Degenerative spondylosis changes and thoracolumbar spine curvature. Ectasias of the thoracic aorta. No traumatic abnormality noted.. <Electronically signed by John Garnica > 05/17/21 [id number]
--- NOTE | 2021-05-17 14:22 | REP ---
INDICATION: fall. COMPARISON: Comparison left knee series September 26, 2015.. TECHNIQUE: Four views of the left calf. FINDINGS: Four views of the left calf demonstrate a comminuted proximal tibial metaphyseal and lateral tibial plateau fracture. There is significant depression of the lateral tibial plateau on the AP radiograph measuring approximately 11 mm. There is an associated impacted fracture of the proximal metaphysis of the fibula. No diaphyseal or distal tibial or fibular fracture is seen. There is associated swelling.. . . IMPRESSION: Comminuted impacted fracture of the lateral tibial plateau and proximal tibia, 1.1 cm of depression. There is an impacted fracture of the proximal fibular head as well.. <Electronically signed by John Garnica > 05/17/21 1415
--- NOTE | 2021-05-17 14:23 | REP ---
INDICATION: fall. COMPARISON: Comparison left hip and femur series August 05, 2020.. TECHNIQUE: Four views. FINDINGS: Four views of the left femur demonstrate the comminuted and impacted fractures of the proximal tibia and proximal fibula as described in the tib fib views series report. There is vascular calcification and diffuse osteopenia. No acute femur fracture is seen. Old inferior and superior pubic ramus fractures are noted on the left. The left hemipelvis is otherwise intact. IMPRESSION: Diffuse osteoporosis and vascular calcification. Proximal tibial and fibular fractures as described in the tib fib series. No femur or acute pelvic fracture. Old left superior and inferior pubic ramus fractures.. <Electronically signed by John Garnica > 05/17/21 [id number]
--- NOTE | 2021-05-17 14:26 | REP ---
INDICATION: fall. COMPARISON: Comparison left humerus radiographs June 05, 2020.. TECHNIQUE: Four views of the left shoulder are provided. FINDINGS: The left glenohumeral and left acromioclavicular joints are normally aligned. There is old posttraumatic deformity in the distal clavicle on the left and there is diffuse osteoporosis. Median sternotomy wires are noted in vascular calcification is visible. There is discontinuity of the lateral scapular border on the frontal view consistent with a lateral scapular body fracture. This was not apparent previously. IMPRESSION: Discontinuity of the lateral scapular border consistent with scapular body fracture. Old healed distal clavicle fracture on the left. No other acute fracture seen. <Electronically signed by John Garnica > 05/17/21 [id number]
--- NOTE | 2021-05-17 14:27 | REP ---
INDICATION: fall. COMPARISON: Comparison left humerus radiographs June 05, 2020.. TECHNIQUE: Two views of the left humerus are provided. FINDINGS: AP and lateral views of the left humerus demonstrate discontinuity in the lateral border of the scapula consistent with a skin lateral scapular body fracture. This does not appear to have been present previously. No humeral fracture is seen. There is diffuse osteopenia. Old posttraumatic deformity is seen in the distal clavicle.. . No opaque foreign body noted. IMPRESSION: Lateral scapular body fractures suspected. Diffuse osteopenia.. <Electronically signed by John Garnica > 05/17/21 [id number]
--- NOTE | 2021-05-17 14:28 | REP ---
INDICATION: fall. COMPARISON: Comparison chest x-ray April 07, 2021.. TECHNIQUE: Portable semi-erect AP chest radiograph. FINDINGS: Moderate cardiac enlargement is seen. The patient is status post cardiac valve replacement. Median sternotomy wires are noted. The pleural angles are sharp. No infiltrate is seen. The pulmonary vasculature is not increased. Aorta is tortuous and calcific. IMPRESSION: Moderate cardiac enlargement prior sternotomy and valve replacement. No evidence of pneumothorax or hydrothorax. Aorta is calcific and tortuous unchanged. <Electronically signed by John Garnica > 05/17/21 [id number]
[2021-05-17 14:34] LABS: BASO % 0.1 % (0.0-1.0); EOS % 0.1 % (0.0-3.0); HEMATOCRIT 39.1 % (36.0-47.0); HEMOGLOBIN 12.7 g/dl (12.0-15.5); LYMPH # 0.5 10^3/uL (1.5-5.0); LYMPH % 3.1 % (24.0-44.0); MEAN CORPUSCULAR HEMOGLOBIN 31.8 pg (27.0-33.0); MEAN CORPUSCULAR HGB CONC 32.5 g/dl (32.0-36.5); MEAN CORPUSCULAR VOLUME 97.8 fl (80.0-96.0); MONO # 0.9 10^3/uL (0.0-0.8); MONO % 5.4 % (2.0-8.0); NEUTROPHILS # 14.9 10^3/uL (1.5-8.5); NEUTROPHILS % 90.3 % (36.0-66.0); PLATELET COUNT, AUTOMATED 197 10^3/uL (150-450); WHITE BLOOD COUNT 16.5 10^3/uL (4.0-10.0)
[2021-05-17 14:47] LABS: INR 2.32; PARTIAL THROMBOPLASTIN TIME 29.2 SECONDS (24.2-38.5)
[2021-05-17 15:09] LABS: ALBUMIN 3.6 GM/DL (3.2-5.2); ALT/SGPT 74 U/L (12-78); BILIRUBIN,DIRECT 0.2 MG/DL (0.0-0.2); BILIRUBIN,TOTAL 0.7 MG/DL (0.2-1.0); BLOOD UREA NITROGEN 18 MG/DL (7-18); CALCIUM LEVEL 8.5 MG/DL (8.8-10.2); CARBON DIOXIDE LEVEL 25 MEQ/L (21-32); CHLORIDE LEVEL 110 MEQ/L (98-107); CK-MB VALUE MASS 1.8 NG/ML (<3.6); CPK CREATINE PHOSPHOKINASE 152 U/L (26-192); CREATININE FOR GFR 0.78 MG/DL (0.55-1.30); GLOMERULAR FILTRATION RATE > 60.0 (>39); GLUCOSE, FASTING 135 MG/DL (70-100); MB/CK RELATIVE INDEX 1.18 (< OR =4); SODIUM LEVEL 143 MEQ/L (136-145); TOTAL PROTEIN 6.8 GM/DL (6.4-8.2); TROPONIN I < 0.02 NG/ML (< 0.10)
[2021-05-17 15:23] LABS: RSV AMPLIFICATION NEGATIVE (NEGATIVE)
[2021-05-17] MEDS: GABAPENTIN 400MG CAP PO SCH (16:00)
[2021-05-17] MEDS ORDERED: CARI1TAB7 PO (16:07)
[2021-05-17] MEDS ORDERED: TRAM50TA2 PO (16:07)
[2021-05-17] MEDS ORDERED: SIMV20TA22 PO (16:07)
[2021-05-17] MEDS ORDERED: OMEP-218 PO (16:07)
[2021-05-17] MEDS ORDERED: BUPR1TAB56 PO (16:08)
[2021-05-17] MEDS ORDERED: HOME MED LIST COMPLETE! XX SCH (16:35)
--- NOTE | 2021-05-17 17:00 | REP ---
INDICATION: ct scapula and shoulder left - w 3 d recon of scapula. COMPARISON: Comparison radiographs are from earlier this date of the left shoulder.. TECHNIQUE: Helical scanning is acquired and 3 mm axial images re-formatted. Coronal and sagittal MPR and 3D surface rendered images are generated. FINDINGS: CT imaging confirms the presence of a comminuted fracture of the lateral margin and inferior body of the scapula with surrounding soft tissue swelling/hematoma. The glenoid appears intact although there is glenohumeral spurring. The acromion process and scapular spine are not involved in the fracture. The superior border of the scapula is intact. Glenohumeral articulation is normally aligned. There is old post traumatic deformity of the distal clavicle. No left-sided rib fracture is appreciated. There is atelectasis and some mild bronchiectasis in the left lower lobe which appears chronic. There is no evidence of pneumothorax or hemothorax. Proximal humerus is intact. IMPRESSION: Comminuted fracture of the lateral border and inferior body of the scapula. Old posttraumatic deformity of the distal clavicle. Glenohumeral spurring. No proximal humeral fracture seen. <Electronically signed by John Garnica > 05/17/21 [id number]
--- NOTE | 2021-05-17 17:51 | HPEPDOC ---
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 She denies any LOC, she was alone at the time but was down for only a few minutes. She denies recent illness and was doing quite well, was recently seen by neurology and has an ongoing Parkinson's workup with a baseline tremor. She denies recent fever, chills, LOC, chest pain, palpitations, SOB, dizziness, dysuria, hematuria, hematochezia, melena, abdominal pain, N or V. In the ED she was hemodynamically stable, normotensive, in sinus rhythm and when I saw her was on 3L NC saturating 94% and speaking in full sentences. She complained of L leg pain and it was in an immobilizer. Prior to the ED consultin g medicine for admission, they consulted Dr. Neil for trauma evaluation and he cleared her for medicine admission and orthopedic evaluation. Work up was notable for L shoulder XR that revealed discontinuity of the lateral scapular body c/w scapular body fracture and an old healed distal clavicle fracture on the L, while L humerus XR revealed the same fracture without fracture of the humerus. She had a L tib/fib XR that revealed a comminuted impacted fracture of the lateral tibia plateau and proximal tibia with 1.1 cm depression, as well as an impacted fracture of the proximal fibula head. A L femur XR revealed the same without a femur or acute pelvic fracture. It did show an old L superior and inferior pubic ramus fracture. Head CT showed no acute abnormalities and showed old lacunar infarcts in the L basal ganglia while the CT of C-spine showed no acute fractures, dislocation or subluxation. CXR revealed no pneumothorax or hydrothorax. WBC was 16.5, hgb 12.7, platelets 197, na 143, K 4, Cr 0.78, mild AST elevation at 61, ALT 74, EKG was non ischemic, troponin negative and INR was 2.32. She is now being admitted to medicine for preop assessment with orthopedics on consultation. PAST MEDICAL HISTORY: unsteady gate and frequent admissions with falls and fractures most recently in 11/2020 when she sustained a L pubic ramus and a L shoulder fracture s/p AVR and MVR on warfarin HTN HLD COPD Osteoporosis GERD Depression PAST SURGICAL HISTORY: Hysterectomy L wrist carpal tunnel surgery SOCIAL HISTORY: No smoking No alcohol No illicit drug use Lives with house mate Son is HCP, lives in [place] FAMILY HISTORY: Reviewed ALLERGIES: Please see below. REVIEW OF SYSTEMS: 10 point ROS was reviewed and otherwise negative, except as noted in the HPI HOME MEDICATIONS: Please see below. PHYSICAL EXAMINATION: VITAL SIGNS: see below GENERAL APPEARANCE: Appears uncomfortable without distress. Conversational HEENT: NCAT, EOMI, MMM CARDIOVASCULAR: RRR, has loud systolic clicks from her prosthetic valves heard throughout the precordium LUNGS: CTAB with good air movement throughout, on 3L NC saturating 94% ABDOMEN: Normoactive sounds, soft, NTND MUSCULOSKELETAL: LLE in immobilizer around knee with pain on movement, foot is warm, moving toes, cool with intact pulses. RLE wnl with FROM, RUE wnl with FROM, LUE with pain with trial of abduction, hand with full strength EXTREMITIES: WWP, no edema NEUROLOGICAL: CN3-12 intact, moving all extremities with L side limited by adrien n, speech without dysarthria PSYCHIATRIC: AOx3 LABORATORY DATA and IMAGING: as described above. MICROBIOLOGY: Please see below. 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 PLAN: Preop assessment: Cardiac: - has AVR and MVR on coumadin with INR 2.32. Plan will be to not give coumadin this evening and have surgery part [address] Bailon after which i will place her on a heparin gtt until she has the second surgery and I will bridge her back to coumadin after that. -EKG was otherwise stable from prior without evidence of acute ischemia and troponin was wnl -She has no history of HF, with last TTE from 07/2019 in the EMR with normal EF and possible grade 1 diastolic dysfunction but otherwise normal pressures -At this time is euvolemic on exam Pulm: -Has chronic COPD without evidence of acute exacerbation. Is currently on minimal oxygen i/s/o trauma, CXR without rib fracture, pneumo or hydrothorax Heme: -hgb 12.7, INR close to therapeutic for valve protection and will have initial surgery promptly tomorrow AM with plan for heparin gtt thereafter. Head trauma: -CT head did not reveal fractures or bleeding and she is neurologically intact. She is at this time medically cleared for orthopedic surgery L scapular body fracture and L tib/fib fractures: -Pending ortho evaluation with tentative plan for 2 stage surgery with the first tomorrow AM -Pain management with morphine 4mg Q6HP for severe pain, tramadol 50 Q6HP for moderate pain and tylenol PRN for mild pain -Also continuing her home gabapentin -Ordered PT/OT with instruction of eval postop per orthopedics -will plan to start heparin gtt postop s/p AVR and MVR: -INR 2.32 currently, no warfarin tonight with plan for orthopedic surgery tomorrow AM and will begin heparin gtt postop HLD: -continue home simvastatin Depression: -continue home bupropion DVT ppx: on warfarin, INR 2.32, with plan for heparin gtt tomorrow post op. Vital Signs Vital Signs Date Time Temp Pulse Resp B/P (MAP) Pulse Ox O2 Delivery O2 Flow Rate FiO2 05/17/21 16:47 90 95 Nasal Cannula 3.0 7/24/21 16:46 107/78 (88) 05/17/21 16:45 20 05/17/21 13:18 97.4 Laboratory Data Labs 24H Laboratory Tests 2 05/17/21 13:45: Immature Granulocyte % (Auto) 1.0, Neutrophils (%) (Auto) 90.3H, Lymphocytes (%) (Auto) 3.1L, Monocytes (%) (Auto) 5.4, Eosinophils (%) (Auto) 0.1, Basophils (%) (Auto) 0.1, Neutrophils # (Auto) 14.9H, Lymphocytes # (Auto) 0.5L, Monocytes # (Auto) 0.9H, Eosinophils # (Auto) 0.0, Basophils # (Auto) 0.0, Nucleated Red Blood Cells % (auto) 0.0, Prothrombin Time 26.0H, Prothromb Time International Ratio 2.32, Activated Partial Thromboplast Time 29.2, Anion Gap 8, Glomerular Filtration Rate > 60.0, Calcium Level 8.5L, Total Bilirubin 0.7, Direct Bilirubin 0.2, Aspartate Amino Transf (AST/SGOT) 61H, Alanine Aminotransferase (ALT/SGPT) 74, Alkaline Phosphatase 95, Total Creatine Kinase 152#, Creatine Kinase MB 1.8, Creatine Kinase MB Relative Index 1.18, Troponin I < 0.02, Total Protein 6.8, Albumin 3.6, Albumin/Globulin Ratio 1.1L, Coronavirus (COVID- 19)(PCR) NEGATIVE, Influenza Type A (RT-PCR) NEGATIVE, Influenza Type B (RT-PCR) NEGATIVE, Respiratory Syncytial Virus (PCR) NEGATIVE 05/17/21 14:52: POC Glucose (Misc Panel) 137H, POC Sodium (Misc Panel) 142, POC Potassium (Misc Panel) 3.8, POC Chloride (Misc Panel) 103, POC Total CO2 (Misc Panel) 23.0, POC Blood Urea Nitrogen (Misc Panel 21, POC Ionized Calcium (Misc Panel) 4.8, POC Creatinine (Misc Panel) 0.7, POC Hematocrit (Misc Panel) 37.0L CBC/BMP Laboratory Tests 05/17/21 13:45 Home Medications Scheduled Bupropion HCl (Bupropion HCl Sr) 200 Mg Tab.sr.12h, 200 MG PO BID Ergocalciferol (Vitamin D2) (Vitamin D2) 50,000 Units Cap, 50,000 UNITS PO QMONTH FIRST OF EVERY MONTH Gabapentin (Gabapentin) 100 Mg Capsule, 200 MG PO QHS Gabapentin (Gabapentin) 400 Mg Capsule, 400 MG PO TID Omeprazole (Omeprazole) 20 Mg Cap, 20 MG PO DAILY Simvastatin (Simvastatin) 20 Mg Tablet, 20 MG PO QHS Warfarin Sodium (Warfarin Sodium) 2.5 Mg Tablet, 2.5 MG PO QHS Scheduled PRN Tramadol HCl (Tramadol HCl) 50 Mg Tablet, 50 MG PO Q6H PRN for PAIN LEVEL 5-10 Allergies Coded Allergies: No Known Drug Allergies (Verified Allergy, Unknown, 06/11/20) A-FIB/CHADSVASC A-FIB History Current/History of A-Fib/PAF?: No Current PO Anticoag Therapy: Yes Treatment Treatment ordered: Warfarin ELIZABETH IBRAHIM MD May 17, 2021 17:51
[2021-05-17] MEDS: MORPHINE 4 MG/ML 1ML VIAL/SYRINGE (J2270) IV PRN (19:10)
[2021-05-17 20:00] VITALS: BP 132/86
[2021-05-17] MEDS: GABAPENTIN 300 MG CAP PO SCH (21:32)
[2021-05-17] MEDS: traMADol 50 MG TAB PO PRN (21:33)
[2021-05-17] MEDS: buPROPion (WELLBUTRIN SR) 100 MG SR TAB PO SCH (21:33)
[2021-05-17] MEDS: SIMVASTATIN 20 MG TAB PO SCH (21:33)
--- NOTE | 2021-05-17 21:34 | ECGEPIP ---
[facility] - ED Test Date: 2021-05-17 Pat Name: SANDRO LOVE Department: Room: - Gender: Female Trim Mounter: : 1950 Requested By: Christophe Sun Order Number: [id number] Reading MD: Brandi Wray Measurements Intervals [place] Rate: 81 P: DE: QRS: -19 QRSD: 154 T: 149 QT: 440 QTc: 511 Interpretive Statements Wide QRS rhythm baseline artifact may affect interpretation Left bundle branch block Electronically Signed on 05-17-2021 21:33:58 EDT by Brandi Wray
[2021-05-17] MEDS ORDERED: KETOROLAC 30 MG/ML 1ML VIAL IV ONE (23:30)
[2021-05-18] VITALS (8 sets, daily range): BP systolic 93–121; BP diastolic 63–73
[2021-05-18] MEDS: MORPHINE 4 MG/ML 1ML VIAL/SYRINGE (J2270) IV PRN ×2 (02:42→19:01)
[2021-05-18] MEDS: ACETAMINOPHEN TAB 650MG DOSE (2X325MG) PO PRN ×2 (05:58→15:42)
[2021-05-18] MEDS: traMADol 50 MG TAB PO PRN ×2 (05:58→15:42)
[2021-05-18 06:16] LABS: HEMATOCRIT 33.7 % (36.0-47.0); HEMOGLOBIN 10.8 g/dl (12.0-15.5); MEAN CORPUSCULAR HEMOGLOBIN 31.1 pg (27.0-33.0); MEAN CORPUSCULAR VOLUME 97.1 fl (80.0-96.0); PLATELET COUNT, AUTOMATED 165 10^3/uL (150-450); RED BLOOD COUNT 3.47 10^6/uL (4.00-5.40); WHITE BLOOD COUNT 7.4 10^3/uL (4.0-10.0)
[2021-05-18 06:27] LABS: INR 2.53; PROTHROMBIN TIME 27.8 SECONDS (12.5-14.3)
[2021-05-18 06:38] LABS: BLOOD UREA NITROGEN 19 MG/DL (7-18); CALCIUM LEVEL 8.3 MG/DL (8.8-10.2); CARBON DIOXIDE LEVEL 24 MEQ/L (21-32); CHLORIDE LEVEL 107 MEQ/L (98-107); CREATININE FOR GFR 0.64 MG/DL (0.55-1.30); GLOMERULAR FILTRATION RATE > 60.0 (>39); GLUCOSE, FASTING 94 MG/DL (70-100); MAGNESIUM LEVEL 1.9 MG/DL (1.8-2.4); POTASSIUM SERUM 3.8 MEQ/L (3.5-5.1); SODIUM LEVEL 140 MEQ/L (136-145)
[2021-05-18] MEDS: OMEPRAZOLE 20 MG CAP PO SCH (07:48)
[2021-05-18] MEDS: GABAPENTIN 400MG CAP PO SCH ×2 (07:48→15:41)
[2021-05-18] MEDS: buPROPion (WELLBUTRIN SR) 100 MG SR TAB PO SCH ×2 (07:49→20:10)
[2021-05-18] MEDS ORDERED: ceFAZolin 2 GM/D5W 50 ML IV BAG (J0690 PER 500MG) As Ordered ONE (09:51)
[2021-05-18] MEDS ORDERED: LIDOCAINE 1% MDV 20ML VIAL As Ordered ONE (10:19)
[2021-05-18] MEDS ORDERED: ONDANSETRON 4MG/2ML VIAL As Ordered ONE (12:03)
[2021-05-18] MEDS ORDERED: HYDROmorphone HCL 2 MG/ML 1ML VIAL (J1170) As Ordered ONE (12:03)
[2021-05-18] MEDS ORDERED: fentaNYL 100 MCG/2 ML INJECTION (J3010) As Ordered ONE (12:03)
[2021-05-18] MEDS ORDERED: SUGAMMADEX SODIUM 500 MG/5 ML VIAL (BRIDION) As Ordered ONE (12:03)
[2021-05-18] MEDS ORDERED: dexameTHASONE 4 MG/ML 1ML VIAL (J1100 PER 1MG) As Ordered ONE (12:03)
[2021-05-18] MEDS ORDERED: propofoL 200 MG/20 ML VIAL As Ordered ONE (12:03)
[2021-05-18] MEDS ORDERED: ROCURONIUM BROMIDE 50 MG/5 ML VIAL As Ordered ONE (12:03)
[2021-05-18] MEDS ORDERED: VASOPRESSIN INJ 20 UNITS/ML VIAL As Ordered ONE (12:03)
[2021-05-18] MEDS ORDERED: MIDAZOLAM INJ 2MG/2ML VIAL (J2250 PER 1MG) As Ordered ONE (12:03)
[2021-05-18] MEDS ORDERED: LIDOCAINE 2% 100MG/5ML SDV (FOR ANES.) As Ordered ONE (12:03)
[2021-05-18] MEDS ORDERED: METOCLOPRAMIDE INJ 10MG/2ML VIAL (J2765 PER 1) IV PRN (12:05)
[2021-05-18] MEDS ORDERED: fentaNYL 100 MCG/2 ML INJECTION (J3010) IV PRN (12:05)
[2021-05-18] MEDS ORDERED: PERCOCET 5MG/325MG TAB PO PRN ×2 (12:05→18:40)
[2021-05-18] MEDS ORDERED: ONDANSETRON 4MG/2ML VIAL IV PRN (12:05)
[2021-05-18] MEDS ORDERED: LR 1,000 ML IV SCH (12:05)
--- NOTE | 2021-05-18 12:31 | REP ---
INDICATION: EX FIX APPLICATION IN OR. COMPARISON: Comparison radiographs are from May 17, 2021.. TECHNIQUE: Seventeen views. 86.4 seconds of fluoroscopy time is reported. FINDINGS: A sequence of 17 fluoroscopically obtained last image hold spot radiographs of the left and right lower extremity document external pin fixation. IMPRESSION: Procedural imaging. <Electronically signed by John Garnica > 05/18/21 [id number]
--- NOTE | 2021-05-18 13:45 | REP ---
INDICATION: Left knee CT w/o, 2mm cuts and 3D recon. COMPARISON: Comparison is made with radiographs of the left knee and femur May 17, 2021.. TECHNIQUE: Helical scanning is acquired and 2 mm axial images are re-formatted. Coronal and sagittal MPR images are generated. 3D surface rendered images are generated and provided as well. FINDINGS: External pin traction has been applied in the distal femur and midshaft tibia in the interval since the radiographs. Helical E acquired CT images confirm the presence of a markedly comminuted fracture of the proximal tibia and proximal fibular head. Improvement is is noted in alignment. There is still evidence of depression of the posterior aspect of the lateral tibial plateau. This measures approximately 7 mm. There is diffuse osteopenia. The distal femur appears intact. Some vascular calcification is noted. There is diffuse periarticular soft tissue swelling and a lie peau hemo arthrosis is noted in the joint. 3D surface rendered and MPR images show no additional abnormality. IMPRESSION: Comminuted intra-articular depressed proximal tibial for and fibular head fractures somewhat improved alignment. External pin traction applied. Lipohemarthrosis. <Electronically signed by John Garnica > 05/18/21 0632
--- NOTE | 2021-05-18 14:19 | IPNPDOC ---
Text Note Date of Service The patient was seen on 05/18/21. NOTE SUBJECTIVE: -No acute events overnight, pending orthopedic surgery this AM VITAL SIGNS: see below GENERAL APPEARANCE: NAD. Conversational HEENT: NCAT, EOMI, MMM CARDIOVASCULAR: RRR, has loud systolic clicks from her prosthetic valves heard throughout the precordium LUNGS: CTAB with good air movement throughout, on 3L NC saturating 94% ABDOMEN: Normoactive sounds, soft, NTND MUSCULOSKELETAL: LLE in immobilizer with pain on movement, foot is warm, moving toes, with intact pulses. RLE wnl with FROM, RUE wnl with FROM, LUE with pain on abduction, hand with full strength EXTREMITIES: WWP, no edema NEUROLOGICAL: CN3-12 intact, speech without dysarthria PSYCHIATRIC: AOx3 LABORATORY DATA: Reviewed WBC 7.4 hgb 10.8 platelets 165 na 140 K 3.8 Cr 0.64 mag 1.9 INR 2.53 IMAGING: Reviewed. MICROBIOLOGY: Please see below. ASSESSMENT: 70 yo W with a history of unsteady gate and frequent admissions with falls and fractures most recently in 11/2020 when she sustained a L pubic ramus and a L shoulder fracture, who walks without assistive devices, with a history of AVR and MVR on warfarin, HTN, HLD, COPD, osteoporosis, GERD and depression, who lives functionally alone with a housemate, who presented to the ED after a mechanical fall down three steps and hit her left head and landed on her left side and now admitted with a scapular body fracture and a comminuted impacted fracture of the lateral tibia plateau and proximal tibia with 1.1 cm depression, as well as an impacted fracture of the proximal fibula head with plan for a 2 stage orthopedic surgery, with the first due today. PLAN: Head trauma: -CT head did not reveal fractures or bleeding and she is neurologically intact. L tib/fib fractures: -Consulted ortho with plan for 2 stage surgery with the first this AM -Pain management with morphine 4mg Q6HP for severe pain, tramadol 50 Q6HP for moderate pain and tylenol PRN for mild pain -Also continuing her home gabapentin -Ordered PT/OT with instruction of eval postop per orthopedics -will plan to start heparin gtt postop L scapular body fracture: -Orthopedics consulted, recs pending of sling -pain control as noted above AVR and MVR on coumadin at baseline: - with INR 2.53 ths AM. Due for surgery this AM with Dr. Bailon after which i will place her on a heparin gtt until she has the second surgery and I will bridge her back to coumadin after that. -EKG was otherwise stable from prior without evidence of acute ischemia and troponin was wnl -She has no history of HF, with last TTE from 07/2019 in the EMR with normal EF and possible grade 1 diastolic dysfunction but otherwise normal pressures -At this time is euvolemic on exam Chronic COPD without evidence of acute exacerbation. -Is currently on minimal oxygen i/s/o trauma, CXR without rib fracture, pneumo or hydrothorax -continue home mdis Anemia: -INR is therapeutic for valve protection and will have initial surgery this AM with plan for heparin gtt thereafter. -Daily CBC -No current evidence of acute bleeding -Goal hgb >8 DVT ppx: therapeutic INR. Plan to place on heparin gtt postop at timing per ortho. s/p AVR and MVR: -INR 2.32 currently, no warfarin tonight with plan for orthopedic surgery tomorrow AM and will begin heparin gtt postop HLD: -continue home simvastatin Depression: -continue home bupropion DVT ppx: on warfarin, INR 2.32, with plan for heparin gtt tomorrow post op. VS,Fishbone, I+O VS, Fishbone, I+O Laboratory Tests 05/17/21 13:45 05/18/21 05:55 Vital Signs Date Time Temp Pulse Resp B/P (MAP) Pulse Ox O2 Delivery O2 Flow Rate FiO2 05/18/21 06:30 18 05/18/21 06:00 98.6 85 106/73 (84) 98 Nasal Cannula 2.0 I&O- Last 24 Hours up to 6 AM 05/18/21 06:00 Intake Total 560 ml Output Total 500 ml Balance 60 ml ELIZABETH IBRAHIM MD May 18, 2021 08:17
--- NOTE | 2021-05-18 18:29 | RO ---
OPERATIVE NOTE DATE OF OPERATION: 05/18/2021 TIME: 11 a.m. PREOPERATIVE DIAGNOSIS: Left closed tibial plateau fracture, Schatzker . POSTOPERATIVE DIAGNOSIS: Left closed tibial plateau fracture, Schatzker . NAME OF OPERATION: Left knee spanning external fixator placement. SURGEON: Guanako Bailon MD DATABASE ANALYST: Sammy Valiente MD SUPERVISING ATTENDING: Guanako Bailon MD FINDINGS: The patient had an unstable left tibial plateau Schatzker fracture with fracture blisters on the anterolateral aspect of the proximal leg skin surface. INDICATIONS: This was a 70-year-old female with the aforementioned closed left tibial plateau Schatzker bicondylar shaft fracture sustained on the April,. She sustained a ground level from a few steps. Her past medical history includes osteoporosis and frequent falls to include a fracture of the left pubic rami in November, as well as a concomitant left scapular body fracture sustained yesterday on the April,, status post AVR and MVR on warfarin, hypertension, hyperlipidemia, COPD, osteoporosis, GERD and depression. She was indicated for stabilization of her aforementioned fracture with the knee-spanning external fixator. Given her fracture blisters and significant swelling about the proximal leg, she was indicated for the aforementioned provisional fixation to restore leg length, sagittal and coronal and soft tissue rest. ANESTHESIA: GETA. TOURNIQUET TIME: None used. ESTIMATED BLOOD LOSS: 10 mL. IV FLUIDS: Please see anesthesia report. IV ANTIBIOTICS: Please see anesthesia report. ESTIMATED BLOOD LOSS: 10 mL. IMPLANTS: Synthes. CULTURES: None. SPECIMENS: None. DESCRIPTION OF PROCEDURE: The patient was met in the preoperative holding area where the patient's operative extremity was signed, the patient's consent was confirmed to be correct, and the patient's identity was confirmed to be correct. The patient was then transported to the operating theater where she was placed in a supine position with a bone foam under her left leg. A safety strap secured the patient to the bed. All bony prominences were well padded and the contralateral lower extremity SCD was placed. A timeout was called which confirmed the correct patient, correct operative extremity and correct consent. All staff were in agreement. The patient was then draped in the usual sterile fashion. We began the procedure by obtaining fluoroscopic knee images in the left and right knee with an AP and lateral view of each. We obtained distraction radiographs of the patient's left knee in order to gauge the amount of mechanical alignment, reduction that could be established with skeletal traction. We then placed two femoral Shanz pins into position using fluoroscopy to ensure that we had placed our pins through both cortices of the tibial bone. The working distance of each was approximately 12 inches with the most distal of the two Shanz pins at the metaphyseal flare and the second then being 12 inches proximal to this. This was placed on the anterolateral aspect of the patient's left thigh. We then turned our attention to the distal Schanz pin placement which again would be out of the zone of injury. The first was placed approximately 3 inches proximal from the ankle joint and the second approximately 6 inches from the ankle joint on the medial aspect of the distal tibia. Again, we used fluoroscopy to ensure that we were satisfied with our Shanz pin depth. Each of the Shanz pins was 5 mm in length. We then used 3-0 nylon to suture the skin surrounding the previous incision for the Schanz pins. At this point in time, we then built our external fixator which included a double stacked configuration. Two external fixator wires were placed, securing the two proximal femoral Shanz pins and two wires were placed connecting the two distal tibial Shanz pins. These were then connected with two bars placed between each set of femoral and tibial rods. These were connected to the Shantz pins using bar to bar connectors. We then pulled longitudinal traction through the patient's knee to restore mechanical alignment and provide stability to the knee joint and then tightened our construct to provide gnosticism of leg length, correct sagittal coronal alignment and rotation. We then tightened all the external fixator bolts. At this point in time, we then obtained final fluoroscopic imaging, demonstrating that we were satisfied with our provisional reduction, implant placement. The patient tolerated the procedure well. We then placed Xeroform about the four percutaneous surgical incisions and Kerlix around each of the Shanz pins. The patient was then extubated without complication and transported to the postanesthesia care unit. At this point in time, the patient will likely receive her definitive open reduction and internal fixation of the tibial plateau in three weeks. The date has not been established. However, we will wait for the soft tissues to rest. Regarding her left scapular body fracture, she will undergo physical therapy with passive range of motion of the left shoulder starting in 2-3 days. She will likely be discharged to rehabilitative services for a left scapular body fracture in order to wait to undergo definitive fixation for her tibial plateau fracture. Her care will be transferred to the hospitalist service and she will receive pain medication per the internal medicine team. I recommend she receives DVT chemoprophylaxis starting tomorrow on the April,. This may include 81 mg of aspirin daily for 30 days or the equivalent. Given her history of blood thinners, she will likely receive either Coumadin or heparin as per the guidance of the internal medicine hospitalist. MARVIN
[2021-05-18] MEDS: GABAPENTIN 300 MG CAP PO SCH (20:10)
[2021-05-18] MEDS: SIMVASTATIN 20 MG TAB PO SCH (20:10)
[2021-05-18] MEDS: ceFAZolin SOD 2 GM in IV 1 EA IV SCH (23:09)
[2021-05-19] MEDS: traMADol 50 MG TAB PO PRN ×3 (02:19→15:10)
[2021-05-19] MEDS: ACETAMINOPHEN TAB 650MG DOSE (2X325MG) PO PRN (02:19)
[2021-05-19 05:23] VITALS: BP 73/60
[2021-05-19 05:30] VITALS: BP 74/58
[2021-05-19] MEDS ORDERED: NS 1,000 ML IV ONE (05:30)
[2021-05-19] MEDS: ceFAZolin SOD 2 GM in IV 1 EA IV SCH ×2 (06:41→15:09)
--- NOTE | 2021-05-19 06:57 | ER ---
ER CONSULTATION DATE: 05/17/2021 CONSULTED SERVICE: Orthopaedic surgery. CONSULTED PHYSICIAN: Guanako Bailon MD HISTORY OF PRESENT ILLNESS: This is a 70-year-old female with a left scapular body fracture and a left Schatzker tibial plateau fracture with extension into the shaft. This is a closed left tibial shaft fracture which was sustained after she tripped on several stairs. The patient's past medical history is significant for multiple falls, a previous left pubic rami, and left shoulder fracture, who previously walked without assisted devices in her home. Patient also has a past medical history of aortic valve replacement (AVR) and mitral valve replacement (MVR), she is currently on warfarin, has a history of hypertension, hyperlipidemia, chronic obstructive pulmonary disease (COPD), osteoporosis, gastroesophageal reflux disease (GERD), and depression. She lives at home with a housemate. After sustaining the ground level fall, she presented to the [facility] Emergency Department for further evaluation and treatment. She self-reported hitting her head, her left arm, and left leg, however she was cleared by the traumatologist for a head injury. She denied loss of consciousness (LOC). She denies recent illnesses and was currently doing quite well and recently seen by neurology for an ongoing Parkinson's workup with a baseline tremor. Patient denied fever, chills, loss of consciousness, chest pain, palpitations, shortness of breath, dizziness, dysuria, hematuria, hematochezia, melena, abdominal pain, nauseousness, or vomiting. The patient was seen by the hospitalist who currently is optimizing the patient for a left knee spanning external fixator tomorrow. She was also seen by Dr. Neil for a trauma evaluation. Patient was cleared for surgery. Please see medicine note for further details. PAST MEDICAL HISTORY: Frequent falls with previous admissions for such, most recently in November 2020 with a left pubic rami and left shoulder fracture, status post AVR and MVR on warfarin, hypertension, hyperlipidemia, COPD, osteoporosis, GERD, depression. PAST SURGICAL HISTORY: Includes hysterectomy, left wrist carpal tunnel surgery. SOCIAL HISTORY: Denies smoking, alcohol, or illicit drug use. Lives with a housemate. Son is health care proxy (HCP), lives in [place]. ALLERGIES: Please see internal medicine note. REVIEW OF SYSTEMS: 14-point review of systems was negative unless as otherwise described in the history of present illness (HPI) above. PHYSICAL EXAMINATION: Alert and oriented to person, time, and place. Baseline tremor likely secondary to a workup with Parkinson's disease in progress. Regarding patient's left upper extremity, patient had tenderness to palpation about the left scapular body, there were no breaks in the skin. Her left upper extremity was motor intact, she has 5/5 motor strength in the musculocutaneous, axillary, radial, median, and ulnar nerve distributions. Sensation was intact to the left upper extremity in the musculocutaneous, axillary, radial, median, and ulnar nerve distributions. She had a 2+ radial and ulnar pulse, brisk capillary refill to the digits. She had minimal range of motion of the shoulder secondary to pain. Left lower extremity: Patient had obvious deformity about the left knee with moderate swelling of the left leg. She did not clinically present with compartment syndrome of the left leg. She had no pain with passive stretch of the toes or ankle. Edema, but compressible compartments to the left leg including anterior, lateral, deep, and superficial posterior compartments and she required minimal analgesic pain medication. She had tenderness to palpation about the proximal tibia with mild valgus deformity of the knee. She had 5/5 motor strength to the extensor hallucis longus (EHL), flexor hallucis longus (FHL), tibialis anterior, gastrocnemius, and peroneal musculature. She had sensation intact to light touch to the deep and superficial peroneal, sural, saphenous, and tibial nerve distributions. She had 2+ dorsalis pedis and posterior tibialis pulse and brisk capillary refill of the digits. She had a warm and well-perfused left foot. Radiographs of the left shoulder demonstrated a scapular body fracture without extension into the glenoid. A CT scan of the patient's left scapula and shoulder demonstrated a left scapular body fracture without extension into the glenoid. She had previous bone loss of the glenoid likely secondary to a previous fracture or possibly osteoarthritis, however this is sclerotic and only on the axial CT scan. Her left shoulder was reduced within the glenoid with signs of likely previous coracoid fracture. Radiographs of the patient's left tibia/femur demonstrated a Schatzker proximal tibial plateau fracture. She had significant displacement of the lateral condyle measuring 1 cm. She also had an extension of the fracture distally extending approximately one-third of the tibial shaft. There is also a separate fracture on the medial plateau, however there appears to be less disruption of the articular surface. The left knee CT scan is pending. It will be performed after the left knee spanning external fixator placement tomorrow on 05/18/2021. IMPRESSION: Patient has a left scapular body fracture and a left Schatzker closed tibial plateau fracture of the left proximal tibia. PLAN: At this point in time, the patient's left scapular body fracture will be treated nonoperatively in a sling. After 10 days, she will remove the sling and initiate physical therapy for the left shoulder to include range of motion as tolerated. She will be non-weightbearing to the left upper extremity for 6 weeks. Regarding the patient's left tibial plateau fracture, the patient will undergo damage control orthopedics and a left knee spanning external fixator will be placed on 05/18/2021. This will restore mechanical alignment and length of the patient's left leg. The external fixator will provide stability in order to ensure that the musculature can get rest and restore mechanical access and rotational deformities. The patient is currently being optimized for surgery tomorrow and optimized in her INR specifically. The patient will likely go on to a second stage which will include open reduction internal fixation of the patient's left proximal tibia and tibial plateau. The patient was admitted by the hospitalist and evaluated by the trauma service. She was placed in a well-padded knee immobilizer in the emergency department and will undergo surgery tomorrow as described above.
[2021-05-19] MEDS ORDERED: HEPARIN DRIP 25,000 UNITS in IV 1 EA IV SCH (08:00)
[2021-05-19] MEDS ORDERED: HEPARIN SOD (PORCINE) 5000UNITS/ML 1ML VIAL/SYRINGE IV PRN (08:00)
[2021-05-19] MEDS: GABAPENTIN 400MG CAP PO SCH ×2 (08:09→15:09)
[2021-05-19] MEDS: buPROPion (WELLBUTRIN SR) 100 MG SR TAB PO SCH ×2 (08:09→20:43)
[2021-05-19] MEDS: OMEPRAZOLE 20 MG CAP PO SCH (08:09)
[2021-05-19 09:18] LABS: HEMATOCRIT 26.1 % (36.0-47.0); INR 3.56; MEAN CORPUSCULAR HEMOGLOBIN 31.8 pg (27.0-33.0); MEAN CORPUSCULAR HGB CONC 31.8 g/dl (32.0-36.5); PLATELET COUNT, AUTOMATED 137 10^3/uL (150-450); PROTHROMBIN TIME 36.4 SECONDS (12.5-14.3); RED BLOOD COUNT 2.61 10^6/uL (4.00-5.40); WHITE BLOOD COUNT 9.5 10^3/uL (4.0-10.0)
[2021-05-19 09:19] LABS: PARTIAL THROMBOPLASTIN TIME 55.9 SECONDS (24.2-38.5)
[2021-05-19 09:24] LABS: HEMOGLOBIN 8.3 g/dl (12.0-15.5)
[2021-05-19 09:32] LABS: BLOOD UREA NITROGEN 17 MG/DL (7-18); CALCIUM LEVEL 7.9 MG/DL (8.8-10.2); CARBON DIOXIDE LEVEL 25 MEQ/L (21-32); CHLORIDE LEVEL 111 MEQ/L (98-107); GLOMERULAR FILTRATION RATE > 60.0 (>39); GLUCOSE, FASTING 119 MG/DL (70-100); POTASSIUM SERUM 3.6 MEQ/L (3.5-5.1); SODIUM LEVEL 142 MEQ/L (136-145)
[2021-05-19 10:00] VITALS: BP 105/66
[2021-05-19 11:32] LABS: HEMATOCRIT 25.9 % (36.0-47.0); HEMOGLOBIN 8.4 g/dl (12.0-15.5); MEAN CORPUSCULAR HEMOGLOBIN 32.4 pg (27.0-33.0); MEAN CORPUSCULAR HGB CONC 32.4 g/dl (32.0-36.5); PLATELET COUNT, AUTOMATED 131 10^3/uL (150-450); RED BLOOD COUNT 2.59 10^6/uL (4.00-5.40); WHITE BLOOD COUNT 8.7 10^3/uL (4.0-10.0)
[2021-05-19 11:44] LABS: INR 3.35; PROTHROMBIN TIME 34.7 SECONDS (12.5-14.3)
[2021-05-19 11:45] LABS: PARTIAL THROMBOPLASTIN TIME 51.4 SECONDS (24.2-38.5)
[2021-05-19 11:55] LABS: BLOOD UREA NITROGEN 17 MG/DL (7-18); CALCIUM LEVEL 8.1 MG/DL (8.8-10.2); CARBON DIOXIDE LEVEL 27 MEQ/L (21-32); CHLORIDE LEVEL 110 MEQ/L (98-107); GLOMERULAR FILTRATION RATE > 60.0 (>39); GLUCOSE, FASTING 95 MG/DL (70-100); POTASSIUM SERUM 3.6 MEQ/L (3.5-5.1); SODIUM LEVEL 142 MEQ/L (136-145)
--- NOTE | 2021-05-19 12:04 | IPNPDOC ---
Text Note Date of Service The patient was seen on 05/19/21. NOTE Subjective: -Doing well postop, pain well controlled Objective: VITAL SIGNS: see below GENERAL APPEARANCE: NAD. Conversational HEENT: NCAT, EOMI, MMM CARDIOVASCULAR: RRR, has loud systolic clicks from her prosthetic valves heard throughout the precordium LUNGS: CTAB with good air movement throughout, on 3L NC saturating 94% ABDOMEN: Normoactive sounds, soft, NTND MUSCULOSKELETAL: LLE in postop external fixater. RLE wnl with FROM, RUE wnl with FROM, LUE with pain on abduction, hand with full strength EXTREMITIES: WWP, no edema NEUROLOGICAL: CN3-12 intact, speech without dysarthria PSYCHIATRIC: AOx3 LABORATORY DATA: Reviewed AM labs were cancelled without my knowledge for reasons unclear to me. Re- ordered them so that I can assess degree of anemia and INR before starting a heparin gtt IMAGING: Reviewed. MICROBIOLOGY: Please see below. ASSESSMENT: 70 yo W with a history of unsteady gate and frequent admissions with falls and fractures most recently in 11/2020 when she sustained a L pubic ramus and a L shoulder fracture, who walks without assistive devices, with a history of AVR and MVR on warfarin, HTN, HLD, COPD, osteoporosis, GERD and depression, who lives functionally alone with a housemate, who presented to the ED after a mechanical fall down three steps and hit her left head and landed on her left side and now admitted with a scapular body fracture and a comminuted impacted fracture of the lateral tibia plateau and proximal tibia with 1.1 cm depression, as well as an impacted fracture of the proximal fibula head with plan for a 2 stage orthopedic surgery, POD1 /sp left knee spanning external fixator placement. PLAN: Head trauma: -CT head did not reveal fractures or bleeding and she is neurologically intact. L tib/fib fractures: -Consulted ortho with plan for 2 stage surgery, now POD1 /sp left knee spanning external fixator placement -Pain management with percocet PRN, tramadol 50 Q6HP for moderate pain and tylenol PRN for mild pain -Also continuing her home gabapentin -Ordered PT/OT with instruction of eval postop per orthopedics -will plan to start heparin gtt this morning after we obtain labs L scapular body fracture: -Orthopedics consulted, recs pending of sling -pain control as noted above AVR and MVR on coumadin at baseline: - will plan to start heparin gtt this morning after we obtain labs, and she will remain on heparin until she has the second surgery at which point she can be bridged her back to coumadin. -EKG was otherwise stable from prior without evidence of acute ischemia and troponin was wnl -She has no history of HF, with last TTE from 07/2019 in the EMR with normal EF and possible grade 1 diastolic dysfunction but otherwise normal pressures -At this time is euvolemic on exam Chronic COPD without evidence of acute exacerbation. -Is currently on minimal oxygen i/s/o trauma, CXR without rib fracture, pneumo or hydrothorax -continue home mdis Anemia: - will plan to start heparin gtt this morning after we obtain labs, and she will remain on heparin until she has the second surgery at which point she can be bridged her back to coumadin. -Daily CBC -No current evidence of acute bleeding -Goal hgb >8 DVT ppx: therapeutic INR. Plan to place on heparin gtt postop at timing per ortho. s/p AVR and MVR: - will plan to start heparin gtt this morning after we obtain labs, and she will remain on heparin until she has the second surgery at which point she can be bridged her back to coumadin. HLD: -continue home simvastatin Depression: -continue home bupropion DVT ppx: starting heparin gtt this morning after lab assessment VS,Fishbone, I+O VS, Fishbone, I+O Vital Signs Date Time Temp Pulse Resp B/P (MAP) Pulse Ox O2 Delivery O2 Flow Rate FiO2 05/19/21 02:54 18 05/18/21 21:53 98.7 85 93/63 (73) 94 Nasal Cannula 2.0 I&O- Last 24 Hours up to 6 AM 05/19/21 06:00 Intake Total 2330 ml Output Total 710 ml Balance 1620 ml ELIZABETH IBRAHIM MD May 19, 2021 08:12
[2021-05-19] MEDS: PERCOCET 5MG/325MG TAB PO PRN ×2 (13:22→20:43)
[2021-05-19 14:00] VITALS: BP 100/65
[2021-05-19 15:18] LABS: HEMATOCRIT 26.5 % (36.0-47.0); HEMOGLOBIN 8.8 g/dl (12.0-15.5)
[2021-05-19] MEDS: GABAPENTIN 300 MG CAP PO SCH (20:43)
[2021-05-19] MEDS: SIMVASTATIN 20 MG TAB PO SCH (20:43)
[2021-05-19 22:00] VITALS: BP 100/66
[2021-05-20] MEDS: PERCOCET 5MG/325MG TAB PO PRN ×2 (03:00→10:43)
[2021-05-20] MEDS: traMADol 50 MG TAB PO PRN ×3 (04:55→22:28)
[2021-05-20 06:00] LABS: HEMATOCRIT 24.8 % (36.0-47.0); HEMOGLOBIN 7.9 g/dl (12.0-15.5); MEAN CORPUSCULAR HEMOGLOBIN 31.7 pg (27.0-33.0); MEAN CORPUSCULAR HGB CONC 31.9 g/dl (32.0-36.5); MEAN CORPUSCULAR VOLUME 99.6 fl (80.0-96.0); PLATELET COUNT, AUTOMATED 140 10^3/uL (150-450); RED BLOOD COUNT 2.49 10^6/uL (4.00-5.40); WHITE BLOOD COUNT 8.4 10^3/uL (4.0-10.0)
[2021-05-20 06:28] LABS: BLOOD UREA NITROGEN 12 MG/DL (7-18); CALCIUM LEVEL 7.9 MG/DL (8.8-10.2); CARBON DIOXIDE LEVEL 28 MEQ/L (21-32); CHLORIDE LEVEL 108 MEQ/L (98-107); CREATININE FOR GFR 0.45 MG/DL (0.55-1.30); GLOMERULAR FILTRATION RATE > 60.0 (>39); GLUCOSE, FASTING 83 MG/DL (70-100); POTASSIUM SERUM 3.7 MEQ/L (3.5-5.1); SODIUM LEVEL 143 MEQ/L (136-145)
[2021-05-20] MEDS: GABAPENTIN 400MG CAP PO SCH ×2 (09:04→16:51)
[2021-05-20] MEDS: buPROPion (WELLBUTRIN SR) 100 MG SR TAB PO SCH ×2 (09:04→22:24)
[2021-05-20] MEDS: OMEPRAZOLE 20 MG CAP PO SCH (09:05)
[2021-05-20 14:09] LABS: HEMATOCRIT 25.5 % (36.0-47.0); HEMOGLOBIN 8.3 g/dl (12.0-15.5); MEAN CORPUSCULAR HEMOGLOBIN 32.2 pg (27.0-33.0); MEAN CORPUSCULAR HGB CONC 32.5 g/dl (32.0-36.5); MEAN CORPUSCULAR VOLUME 98.8 fl (80.0-96.0); PLATELET COUNT, AUTOMATED 143 10^3/uL (150-450); RED BLOOD COUNT 2.58 10^6/uL (4.00-5.40); WHITE BLOOD COUNT 8.9 10^3/uL (4.0-10.0)
[2021-05-20 14:21] LABS: INR 1.64; PROTHROMBIN TIME 19.8 SECONDS (12.5-14.3)
[2021-05-20 14:22] LABS: PARTIAL THROMBOPLASTIN TIME 39.8 SECONDS (24.2-38.5)
[2021-05-20] MEDS ORDERED: HEPARIN SOD (PORCINE) 5000UNITS/ML 1ML VIAL/SYRINGE IV PRN (16:30)
--- NOTE | 2021-05-20 16:40 | IPNPDOC ---
Subjective Date Seen The patient was seen on 05/20/21. Subjective Chief Complaint/HPI Patient seen this a.m. laying down in bed in no distress. Asking when her next surgery is going to be done. No fever or chills. Pain control when not moving Objective Physical Examination General Exam: Positive: Alert, Cooperative, No Acute Distress Eye Exam: Positive: PERRLA, Conjunctiva & lids normal, EOMI; Negative: Sclera icteric ENT Exam: Positive: Atraumatic, Mucous membr. moist/pink, Pharynx Normal Chest Exam: Positive: Clear to auscultation, Normal air movement Heart Exam: Positive: Rate Normal, Regular Rhythm, Normal S1, Normal S2, Murmurs (Systolic murmur at the apex and at the base), Other (Metallic click heard at apex and base); Negative: Rubs Abdomen Exam: Positive: Normal bowel sounds, Soft; Negative: Tenderness Extremity Exam: Positive: Edema (On the left leg), Other (Has external fixators in the left leg, left arm in sling); Negative: Clubbing, Cyanosis Assessment /Plan Assessment 70 yo W with a history of unsteady gate and frequent admissions with falls and fractures most recently in 11/2020 when she sustained a L pubic ramus and a L shoulder fracture, who walks without assistive devices, with a 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 L tib/fib fractures: ortho plans for 2 stage surgery, now s/p left knee spanning external fixator placement Pain management with percocet PRN, tramadol 50 Q6HP for moderate pain and tylenol PRN for mild pain Also continuing her home gabapentin Ordered PT/OT with instruction of eval postop per orthopedics Coumadin stopped. Started on heparin infusion INR at 1.6 L scapular body fracture: Orthopedics consulted, recommends sling pain control as noted above Rheumatic valvular disease Status post metallic AVR and metallic MVR on coumadin Coumadin stopped on heparin infusion She has no history of HF, with last TTE from 07/2019 in the EMR with normal EF and possible grade 1 diastolic dysfunction but otherwise normal pressures At this time is euvolemic on exam COPD without evidence of acute exacerbation. Continue home meds Anemia: Likely due to fracture hematomas, and surgical blood Started on Heparin drip We will continue to monitor H&H and check fecal occult blood HLD: simvastatin Depression: continue home bupropion Plan/VTE VTE Prophylaxis Ordered?: Yes VS, I&O, 24H, Fishbone Vital Signs/I&O Vital Signs Date Time Temp Pulse Resp B/P (MAP) Pulse Ox O2 Delivery O2 Flow Rate FiO2 05/20/21 14:00 97.8 89 18 94 Nasal Cannula 3.0 05/19/21 22:00 100/66 (77) I&O- Last 24 Hours up to 6 AM 05/20/21 06:00 Intake Total 590 ml Output Total 250 ml Balance 340 ml Laboratory Data 24H LABS Laboratory Tests 2 05/19/21 20:22: Activated Partial Thromboplast Time 51.7H 05/20/21 01:45: Activated Partial Thromboplast Time 48.3H 05/20/21 05:36: Nucleated Red Blood Cells % (auto) 0.0, Anion Gap 7L, Glomerular Filtration Rate > 60.0, Calcium Level 7.9L 05/20/21 13:58: Activated Partial Thromboplast Time 39.8H, Nucleated Red Blood Cells % (auto) 0.0, Prothrombin Time 19.8H, Prothromb Time International Ratio 1.64 CBC/BMP Laboratory Tests 05/20/21 05:36 05/20/21 13:58 LOSI BLAIR MD May 20, 2021 16:40
[2021-05-20] MEDS: HEPARIN DRIP 25,000 UNITS in IV 1 EA IV SCH (17:59)
[2021-05-20 22:00] VITALS: BP 101/68
[2021-05-20] MEDS: GABAPENTIN 300 MG CAP PO SCH (22:25)
[2021-05-20] MEDS: SIMVASTATIN 20 MG TAB PO SCH (22:25)
[2021-05-21 00:23] LABS: HEMATOCRIT 24.9 % (36.0-47.0); HEMOGLOBIN 8.1 g/dl (12.0-15.5); MEAN CORPUSCULAR HEMOGLOBIN 31.9 pg (27.0-33.0); MEAN CORPUSCULAR HGB CONC 32.5 g/dl (32.0-36.5); PLATELET COUNT, AUTOMATED 158 10^3/uL (150-450); RED BLOOD COUNT 2.54 10^6/uL (4.00-5.40); WHITE BLOOD COUNT 8.4 10^3/uL (4.0-10.0)
[2021-05-21 06:00] VITALS: BP 113/72
[2021-05-21 06:15] LABS: HEMATOCRIT 25.7 % (36.0-47.0); HEMOGLOBIN 8.2 g/dl (12.0-15.5); MEAN CORPUSCULAR HGB CONC 31.9 g/dl (32.0-36.5); MEAN CORPUSCULAR VOLUME 100.4 fl (80.0-96.0); PLATELET COUNT, AUTOMATED 166 10^3/uL (150-450); RED BLOOD COUNT 2.56 10^6/uL (4.00-5.40); WHITE BLOOD COUNT 8.3 10^3/uL (4.0-10.0)
[2021-05-21 06:34] LABS: BLOOD UREA NITROGEN 11 MG/DL (7-18); CALCIUM LEVEL 8.3 MG/DL (8.8-10.2); CARBON DIOXIDE LEVEL 26 MEQ/L (21-32); CHLORIDE LEVEL 109 MEQ/L (98-107); CREATININE FOR GFR 0.37 MG/DL (0.55-1.30); GLOMERULAR FILTRATION RATE > 60.0 (>39); GLUCOSE, FASTING 96 MG/DL (70-100); POTASSIUM SERUM 3.5 MEQ/L (3.5-5.1); SODIUM LEVEL 142 MEQ/L (136-145)
[2021-05-21] MEDS: traMADol 50 MG TAB PO PRN ×2 (06:48→19:25)
[2021-05-21] MEDS: GABAPENTIN 400MG CAP PO SCH ×2 (09:48→16:24)
[2021-05-21] MEDS: buPROPion (WELLBUTRIN SR) 100 MG SR TAB PO SCH ×2 (09:49→20:33)
[2021-05-21] MEDS: OMEPRAZOLE 20 MG CAP PO SCH (09:49)
[2021-05-21] MEDS: ACETAMINOPHEN TAB 650MG DOSE (2X325MG) PO PRN ×2 (12:17→16:27)
[2021-05-21 14:00] VITALS: BP 112/72
[2021-05-21] MEDS: HEPARIN DRIP 25,000 UNITS in IV 1 EA IV SCH (14:18)
--- NOTE | 2021-05-21 14:32 | IPNPDOC ---
Subjective Date Seen The patient was seen on 05/21/21. Subjective Chief Complaint/HPI No acute events overnight. patient continues to be in severe pain on minor movements of the lower extremity. Large blisters on the left pierce Objective Physical Examination General Exam: Positive: Alert, Cooperative, No Acute Distress Eye Exam: Positive: PERRLA, Conjunctiva & lids normal, EOMI; Negative: Sclera icteric ENT Exam: Positive: Atraumatic, Mucous membr. moist/pink, Pharynx Normal Chest Exam: Positive: Clear to auscultation, Normal air movement Heart Exam: Positive: Rate Normal, Regular Rhythm, Normal S1, Normal S2, Murmurs (Systolic murmur at the apex and at the base), Other (Metallic click heard at apex and base); Negative: Rubs Abdomen Exam: Positive: Normal bowel sounds, Soft; Negative: Tenderness Extremity Exam: Positive: Edema (On the left leg), Other (Has external fixators in the left leg, left arm in sling, large fracture blister on the left pierce.); Negative: Clubbing, Cyanosis Assessment /Plan Assessment 70 yo W with a history of unsteady gate and frequent admissions with falls and fractures most recently in 11/2020 when she sustained a L pubic ramus and a L shoulder fracture, who walks without assistive devices, with a 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 L tib/fib fractures: ortho plans for 2 stage surgery on 05/06/21. now s/p left knee spanning external fixator placement Pain management with percocet PRN, tramadol 50 Q6HP for moderate pain and tylenol PRN for mild pain Also continuing her home gabapentin Patient cannot do any PT or OT due to the angular positioning of the external fixators and non weight bearing status on both left lower extremity and upper extremity So will ot be able to go to any rehab. will Heve to remain in the hospital till next surgery. On heparin infusion started L scapular body fracture: Orthopedics consulted, recommends sling pain control as noted above Rheumatic valvular disease Status post metallic AVR and metallic MVR on coumadin Coumadin stopped on heparin infusion She has no history of HF, with last TTE from 07/2019 in the EMR with normal EF and possible grade 1 diastolic dysfunction but otherwise normal pressures At this time is euvolemic on exam COPD without evidence of acute exacerbation. Continue home meds Anemia: Likely due to fracture hematomas, and surgical blood Started on Heparin drip We will continue to monitor H&H and check fecal occult blood HLD simvastatin Depression: continue home bupropion Disposition: We will transfer to ALC status ~patient is going for the next OR with orthopedic. Plan/VTE VTE Prophylaxis Ordered?: Yes VS, I&O, 24H, Fishbone Vital Signs/I&O Vital Signs Date Time Temp Pulse Resp B/P (MAP) Pulse Ox O2 Delivery O2 Flow Rate FiO2 05/21/21 14:00 98.8 93 18 112/72 (85) 96 Nasal Cannula 3.0 I&O- Last 24 Hours up to 6 AM 05/21/21 06:00 Intake Total 1590 ml Output Total 650 ml Balance 940 ml Laboratory Data 24H LABS Laboratory Tests 2 05/21/21 00:05: Nucleated Red Blood Cells % (auto) 0.0, Activated Partial Thromboplast Time 149.1*H 05/21/21 05:37: Nucleated Red Blood Cells % (auto) 0.2H, Activated Partial Thromboplast Time 110.2H, Anion Gap 7L, Glomerular Filtration Rate > 60.0, Calcium Level 8.3L 05/21/21 08:51: Activated Partial Thromboplast Time 117.7H CBC/BMP Laboratory Tests 05/21/21 00:05 05/21/21 05:37 Microbiology Microbiology 05/21/21 Stool Occult Blood ([facility]OM[facility]) - Final, Complete 05/20/21 Stool Occult Blood ([facility]OMAS) - Final, Complete LOIS BLAIR MD May 21, 2021 14:32
[2021-05-21] MEDS: GABAPENTIN 300 MG CAP PO SCH (20:33)
[2021-05-21] MEDS: ENOXAPARIN 60MG/0.6ML SYRINGE (J1650 PER 10MG) SC SCH (20:34)
[2021-05-21] MEDS: SIMVASTATIN 20 MG TAB PO SCH (20:34)
[2021-05-21 22:00] VITALS: BP 140/97
[2021-05-22 05:54] LABS: HEMATOCRIT 25.3 % (36.0-47.0); HEMOGLOBIN 8.2 g/dl (12.0-15.5); MEAN CORPUSCULAR HEMOGLOBIN 32.2 pg (27.0-33.0); MEAN CORPUSCULAR HGB CONC 32.4 g/dl (32.0-36.5); MEAN CORPUSCULAR VOLUME 99.2 fl (80.0-96.0); PLATELET COUNT, AUTOMATED 199 10^3/uL (150-450); RED BLOOD COUNT 2.55 10^6/uL (4.00-5.40); WHITE BLOOD COUNT 7.8 10^3/uL (4.0-10.0)
[2021-05-22 06:00] VITALS: BP 107/64
[2021-05-22 06:20] LABS: BLOOD UREA NITROGEN 14 MG/DL (7-18); CALCIUM LEVEL 8.5 MG/DL (8.8-10.2); CARBON DIOXIDE LEVEL 29 MEQ/L (21-32); CHLORIDE LEVEL 108 MEQ/L (98-107); CREATININE FOR GFR 0.52 MG/DL (0.55-1.30); GLOMERULAR FILTRATION RATE > 60.0 (>39); GLUCOSE, FASTING 96 MG/DL (70-100); POTASSIUM SERUM 3.8 MEQ/L (3.5-5.1); SODIUM LEVEL 143 MEQ/L (136-145)
[2021-05-22] MEDS: buPROPion (WELLBUTRIN SR) 100 MG SR TAB PO SCH ×2 (08:09→20:38)
[2021-05-22] MEDS: OMEPRAZOLE 20 MG CAP PO SCH (08:09)
[2021-05-22] MEDS: GABAPENTIN 400MG CAP PO SCH ×2 (08:09→16:20)
[2021-05-22] MEDS: ENOXAPARIN 60MG/0.6ML SYRINGE (J1650 PER 10MG) SC SCH ×2 (08:10→20:37)
[2021-05-22] MEDS: ACETAMINOPHEN TAB 650MG DOSE (2X325MG) PO PRN ×2 (08:10→20:38)
[2021-05-22] MEDS: traMADol 50 MG TAB PO PRN ×2 (09:09→16:21)
[2021-05-22] MEDS: SIMVASTATIN 20 MG TAB PO SCH (20:38)
[2021-05-22] MEDS: GABAPENTIN 300 MG CAP PO SCH (20:38)
[2021-05-23] MEDS: traMADol 50 MG TAB PO PRN ×3 (00:55→16:16)
[2021-05-23] MEDS: ACETAMINOPHEN TAB 650MG DOSE (2X325MG) PO PRN ×3 (03:11→21:06)
[2021-05-23 06:00] VITALS: BP 98/61
[2021-05-23] MEDS: OMEPRAZOLE 20 MG CAP PO SCH (10:11)
[2021-05-23] MEDS: ENOXAPARIN 60MG/0.6ML SYRINGE (J1650 PER 10MG) SC SCH ×2 (10:11→21:06)
[2021-05-23] MEDS: GABAPENTIN 400MG CAP PO SCH ×2 (10:11→16:15)
[2021-05-23] MEDS: buPROPion (WELLBUTRIN SR) 100 MG SR TAB PO SCH ×2 (10:11→21:06)
[2021-05-23] MEDS: GABAPENTIN 300 MG CAP PO SCH (21:05)
[2021-05-23] MEDS: SIMVASTATIN 20 MG TAB PO SCH (21:06)
[2021-05-24] MEDS: traMADol 50 MG TAB PO PRN ×3 (00:09→16:51)
[2021-05-24 06:00] VITALS: BP 101/59
[2021-05-24] MEDS: buPROPion (WELLBUTRIN SR) 100 MG SR TAB PO SCH ×2 (09:34→21:16)
[2021-05-24] MEDS: GABAPENTIN 400MG CAP PO SCH ×2 (09:34→16:51)
[2021-05-24] MEDS: OMEPRAZOLE 20 MG CAP PO SCH (09:35)
[2021-05-24] MEDS: ACETAMINOPHEN TAB 650MG DOSE (2X325MG) PO PRN ×2 (09:35→21:15)
[2021-05-24] MEDS: ENOXAPARIN 60MG/0.6ML SYRINGE (J1650 PER 10MG) SC SCH ×2 (09:36→21:16)
[2021-05-24] MEDS: GABAPENTIN 300 MG CAP PO SCH (21:16)
[2021-05-24] MEDS: SIMVASTATIN 20 MG TAB PO SCH (21:16)
[2021-05-25] MEDS: traMADol 50 MG TAB PO PRN ×2 (04:52→16:58)
[2021-05-25 06:00] VITALS: BP 108/61
[2021-05-25] MEDS: ENOXAPARIN 60MG/0.6ML SYRINGE (J1650 PER 10MG) SC SCH ×2 (09:48→20:21)
[2021-05-25] MEDS: buPROPion (WELLBUTRIN SR) 100 MG SR TAB PO SCH ×2 (09:48→20:20)
[2021-05-25] MEDS: GABAPENTIN 400MG CAP PO SCH ×2 (09:48→16:07)
[2021-05-25] MEDS: OMEPRAZOLE 20 MG CAP PO SCH (09:48)
[2021-05-25] MEDS: GABAPENTIN 300 MG CAP PO SCH (20:20)
[2021-05-25] MEDS: ACETAMINOPHEN TAB 650MG DOSE (2X325MG) PO PRN (20:20)
[2021-05-25] MEDS: SIMVASTATIN 20 MG TAB PO SCH (20:20)
[2021-05-26 06:00] VITALS: BP 105/51
[2021-05-26 06:11] LABS: BASO % 0.5 % (0.0-1.0); EOS # 0.1 10^3/uL (0.0-0.5); EOS % 1.1 % (0.0-3.0); HEMATOCRIT 26.3 % (36.0-47.0); HEMOGLOBIN 8.3 g/dl (12.0-15.5); LYMPH # 0.7 10^3/uL (1.5-5.0); LYMPH % 8.3 % (24.0-44.0); MEAN CORPUSCULAR HEMOGLOBIN 31.4 pg (27.0-33.0); MEAN CORPUSCULAR HGB CONC 31.6 g/dl (32.0-36.5); MEAN CORPUSCULAR VOLUME 99.6 fl (80.0-96.0); MONO # 0.8 10^3/uL (0.0-0.8); NEUTROPHILS # 6.4 10^3/uL (1.5-8.5); NEUTROPHILS % 75.4 % (36.0-66.0); PLATELET COUNT, AUTOMATED 356 10^3/uL (150-450); RED BLOOD COUNT 2.64 10^6/uL (4.00-5.40); WHITE BLOOD COUNT 8.4 10^3/uL (4.0-10.0)
[2021-05-26 06:33] LABS: BLOOD UREA NITROGEN 12 MG/DL (7-18); CALCIUM LEVEL 8.6 MG/DL (8.8-10.2); CARBON DIOXIDE LEVEL 26 MEQ/L (21-32); CHLORIDE LEVEL 108 MEQ/L (98-107); CREATININE FOR GFR 0.49 MG/DL (0.55-1.30); GLOMERULAR FILTRATION RATE > 60.0 (>39); GLUCOSE, FASTING 90 MG/DL (70-100); POTASSIUM SERUM 3.7 MEQ/L (3.5-5.1); SODIUM LEVEL 141 MEQ/L (136-145)
[2021-05-26] MEDS: ENOXAPARIN 60MG/0.6ML SYRINGE (J1650 PER 10MG) SC SCH ×2 (07:59→20:57)
[2021-05-26] MEDS: buPROPion (WELLBUTRIN SR) 100 MG SR TAB PO SCH ×2 (07:59→20:58)
[2021-05-26] MEDS: traMADol 50 MG TAB PO PRN ×2 (08:00→15:30)
[2021-05-26] MEDS: GABAPENTIN 400MG CAP PO SCH ×2 (08:00→15:29)
[2021-05-26] MEDS: OMEPRAZOLE 20 MG CAP PO SCH (08:00)
[2021-05-26] MEDS: ACETAMINOPHEN TAB 650MG DOSE (2X325MG) PO PRN ×3 (08:00→21:00)
[2021-05-26] MEDS: SIMVASTATIN 20 MG TAB PO SCH (20:58)
[2021-05-26] MEDS: GABAPENTIN 300 MG CAP PO SCH (20:58)
[2021-05-27 05:30] VITALS: BP 96/64
[2021-05-27] MEDS: ACETAMINOPHEN TAB 650MG DOSE (2X325MG) PO PRN ×3 (06:59→21:49)
[2021-05-27] MEDS: buPROPion (WELLBUTRIN SR) 100 MG SR TAB PO SCH ×2 (08:10→21:49)
[2021-05-27] MEDS: GABAPENTIN 400MG CAP PO SCH ×2 (08:10→15:38)
[2021-05-27] MEDS: OMEPRAZOLE 20 MG CAP PO SCH (08:10)
[2021-05-27] MEDS: ENOXAPARIN 60MG/0.6ML SYRINGE (J1650 PER 10MG) SC SCH ×2 (08:12→21:49)
[2021-05-27] MEDS: DOCUSATE SODIUM 100MG CAPSULE PO SCH (09:00)
[2021-05-27] MEDS: traMADol 50 MG TAB PO PRN (09:07)
--- NOTE | 2021-05-27 09:55 | IPN ---
PROGRESS NOTE DATE: 05/26/2021 TIME: 6 p.m. SUBJECTIVE: This is a 70-year-old female who sustained a left scapular body fracture as well as a left tibial plateau Schatzker fracture. She is approximately eight days status post a left knee spanning external fixator replacement for provisional fixation and stabilization of the fracture while her skin healed. This appears to be maintained in place today. Her pin sites are clean, dry and intact without any purulent discharge or signs of infection. Her Ex-fix was stable. Patient was comfortable. On today's visit her left scapula appeared to be comfortable and she is using her left upper extremity to assist in eating. OBJECTIVE: Pin sites for the external fixator were clean, dry and intact with no signs of infection. Her fracture blisters drained and the skin appears to be significantly less edematous than prior to external fixator replacement. Her left lower extremity was motor intact with 5/5 motor strength in the EHL, FHL, tibial, anterior gastrocnemius, and peroneal musculature. She can perform a straight leg raise at the hip and she had full range of motion of her left ankle. Sensation was intact to light touch to the deep and superficial, peroneal, sural, saphenous and tibial nerve distributions. She had 2+ dorsalis pedis and posterior tibial arterial pulse, and brisk capillary refill of the digits. Her left upper extremity also had mild tenderness to palpation about the scapular body, otherwise neurovascularly intact to the left upper extremity. She had 5/5 motor strength of the musculocutaneous, axillary, radial, median and ulnar nerve distributions. She had sensation intact to light touch in the musculocutaneous, axillary, radial, median and ulnar nerve distributions as well. Brisk capillary refill of the digits under 2 seconds. She had 2+ radial and ulnar pulse of the left upper extremity. IMAGING: None today. IMPRESSION: A 70-year-old female whose left scapular fracture is healing and she had tolerable range of motion of the left shoulder which is aiding in function and eating. Her left lower extremity is being staged for a left tibial plateau open reduction internal fixation until the skin swelling resolves. PLAN: At this point in time, we will likely proceed with open reduction internal fixation of the patient's left tibial plateau on the May which is a Wednesday. I did make a slight adjustment to the external fixator bar so she can sit upright in bed and go outside in a wheelchair to enjoy the pleasant weather. After this adjustment was made, this should aid her ability to ambulate with the use of a wheelchair. Will continue with external fixator replacement for the next 11 days until her skin continues to heal and we proceed with open reduction internal fixation of the left tibial plateau. Will continue with her DVT prophylaxis per the internal medicine recommendations. Please consult Orthopedics with any concerns.
[2021-05-27] MEDS: GABAPENTIN 300 MG CAP PO SCH (21:49)
[2021-05-27] MEDS: SIMVASTATIN 20 MG TAB PO SCH (21:49)
[2021-05-28 06:00] VITALS: BP 96/63
[2021-05-28] MEDS: ACETAMINOPHEN TAB 650MG DOSE (2X325MG) PO PRN ×3 (06:50→21:42)
[2021-05-28] MEDS: buPROPion (WELLBUTRIN SR) 100 MG SR TAB PO SCH ×2 (08:26→21:08)
[2021-05-28] MEDS: GABAPENTIN 400MG CAP PO SCH ×2 (08:26→16:43)
[2021-05-28] MEDS: DOCUSATE SODIUM 100MG CAPSULE PO SCH (08:27)
[2021-05-28] MEDS: ENOXAPARIN 60MG/0.6ML SYRINGE (J1650 PER 10MG) SC SCH ×2 (08:27→21:08)
[2021-05-28] MEDS: OMEPRAZOLE 20 MG CAP PO SCH (08:34)
[2021-05-28] MEDS: SIMVASTATIN 20 MG TAB PO SCH (21:08)
[2021-05-28] MEDS: GABAPENTIN 300 MG CAP PO SCH (21:08)
[2021-05-29] MEDS: ACETAMINOPHEN TAB 650MG DOSE (2X325MG) PO PRN ×3 (06:11→21:47)
[2021-05-29] MEDS: GABAPENTIN 400MG CAP PO SCH ×2 (08:16→17:07)
[2021-05-29] MEDS: DOCUSATE SODIUM 100MG CAPSULE PO SCH (08:16)
[2021-05-29] MEDS: buPROPion (WELLBUTRIN SR) 100 MG SR TAB PO SCH ×2 (08:17→21:47)
[2021-05-29] MEDS: ENOXAPARIN 60MG/0.6ML SYRINGE (J1650 PER 10MG) SC SCH ×2 (08:17→21:51)
[2021-05-29] MEDS: OMEPRAZOLE 20 MG CAP PO SCH (08:17)
[2021-05-29] MEDS: GABAPENTIN 300 MG CAP PO SCH (21:47)
[2021-05-29] MEDS: SIMVASTATIN 20 MG TAB PO SCH (21:47)
[2021-05-30 06:00] VITALS: BP 94/61
[2021-05-30] MEDS: DOCUSATE SODIUM 100MG CAPSULE PO SCH (09:00)
[2021-05-30] MEDS: ACETAMINOPHEN TAB 650MG DOSE (2X325MG) PO PRN ×3 (09:46→21:11)
[2021-05-30] MEDS: ENOXAPARIN 60MG/0.6ML SYRINGE (J1650 PER 10MG) SC SCH ×2 (09:46→21:11)
[2021-05-30] MEDS: GABAPENTIN 400MG CAP PO SCH ×2 (09:47→16:25)
[2021-05-30] MEDS: buPROPion (WELLBUTRIN SR) 100 MG SR TAB PO SCH ×2 (09:47→21:10)
[2021-05-30] MEDS: OMEPRAZOLE 20 MG CAP PO SCH (09:47)
[2021-05-30] MEDS: GABAPENTIN 300 MG CAP PO SCH (21:11)
[2021-05-30] MEDS: SIMVASTATIN 20 MG TAB PO SCH (21:11)
[2021-05-30] MEDS ORDERED: rOPINIRole 0.25 MG TAB(REQUIP) PO ONE (23:00)
[2021-05-31 05:45] VITALS: BP 122/77
[2021-05-31] MEDS: ACETAMINOPHEN TAB 650MG DOSE (2X325MG) PO PRN ×3 (06:13→20:34)
[2021-05-31] MEDS: buPROPion (WELLBUTRIN SR) 100 MG SR TAB PO SCH ×2 (08:10→20:34)
[2021-05-31] MEDS: DOCUSATE SODIUM 100MG CAPSULE PO SCH ×2 (08:10→08:13)
[2021-05-31] MEDS: OMEPRAZOLE 20 MG CAP PO SCH (08:10)
[2021-05-31] MEDS: ENOXAPARIN 60MG/0.6ML SYRINGE (J1650 PER 10MG) SC SCH ×2 (08:10→20:34)
[2021-05-31] MEDS: GABAPENTIN 400MG CAP PO SCH ×2 (08:10→15:34)
[2021-05-31] MEDS: rOPINIRole 0.25 MG TAB(REQUIP) PO SCH ×3 (10:02→20:35)
--- NOTE | 2021-05-31 13:05 | IPN ---
[facility] SURGERY PROGRESS NOTE DATE: 05/31/2021 SUBJECTIVE: This is a 70-year-old female who sustained a left scapular body fracture as well as a left tibial plateau Schatzker fracture. She is approximately 13 days status post a left knee spanning external fixator replacement for provisional fixation and stabilization of the Schatzker tibial plateau fracture while the skin swelling resolved and her fracture blisters heal. Her external fixator is maintained today. Pin sites are clean, dry and intact without any purulent discharge or signs of infection. Her Ex-fix was stable. Patient was comfortable. On today's visit her left scapula appeared to be comfortable and she is using her left upper extremity to assist in eating. OBJECTIVE: Pin sites for the external fixator were clean, dry and intact with no signs of infection. Her fracture blisters were drained and the skin appears to be significantly less edematous than prior to external fixator replacement. Left lower extremity was motor intact with 5/5 motor strength in the exterior hallucis longus (EHL), flexor hallucis longus (FHL), tibialis, anterior gastrocnemius and peroneal musculature. She can perform a straight leg raise at the left hip. She has full range of motion of her left ankle. Sensation was intact to light touch to the deep and superficial, peroneal, sural, saphenous and tibial nerve distributions. She had 2+ dorsalis pedis and posterior tibial arterial pulse, and brisk capillary refill of the digits of her left foot. Her left upper extremity also had mild tenderness to palpation about the scapular body. Otherwise, she was neurovascularly intact to the left upper extremity. She had 5/5 motor strength to the musculature of the musculocutaneous, axillary, radial, median and ulnar nerve distributions. She had sensation intact to light touch in the musculocutaneous, axillary, radial, median and ulnar nerve distributions as well. Brisk capillary refill of the digits of her left hand. She had 2+ radial and ulnar pulse. IMAGING: None today. IMPRESSION: A 70-year-old female whose left scapular fracture is healing and she had tolerable range of motion of the left shoulder which is aiding in function and eating. Her left lower extremity is being staged for a left tibial plateau open reduction internal fixation until the skin swelling resolves. PLAN: At this point in time, we still plan to proceed with open reduction internal fixation of the patient's left tibial plateau on the June 06 2021, which is a Wednesday. Her external fixator was adjusted five days prior so that she can sit upright in a wheelchair. Patient had a good understanding of the plan. She will continue with her deep venous thrombosis (DVT) prophylaxis per the internal medicine recommendations. Please consultation orthopedics with any concerns.
[2021-05-31] MEDS: SIMVASTATIN 20 MG TAB PO SCH (20:34)
[2021-05-31] MEDS: GABAPENTIN 300 MG CAP PO SCH (20:34)
[2021-05-31] MEDS ORDERED: ONDANSETRON 4 MG ORAL DISINTEGRATING TAB PO PRN (21:50)
[2021-06-01 06:00] VITALS: BP 100/68
[2021-06-01] MEDS: ACETAMINOPHEN TAB 650MG DOSE (2X325MG) PO PRN ×3 (06:07→20:51)
[2021-06-01] MEDS: OMEPRAZOLE 20 MG CAP PO SCH (08:25)
[2021-06-01] MEDS: GABAPENTIN 400MG CAP PO SCH ×2 (08:25→15:46)
[2021-06-01] MEDS: buPROPion (WELLBUTRIN SR) 100 MG SR TAB PO SCH ×2 (08:26→20:51)
[2021-06-01] MEDS: ENOXAPARIN 60MG/0.6ML SYRINGE (J1650 PER 10MG) SC SCH ×2 (08:26→20:50)
[2021-06-01] MEDS: rOPINIRole 0.25 MG TAB(REQUIP) PO SCH ×3 (08:51→20:51)
[2021-06-01] MEDS: DOCUSATE SODIUM 100MG CAPSULE PO SCH (08:51)
--- NOTE | 2021-06-01 11:59 | IPNPDOC ---
Text Note Date of Service The patient was seen on 06/01/21. NOTE Subjective: Patient seen and examined at bedside. No acute overnight events reported. No new medical complaints this morning. 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 #L tib/fib fractures: - s/p left knee spanning external fixator placement - plan for ORIF of left tibial plateau 06/06/2021 Pain management with percocet PRN, tramadol 50 Q6HP for moderate pain and tylenol PRN for mild pain Also continuing her home gabapentin Patient cannot do any PT or OT due to the angular positioning of the external fixators and non weight bearing status on both left lower extremity and upper extremity So will ot be able to go to any rehab. will Heve to remain in the hospital till next surgery. #L scapular body fracture: Orthopedics consulted, recommends sling pain control as noted above #Rheumatic valvular disease Status post metallic AVR and metallic MVR on coumadin Coumadin stopped and on therapeutic lovenox She has no history of HF, with last TTE from 07/2019 in the EMR with normal EF and possible grade 1 diastolic dysfunction but otherwise normal pressures At this time is euvolemic on exam #COPD without evidence of acute exacerbation. Continue home meds #Anemia: Likely due to fracture hematomas, and surgical blood on therapeutic lovenox We will continue to monitor H&H and check fecal occult blood #HLD simvastatin #Depression: continue home bupropion Disposition: ALC status, pending OR with ortho with ORIF on 06/06/21 VS,Fishbone, I+O VS, Fishbone, I+O Vital Signs Date Time Temp Pulse Resp B/P (MAP) Pulse Ox O2 Delivery O2 Flow Rate FiO2 06/01/21 06:00 98.5 97 18 100/68 (79) 96 Room Air 05/26/21 06:00 2.5 I&O- Last 24 Hours up to 6 AM 06/01/21 06:00 Intake Total 1080 ml Output Total 1250 ml Balance -170 ml ÁNGEL NOONAN MD Jun 01, 2021 11:59
[2021-06-01] MEDS: SIMVASTATIN 20 MG TAB PO SCH (20:51)
[2021-06-01] MEDS: GABAPENTIN 300 MG CAP PO SCH (20:51)
[2021-06-02 06:00] VITALS: BP 121/67
[2021-06-02 07:12] LABS: HEMATOCRIT 30.5 % (36.0-47.0); HEMOGLOBIN 9.3 g/dl (12.0-15.5); MEAN CORPUSCULAR HEMOGLOBIN 31.3 pg (27.0-33.0); MEAN CORPUSCULAR HGB CONC 30.5 g/dl (32.0-36.5); MEAN CORPUSCULAR VOLUME 102.7 fl (80.0-96.0); PLATELET COUNT, AUTOMATED 483 10^3/uL (150-450); RED BLOOD COUNT 2.97 10^6/uL (4.00-5.40); WHITE BLOOD COUNT 5.8 10^3/uL (4.0-10.0)
[2021-06-02 07:45] LABS: ALT/SGPT 45 U/L (12-78); BILIRUBIN,TOTAL 0.9 MG/DL (0.2-1.0); BLOOD UREA NITROGEN 17 MG/DL (7-18); CALCIUM LEVEL 8.5 MG/DL (8.8-10.2); CARBON DIOXIDE LEVEL 26 MEQ/L (21-32); CHLORIDE LEVEL 109 MEQ/L (98-107); CREATININE FOR GFR 0.51 MG/DL (0.55-1.30); GLOMERULAR FILTRATION RATE > 60.0 (>39); GLUCOSE, FASTING 78 MG/DL (70-100); SODIUM LEVEL 141 MEQ/L (136-145)
[2021-06-02] MEDS: GABAPENTIN 400MG CAP PO SCH ×2 (10:51→17:15)
[2021-06-02] MEDS: buPROPion (WELLBUTRIN SR) 100 MG SR TAB PO SCH ×2 (10:51→20:26)
[2021-06-02] MEDS: DOCUSATE SODIUM 100MG CAPSULE PO SCH (10:51)
[2021-06-02] MEDS: OMEPRAZOLE 20 MG CAP PO SCH (10:51)
[2021-06-02] MEDS: rOPINIRole 0.25 MG TAB(REQUIP) PO SCH ×4 (10:51→20:26)
[2021-06-02] MEDS: ACETAMINOPHEN TAB 650MG DOSE (2X325MG) PO PRN ×3 (10:52→21:13)
[2021-06-02] MEDS: ENOXAPARIN 60MG/0.6ML SYRINGE (J1650 PER 10MG) SC SCH ×2 (10:52→20:26)
[2021-06-02] MEDS: GABAPENTIN 300 MG CAP PO SCH (20:26)
[2021-06-02] MEDS: SIMVASTATIN 20 MG TAB PO SCH (20:26)
[2021-06-03 06:00] VITALS: BP 132/69
--- NOTE | 2021-06-03 07:15 | IPN ---
PROGRESS NOTE DATE: 06/02/2021 CONSULTING SERVICE: Orthopedic Surgery SUBJECTIVE: This is a 70-year-old female who sustained a left scapular body fracture as well as a left tibial plateau Schatzker 6. She is approximately 14 days status post a left knee spanning external fixator placement for provisional fixation and stabilization of the Schatzker tibial plateau fracture, the skin swelling resolved and the fracture healed. Her external fixator was maintained today. The pin sites are clean, dry and intact without any purulent discharge or signs of infection. Her x-rays are stable. The patient was comfortable. On today's visit her scapula appeared to be comfortable and she is using her left upper extremity to assist in eating. OBJECTIVE: Pin sites for the external fixator were clean, dry and intact with no signs of infection. Fracture blisters were drained. The skin appears to be significantly less edematous than prior to external fixator placement. The left lower extremity was neurovascularly intact with 5/5 motor strength to the EHL, FHL, and tibialis anterior, gastrocnemius and peroneal musculature. She can perform a straight leg raise of the left hip. She has full range of motion of her left ankle. Sensation was intact to the light touch to the deep and superficial peroneal, sural, saphenous and tibial nerve distribution. She had a 2+ dorsalis pedis and posterior tibial arterial pulse and brisk capillary refill of the digits of her left foot. Her left upper extremity also had mild tenderness to palpation about the scapula body, otherwise she was neurovascularly intact to the left upper extremity. She had 5/5 motor strength of the musculocutaneous, axillary, radial, median and ulnar nerve distributions. She has sensation intact to light touch to the aforementioned nerve distributions. Brisk capillary refill to the digits of her left hand. She had 2+ radial and ulnar pulse. IMAGING: No imaging done today. ASSESSMENT: A 70-year-old female whose left scapular fracture is healing and she has tolerable range of motion of the left shoulder which is aiding in functioning and eating, the left lower extremity is being staged for a left tibial plateau open reduction internal fixation until the skin swelling resolves. PLAN: Unfortunately, today I was notified of an impending deployment. I will not longer be seeing patients in two weeks given this deployment date. Given her complexity of her surgical case and the need for close follow-up, I have decided that transfer to [facility] would be in the patient's best interest. I notified Dr. Moreira, the orthopedic trauma surgeon chief at [facility] who will accept the patient for orthopedic surgery. He will only accept the patient if the Hospitalist Service transfers the patient to the [facility] Hospitalist Service. This will insure that the patient gets the best care and the best follow-up given my upcoming deployment. Patient was not particularly happy about the decision to transfer her, however given the fact that I will have very minimal postoperative care with the patient I think it is truly in the best interest of the patient's care. The patient will continue her deep vein thrombosis prophylaxis per the Internal Medicine recommendations until her transfer date. Hopefully, on the department coordinator of the May, we can get her transferred and in good hands with Dr. Moreira and the Hospitalist Service at [facility]. Please contact me with questions.
--- NOTE | 2021-06-03 07:21 | IPN ---
PROGRESS NOTE DATE: 06/02/2021 TIME: 11 p.m. SERVICE: Orthopedic Surgery SUBJECTIVE: A 70-year-old female with a left scapular body fracture, a left tibial plateau Schatzker 6 fracture that was spanned with an external fixator. Patient is postop day 14 days status post left knee spanning external fixator. Plan is for open reduction internal fixation by the end of this week. Unfortunately, I will be deploying sooner than expected. See plan for transfer plans to [facility] Orthopedic Service. Patient was comfortable at today's visit. OBJECTIVE: The pin sites for the external fixator were clean, dry and intact. No signs of infection. Skin had a positive wrinkle sign and appeared to be amenable to surgery. The left lower extremity was neurovascularly intact without any changes from yesterday's exam. Her left upper extremity was neurovascularly intact without any change from yesterday's exam. IMAGING: None today. ASSESSMENT: A 70-year-old female with a left scapular body fracture which is healing and in which she had tolerable range of motion of her left shoulder. The left lower extremity is doing well with a knee spanning external fixator. PLAN: At this point in time given my upcoming deployment which is much sooner than expected, I decided that the patient's best interest would be served by a transfer to [facility] in [place]. I contact Dr. Moreira with whom I have talked with over the phone who has agreed to do the patient's left tibial plateau open reduction internal fixation. Given the fact that I will not longer be seeing patients in two weeks, I do not feel it is a good idea for me to proceed with surgery without close observation postoperatively. Please prepare the patient for transfer as soon as possible, preferably on the morning of [address] Moreira has agreed to do surgery, however the patient must be transferred from our Hospitalist Service to their Hospitalist Service given her multiple medical comorbidities. Please contact me for any questions. The patient was unhappy with the decision to transfer her, however I feel it is truly in the patient's best interest given my upcoming deployment and inconsistent follow-up that will ensue. Please contact me with questions.
[2021-06-03] MEDS: rOPINIRole 0.25 MG TAB(REQUIP) PO SCH ×4 (09:00→21:00)
[2021-06-03] MEDS: OMEPRAZOLE 20 MG CAP PO SCH (09:47)
[2021-06-03] MEDS: DOCUSATE SODIUM 100MG CAPSULE PO SCH (09:47)
[2021-06-03] MEDS: GABAPENTIN 400MG CAP PO SCH ×2 (09:47→16:29)
[2021-06-03] MEDS: buPROPion (WELLBUTRIN SR) 100 MG SR TAB PO SCH ×2 (09:47→21:02)
[2021-06-03] MEDS: ENOXAPARIN 60MG/0.6ML SYRINGE (J1650 PER 10MG) SC SCH ×2 (09:48→21:00)
[2021-06-03] MEDS: ACETAMINOPHEN TAB 650MG DOSE (2X325MG) PO PRN ×2 (09:50→16:29)
[2021-06-03] MEDS ORDERED: OMEP1CAP73 PO (20:36)
[2021-06-03] MEDS ORDERED: ROPI0.253 PO (20:36)
[2021-06-03] MEDS ORDERED: COLA100C5 PO (20:36)
[2021-06-03] MEDS ORDERED: LOVE0.4I2 SC (20:36)
[2021-06-03] MEDS ORDERED: ACET1TAB55 PO (20:36)
[2021-06-03] MEDS: GABAPENTIN 300 MG CAP PO SCH (21:02)
[2021-06-03] MEDS: SIMVASTATIN 20 MG TAB PO SCH (21:03)
[2021-06-03] MEDS: traMADol 50 MG TAB PO PRN (21:03)
--- NOTE | 2021-06-03 21:13 | DS.PDOC ---
Discharge Summary General Date of Admission May 17, 2021 at 17:00 Date of Discharge Jun 03, 2021 Specialist/Consultants Involve Orthopedic surgery, Dr. Bailon Discharge Summary PROCEDURES PERFORMED DURING STAY: Left knee spanning external fixator placement by Dr. Bailon on 05/18/21 ADMITTING DIAGNOSES: 1. Left closed tibial plateau fracture, Schatzker 2. Left scapular body fracture 3. 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 Stable COPD 5. Anemia 6. Hyperlipidemia 7. Depression DISCHARGE DIAGNOSES: 1. Left closed tibial plateau fracture, Schatzker 2. Left scapular body fracture 3. 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 Stable COPD 5. Anemia 6. Hyperlipidemia 7. Depression COMPLICATIONS/CHIEF COMPLAINT: Fall,L Fibular Fx,Scapular Fx,L Tibial Plateau Fx. HISTORY OF PRESENT ILLNESS: Copied from admitting attending's H&P " 70 yo W with a history of unsteady gate and frequent admissions with falls and fractures most recently in 11/2020 when she sustained a L pubic ramus and a L shoulder fracture, who walks without assistive devices, with a history of AVR and MVR on warfarin, HTN, HLD, COPD, osteoporosis, GERD and depression, who lives functionally alone but has a housemate, who presented to the ED after a mechanical fall down three steps and hit her left head and landed on her left side and has had L arm and shoulder as well as L leg pain since. She denies any LOC, she was alone at the time but was down for only a few minutes. She denies recent illness and was doing quite well, was recently seen by neurology and has an ongoing Parkinson's workup with a baseline tremor. She denies recent fever, chills, LOC, chest pain, palpitations, SOB, dizziness, dysuria, hematuria, hematochezia, melena, abdominal pain, N or V. In the ED she was hemodynamically stable, normotensive, in sinus rhythm and when I saw her was on 3L NC saturating 94% and speaking in full sentences. She complained of L leg pain and it was in an immobilizer. Prior to the ED consulting medicine for admission, they consulted Dr. Barayuga for trauma evaluation and he cleared her for medicine admission and orthopedic evaluation. Work up was notable for L shoulder XR that revealed discontinuity of the lateral scapular body c/w scapular body fracture and an old healed distal clavicle fracture on the L, while L humerus XR revealed the same fracture without fracture of the humerus. She had a L tib/fib XR that revealed a comminuted impacted fracture of the lateral tibia plateau and proximal tibia with 1.1 cm depression, as well as an impacted fracture of the proximal fibula head. A L femur XR revealed the same without a femur or acute pelvic fracture. It did show an old L superior and inferior pubic ramus fracture. Head CT showed no acute abnormalities and showed old lacunar infarcts in the L basal ganglia while the CT of C-spine showed no acute fractures, dislocation or subluxation. CXR revealed no pneumothorax or hydrothorax. WBC was 16.5, hgb 12.7, platelets 197, na 143, K 4, Cr 0.78, mild AST elevation at 61, ALT 74, EKG was non ischemic, troponin negative and INR was 2.32. She is now being admitted to medicine for preop assessment with orthopedics on consultation. " HOSPITAL COURSE: On 05/18/21, patient went to the OR for a left knee spanning external fixator placement by Dr. Bailon. Dr. Bailon, planned to have the second stage of surgery in 3 weeks. In the mean time, patient was not able to do PT/OT due to angular positioning of the external fixators and non-weight bearing status. Patient had to remained hospitalized. Patient's Coumadin (2.5mg qHS) was switched to full dose Lovenox. Just recently, our orthopedic surgeon, Dr. Bailon was notified that he will be deployed soon and would not be able to do the surgery. Dr. Bailon was in contact with Dr. Moreira about the case, and he accepted the patient. During the day time and afternoon, there was not a bed availability. This evening, there was a bed availability and patient will be transferred tonight. I will hold the evening dose of Lovenox incase if surgery is planned for tonight. Otherwise, I had seen the patient in the morning. Pain is currently controlled. Patient denies any chest pain or dyspnea. She still has some soreness in the left scapula. Dr. Moreira will be the accepting physician at [facility]. DISCHARGE MEDICATIONS: Please see below. ALLERGIES: Please see below. PHYSICAL EXAMINATION ON DISCHARGE: VITAL SIGNS: Please see below. GENERAL: Comfortable, in no apparent distress. HEENT: Sclera clear. NECK: Supple. RESPIRATORY: Lungs clear to auscultation bilaterally, no rales, wheeze or rhonchi. CARDIOVASCULAR: Regular rate and rhythm, murmur with click ABDOMEN: Soft, nontender, no guarding or rebound tenderness. Normal bowel sounds. MUSCLE SKELETAL: Left leg external fixator present NEUROLOGICAL: No focal deficits noted. PSYCHOLOGICAL: Normal mood and affect LABORATORY DATA: Please see below. IMAGING: Radiologist interpretation CT spine without contrast Degenerative spondylosis changes and thoracolumbar spine curvature. Ectasias of the thoracic aorta. No traumatic abnormality noted CT head without contrast Vascular calcification, generalized volume loss, small vessel atherosclerotic changes and old lacunar infarct in the left basal ganglia. No acute intracranial abnormality seen XR left femur Diffuse osteoporosis and vascular calcification. Proximal tibial and fibular fractures as described in the tib fib series. No femur or acute pelvic fracture. Old left superior and inferior pubic ramus fractures XR left Tib/Fib Comminuted impacted fracture of the lateral tibial plateau and proximal tibia, 1.1 cm of depression. There is an impacted fracture of the proximal fibular head as well XR left humerus Lateral scapular body fractures suspected. Diffuse osteopenia XR left shoulder Discontinuity of the lateral scapular border consistent with scapular body fracture. Old healed distal clavicle fracture on the left. No other acute fracture seen. CT left shoulder without contrast Comminuted fracture of the lateral border and inferior body of the scapula. Old posttraumatic deformity of the distal clavicle. Glenohumeral spurring. No proximal humeral fracture seen Chest XR Moderate cardiac enlargement prior sternotomy and valve replacement. No evidence of pneumothorax or hydrothorax. Aorta is calcific and tortuous unchanged. CT left knee without contrast (Post surgery) Comminuted intra-articular depressed proximal tibial for and fibular head fractures somewhat improved alignment. External pin traction applied. Lipohemarthrosis. PROGNOSIS: Good ACTIVITY: Non weight bearing left leg DIET: As tolerated DISCHARGE PLAN: Transfer to [facility] DISPOSITION: Transfer to [facility] DISCHARGE INSTRUCTIONS: 1. Follow up with PCP 1 week from discharge 2. Restart Coumadin 2.5mg qHS when medically stable. Coumadin for mechanical aortic valve replacement ITEMS TO FOLLOWUP ON ON OUTPATIENT: 1. INR once on coumadin DISCHARGE CONDITION: Stable. Total time spent on discharge planning, discharge summary, and medication reconciliation: 65 minutes Vital Signs/I&Os Vital Signs Date Time Temp Pulse Resp B/P (MAP) Pulse Ox O2 Delivery O2 Flow Rate FiO2 06/03/21 06:00 98.2 98 20 132/69 (90) 94 Room Air I&O- Last 24 Hours up to 6 AM 06/03/21 06:00 Intake Total 1830 ml Output Total 1950 ml Balance -120 ml Discharge Medications Scheduled Bupropion HCl (Bupropion HCl Sr) 200 Mg Tab.sr.12h, 200 MG PO BID, (Reported) Docusate Sodium (Colace) 100 Mg Capsule, 100 MG PO DAILY Enoxaparin Sodium (Lovenox) 60 Mg/0.6 Ml Syringe, 60 MG SC BID Ergocalciferol (Vitamin D2) (Vitamin D2) 50,000 Units Cap, 50,000 UNITS PO QMONTH, (Reported) FIRST OF EVERY MONTH Gabapentin (Gabapentin) 100 Mg Capsule, 200 MG PO QHS, (Reported) Gabapentin (Gabapentin) 400 Mg Capsule, 400 MG PO TID, (Reported) Omeprazole (Omeprazole) 20 Mg Cap, 40 MG PO DAILY Ropinirole HCl (Ropinirole HCl) 0.25 Mg Tablet, 0.25 MG PO TID Simvastatin (Simvastatin) 20 Mg Tablet, 20 MG PO QHS, (Reported) Warfarin Sodium (Warfarin Sodium) 2.5 Mg Tablet, 2.5 MG PO QHS, (Reported) Scheduled PRN Acetaminophen (Acetaminophen) 325 Mg Tablet, 650 MG PO Q4H PRN for MILD PAIN or TEMP > 101 Tramadol HCl (Tramadol HCl) 50 Mg Tablet, 50 MG PO Q6H PRN for PAIN LEVEL 5-10, (Reported) Allergies Coded Allergies: No Known Drug Allergies (Verified Allergy, Unknown, 06/11/20) DILLON DUNCAN DO Jun 03, 2021 21:13
[2021-06-04] VITALS: BP 129/70
[2021-06-04] MEDS: ACETAMINOPHEN TAB 650MG DOSE (2X325MG) PO PRN (00:33)
== END 2021-06-04 00:45 | disposition short-term general hospital (02) | DRG 494 ==
LOC: M ED 13:02 → EDBD 13:02 → M ED INP 17:00 → M MS5PR 19:50
PROVIDERS: ADMIT Internal Medicine; ATTEND Internal Medicine
PROC: 0QS Lower Bones, Reposition (ICD-10-PCS; principal; 2021-05-18 08:00)
DX: S82.292A Other fracture of shaft of left tibia, initial encounter for closed fracture (principal); S42.115A Nondisplaced fracture of body of scapula, left shoulder, initial encounter for closed fracture; J44.9 Chronic obstructive pulmonary disease, unspecified; E78.5 Hyperlipidemia, unspecified; F32.9 Major depressive disorder, single episode, unspecified; D64.9 Anemia, unspecified; Z79.01 Long term (current) use of anticoagulants; I08.0 Rheumatic disorders of both mitral and aortic valves; M81.0 Age-related osteoporosis without current pathological fracture; K21.9 Gastro-esophageal reflux disease without esophagitis; W10.9XXA Fall (on) (from) unspecified stairs and steps, initial encounter; Z79.899 Other long term (current) drug therapy; I10 Essential (primary) hypertension

== ENCOUNTER 2021-07-23 13:22 | Inpatient (IN) | payer MEDICARE ==
[~2021-07-23] VITALS: Ht 154.9 cm; Wt 60.5 kg
[~2021-07-23 13:22] MED LIST changes: +ACET1TAB55 PO; +BUPR1TAB56 PO; +CARI1TAB7 PO; +COLA100C5 PO; +LOVE0.4I2 SC; +OMEP-218 PO; +ROPI0.253 PO
[2021-07-23] MEDS ORDERED: ONDANSETRON 4MG/2ML VIAL IV ONE (13:40)
--- NOTE | 2021-07-23 14:06 | REP ---
INDICATION: preop. COMPARISON: None. TECHNIQUE: AP view of the pelvis: Single AP view of the left hip. FINDINGS: There is a sub trochanteric left femur diaphyseal fracture withr 6.7 cm of medial override and some apex medial angulation. The left hip joint space is preserved. Femoral head is smooth and rounded. There is diffuse osteopenia. Vascular calcification is observed. There is irregularity of the superior pubic ramus and inferior pubic ramus on the left as well. These changes appear old although they were not evident on September 04, 2019. These were acute and documented on June 05, 2020. There are old. IMPRESSION: Overriding proximal femoral diaphyseal fracture with medial displacement and some apex medial angulation. There are superior and inferior pubic ramus fractures on the left which have an old appearance. They were observed as acute findings on June 05, 2020. <Electronically signed by John Garnica > 07/23/21 [id number]
--- NOTE | 2021-07-23 14:07 | REP ---
INDICATION: preop. COMPARISON: Multiple the latest 05/17/2021 also portable TECHNIQUE: Portable FINDINGS: The technique utilized in obtaining the radiograph has magnified the cardiac silhouette and accentuated the interstitial markings. The cardiomediastinal silhouette is unchanged. There is cardiomegaly accentuated by technique. Note is again made of previous median sternotomy and prosthetic aortic valvular replacement. The lung chaney are stable. There are fibrotic changes in the bases left greater than right status quo. No acute patchy parenchymal opacities or pleural effusions seem to have developed on this limited portable exam. There is no significant change in the osseous structures. Note is again made of a fractured left scapula. IMPRESSION: No significant change from the prior exam. Chronic changes as described above. <Electronically signed by Duane Fuller > 07/23/21 [id number]
--- NOTE | 2021-07-23 14:09 | REP ---
INDICATION: preop. COMPARISON: None. TECHNIQUE: AP and lateral views excluding the hip. FINDINGS: There is a proximal femoral fracture with posterior displacement. Limited evaluation of the knee also shows proximal tibial and fibular fractures IMPRESSION: Fractures and limitations as described above. <Electronically signed by Duane Fuller > 07/23/21 [id number]
--- NOTE | 2021-07-23 14:28 | REP ---
INDICATION: trauma. COMPARISON: Comparison head CT study May 17, 2021. TECHNIQUE: Helical scanning is acquired. 5 mm axial images were reformatted. Coronal MPR images were generated. FINDINGS: Bone window settings demonstrate an intact bony calvarium. There is no evidence of skull fracture or incidental bony calvarial lesion. No intraorbital abnormality is seen. On soft tissue window setting images; the lateral, third, and fourth ventricles are normal in size and position. Pantoja-white differentiation pattern is normal above and below the tentorium. There are is no evidence of intracranial hemorrhage. No mass, edema, infarction, or midline shift is seen. No extra-axial fluid collection is appreciated. There is moderate generalized volume loss. A persistent cavum septum flu syndrome is noted incidentally. There is small vessel atherosclerotic change in the periventricular white matter. Vascular calcification is again noted. There are mild paranasal sinus mucosal changes including small amounts of fluid in the maxillary sinuses bilaterally. There is a lacunar infarct in the right basal ganglia which was not previously apparent. This may be an interval lacunar infarct. There is an old left basal ganglia lacunar infarct. This is unchanged. IMPRESSION: Generalized volume loss and small vessel changes. Lacunar infarct in the right basal ganglia not previously apparent. Old lacunar infarct in the left basal ganglia unchanged. Vascular calcification. Mucosal changes in the paranasal sinuses. No intracranial injury or extra-axial fluid collection seen. <Electronically signed by John Garnica > 07/23/21 [id number]
--- NOTE | 2021-07-23 14:31 | REP ---
INDICATION: trauma. COMPARISON: Comparison CT study of the cervical spine May 17, 2021. TECHNIQUE: Helical scanning is acquired and overlapping 2 mm high resolution axial images were generated and reviewed at bone and soft tissue window settings. Coronal and sagittal multiplanar re-formations images are generated. FINDINGS: Digital preliminary cut press operator radiograph shows no evidence of malalignment. There is a mild levoconvex curve on the coronal multiplanar re-formation images. The patient's head is held somewhat tilted to the right. Sagittal multiplanar re-formation images show no evidence of fracture collapse or subluxation. Facets are normally aligned. There is some osteoarthritic facet hypertrophy and sclerosis bilaterally in the mid cervical spine. Axial CT images show no evidence of collapse. There is vascular calcification in the distribution of the carotid arteries. The aortic arch is ectatic and calcified as well. There are surgical clips in the suprasternal notch soft tissues. IMPRESSION: Degenerative spondylosis changes. Levoconvex curve. Aortic ectasia noted incidentally at the bottom of the imaging field of view. No traumatic abnormality noted. <Electronically signed by John Garnica > 07/23/21 [id number]
[2021-07-23] MEDS: MORPHINE 2 MG/ML 1ML VIAL (J2270) IV PRN ×2 (14:40→16:35)
[2021-07-23 14:43] LABS: BASO % 0.2 % (0.0-1.0); EOS % 0.3 % (0.0-3.0); HEMATOCRIT 41.2 % (36.0-47.0); HEMOGLOBIN 12.7 g/dl (12.0-15.5); LYMPH # 0.7 10^3/uL (1.5-5.0); MEAN CORPUSCULAR HEMOGLOBIN 29.1 pg (27.0-33.0); MEAN CORPUSCULAR HGB CONC 30.8 g/dl (32.0-36.5); MEAN CORPUSCULAR VOLUME 94.3 fl (80.0-96.0); MONO # 0.9 10^3/uL (0.0-0.8); MONO % 6.8 % (2.0-8.0); NEUTROPHILS # 11.4 10^3/uL (1.5-8.5); NEUTROPHILS % 86.6 % (36.0-66.0); PLATELET COUNT, AUTOMATED 303 10^3/uL (150-450); RED BLOOD COUNT 4.37 10^6/uL (4.00-5.40); WHITE BLOOD COUNT 13.2 10^3/uL (4.0-10.0)
[2021-07-23 14:53] LABS: INR 2.17; PROTHROMBIN TIME 24.5 SECONDS (12.7-14.5)
[2021-07-23 15:01] LABS: BLOOD UREA NITROGEN 15 MG/DL (7-18); CALCIUM LEVEL 8.8 MG/DL (8.8-10.2); CARBON DIOXIDE LEVEL 25 MEQ/L (21-32); CHLORIDE LEVEL 108 MEQ/L (98-107); CREATININE FOR GFR 0.57 MG/DL (0.55-1.30); GLOMERULAR FILTRATION RATE > 60.0 (>39); GLUCOSE, FASTING 112 MG/DL (70-100); POTASSIUM SERUM 3.4 MEQ/L (3.5-5.1); SODIUM LEVEL 141 MEQ/L (136-145)
[2021-07-23] MEDS ORDERED: MORPHINE 2 MG/ML 1ML VIAL (J2270) IV PRN (15:30)
[2021-07-23] MEDS ORDERED: ACETAMINOPHEN TAB 650MG DOSE (2X325MG) PO PRN (15:30)
[2021-07-23] MEDS ORDERED: ONDANSETRON 4MG/2ML VIAL IV PRN (15:30)
[2021-07-23 15:31] LABS: RSV AMPLIFICATION POSITIVE (NEGATIVE)
--- NOTE | 2021-07-23 15:53 | HPEPDOC ---
[facility] Medical History & Physical Date of Admission Jul 23, 2021 Date of Service: Jul 23, 2021 Primary Care Physician: Karen Broussard NP [facility] Attending Physician: JAMAAL HEART DO History and Physical CHIEF COMPLAINT: Fall with left leg injury HISTORY OF PRESENT ILLNESS: Patient is a 70-year-old female with a history of unsteady gait frequent admissions for falls with fractures who states that she was walking the bathroom and fell backwards. Patient has pain in her left t high. Patient was in her usual state of health prior to this and denies any syncope or dizziness. Patient states that she did hit her head. Patient did not lose consciousness. Patient denies any recent illness. Patient denies any coughing or shortness of breath. Patient recently had a fall and sustained a fracture of the left tibial plateau which required surgery as performed in [place]. Patient only complains of pain. Patient has a history of mechanical aortic and mitral valves and is on warfarin at baseline. Patient is otherwise doing well today. PAST MEDICAL HISTORY: 1. Unsteady gait with frequent admissions for falls. 2. 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 3. Hypertension. 4. Hyperlipidemia 5. COPD 6. Osteoporosis 7. GERD 8. Depression PAST SURGICAL HISTORY: 1. Hysterectomy. 2. Left wrist carpal tunnel surgery. 3. Surgery for left tibial plateau. SOCIAL HISTORY: Patient denies smoking, drinking, or illicit drug use. FAMILY HISTORY: Patient's mother had breast cancer ALLERGIES: Please see below. REVIEW OF SYSTEMS: General: Patient denies fevers HEENT: Patient denies headaches Cardiovascular: Patient denies chest pain Respiratory: Patient denies shortness of breath, cough GI: Patient denies abdominal pain, nausea, vomiting, diarrhea : Patient denies increased frequency or pain with urination Extremities: Patient reports pain in her left extremity around the thigh Neurological: Patient denies numbness or tingling in legs Skin: Patient denies any new rashes or lesions. Hematologic: Patient denies any easy bruising. Lymphatic: Patient denies any lumps lumps or bumps in neck, axilla, or groin HOME MEDICATIONS: Please see below. PHYSICAL EXAMINATION: VITAL SIGNS: Temperature 97.6, pulse 84, respiratory rate 18, blood pressure 136/84, pulse oximetry 94% on room air. General: Alert and oriented female patient who was laying flat in bed when I walked in. Patient not appear to be in acute distress. HEENT: Normocephalic, atraumatic, moist mucous membranes. Neck: No lymphadenopathy or thyromegaly Cardiac: Regular rate and rhythm, no murmurs, normal S1, normal S2 Pulm: Clear to auscultation bilaterally. No wheezes, rhonchi, rales Abd: Nondistended, nontender to palpation, normal bowel sounds Ext: No edema bilateral lower extremities. Left lower extremity was shortened and rotated externally. There was tenderness to palpation over the left thigh Neuro: Patient was able to move all 4 extremities on command and reported equal sensation light touch in all 4 extremities. Skin: Skin of the head, neck, upper and lower extremities was examined did not show any evidence of rash or wounds. LABORATORY DATA: See below. IMAGING: CT of the cervical spine performed without contrast on 07/23/2021 is reported to show degenerative spondylosis changes. Levoconvex curve. Aortic ectasia noted incidentally at the bottom of the imaging [id number]. No traumatic abnormality noted. Chest x-ray performed on 07/23/2021 is reported to show no significant change from prior exam. Chronic changes. X-ray of the left femur performed on 07/23/2021 was reported to show proximal femoral fracture with posterior displacement. Limited evaluation of the knee also shows proximal tibial and fibular fractures. CT the head performed without contrast on 07/23/2021 is reported to show generalized volume loss with small vessel changes. Lacunar infarct in the right basal ganglia not previously apparent. Old lacunar infarct in the left basal ganglia unchanged. Vascular calcification. Mucosal change in the paranasal sinuses. No intracranial injury or extra-axial fluid collection seen. Left hip x-ray to include the pelvis performed on 07/23/2021 is reported to show overriding proximal femoral diaphyseal fracture with medial displacement and some apex medial angulation. There is superior and inferior pubic ramus fractures on the left which are of old appearance. They were observed as acute finding on June 05, 2020 MICROBIOLOGY: Please see below. ASSESSMENT: 70-year-old female who presented to the hospital after falling and was found to have a left hip/femur fracture. . PLAN: 1. Left hip/femur fracture. Patient will be seen by orthopedic surgery who plans on doing the surgery tomorrow. Patient will be given a diet today and be made n.p.o. after midnight for the surgery. Pain control has been ordered. 2. History of aortic and mitral valve repair on Coumadin. Patient's INR is 2.17 today. We will not give her a dose of Coumadin tonight. Because the patient will be having her surgery within 24 hours, we will not bridge her to Lovenox at this time. Once the patient surgery is complete and adequate hemostasis is achieved usually within 24 hours, patient will be started on both her Coumadin and therapeutic dose Lovenox. Therapeutic dose Lovenox will be continued until INR is back within the therapeutic range of 2.5-3.5. I did have a discussion about the risks and benefits of holding and bridging the patient's anticoagulation. The benefits of bridging include lowering the patient's stroke risk due to the mechanical nature of the patient's valves. The risks are the this does increase the patient's preoperative and postoperative bleeding. Because the patient is within 24 hours of her expected surgery time, we will not give Lovenox today. If the surgery gets delayed for any reason, Lovenox will be started as Coumadin is held. Patient is aware of the risks and benefits and has agreed to this plan. All questions have been answered. Patient expresses understanding of the plan. 3. Hypertension. We will continue the patient's on medications. 4. Hyperlipidemia. Continue patient on medications. 5. COPD. Patient will be monitored closely in the postoperative period. 6. RSV. Patient's respiratory panel for admission to the hospital was negative for Covid however, was positive for RSV. Patient to be monitored closely for any respiratory symptoms. We will treat any respiratory symptoms symptomatically if they arise. 7. DVT prophylaxis: Patient's INR is 2.17. Patient will be bridged with heparin and warfarin after the surgery. For now, teds and sequentials 8. CODE STATUS: Full code Disposition: Patient be admitted to medical surgical floor for surgery on her hip. I do expect the patient be discharged after greater than or equal to 2 midnight stay. Vital Signs Vital Signs Date Time Temp Pulse Resp B/P (MAP) Pulse Ox O2 Delivery O2 Flow Rate FiO2 07/23/21 14:40 18 94 Nasal Cannula 07/23/21 13:39 97.6 07/23/21 13:37 84 136/84 (101) Laboratory Data Labs 24H Laboratory Tests 2 07/23/21 14:16: Immature Granulocyte % (Auto) 1.1, Neutrophils (%) (Auto) 86.6H, Lymphocytes (%) (Auto) 5.0L, Monocytes (%) (Auto) 6.8, Eosinophils (%) (Auto) 0.3, Basophils (%) (Auto) 0.2, Neutrophils # (Auto) 11.4H, Lymphocytes # (Auto) 0.7L, Monocytes # (Auto) 0.9H, Eosinophils # (Auto) 0.0, Basophils # (Auto) 0.0, Nucleated Red Blood Cells % (auto) 0.0, Prothrombin Time 24.5H, Prothromb Time International Ratio 2.17, Anion Gap 8, Glomerular Filtration Rate > 60.0, Calcium Level 8.8, Coronavirus (COVID-19)(PCR) NEGATIVE, Influenza Type A (RT-PCR) NEGATIVE, Influenza Type B (RT-PCR) NEGATIVE, Respiratory Syncytial Virus (PCR) POSITIVE CBC/BMP Laboratory Tests 07/23/21 14:16 Home Medications Scheduled Bupropion HCl (Bupropion HCl Sr) 200 Mg Tab.sr.12h, 200 MG PO BID Docusate Sodium (Colace) 100 Mg Capsule, 100 MG PO DAILY Enoxaparin Sodium (Lovenox) 60 Mg/0.6 Ml Syringe, 60 MG SC BID Ergocalciferol (Vitamin D2) (Vitamin D2) 50,000 Units Cap, 50,000 UNITS PO QMONTH FIRST OF EVERY MONTH Gabapentin (Gabapentin) 100 Mg Capsule, 200 MG PO QHS Gabapentin (Gabapentin) 400 Mg Capsule, 400 MG PO TID Omeprazole (Omeprazole) 20 Mg Cap, 40 MG PO DAILY Ropinirole HCl (Ropinirole HCl) 0.25 Mg Tablet, 0.25 MG PO TID Simvastatin (Simvastatin) 20 Mg Tablet, 20 MG PO QHS Scheduled PRN Acetaminophen (Acetaminophen) 325 Mg Tablet, 650 MG PO Q4H PRN for MILD PAIN or TEMP > 101 Tramadol HCl (Tramadol HCl) 50 Mg Tablet, 50 MG PO Q6H PRN for PAIN LEVEL 5-10 Allergies Coded Allergies: No Known Drug Allergies (Verified Allergy, Unknown, 06/11/20) A-FIB/CHADSVASC A-FIB History Current/History of A-Fib/PAF?: No Current PO Anticoag Therapy: Yes Treatment Reason Anticoagulant not given: Recent/upcomin procedure JAMAAL HEART DO Jul 23, 2021 15:53
[2021-07-23 16:45] VITALS: BP 155/129
--- NOTE | 2021-07-23 16:48 | CR.PDOC ---
General Date of Consultation: Jul 23, 2021 Consultation REASON FOR CONSULTATION/CHIEF COMPLAINT: Fall with Left leg proximal femoral shaft fracture History obtained from patient and admission H&P HISTORY OF PRESENT ILLNESS: 70-year-old female with a history of unsteady gait, frequent admissions for falls and associated fractures. Reports that she was walking to the bathroom and fell backwards. She was using her walker at the time, but has bee partial wb since her Left tibial plateau fracture from last month. Pain in thigh, unable to wb. Loss of balance without dizziness or otherwise. Patient states that she did hit her head without loss of consciousness. Patient recently had a fall and sustained a fracture of the left tibial plateau which required surgery as performed in [place]. Patient only complains of left thigh pain. History of mechanical aortic and mitral valves, on warfarin. PAST MEDICAL HISTORY: 1. Unsteady gait with frequent admissions for falls. 2. 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 3. Hypertension. 4. Hyperlipidemia 5. COPD 6. Osteoporosis 7. GERD 8. Depression PAST SURGICAL HISTORY: 1. Hysterectomy. 2. Left wrist carpal tunnel surgery. 3. Surgery for left tibial plateau. SOCIAL HISTORY: Patient denies smoking, drinking, or illicit drug use. FAMILY HISTORY: Patient's mother had breast cancer ALLERGIES: Please see below. REVIEW OF SYSTEMS: As described in HPI HOME MEDICATIONS: Please see below. PHYSICAL EXAMINATION: VITAL SIGNS: Temperature 97.6, pulse 84, respiratory rate 18, blood pressure 136/84, pulse oximetry 94% on room air. General: A&O, NAD Ext: Left lower extremity was shortened and rotated externally Neuro: grossly NVI to Left lower extremity with light sensation intact to all distributions. Palpable PT pulse. Moving toes and left ankle Patient placed in Barrow traction using boot. Left leg extended and internally rotated to reduce deformity. Leg length approximated. Cushioned traction boot applied with appropriate tension. 7 lbs of in line traction utilized, as it was able to maintain leg position and not too heavy, as concerns about skin tearing etc. Healing wounds still present from tibial plateau fracture. Thigh padding placed posteriorly. Moving toes and grossly NVI post traction with palpable DP pulse. LABORATORY DATA: See below. X-ray of the left femur was independently reviewed by myself today. Demonstrates Left proximal femoral fracture with posterior displacement, proximalization of distal fragment with rotation. Hardware from prior Tibial plateau fracture noted. Chronic findings of L sup and inf pubic rami fractures, reportedly noted as acute in May 2020. MICROBIOLOGY: Please see below. ASSESSMENT: 70-year-old female with Left proximal femur fracture. . PLAN: 1. Left femur fracture: Patient to be placed in Femoral Barrow traction using traction boot. This was performed on the andrade when the patient was transferred to [place] [id number]. Patient received pain medication in ED prior to application of traction. Plan for surgery tomorrow afternoon. Risks and benefits of surgery explained to patient. Patient signed consent for the procedure and for blood transfusion. Will fluoro left knee and proximal tibia during surgery to assess proximal tibial fracture reduction and hardware. NPO at midnight, pain management, as per hospitalist. See Hospitalist Plan re: Coumadin below, as discussed "History of aortic and mitral valve repair on Coumadin. Patient's INR is 2.17 today. We will not give her a dose of Coumadin tonight. Because the patient will be having her surgery within 24 hours, we will not bridge her to Lovenox at this time. Once the patient surgery is complete and adequate hemostasis is achieved usually within 24 hours, patient will be started on both her Coumadin and therapeutic dose Lovenox. Therapeutic dose Lovenox will be continued until INR is back within the therapeutic range of 2.5-3.5. I did have a discussion about the risks and benefits of holding and bridging the patient's anticoagulation. The benefits of bridging include lowering the patient's stroke risk due to the mechanical nature of the patient's valves. The risks are the this does increase the patient's preoperative and postoperative bleeding. Because the patient is within 24 hours of her expected surgery time, we will not give Lovenox today. If the surgery gets delayed for any reason, Lovenox will be started as Coumadin is held. Patient is aware of the risks and benefits and has agreed to this plan. All questions have been answered. Patient expresses un derstanding of the plan." Vital Signs/I&O Vital Signs Date Time Temp Pulse Resp B/P (MAP) Pulse Ox O2 Delivery O2 Flow Rate FiO2 07/23/21 14:40 18 94 Nasal Cannula 07/23/21 13:39 97.6 07/23/21 13:37 84 136/84 (101) Laboratory Data Labs 24H Laboratory Tests 2 07/23/21 14:16: Immature Granulocyte % (Auto) 1.1, Neutrophils (%) (Auto) 86.6H, Lymphocytes (%) (Auto) 5.0L, Monocytes (%) (Auto) 6.8, Eosinophils (%) (Auto) 0.3, Basophils (%) (Auto) 0.2, Neutrophils # (Auto) 11.4H, Lymphocytes # (Auto) 0.7L, Monocytes # (Auto) 0.9H, Eosinophils # (Auto) 0.0, Basophils # (Auto) 0.0, Nucleated Red Blood Cells % (auto) 0.0, Prothrombin Time 24.5H, Prothromb Time International Ratio 2.17, Anion Gap 8, Glomerular Filtration Rate > 60.0, Calcium Level 8.8, Coronavirus (COVID-19)(PCR) NEGATIVE, Influenza Type A (RT-PCR) NEGATIVE, Influenza Type B (RT-PCR) NEGATIVE, Respiratory Syncytial Virus (PCR) POSITIVE CBC/BMP Laboratory Tests 07/23/21 14:16 Allergies Coded Allergies: No Known Drug Allergies (Verified Allergy, Unknown, 06/11/20) Home Medications Scheduled Bupropion HCl (Bupropion HCl Sr) 200 Mg Tab.sr.12h, 200 MG PO BID, (Reported) Docusate Sodium (Colace) 100 Mg Capsule, 100 MG PO DAILY for 1 Days, #1 Enoxaparin Sodium (Lovenox) 60 Mg/0.6 Ml Syringe, 60 MG SC BID for 1 Days, #1 Ergocalciferol (Vitamin D2) (Vitamin D2) 50,000 Units Cap, 50,000 UNITS PO QMONTH, (Reported) FIRST OF EVERY MONTH Gabapentin (Gabapentin) 100 Mg Capsule, 200 MG PO QHS, (Reported) Gabapentin (Gabapentin) 400 Mg Capsule, 400 MG PO TID, (Reported) Omeprazole (Omeprazole) 20 Mg Cap, 40 MG PO DAILY for 1 Days, #1 Ropinirole HCl (Ropinirole HCl) 0.25 Mg Tablet, 0.25 MG PO TID for 1 Days, #1 Simvastatin (Simvastatin) 20 Mg Tablet, 20 MG PO QHS, (Reported) Scheduled PRN Acetaminophen (Acetaminophen) 325 Mg Tablet, 650 MG PO Q4H PRN for MILD PAIN or TEMP > 101 for 1 Days, #1 Tramadol HCl (Tramadol HCl) 50 Mg Tablet, 50 MG PO Q6H PRN for PAIN LEVEL 5-10, (Reported) JOSE PEGUERO MD Jul 23, 2021 16:48
[2021-07-23 16:50] VITALS: BP 142/110
[2021-07-23] MEDS: PERCOCET 5MG/325MG TAB PO PRN (17:52)
[2021-07-23 18:30] VITALS: BP 128/90
[2021-07-23] MEDS ORDERED: ROPI0.253 PO (19:54)
[2021-07-23] MEDS ORDERED: WARF-18 PO (19:54)
[2021-07-23] MEDS ORDERED: OMEP-218 PO (19:54)
[2021-07-23] MEDS ORDERED: MM S100C PO (19:54)
[2021-07-23] MEDS ORDERED: CARI1TAB7 PO (19:56)
[2021-07-23] MEDS ORDERED: POLY1POW38 PO (19:56)
[2021-07-23] MEDS ORDERED: METO10TA2 PO (19:56)
[2021-07-23] MEDS ORDERED: HOME MED LIST COMPLETE! XX SCH (20:00)
[2021-07-23] MEDS ORDERED: DOCUSATE SODIUM 100MG CAPSULE PO PRN (20:10)
[2021-07-23] MEDS ORDERED: MIRALAX *UNIT DOSE* 17GM PACKET PO PRN (20:10)
[2021-07-23] MEDS: buPROPion (WELLBUTRIN SR) 100 MG SR TAB PO SCH (21:38)
[2021-07-23] MEDS: GABAPENTIN 100 MG CAP PO SCH (21:39)
[2021-07-23] MEDS: GABAPENTIN 400MG CAP PO SCH (21:39)
[2021-07-23] MEDS: oxyCODONE 5MG TAB PO PRN (21:39)
[2021-07-23] MEDS: rOPINIRole 0.25 MG TAB(REQUIP) PO SCH (21:39)
[2021-07-23] MEDS: SIMVASTATIN 20 MG TAB PO SCH (21:39)
[2021-07-23 22:00] VITALS: BP 98/70
[2021-07-23 22:39] VITALS: O2SAT 94
[2021-07-24] VITALS (8 sets, daily range): BP systolic 96–98; BP diastolic 58–70; O2SAT 92
[2021-07-24] MEDS: PERCOCET 5MG/325MG TAB PO PRN ×2 (05:43→11:33)
[2021-07-24 06:47] LABS: HEMOGLOBIN 12.7 g/dl (12.0-15.5); MEAN CORPUSCULAR HEMOGLOBIN 29.3 pg (27.0-33.0); MEAN CORPUSCULAR VOLUME 94.7 fl (80.0-96.0); PLATELET COUNT, AUTOMATED 274 10^3/uL (150-450); RED BLOOD COUNT 4.33 10^6/uL (4.00-5.40); WHITE BLOOD COUNT 8.3 10^3/uL (4.0-10.0)
[2021-07-24 07:04] LABS: INR 2.25; PROTHROMBIN TIME 25.3 SECONDS (12.7-14.5)
[2021-07-24 07:17] LABS: BLOOD UREA NITROGEN 16 MG/DL (7-18); CALCIUM LEVEL 8.8 MG/DL (8.8-10.2); CARBON DIOXIDE LEVEL 26 MEQ/L (21-32); CHLORIDE LEVEL 108 MEQ/L (98-107); CREATININE FOR GFR 0.59 MG/DL (0.55-1.30); GLOMERULAR FILTRATION RATE > 60.0 (>39); GLUCOSE, FASTING 106 MG/DL (70-100); MAGNESIUM LEVEL 1.9 MG/DL (1.8-2.4); POTASSIUM SERUM 3.9 MEQ/L (3.5-5.1); SODIUM LEVEL 143 MEQ/L (136-145)
[2021-07-24] MEDS: oxyCODONE 5MG TAB PO PRN (08:17)
[2021-07-24] MEDS: GABAPENTIN 400MG CAP PO SCH ×3 (08:17→20:04)
[2021-07-24] MEDS: buPROPion (WELLBUTRIN SR) 100 MG SR TAB PO SCH ×2 (08:18→20:04)
[2021-07-24] MEDS: rOPINIRole 0.25 MG TAB(REQUIP) PO SCH ×3 (08:18→20:04)
[2021-07-24] MEDS: OMEPRAZOLE 20 MG CAP PO SCH (08:18)
[2021-07-24] MEDS ORDERED: FLUBLOK(EGG FREE)(QUAD)INFLUENZA VACC 0.5ML SYRINGE 18YRS & OLDER IM ONE (09:00)
[2021-07-24] MEDS: carisoprodoL 350 MG TAB PO PRN ×2 (10:33→10:34)
[2021-07-24] MEDS ORDERED: LR 1,000 ML IV SCH ×2 (12:20→18:35)
--- NOTE | 2021-07-24 12:34 | IPNPDOC ---
Text Note Date of Service The patient was seen on 07/24/21. NOTE Subjective: Patient is a 70-year-old female with a history of unsteady gait and frequent admissions for falls with fractures who was walking to the bathroom and fell backwards. Patient has pain in her left thigh was found to have a femur fracture. Patient was placed in traction by orthopedic surgery last night with plan to have surgery later on today. Patient says she is otherwise feeling well other than the hip pain. No acute events overnight. Patient did have to be placed on some oxygen therapy. Patient was found to have RSV. Review of systems: General: Patient denies fevers HEENT: Patient denies headaches Cardiovascular: Patient denies chest pain Respiratory: Patient denies shortness of breath, cough GI: Patient denies abdominal pain, nausea, vomiting, diarrhea : Patient denies increased frequency or pain with urination Extremities: Patient reports pain in her left thigh Neurological: Patient denies numbness or tingling in legs Physical exam: Vitals: See below General: Alert and oriented female patient who was laying in bed when I walked in. Patient not appear to be in any acute distress. HEENT: Normocephalic, atraumatic, moist mucous membranes. Neck: No lymphadenopathy or thyromegaly Cardiac: Regular rate and rhythm, mechanical valves can be heard loudest in the second intercostal space on the right and at the apex, normal S1, normal S2 Pulm: Clear to auscultation bilaterally. No wheezes, rhonchi, rales Abd: Nondistended, nontender to palpation, normal bowel sounds Ext: No edema bilateral lower extremities patient was neurovascularly intact distal to the placement of the traction boot Labs: See below Imaging: No new imaging has been performed Assessment/plan: 70-year-old female presented to hospital after falling was found to have a left hip/femur fracture 1. Left hip/femur fracture. Dr. Goetz of orthopedic surgery will plan on doing surgery today. Patient was placed in traction. Pain medication has been ordered. 2. History of aortic and mitral valve repair on Coumadin. Patient's INR today is 2.25. Patient is at increased risk of bleeding because of the elevated INR however, patient had her Coumadin held last night. Plan is within 24 hours of the surgery as long as there is adequate hemostasis to bridge the patient starting with full dose Lovenox at 1 mg/kg given twice daily until the INR is back in the therapeutic range. Coumadin will be started at the same time. Once the patient's INR is in the 2.5-3.5 range, Lovenox can be stopped. I did discuss this with the patient yesterday about the risks and benefits of holding her anticoagulation and bridging the patient with the increased risk of stroke. Patient understands these risks and is willing to undergo holding of anticoagulation and then bridging after surgery to have the surgery done to stabilize her femur fracture. 3. Hypertension. Continue patient's home medications. 4. Hyperlipidemia. Continue patient's medications. 5. COPD. Monitor closely in the postoperative period. 6. RSV. Patient's respiratory panel on admission to the hospital was negative Covid however positive RSV. Patient be monitored closely for any respiratory symptoms. We will treat any respiratory symptoms symptomatically. DVT Prophylaxis: Teds and sequentials at this time, INR is 2.25 today, after surgery patient will be bridged with heparin and warfarin Disposition: Pending surgery and successful bridging of the patient's anticoagulation Late entry: Patient did well with surgery according to Dr. Goetz who contacted me. Patient will be started on Lovenox and warfarin tomorrow morning as long as the patient's bleeding has been controlled. Once the patient's INR is back into her therapeutic range of 2.5-3.5, Lovenox can be stopped. Patient will be on 60 mg of Lovenox twice daily for full anticoagulation. VS,Fishbone, I+O VS, Fishbone, I+O Laboratory Tests 07/23/21 14:16 07/24/21 06:28 Vital Signs Date Time Temp Pulse Resp B/P (MAP) Pulse Ox O2 Delivery O2 Flow Rate FiO2 07/24/21 11:33 18 Room Air 07/24/21 08:17 100 07/24/21 06:22 98.3 82 98/70 (79) 1.0 I&O- Last 24 Hours up to 6 AM 07/24/21 06:00 Intake Total 0 ml Balance 0 ml SLYJAMAAL Jul 24, 2021 12:34
[2021-07-24] MEDS ORDERED: LIDOCAINE 2% 100MG/5ML SDV (FOR ANES.) As Ordered ONE (14:58)
[2021-07-24] MEDS ORDERED: ROCURONIUM BROMIDE 50 MG/5 ML VIAL As Ordered ONE (14:58)
[2021-07-24] MEDS ORDERED: ONDANSETRON 4MG/2ML VIAL As Ordered ONE (14:58)
[2021-07-24] MEDS ORDERED: METOCLOPRAMIDE INJ 10MG/2ML VIAL (J2765 PER 1) As Ordered ONE (14:58)
[2021-07-24] MEDS ORDERED: propofoL 200 MG/20 ML VIAL As Ordered ONE (14:58)
[2021-07-24] MEDS ORDERED: fentaNYL 100 MCG/2 ML INJECTION (J3010) As Ordered ONE (15:00)
[2021-07-24] MEDS ORDERED: MIDAZOLAM INJ 2MG/2ML VIAL (J2250 PER 1MG) As Ordered ONE (15:00)
[2021-07-24] MEDS ORDERED: BUPIVACAINE/EPIN 0.5% 30 ML VIAL As Ordered ONE (15:04)
[2021-07-24] MEDS ORDERED: TRANEXAMIC ACID 100 MG/ML 10ML VIAL As Ordered ONE (15:04)
[2021-07-24] MEDS ORDERED: ceFAZolin 1GM VIAL (J0690 PER 500MG) As Ordered ONE (15:27)
[2021-07-24] MEDS ORDERED: PHENYLEPHRINE 10MG/ML 1ML VIAL (J2370 PER 1) As Ordered ONE (16:58)
[2021-07-24] MEDS ORDERED: PHENYLephrine 500MCG 5ML (100MCG/ML) SYRINGE As Ordered ONE (16:58)
[2021-07-24] MEDS ORDERED: ePHEDrine SULFATE 25 MG/5 ML(5MG/ML) SYRINGE As Ordered ONE (16:58)
[2021-07-24] MEDS ORDERED: ACETAMINOPHEN 1000MG 100ML IV BTL (OFIRMEV) (J0131 PER 10MG) As Ordered ONE (16:58)
[2021-07-24] MEDS ORDERED: SUGAMMADEX SODIUM 500 MG/5 ML VIAL (BRIDION) As Ordered ONE (16:58)
--- NOTE | 2021-07-24 17:52 | REP ---
INDICATION: LEFT FEMUR FRACTURE. COMPARISON: None. TECHNIQUE: Fourteen fluoroscopic spot views obtained during ORIF and intramedullary shahab placement in my absentia. 2 minutes and 39 seconds of fluoroscopy time was provided. Or FINDINGS: The previously described fractures have been openly reduced and internally fixed with internal fixation plate, fixing screws, and an intramedullary shahab. The tip of the lag screw in the femoral neck does not breach the joint space. The alignment is near anatomical. The previously described proximal tibial and fibular fractures have been reduced. Alignment is improved. IMPRESSION: As above <Electronically signed by Duane Fuller > 07/24/21 [id number]
--- NOTE | 2021-07-24 17:56 | REP ---
INDICATION: OPST OP IN PACU. COMPARISON: Pre operative exam of yesterday TECHNIQUE: AP and lateral views obtained portably FINDINGS: The previously described proximal femoral fracture has been openly reduced and internally fixed with an intramedullary shahab and a femoral neck lag screw. The tip of the lag screw does not breach the joint space. The alignment is near anatomical. IMPRESSION: As above <Electronically signed by Duane Fuller > 07/24/21 [id number]
--- NOTE | 2021-07-24 18:05 | ROOPDOC ---
[facility] Report Of Operation Report of Operation DATE OF PROCEDURE: 07/24/21 PREPROCEDURE DIAGNOSES: Left proximal femur fracture POSTPROCEDURE DIAGNOSES: Left proximal femur fracture PROCEDURE PERFORMED: Open reduction internal fixation with long gamma nail SURGEON: Fahad Peguero MD SLAB INSPECTOR: Shruthi Pineda PA-C ANESTHESIA: General ESTIMATED BLOOD LOSS: Approximately 150 mL. COMPLICATIONS: No known complications REMARKS: Patient was seen earlier today when she was still in traction which was placed yesterday in early evening. The patient was grossly neurovascularly intact and comfortable. FINDINGS: 2 part left proximal femur fracture SPECIMENS REMOVED: None PROCEDURE NOTE: [place] gamma nail left hip intramedullary nail 360 mm x 13 mm diameter. 47.5 mm distal locking screw in the oblong hole and 85 mm cephalomedullary screw with set screw DESCRIPTION OF PROCEDURE: The patient was brought to the operating room after her appropriate extremity was signed in the preoperative area. A surgical pause was carried out and a general anesthetic was induced while the patient was on the bed. The patient was then transferred to the traction table. The left lower extremity was placed in the traction boot with appropriate padding. The right leg was placed in the well-leg barbosa with appropriate padding. The patient was appropriately secured safely to the bed with appropriate padding. X-ray imaging was utilized after traction and rotation was appropriately applied. The fracture site and the tip of the greater trochanter were marked with a marking pen and the incision line was marked. X-ray imaging of the patient's left proximal tibia was also performed under fluoroscopy as the patient had a recent open reduction internal fixation there. There did not appear to be any obvious acute on chronic fracture there. The patient underwent a sterile prep and drape. Under fluoroscopy the fracture was reduced as much as possible additional traction was applied. A 10 cm skin incision was performed proximal to the GT. This was carried down through skin fat and subcutaneous tissue to the fascia. The awl was used to introduce an opening in the tip of the greater trochanter. The wire was advanced. This was removed and a small band was placed at the tip to allow directional positioning. This was readvanced quite easily across the fracture site. Under fluoroscopy this was guided down to the distal femur using AP and lateral imaging. This was appropriately measured to 360 mm. The soft tissue guide and opening reamer were utilized. Reaming then started with a 9 mm and was advanced up to a 14.5 mm reamer as it was passed across the fracture site. A 13 mm diameter nail was then chosen. This was advanced under AP and lateral fluoroscopy across the fracture site. This did have to be malleted. This did help to reduce the fracture. Once this was crossed imaging was checked to ensure that there were no complications distally and proximally. The guidewire was removed without complication The cephalomedullary screw guide was then placed. A small skin incision was made and this was carried down through the fascia. The guide was placed adjacent to the bone and locked in position. Using fluoroscopy the cephalomedullary pin was placed under AP and lateral fluoroscopic guidance. This was placed appropriately near center center head. This was measured to be approximately 85 mm. The reamer was then advanced under fluoroscopic guidance. The appropriate screw was then placed. The setscrew was then placed. Imaging was confirmed on AP and lateral fluoroscopy. Some traction was let off the boot and this close down some of the gap. The oblong screw hole was utilized distally for perfect circles which was performed under lateral fluoroscopy. Skin incision was made and the drill was passed through the oblong hole in both cortices of the bone. This was measured to approximately 40 7.5 millimeter screw. This was advanced and checked under AP and lateral fluoroscopy. Wounds were irrigated with normal sterile saline. The two distal wounds for the stab incisions were closed with running Monocryl suture. The proximal incision for the nail insertion was closed with #1 Vicryl for the fascia followed by #1 Vicryl for the fat and subcutaneous tissue then a running two-point 0 subcuti cular and the skin was closed with three-point 0 Monocryl. Mastisol Steri-Strips Telfa and Tegaderm dressings were placed. Patient tolerated the procedure well with no known complications. Her anesthetic was reversed and she was transferred to her bed and taken to recovery room in stable condition. The hospitalist service was advised of her arrival in recovery. The patient will be touch weightbearing to the left lower extremity associated with her proximal tibial fracture and left proximal femur fracture. She will likely require rehabilitation. FAHAD PEGUERO MD Jul 24, 2021 18:05
[2021-07-24] MEDS ORDERED: SENNA 8.6 MG TAB (SENOKOT) PO PRN (18:25)
[2021-07-24] MEDS: LR 1,000 ML IV SCH (18:25)
[2021-07-24] MEDS ORDERED: fentaNYL 100 MCG/2 ML INJECTION (J3010) IV PRN (18:35)
[2021-07-24] MEDS ORDERED: oxyCODONE 5MG TAB PO PRN (18:35)
[2021-07-24] MEDS ORDERED: MORPHINE 2 MG/ML 1ML VIAL (J2270) IV PRN (18:35)
[2021-07-24] MEDS ORDERED: ONDANSETRON 4MG/2ML VIAL IV PRN (18:35)
[2021-07-24] MEDS: SIMVASTATIN 20 MG TAB PO SCH (20:04)
[2021-07-24] MEDS: DOCUSATE SODIUM 100MG CAPSULE PO SCH (20:04)
[2021-07-24] MEDS: GABAPENTIN 100 MG CAP PO SCH (20:04)
[2021-07-24] MEDS: NAPROXEN 250 MG TAB PO SCH (20:05)
[2021-07-24] MEDS: ACETAMINOPHEN TAB 650MG DOSE (2X325MG) PO SCH (23:53)
[2021-07-24] MEDS: ceFAZolin SOD 2 GM in IV 1 EA IV SCH (23:53)
[2021-07-25 02:00] VITALS: BP_SYST 94; BP_DIAS 62; BP_DIAS 92
[2021-07-25] MEDS: carisoprodoL 350 MG TAB PO PRN ×2 (05:44→19:12)
[2021-07-25] MEDS: ACETAMINOPHEN TAB 650MG DOSE (2X325MG) PO SCH ×4 (05:44→17:59)
[2021-07-25] MEDS: LR 1,000 ML IV SCH ×2 (05:45→12:52)
[2021-07-25 06:00] VITALS: BP 117/53
[2021-07-25 06:41] LABS: HEMATOCRIT 31.6 % (36.0-47.0); MEAN CORPUSCULAR HEMOGLOBIN 29.7 pg (27.0-33.0); MEAN CORPUSCULAR HGB CONC 30.7 g/dl (32.0-36.5); MEAN CORPUSCULAR VOLUME 96.6 fl (80.0-96.0); PLATELET COUNT, AUTOMATED 204 10^3/uL (150-450); RED BLOOD COUNT 3.27 10^6/uL (4.00-5.40); WHITE BLOOD COUNT 7.1 10^3/uL (4.0-10.0)
[2021-07-25 06:49] LABS: INR 2.86; PROTHROMBIN TIME 30.4 SECONDS (12.7-14.5)
[2021-07-25 06:54] LABS: HEMOGLOBIN 9.7 g/dl (12.0-15.5)
[2021-07-25 07:01] LABS: BLOOD UREA NITROGEN 12 MG/DL (7-18); CALCIUM LEVEL 8.2 MG/DL (8.8-10.2); CARBON DIOXIDE LEVEL 29 MEQ/L (21-32); CHLORIDE LEVEL 109 MEQ/L (98-107); CREATININE FOR GFR 0.51 MG/DL (0.55-1.30); GLOMERULAR FILTRATION RATE > 60.0 (>39); GLUCOSE, FASTING 90 MG/DL (70-100); MAGNESIUM LEVEL 1.7 MG/DL (1.8-2.4); POTASSIUM SERUM 3.6 MEQ/L (3.5-5.1); SODIUM LEVEL 144 MEQ/L (136-145)
[2021-07-25] MEDS: GABAPENTIN 400MG CAP PO SCH ×3 (08:07→20:12)
[2021-07-25] MEDS: OMEPRAZOLE 20 MG CAP PO SCH (08:07)
[2021-07-25] MEDS: rOPINIRole 0.25 MG TAB(REQUIP) PO SCH ×3 (08:07→20:12)
[2021-07-25] MEDS: oxyCODONE 5MG TAB PO PRN ×3 (08:07→17:58)
[2021-07-25] MEDS: DOCUSATE SODIUM 100MG CAPSULE PO SCH ×2 (08:08→20:11)
[2021-07-25] MEDS: ASCORBIC ACID 500 MG TAB PO SCH (08:08)
[2021-07-25] MEDS: NAPROXEN 250 MG TAB PO SCH ×2 (08:10→20:12)
[2021-07-25] MEDS: FERROUS SULFATE 325MG TAB PO SCH (08:10)
[2021-07-25] MEDS: ceFAZolin SOD 2 GM in IV 1 EA IV SCH (08:10)
[2021-07-25] MEDS: buPROPion (WELLBUTRIN SR) 100 MG SR TAB PO SCH ×2 (08:11→20:12)
[2021-07-25] MEDS ORDERED: ENOXAPARIN 60MG/0.6ML SYRINGE (J1650 PER 10MG) SC SCH (09:00)
--- NOTE | 2021-07-25 09:09 | IPNPDOC ---
Text Note Date of Service The patient was seen on 07/25/21. NOTE Patient is postop day 1 from a left proximal femur fracture The patient was being evaluated by Dr. Adam of the hospitalist service this morning. She did test positive for RSV and she does have a wet cough. The hospitalist service is monitoring the patient for this. Otherwise she does not have any significant complaints or concerns. Examination of the right lower extremity demonstrates the 3 incisions dressed appropriately with no evidence of any staining or drainage. She is grossly neurovascularly intact to her left foot to light touch. She is able to move her toes and her foot and ankle. She has a palpable dorsalis pedis pulse. X-ray imaging was independently ordered and reviewed by myself. This imaging was taken in the recovery room. This demonstrates the fracture in good position with an acceptable reduction for the left proximal femur fracture. Overall the patient is doing well. The plan will be for rehabilitation. She will be seen for follow-up at her 2-week follow-up marisel with repeat x-ray imaging. Dressings to remain in tact and changed every 3 days or if visibly soiled VS,Fishbone, I+O VS, Fishbone, I+O Laboratory Tests 07/25/21 05:37 Vital Signs Date Time Temp Pulse Resp B/P (MAP) Pulse Ox O2 Delivery O2 Flow Rate FiO2 07/25/21 08:07 18 Room Air 07/25/21 06:00 97.7 86 117/53 (74) 94 2.0 I&O- Last 24 Hours up to 6 AM 07/25/21 06:00 Intake Total 2039 ml Output Total 350 ml Balance 1689 ml JOSE PEGUERO MD Jul 25, 2021 09:09
[2021-07-25 09:45] VITALS: O2SAT 94
[2021-07-25] MEDS: traMADol 50 MG TAB PO PRN ×2 (10:44→16:27)
--- NOTE | 2021-07-25 14:32 | IPNPDOC ---
Text Note Date of Service The patient was seen on 07/25/21. NOTE Subjective: Patient is a 70-year-old female history of unsteady gait and freq uent admissions for falls with fractures who was walking to the bathroom and fell backwards. Patient fractured her femur which was surgically repaired yesterday. Patient not have any acute events overnight. Patient was placed on oxygen therapy overnight as she was desatting. Patient was found to have RSV and does have a history of COPD. Patient denies any shortness of breath but is coughing a little bit. Review of systems: General: Patient denies fevers HEENT: Patient denies headaches Cardiovascular: Patient denies chest pain Respiratory: Patient reports mild cough but denies any shortness of breath GI: Patient denies abdominal pain, nausea, vomiting, diarrhea : Patient denies increased frequency or pain with urination Extremities: Patient denies swelling or pain in extremities Neurological: Patient denies numbness or tingling in legs Physical exam: Vitals: See below General: Alert and oriented female who is laying in bed when I walked in. Patient not appear to be in any acute distress. HEENT: Normocephalic, atraumatic, moist mucous membranes. Neck: No lymphadenopathy or thyromegaly Cardiac: Regular rate and rhythm, no murmurs, normal S1, normal S2 Pulm: Clear to auscultation bilaterally. No wheezes, rhonchi, rales Abd: Nondistended, nontender to palpation, normal bowel sounds Ext: No edema bilateral lower extremities, dressing on the lateral aspect of the left thigh was clean dry and intact Labs: See below Imaging: Guidance fluoroscopy performed on 07/24/2021 was reported to show previously described fractures have been openly reduced and internally fixated with internal fixation plate, fixing screws, and intramedullary shahab. The tip of the lag screw in the femoral neck does not breach the joint space. The alignment is near anatomical. The previously described proximal tibial and fibular fractures have been reduced. Alignment is improved. Left femur x-ray performed on 07/24/2021 was reported to show previous described proximal femur fracture and openly reduced and internally fixated with intramedullary shahab and femoral neck lag screw. The tip of the lag screw does not breach the joint space. The alignment is near anatomical Assessment/plan: 70-year-old female presented to hospital after falling who was found to have a left hip/femur fracture 1. Left hip/femur fracture. Dr. Goetz of orthopedic surgery performed surgery yesterday which went well. Patient is doing well and we will continue with PT and OT. 2. History of aortic and mitral mechanical valve on Coumadin. Patient's INR today is 2.86 which is within her therapeutic range. Plan was to give patient Lovenox however, because the INR is back in the therapeutic range for the patient, this will not be necessary and patient will resume Coumadin therapy tonight. 3. Hypertension. Continue patient's home medications. 4. Hyperlipidemia. Continue patient's on medications. 5. COPD. Patient does not appear to be in exacerbation today however, we will need to monitor closely due to her RSV. 6. RSV. Patient's respiratory panel on admission to the hospital is negative for Covid however positive RSV. Patient will be monitored closely due to COPD and possibility for exacerbation. DVT Prophylaxis: Coumadin Disposition: Pending physical therapy placement VS,Mary Kay, I+O VS, Jamele, I+O Laboratory Tests 07/25/21 05:37 Vital Signs Date Time Temp Pulse Resp B/P (MAP) Pulse Ox O2 Delivery O2 Flow Rate FiO2 07/25/21 14:01 18 Room Air 07/25/21 09:45 94 07/25/21 06:00 97.7 86 117/53 (74) 2.0 I&O- Last 24 Hours up to 6 AM 07/25/21 06:00 Intake Total 2039 ml Output Total 350 ml Balance 1689 ml JAMAAL HEART DO Jul 25, 2021 14:32
[2021-07-25] MEDS ORDERED: FLUBLOK(EGG FREE)(QUAD)INFLUENZA VACC 0.5ML SYRINGE 18YRS & OLDER IM ONE (15:00)
[2021-07-25] MEDS: WARFARIN SOD 2.5MG TAB PO SCH (16:27)
[2021-07-25] MEDS: ONDANSETRON 4MG/2ML VIAL IV PRN (17:57)
[2021-07-25] MEDS: GABAPENTIN 100 MG CAP PO SCH (20:11)
[2021-07-25] MEDS: SIMVASTATIN 20 MG TAB PO SCH (20:11)
[2021-07-25 21:00] VITALS: O2SAT 93
[2021-07-25 21:29] VITALS: BP 106/62
[2021-07-26] MEDS: LR 1,000 ML IV SCH (00:25)
[2021-07-26 06:00] VITALS: BP 108/54
[2021-07-26] MEDS: ACETAMINOPHEN TAB 650MG DOSE (2X325MG) PO SCH ×3 (06:07→17:17)
[2021-07-26 07:15] LABS: HEMATOCRIT 28.5 % (36.0-47.0); HEMOGLOBIN 8.8 g/dl (12.0-15.5); MEAN CORPUSCULAR HEMOGLOBIN 29.6 pg (27.0-33.0); MEAN CORPUSCULAR HGB CONC 30.9 g/dl (32.0-36.5); PLATELET COUNT, AUTOMATED 193 10^3/uL (150-450); RED BLOOD COUNT 2.97 10^6/uL (4.00-5.40); WHITE BLOOD COUNT 9.8 10^3/uL (4.0-10.0)
[2021-07-26 07:30] LABS: BLOOD UREA NITROGEN 16 MG/DL (7-18); CALCIUM LEVEL 7.8 MG/DL (8.8-10.2); CARBON DIOXIDE LEVEL 28 MEQ/L (21-32); CHLORIDE LEVEL 109 MEQ/L (98-107); CREATININE FOR GFR 0.39 MG/DL (0.55-1.30); GLOMERULAR FILTRATION RATE > 60.0 (>39); GLUCOSE, FASTING 115 MG/DL (70-100); INR 3.31; MAGNESIUM LEVEL 1.8 MG/DL (1.8-2.4); POTASSIUM SERUM 3.9 MEQ/L (3.5-5.1); PROTHROMBIN TIME 33.9 SECONDS (12.7-14.5); SODIUM LEVEL 143 MEQ/L (136-145)
[2021-07-26] MEDS: rOPINIRole 0.25 MG TAB(REQUIP) PO SCH ×3 (08:27→21:01)
[2021-07-26] MEDS: DOCUSATE SODIUM 100MG CAPSULE PO SCH ×2 (08:27→21:01)
[2021-07-26] MEDS: GABAPENTIN 400MG CAP PO SCH ×3 (08:27→21:01)
[2021-07-26] MEDS: NAPROXEN 250 MG TAB PO SCH ×2 (08:27→21:01)
[2021-07-26] MEDS: FERROUS SULFATE 325MG TAB PO SCH (08:27)
[2021-07-26] MEDS: buPROPion (WELLBUTRIN SR) 100 MG SR TAB PO SCH ×2 (08:27→21:02)
[2021-07-26] MEDS: ASCORBIC ACID 500 MG TAB PO SCH (08:27)
[2021-07-26] MEDS: OMEPRAZOLE 20 MG CAP PO SCH (08:27)
[2021-07-26] MEDS: carisoprodoL 350 MG TAB PO PRN (08:32)
--- NOTE | 2021-07-26 13:27 | IPNPDOC ---
Text Note Date of Service The patient was seen on 07/26/21. NOTE Subjective: Patient is a 71-year-old female who presents to the hospital after a fall and a fracture of her femur. This was surgically repaired 2 days ago. Patient does not have any acute events overnight. Patient was placed on oxygen therapy overnight when she was desaturating. Patient was found to have RSV does have a history of COPD. Patient denies any shortness of breath but is coughing. Review of systems: General: Patient denies fevers HEENT: Patient denies headaches Cardiovascular: Patient denies chest pain Respiratory: Patient reports a cough that is nonproductive but denies any shortness of breath GI: Patient denies abdominal pain, nausea, vomiting, diarrhea : Patient denies increased frequency or pain with urination Extremities: Patient reports pain in her left thigh. Neurological: Patient denies numbness or tingling in legs Physical exam: Vitals: See below General: Alert and oriented female patient was laying in bed when I walked in. Patient did not appear to be in any acute distress. HEENT: Normocephalic, atraumatic, moist mucous membranes. Neck: No lymphadenopathy or thyromegaly Cardiac: Regular rate and rhythm, mechanical aortic and mitral valve can be heard opening and closing, normal S1, normal S2 Pulm: Clear to auscultation bilaterally. No wheezes, rhonchi, rales Abd: Nondistended, nontender to palpation, normal bowel sounds Ext: No edema bilateral lower extremities Labs: See below Imaging: No new imaging performed Assessment/plan: 71-year-old female presented to the hospital following found to have a left hip/femur fracture 1. Left hip/femur fracture. Dr. Goetz orthopedic surgery who performed surgery 2 days ago which went well. Patient will continue with PT and OT. 2. 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 Patient's INR is 3.3 today which is within her therapeutic range. Continue Coumadin. 3. Hypertension. Continue patient's on medications. 4. Hyperlipidemia. Continue patient's home medications. 5. COPD. Does not appear to be in exacerbation today however will need to cl osely monitor due to RSV infection. 6. RSV. Patient's respiratory panel admission to the hospital is negative for Covid however positive RSV. Closely monitor due to history of COPD. DVT Prophylaxis: Full anticoagulation with Coumadin Disposition: Pending physical therapy VS,Fishbone, I+O VS, Fishbone, I+O Laboratory Tests 07/26/21 06:29 Vital Signs Date Time Temp Pulse Resp B/P (MAP) Pulse Ox O2 Delivery O2 Flow Rate FiO2 07/26/21 06:00 99.0 89 20 108/54 (72) 96 Nasal Cannula 2.0 I&O- Last 24 Hours up to 6 AM 07/26/21 06:00 Intake Total 1160 ml Output Total 0 ml Balance 1160 ml JAMAAL HEART DO Jul 26, 2021 13:27
[2021-07-26] MEDS: oxyCODONE 5MG TAB PO PRN (13:42)
[2021-07-26 14:00] VITALS: BP 98/61
[2021-07-26] MEDS: WARFARIN SOD 2.5MG TAB PO SCH (17:17)
[2021-07-26] MEDS: SIMVASTATIN 20 MG TAB PO SCH (21:01)
[2021-07-26] MEDS: GABAPENTIN 100 MG CAP PO SCH (21:01)
[2021-07-26 22:00] VITALS: BP 103/57
[2021-07-27] VITALS (10 sets, daily range): BP systolic 84–126; BP diastolic 54–64; O2SAT 95
[2021-07-27] MEDS: oxyCODONE 5MG TAB PO PRN ×3 (00:08→20:43)
[2021-07-27] MEDS: ACETAMINOPHEN TAB 650MG DOSE (2X325MG) PO SCH ×4 (00:08→17:22)
[2021-07-27 07:06] LABS: HEMATOCRIT 26.5 % (36.0-47.0); HEMOGLOBIN 8.2 g/dl (12.0-15.5); MEAN CORPUSCULAR HEMOGLOBIN 29.6 pg (27.0-33.0); MEAN CORPUSCULAR HGB CONC 30.9 g/dl (32.0-36.5); MEAN CORPUSCULAR VOLUME 95.7 fl (80.0-96.0); PLATELET COUNT, AUTOMATED 216 10^3/uL (150-450); RED BLOOD COUNT 2.77 10^6/uL (4.00-5.40); WHITE BLOOD COUNT 6.4 10^3/uL (4.0-10.0)
[2021-07-27 07:25] LABS: INR 2.83; PROTHROMBIN TIME 30.1 SECONDS (12.7-14.5)
[2021-07-27 07:26] LABS: BLOOD UREA NITROGEN 15 MG/DL (7-18); CARBON DIOXIDE LEVEL 30 MEQ/L (21-32); CHLORIDE LEVEL 109 MEQ/L (98-107); CREATININE FOR GFR 0.48 MG/DL (0.55-1.30); GLOMERULAR FILTRATION RATE > 60.0 (>39); GLUCOSE, FASTING 81 MG/DL (70-100); MAGNESIUM LEVEL 1.8 MG/DL (1.8-2.4); POTASSIUM SERUM 4.2 MEQ/L (3.5-5.1); SODIUM LEVEL 143 MEQ/L (136-145)
[2021-07-27] MEDS ORDERED: FUROSEMIDE 20MG/2ML VIAL (J1940) IV ONE (08:15)
[2021-07-27] MEDS: buPROPion (WELLBUTRIN SR) 100 MG SR TAB PO SCH ×2 (08:36→20:42)
[2021-07-27] MEDS: ASCORBIC ACID 500 MG TAB PO SCH (08:36)
[2021-07-27] MEDS: rOPINIRole 0.25 MG TAB(REQUIP) PO SCH ×3 (08:36→20:44)
[2021-07-27] MEDS: FERROUS SULFATE 325MG TAB PO SCH (08:36)
[2021-07-27] MEDS: OMEPRAZOLE 20 MG CAP PO SCH (08:37)
[2021-07-27] MEDS: GABAPENTIN 400MG CAP PO SCH ×3 (08:37→20:44)
[2021-07-27] MEDS: NAPROXEN 250 MG TAB PO SCH ×2 (08:37→20:45)
[2021-07-27] MEDS: DOCUSATE SODIUM 100MG CAPSULE PO SCH ×2 (08:38→20:45)
--- NOTE | 2021-07-27 11:26 | IPNPDOC ---
Text Note Date of Service The patient was seen on 07/27/21. NOTE Subjective: Patient is a 71-year-old female presents the hospital after a fall and a fracture to her left femur. Surgically repaired 3 days ago. Patient states that she has been more fatigued so she can work on physical therapy over the past few days. Patient's hemoglobin has dropped from admission to 8.2 today. Patient was diagnosed with RSV but does not complain of any shortness of breath at this time. Patient reports a nonproductive cough. I was called at the end of the shift yesterday to evaluate the patient as the patient had been leaning more to the right. Patient states he has been leaning more to the right for the past 2 weeks. Patient was otherwise neurologically intact and had an NIH stroke scale of 0 on examination yesterday. Review of systems: General: Patient denies fevers HEENT: Patient denies headaches Cardiovascular: Patient denies chest pain Respiratory: Patient reports nonproductive cough, denies shortness of breath GI: Patient denies abdominal pain, nausea, vomiting, diarrhea : Patient denies increased frequency or pain with urination Extremities: Patient denies swelling or pain in extremities Neurological: Patient denies numbness or tingling in legs Physical exam: Vitals: See below General: Alert and oriented female patient who was sitting up in bed when I walked in. Patient did not appear to be in any acute distress. HEENT: Normocephalic, atraumatic, moist mucous membranes. Neck: No lymphadenopathy or thyromegaly Cardiac: Regular rate and rhythm, no murmurs, normal S1, normal S2 Pulm: Inspiratory crackles heard in the bilateral bases. Abd: Nondistended, nontender to palpation, normal bowel sounds Ext: 1+ pitting edema worse in the left lower extremity with trace pitting edema in the right lower extremity Neuro: Cranial nerves III through XII intact bilaterally, [id number] testing intact bilaterally, strength equal in upper and lower extremities although left hip flexion, knee flexion and extension was not tested due to the patient's recent surgery and this causing too much pain for the patient. Patient reported equal sensation to light touch in upper and lower extremities bilaterally Labs: See below Imaging: No new imaging is been performed Assessment/plan: 71-year-old female present to hospital found to have a left hip/femur fracture. 1. Left hip/femur fracture. Dr. Goetz of orthopedic surgery performed surgery 3 days ago which went well. Patient continue with PT OT. Possible ARU vanessa [facility] tomorrow. 2. Symptomatic anemia. Patient's hemoglobin has dropped from 13.7 on admission to 8.2 today. Patient received 1 unit of blood today we will continue to monitor. Stool occult blood has been ordered. INR is in the therapeutic range and I do not believe the patient requires any immediate reversal therapy to stop any bleeding and she does not have any signs of bleeding at this time. 3. 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 INR is within therapeutic range today. Continue her home dose of Coumadin. 4. Hypertension. Continue patient's home medications. 5. Hyperlipidemia. Continue patient's home medications. 6. COPD. Does not appear in exacerbation today. Closely monitor due to RSV infection. 7. RSV. Patient's respiratory panel on admission for the hospital was negative for Covid however positive RSV. Closely monitor patient's history of COPD. Treat symptoms with supportive care. 8. Fluid overload. On exam, patient appears fluid overloaded. Since we are going to give the patient a blood transfusion, patient will receive a dose of 20 mg of Lasix IV after the transfusion. DVT Prophylaxis: Full anticoagulation on Coumadin Disposition: Pending physical therapy, possible placement in ARU tomorrow. Late entry: Patient was having hypotension after receiving IV Lasix. 500 cc bolus was given. We will recheck her blood pressure after the bolus. Patient's crackles may have been secondary to the patient's RSV and not fluid overload. We will monitor the patient's blood pressure and decide if she needs more fluid. Late entry: Patient responded well to the 500 cc bolus and her blood pressure is 110/60. No further fluid boluses necessary at this time. Patient states that her blood pressure is always low in her right arm and is always normal in her left arm and last time she is in the hospital they only took blood pressures in her left arm. I instructed nursing to only take blood pressures in the left arm. VS,Fishbone, I+O VS, Fishbone, I+O Laboratory Tests 07/27/21 06:27 Vital Signs Date Time Temp Pulse Resp B/P (MAP) Pulse Ox O2 Delivery O2 Flow Rate FiO2 07/27/21 10:35 98.8 87 16 123/64 92 Room Air 07/27/21 06:00 2.0 I&O- Last 24 Hours up to 6 AM 07/27/21 06:00 Intake Total 770 ml Output Total 0 ml Balance 770 ml JAMAAL HEART DO Jul 27, 2021 11:26
[2021-07-27] MEDS ORDERED: NS 500 ML IV ONE (14:45)
[2021-07-27] MEDS: WARFARIN SOD 2.5MG TAB PO SCH (17:21)
[2021-07-27 17:38] LABS: HEMATOCRIT 31.5 % (36.0-47.0); HEMOGLOBIN 9.9 g/dl (12.0-15.5); MEAN CORPUSCULAR HGB CONC 31.4 g/dl (32.0-36.5); MEAN CORPUSCULAR VOLUME 92.4 fl (80.0-96.0); PLATELET COUNT, AUTOMATED 235 10^3/uL (150-450); RED BLOOD COUNT 3.41 10^6/uL (4.00-5.40); WHITE BLOOD COUNT 7.4 10^3/uL (4.0-10.0)
[2021-07-27] MEDS: SIMVASTATIN 20 MG TAB PO SCH (20:44)
[2021-07-27] MEDS: GABAPENTIN 100 MG CAP PO SCH (20:44)
[2021-07-28] MEDS: ACETAMINOPHEN TAB 650MG DOSE (2X325MG) PO SCH ×4 (05:10→17:58)
[2021-07-28] MEDS: oxyCODONE 5MG TAB PO PRN ×2 (05:53→20:45)
[2021-07-28 06:00] VITALS: BP 116/63
[2021-07-28 06:42] LABS: HEMATOCRIT 29.6 % (36.0-47.0); HEMOGLOBIN 9.2 g/dl (12.0-15.5); MEAN CORPUSCULAR HEMOGLOBIN 28.8 pg (27.0-33.0); MEAN CORPUSCULAR HGB CONC 31.1 g/dl (32.0-36.5); MEAN CORPUSCULAR VOLUME 92.8 fl (80.0-96.0); PLATELET COUNT, AUTOMATED 225 10^3/uL (150-450); RED BLOOD COUNT 3.19 10^6/uL (4.00-5.40); WHITE BLOOD COUNT 5.8 10^3/uL (4.0-10.0)
[2021-07-28 07:00] LABS: INR 2.58
[2021-07-28 07:09] LABS: BLOOD UREA NITROGEN 13 MG/DL (7-18); CALCIUM LEVEL 8.4 MG/DL (8.8-10.2); CARBON DIOXIDE LEVEL 29 MEQ/L (21-32); CHLORIDE LEVEL 110 MEQ/L (98-107); CREATININE FOR GFR 0.41 MG/DL (0.55-1.30); GLOMERULAR FILTRATION RATE > 60.0 (>39); GLUCOSE, FASTING 83 MG/DL (70-100); MAGNESIUM LEVEL 1.7 MG/DL (1.8-2.4); POTASSIUM SERUM 4.2 MEQ/L (3.5-5.1); SODIUM LEVEL 143 MEQ/L (136-145)
[2021-07-28] MEDS: DOCUSATE SODIUM 100MG CAPSULE PO SCH ×2 (08:41→20:44)
[2021-07-28] MEDS: rOPINIRole 0.25 MG TAB(REQUIP) PO SCH ×3 (08:41→20:45)
[2021-07-28] MEDS: ASCORBIC ACID 500 MG TAB PO SCH (08:42)
[2021-07-28] MEDS: FERROUS SULFATE 325MG TAB PO SCH (08:42)
[2021-07-28] MEDS: OMEPRAZOLE 20 MG CAP PO SCH (08:43)
[2021-07-28] MEDS: GABAPENTIN 400MG CAP PO SCH ×3 (08:43→20:44)
[2021-07-28] MEDS: NAPROXEN 250 MG TAB PO SCH ×2 (08:45→20:45)
[2021-07-28] MEDS: carisoprodoL 350 MG TAB PO PRN (08:46)
[2021-07-28] MEDS: buPROPion (WELLBUTRIN SR) 100 MG SR TAB PO SCH ×2 (08:47→20:44)
[2021-07-28] MEDS ORDERED: MAG SULF 1GM/100ML (MAG RUN) 1 GM in IV 1 EA IV ONE (09:00)
[2021-07-28] MEDS: ONDANSETRON 4MG/2ML VIAL IV PRN (10:59)
--- NOTE | 2021-07-28 12:47 | IPNPDOC ---
Text Note Date of Service The patient was seen on 07/28/21. NOTE Subjective: Patient is a 71-year-old female presents the hospital after a fall with fracture to her left femur. This was surgically repaired 4 days ago. Patient states that she is feeling better today. Patient had no acute events overnight. Patient is otherwise doing well. Review of systems: General: Patient denies fevers HEENT: Patient denies headaches Cardiovascular: Patient denies chest pain Respiratory: Patient denies shortness of breath, cough GI: Patient denies abdominal pain, nausea, vomiting, diarrhea : Patient denies increased frequency or pain with urination Extremities: Patient denies swelling or pain in extremities Neurological: Patient denies numbness or tingling in legs Physical exam: Vitals: See below General: Alert and oriented female patient who was sitting up in bed when I walked in. Patient not appear to be in any acute distress. HEENT: Normocephalic, atraumatic, moist mucous membranes. Neck: No lymphadenopathy or thyromegaly Cardiac: Regular rate and rhythm, aortic and mitral mechanical valves could be heard on auscultation, normal S1, normal S2 Pulm: Clear to auscultation bilaterally. No wheezes, rhonchi, rales Abd: Nondistended, nontender to palpation, normal bowel sounds Ext: No edema bilateral lower extremities Labs: See below Imaging: No new imaging has been performed Assessment/plan: 71-year-old female presents the hospital with a left hip/femur fracture who was diagnosed with RSV. 1. Left hip/femur fracture. Dr. Goetz orthopedic surgery from surgery 4 days ago which went well. Continue PT OT. Patient is not amenable to ARU due to lack of beds and insurance issues. Patient will be attempted to be placed in subacute rehab 2. Symptomatic anemia. Patient's hemoglobin dropped from 13.7-8.2 yesterday. Patient received 1 unit of blood and feeling better. Stool occult blood has been ordered but is still pending. We will continue to monitor. 3. History of aortic mitral mechanical valves on Coumadin. INR is within therapeutic range. Continue current dose of Coumadin. 4. Hypertension. Continue patient home medications. 5. Hyperlipidemia. Continue patient's on medications. 6. COPD. Does not appear to be in exacerbation today. Monitor closely due to RSV infection. 7. RSV. Patient's respiratory panel admission was negative for Covid but positive RSV. Closely monitor patient COPD history. Treat symptoms with supportive care. DVT Prophylaxis: Full anticoagulation on Coumadin Disposition: Pending subacute rehab placement. Patient was made ALC status today. VS,Fishbone, I+O VS, Fishbone, I+O Laboratory Tests 07/27/21 17:07 07/28/21 06:16 Vital Signs Date Time Temp Pulse Resp B/P (MAP) Pulse Ox O2 Delivery O2 Flow Rate FiO2 07/28/21 06:23 18 Nasal Cannula 1.0 07/28/21 06:00 97.3 81 116/63 (80) 96 I&O- Last 24 Hours up to 6 AM 07/28/21 06:00 Intake Total 2980 ml Output Total 900 ml Balance 2080 ml JAMAAL HEART DO Jul 28, 2021 12:47
[2021-07-28 14:00] VITALS: BP 114/62
[2021-07-28] MEDS: WARFARIN SOD 2.5MG TAB PO SCH (18:00)
[2021-07-28] MEDS: SIMVASTATIN 20 MG TAB PO SCH (20:44)
[2021-07-28] MEDS: GABAPENTIN 100 MG CAP PO SCH (20:44)
[2021-07-28 22:43] VITALS: BP 115/63
[2021-07-29] MEDS: oxyCODONE 5MG TAB PO PRN ×3 (04:18→13:20)
[2021-07-29] MEDS: carisoprodoL 350 MG TAB PO PRN ×2 (04:20→20:25)
[2021-07-29] MEDS: ACETAMINOPHEN TAB 650MG DOSE (2X325MG) PO SCH ×4 (06:00→17:09)
[2021-07-29 06:40] VITALS: BP 112/59
[2021-07-29 06:54] LABS: HEMOGLOBIN 9.6 g/dl (12.0-15.5); MEAN CORPUSCULAR HEMOGLOBIN 29.1 pg (27.0-33.0); MEAN CORPUSCULAR VOLUME 93.9 fl (80.0-96.0); PLATELET COUNT, AUTOMATED 240 10^3/uL (150-450); WHITE BLOOD COUNT 4.9 10^3/uL (4.0-10.0)
[2021-07-29 07:06] LABS: INR 2.32; PROTHROMBIN TIME 25.9 SECONDS (12.7-14.5)
[2021-07-29 07:22] LABS: BLOOD UREA NITROGEN 12 MG/DL (7-18); CALCIUM LEVEL 8.6 MG/DL (8.8-10.2); CARBON DIOXIDE LEVEL 28 MEQ/L (21-32); CHLORIDE LEVEL 111 MEQ/L (98-107); CREATININE FOR GFR 0.44 MG/DL (0.55-1.30); GLOMERULAR FILTRATION RATE > 60.0 (>39); GLUCOSE, FASTING 79 MG/DL (70-100); MAGNESIUM LEVEL 1.9 MG/DL (1.8-2.4); POTASSIUM SERUM 4.4 MEQ/L (3.5-5.1); SODIUM LEVEL 145 MEQ/L (136-145)
[2021-07-29] MEDS: OMEPRAZOLE 20 MG CAP PO SCH (08:54)
[2021-07-29] MEDS: GABAPENTIN 400MG CAP PO SCH ×3 (08:54→20:23)
[2021-07-29] MEDS: buPROPion (WELLBUTRIN SR) 100 MG SR TAB PO SCH ×2 (08:55→20:23)
[2021-07-29] MEDS: DOCUSATE SODIUM 100MG CAPSULE PO SCH ×2 (08:55→20:23)
[2021-07-29] MEDS: ASCORBIC ACID 500 MG TAB PO SCH (08:55)
[2021-07-29] MEDS: rOPINIRole 0.25 MG TAB(REQUIP) PO SCH ×3 (08:55→20:22)
[2021-07-29] MEDS: NAPROXEN 250 MG TAB PO SCH ×2 (08:55→20:24)
[2021-07-29] MEDS: FERROUS SULFATE 325MG TAB PO SCH (08:55)
[2021-07-29 14:00] VITALS: BP 92/63
[2021-07-29] MEDS: WARFARIN SOD 2.5MG TAB PO SCH (17:09)
[2021-07-29] MEDS: SIMVASTATIN 20 MG TAB PO SCH (20:23)
[2021-07-29] MEDS: GABAPENTIN 100 MG CAP PO SCH (20:23)
[2021-07-30] MEDS: oxyCODONE 5MG TAB PO PRN ×2 (03:10→20:56)
[2021-07-30] MEDS: ACETAMINOPHEN TAB 650MG DOSE (2X325MG) PO SCH ×4 (05:13→18:56)
[2021-07-30 06:00] VITALS: BP 127/66
[2021-07-30 06:25] LABS: HEMATOCRIT 31.7 % (36.0-47.0); HEMOGLOBIN 9.7 g/dl (12.0-15.5); MEAN CORPUSCULAR HGB CONC 30.6 g/dl (32.0-36.5); MEAN CORPUSCULAR VOLUME 94.6 fl (80.0-96.0); PLATELET COUNT, AUTOMATED 260 10^3/uL (150-450); RED BLOOD COUNT 3.35 10^6/uL (4.00-5.40); WHITE BLOOD COUNT 4.4 10^3/uL (4.0-10.0)
[2021-07-30 06:46] LABS: INR 2.31; PROTHROMBIN TIME 25.8 SECONDS (12.7-14.5)
[2021-07-30 07:46] LABS: BLOOD UREA NITROGEN 11 MG/DL (7-18); CALCIUM LEVEL 8.3 MG/DL (8.8-10.2); CARBON DIOXIDE LEVEL 25 MEQ/L (21-32); CHLORIDE LEVEL 112 MEQ/L (98-107); CREATININE FOR GFR 0.45 MG/DL (0.55-1.30); GLOMERULAR FILTRATION RATE > 60.0 (>39); GLUCOSE, FASTING 80 MG/DL (70-100); SODIUM LEVEL 143 MEQ/L (136-145)
[2021-07-30] MEDS: FERROUS SULFATE 325MG TAB PO SCH (09:47)
[2021-07-30] MEDS: DOCUSATE SODIUM 100MG CAPSULE PO SCH ×2 (09:47→20:54)
[2021-07-30] MEDS: NAPROXEN 250 MG TAB PO SCH ×2 (09:48→20:55)
[2021-07-30] MEDS: ASCORBIC ACID 500 MG TAB PO SCH (09:48)
[2021-07-30] MEDS: OMEPRAZOLE 20 MG CAP PO SCH (09:48)
[2021-07-30] MEDS: GABAPENTIN 400MG CAP PO SCH ×3 (09:48→20:54)
[2021-07-30] MEDS: rOPINIRole 0.25 MG TAB(REQUIP) PO SCH ×3 (09:48→20:56)
[2021-07-30] MEDS: buPROPion (WELLBUTRIN SR) 100 MG SR TAB PO SCH ×2 (09:49→20:54)
[2021-07-30] MEDS: ONDANSETRON 4MG/2ML VIAL IV PRN (11:06)
[2021-07-30 14:00] VITALS: BP 106/53
[2021-07-30] MEDS: WARFARIN SOD 2.5MG TAB PO SCH (16:04)
[2021-07-30] MEDS: carisoprodoL 350 MG TAB PO PRN (16:05)
[2021-07-30] MEDS: SIMVASTATIN 20 MG TAB PO SCH (20:55)
[2021-07-30] MEDS: GABAPENTIN 100 MG CAP PO SCH (20:56)
--- NOTE | 2021-07-30 21:00 | IPNPDOC ---
Text Note Date of Service The patient was seen on 07/29/21. NOTE Patient seen approx 1 wk PO for L proximal femur ORIF No staining or drainage from incisions. Healing well. Pt discharge to home, reportedly planned as per patient Patient will follow in office, 2 weeks post op for wound eval and xrays. Patient in agreement with plan. Office contact info provided. VS,Fishbone, I+O VS, Fishbone, I+O Laboratory Tests 07/30/21 05:52 Vital Signs Date Time Temp Pulse Resp B/P (MAP) Pulse Ox O2 Delivery O2 Flow Rate FiO2 07/30/21 20:56 16 07/30/21 14:00 97.7 94 106/53 (70) 94 Room Air 07/29/21 06:40 1.0 I&O- Last 24 Hours up to 6 AM 07/30/21 06:00 Intake Total 1610 ml Output Total 1600 ml Balance 10 ml JOSE PEGUERO MD Jul 30, 2021 21:00
[2021-07-31] MEDS: ACETAMINOPHEN TAB 650MG DOSE (2X325MG) PO SCH ×3 (00:28→12:14)
[2021-07-31 06:00] VITALS: BP 132/74
[2021-07-31] MEDS: GABAPENTIN 400MG CAP PO SCH (09:26)
[2021-07-31] MEDS: DOCUSATE SODIUM 100MG CAPSULE PO SCH (09:26)
[2021-07-31] MEDS: OMEPRAZOLE 20 MG CAP PO SCH (09:26)
[2021-07-31] MEDS: rOPINIRole 0.25 MG TAB(REQUIP) PO SCH (09:26)
[2021-07-31] MEDS: FERROUS SULFATE 325MG TAB PO SCH (09:26)
[2021-07-31] MEDS: NAPROXEN 250 MG TAB PO SCH (09:26)
[2021-07-31] MEDS: ASCORBIC ACID 500 MG TAB PO SCH (09:26)
[2021-07-31] MEDS: oxyCODONE 5MG TAB PO PRN (09:27)
[2021-07-31] MEDS: buPROPion (WELLBUTRIN SR) 100 MG SR TAB PO SCH (09:27)
[2021-07-31] MEDS ORDERED: DOCU100C16 PO (10:14)
[2021-07-31] MEDS ORDERED: TRAM50TA2 PO (10:14)
[2021-07-31] MEDS ORDERED: FERR1TAB8 PO (10:14)
[2021-07-31] MEDS ORDERED: OXYC-517 PO (13:23)
--- NOTE | 2021-07-31 16:32 | DS.PDOC ---
Discharge Summary General Date of Admission Jul 23, 2021 at 15:24 Date of Discharge 07/31/21 Discharge Summary PROCEDURES PERFORMED DURING STAY: Open reduction internal fixation with long gamma nail ADMITTING DIAGNOSES: Left hip/femur fracture Symptomatic anemia History of aortic mitral mechanical valves on Coumadin Hypertension. Hyperlipidemia COPD RSV DISCHARGE DIAGNOSES: Left hip/femur fracture Symptomatic anemia History of aortic mitral mechanical valves on Coumadin Hypertension. Hyperlipidemia COPD RSV COMPLICATIONS/CHIEF COMPLAINT: Femur Fracture, Left. HISTORY OF PRESENT ILLNESS:: 70-year-old female with a history of unsteady gait, frequent admissions for falls and associated fractures. Reports that she was walking to the bathroom and fell backwards. She was using her walker at the time, but has bee partial wb since her Left tibial plateau fracture from last month. Pain in thigh, unable to wb. Loss of balance without dizziness or otherwise. Patient states that she did hit her head without loss of consciousness. Patient recently had a fall and sustained a fracture of the left tibial plateau which required surgery as performed in [place]. Patient only complains of left thigh pain. History of mechanical aortic and mitral valves, on warfarin HOSPITAL COURSE: During the hospital stay the following issue addressed Orthopedic team proceeded with Open reduction internal fixation with long gamma nail. Patient tolerates procedure well. Due to deconditioning patient received multiple sessions of physical therapy with positive effect. Patient was tested positive for RSV, received supportive treatment with inhalers. DISCHARGE MEDICATIONS: Please see below. ALLERGIES: Please see below. PHYSICAL EXAMINATION ON DISCHARGE: VITAL SIGNS: Please see below. General: Alert and oriented female patient who was sitting up in bed when I walked in. Patient not appear to be in any acute distress. HEENT: Normocephalic, atraumatic, moist mucous membranes. Neck: No lymphadenopathy or thyromegaly Cardiac: Regular rate and rhythm, aortic and mitral mechanical valves could be heard on auscultation, normal S1, normal S2 Pulm: Clear to auscultation bilaterally. No wheezes, rhonchi, rales Abd: Nondistended, nontender to palpation, normal bowel sounds Ext: No edema bilateral lower extremities LABORATORY DATA: Please see below. PROGNOSIS: Fair ACTIVITY: [As tolerated]. DIET: Cardiac DISPOSITION: 01 Home, Self-Care. ITEMS TO FOLLOWUP ON ON OUTPATIENT: Follow-up with orthopedic team and PCP DISCHARGE CONDITION: [Stable]. TIME SPENT ON DISCHARGE: 40 minutes. Vital Signs/I&Os Vital Signs Date Time Temp Pulse Resp B/P (MAP) Pulse Ox O2 Delivery O2 Flow Rate FiO2 07/31/21 09:57 18 Room Air 07/31/21 06:00 98.1 99 132/74 (93) 95 07/29/21 06:40 1.0 I&O- Last 24 Hours up to 6 AM 07/31/21 06:00 Intake Total 720 ml Output Total 1000 ml Balance -280 ml Microbiology Microbiology 07/28/21 Stool Occult Blood (TOMAS) - Final, Complete Discharge Medications Scheduled Bupropion HCl (Bupropion HCl Sr) 200 Mg Tab.sr.12h, 200 MG PO BID, (Reported) Ergocalciferol (Vitamin D2) (Vitamin D2) 50,000 Units Cap, 50,000 UNITS PO QMONTH, (Reported) FIRST OF EVERY MONTH Ferrous Sulfate (Ferrous Sulfate) 325 Mg Tablet, 325 MG PO DAILY Gabapentin (Gabapentin) 100 Mg Capsule, 200 MG PO QHS, (Reported) Gabapentin (Gabapentin) 400 Mg Capsule, 400 MG PO TID, (Reported) Metoclopramide HCl (Metoclopramide HCl) 10 Mg Tablet, 10 MG PO BID, (Reported) Omeprazole (Omeprazole) 20 Mg Capsule.dr, 20 MG PO DAILY, (Reported) Ropinirole HCl (Ropinirole HCl) 0.25 Mg Tablet, 0.25 MG PO TID, (Reported) Simvastatin (Simvastatin) 20 Mg Tablet, 20 MG PO QHS, (Reported) Tramadol HCl (Tramadol HCl) 50 Mg Tablet, 100 MG PO BID, (Reported) Warfarin Sodium (Warfarin Sodium) 2.5 Mg Tablet, 2.5 MG PO QHS, (Reported) Scheduled PRN Carisoprodol (Carisoprodol) 350 Mg Tablet, 350 MG PO BID PRN for PAIN LEVEL 1-4, (Reported) Docusate Sodium (Stool Softener) 100 Mg Capsule, 100 MG PO DAILY PRN for CONSTIPATION, (Reported) Docusate Sodium (Docusate Sodium) 100 Mg Capsule, 100 MG PO BID PRN for CONSTIPATION Oxycodone HCl (Oxycodone HCl) 5 Mg Tablet, 10 MG PO Q4HP PRN for SEVERE PAIN (PS 8-10) Polyethylene Glycol 3350 (Polyethylene Glycol 3350) 17 Gm Powd.pack, 17 GM PO DAILY PRN for CONSTIPATION, (Reported) Tramadol HCl (Tramadol HCl) 50 Mg Tablet, 50 MG PO Q4HP PRN for MILD PAIN (PS 1- 4) Allergies Coded Allergies: No Known Drug Allergies (Verified Allergy, Unknown, 06/11/20) MARCOS DODD DO Jul 31, 2021 16:32
== END 2021-07-31 14:50 | disposition home or self-care (01) | DRG 482 ==
LOC: M ED 13:22 → M ED INP 15:24 → ENRESERV 16:30 → M MS5PR 16:45
PROVIDERS: ADMIT Family Medicine; ATTEND Internal Medicine
PROC: 0QS704Z Reposition Left Upper Femur with Internal Fixation Device, Open Approach (ICD-10-PCS; principal; 2021-07-24 14:00)
DX: S72.392A Other fracture of shaft of left femur, initial encounter for closed fracture (principal); B97.4 Respiratory syncytial virus as the cause of diseases classified elsewhere; J44.9 Chronic obstructive pulmonary disease, unspecified; E78.5 Hyperlipidemia, unspecified; I10 Essential (primary) hypertension; D64.9 Anemia, unspecified; R29.6 Repeated falls; W18.30XA Fall on same level, unspecified, initial encounter; Y92.009 Unspecified place in unspecified non-institutional (private) residence as the place of occurrence of the external cause; Z79.899 Other long term (current) drug therapy; M81.0 Age-related osteoporosis without current pathological fracture; K21.9 Gastro-esophageal reflux disease without esophagitis; Z79.01 Long term (current) use of anticoagulants

== ENCOUNTER → 2021-08-11 | Outpatient (CLI) | payer MEDICARE ==
[~2021-08-11] MED LIST changes: +DOCU100C16 PO; +FERR1TAB8 PO; +MM S100C PO; +OXYC-517 PO; +POLY1POW38 PO
--- NOTE | 2021-08-11 17:20 | REP ---
INDICATION: LT HIP PAIN. COMPARISON: 07/24/2021 TECHNIQUE: AP and lateral views FINDINGS: Patient is status post intramedullary shahab placement in the femur. The femoral neck portion of the shahab is unchanged. The shaft portion of the shahab is unchanged. Previously described fracture is unchanged. There is no evidence of a new fracture. IMPRESSION: No significant change <Electronically signed by Duane Fuller > 08/11/21 [id number]
== END ==
LOC: M SOG 08:23
PROVIDERS: ATTEND Orthopaedic Surgery Adult Reconstructive Orthopaedic Surgery
DX: M25.552 Pain in left hip (principal); S72.92XD Unspecified fracture of left femur, subsequent encounter for closed fracture with routine healing; X58.XXXD Exposure to other specified factors, subsequent encounter; Y92.9 Unspecified place or not applicable; Y93.9 Activity, unspecified; Y99.9 Unspecified external cause status

== ENCOUNTER → 2021-09-11 | Outpatient (CLI) | payer MEDICARE ==
--- NOTE | 2021-09-11 14:55 | REP ---
INDICATION: LT FEMUR FX. COMPARISON: 05/17/2021 TECHNIQUE: AP, lateral, oblique views of the left tibia/fibula FINDINGS: Patient is noted to be status post satisfactory open reduction and fixation for proximal tibial fractures. IMPRESSION: Satisfactory open reduction and fixation. <Electronically signed by Figueroa Blount > 09/11/21 [id number]
--- NOTE | 2021-09-11 14:57 | REP ---
INDICATION: LT FEMUR FX. COMPARISON: 08/11/2021 TECHNIQUE: AP and lateral views FINDINGS: Previously described proximal femoral fracture is seen with increased callus formation from healing. The intramedullary shahab and femoral neck lag screw are unchanged. The right superior pubic ramus fracture is unchanged. The left inferior pubic ramus fracture is less evident today. IMPRESSION: Healing femoral fracture and other findings as described above. <Electronically signed by Duane Fuller > 09/11/21 [id number]
== END ==
LOC: M SOG 10:45
PROVIDERS: ATTEND Orthopaedic Surgery Adult Reconstructive Orthopaedic Surgery
DX: S72.009D Fracture of unspecified part of neck of unspecified femur, subsequent encounter for closed fracture with routine healing (principal); X58.XXXD Exposure to other specified factors, subsequent encounter; Y92.9 Unspecified place or not applicable; Y93.9 Activity, unspecified; Y99.9 Unspecified external cause status

== ENCOUNTER → 2021-10-16 | Outpatient (CLI) | payer MEDICARE ==
[~2021-10-16] MED LIST changes: +ACET-897 PO; -CEFD1CAP8 PO; +CEFD300C41 PO; +OMEP-173 PO; -OMEP-218 PO
[2021-10-16 14:04] LABS: INR 3.86; PROTHROMBIN TIME 38.2 SECONDS (12.7-14.5)
== END ==
LOC: M LAB 13:06
PROVIDERS: ATTEND Nurse Practitioner Family
DX: I48.0 Paroxysmal atrial fibrillation (principal)

== ENCOUNTER → 2021-11-03 | Outpatient (CLI) | payer MEDICARE ==
[~2021-11-03] MED LIST changes: -ACET-897 PO; -OMEP-173 PO; +OMEP-218 PO
== END ==
LOC: M SOG 08:26
PROVIDERS: ATTEND Orthopaedic Surgery Adult Reconstructive Orthopaedic Surgery
DX: S82.102D Unspecified fracture of upper end of left tibia, subsequent encounter for closed fracture with routine healing (principal); S72.009D Fracture of unspecified part of neck of unspecified femur, subsequent encounter for closed fracture with routine healing; X58.XXXD Exposure to other specified factors, subsequent encounter; Y92.9 Unspecified place or not applicable; Y93.9 Activity, unspecified; Y99.9 Unspecified external cause status

== ENCOUNTER → 2021-11-27 | Outpatient (CLI) | payer MEDICARE ==
[~2021-11-27] MED LIST changes: +OMEP-173 PO; -OMEP-218 PO
== END ==
LOC: M SOG 14:10
PROVIDERS: ATTEND Orthopaedic Surgery Sports Medicine
DX: S52.55 Other extraarticular fracture of lower end of radius (principal); M85.832 Other specified disorders of bone density and structure, left forearm; M12.531 Traumatic arthropathy, right wrist; X58.XXXD Exposure to other specified factors, subsequent encounter; Y92.9 Unspecified place or not applicable; Y93.9 Activity, unspecified; Y99.9 Unspecified external cause status

== ENCOUNTER → 2021-12-02 | Outpatient (CLI) | payer MEDICARE ==
[2021-12-02 12:26] LABS: INR 2.19; PROTHROMBIN TIME 24.7 SECONDS (12.7-14.5)
== END ==
LOC: M LAB 11:02
PROVIDERS: ATTEND Nurse Practitioner Family
DX: I48.0 Paroxysmal atrial fibrillation (principal)

== ENCOUNTER → 2021-12-05 | Outpatient (CLI) | payer MEDICARE | LOC: M PAIN 13:45 | PROVIDERS: ATTEND Anesthesiology | DX: M47.816 Spondylosis without myelopathy or radiculopathy, lumbar region (principal); G89.29 Other chronic pain; J44.9 Chronic obstructive pulmonary disease, unspecified; Z79.891 Long term (current) use of opiate analgesic; Z79.899 Other long term (current) drug therapy ==

== ENCOUNTER → 2021-12-17 | Outpatient (CLI) | payer MEDICARE ==
[~2021-12-17] MED LIST changes: +ACET-897 PO
== END ==
LOC: M LABSMTC 09:16
PROVIDERS: ATTEND Anesthesiology
DX: Z01.812 Encounter for preprocedural laboratory examination (principal); Z20.822 Contact with and (suspected) exposure to COVID-19

== ENCOUNTER 2021-12-22 06:29 | Day surgery (SDC) | payer MEDICARE ==
[~2021-12-22] VITALS: Ht 154.9 cm; Wt 49.9 kg
[2021-12-22] MEDS ORDERED: LIDOCAINE W/EPINEPHRINE 1% 20ML VIAL As Ordered ONE (06:58)
[2021-12-22] MEDS ORDERED: SODIUM BICARBONATE 8.4% INJ 50MEQ 50 ML VIAL As Ordered ONE (06:58)
[2021-12-22] MEDS ORDERED: BACITRACIN OINTMENT 30GM TUBE As Ordered ONE (09:32)
[2021-12-22] MEDS ORDERED: FAT EMULSION 20% 500ML As Ordered ONE (09:36)
[2021-12-22 10:55] VITALS: BP 131/72
== END 2021-12-22 11:00 | disposition home or self-care (01) ==
LOC: M SDC 06:29
PROVIDERS: ATTEND Orthopaedic Surgery Hand Surgery
DX: G56.01 Carpal tunnel syndrome, right upper limb (principal); J44.9 Chronic obstructive pulmonary disease, unspecified; I10 Essential (primary) hypertension; K21.9 Gastro-esophageal reflux disease without esophagitis; Z87.891 Personal history of nicotine dependence; Z79.01 Long term (current) use of anticoagulants; Z79.899 Other long term (current) drug therapy; F32.9 Major depressive disorder, single episode, unspecified

== ENCOUNTER → 2022-01-22 | Outpatient (REF) | payer MEDICARE ==
[2022-01-22 13:07] LABS: INR 2.61; PROTHROMBIN TIME 28.3 SECONDS (12.7-14.5)
[2022-01-22 13:08] LABS: PARTIAL THROMBOPLASTIN TIME 39.9 SECONDS (25.9-37.0)
== END ==
LOC: M LAB REF 12:20
PROVIDERS: ATTEND Nurse Practitioner Family
DX: Z51.81 Encounter for therapeutic drug level monitoring (principal); Z79.01 Long term (current) use of anticoagulants

== ENCOUNTER → 2022-03-04 | Outpatient (CLI) | payer MEDICARE ==
[~2022-03-04] MED LIST changes: +BUPR-71 PO; -BUPR150T5 PO; -BUPR200T2; +BUPR200T41; +D3 M5000 PO; +WARF-23 PO
== END ==
LOC: M LABSMTC 10:03
PROVIDERS: ATTEND Anesthesiology
DX: Z01.818 Encounter for other preprocedural examination (principal); Z11.52 Encounter for screening for COVID-19

== ENCOUNTER → 2022-03-06 | Outpatient (CLI) | payer MEDICARE ==
[~2022-03-06] MED LIST changes: +ENOX80IN3 SQ; +ROPI1TAB3 PO
[2022-03-06 09:16] LABS: INR 2.43; PROTHROMBIN TIME 26.8 SECONDS (12.7-14.5)
== END ==
LOC: M LAB 07:33
PROVIDERS: ATTEND Internal Medicine Cardiovascular Disease
DX: Z95.2 Presence of prosthetic heart valve (principal)

== ENCOUNTER 2022-03-09 06:05 | Inpatient (IN) | payer MEDICARE ==
[2022-03-09] VITALS (12 sets, daily range): BP systolic 102–119; BP diastolic 51–61; O2SAT 94–95
[~2022-03-09] VITALS: Ht 154.9 cm; Wt 52.5 kg
[~2022-03-09 06:05] MED LIST changes: +ALBU2.5V10 NEB; -ALBU83IN NEB; -ENOX80IN3 SQ; +LIDOCAINE 1% MDV 20ML VIAL SQ PRN; +LR 1,000 ML IV ONE; -ROPI1TAB3 PO; +ceFAZolin SOD 2 GM in IV 1 EA IV ONE
[2022-03-09 06:42] LABS: INR 1.15; PROTHROMBIN TIME 15.1 SECONDS (12.7-14.5)
[2022-03-09] MEDS ORDERED: ENOX80IN3 SQ (06:42)
[2022-03-09] MEDS ORDERED: fentaNYL 100 MCG/2 ML INJECTION IV PRN (07:01)
[2022-03-09] MEDS ORDERED: DESFLURANE 240 ML INHALANT As Ordered ONE (07:08)
[2022-03-09] MEDS ORDERED: ROPIvacaine 0.5% 30ML INJECTION (J2795 PER 1MG) XX ONE (07:15)
[2022-03-09] MEDS ORDERED: LIDOCAINE 1% MDV 20ML VIAL XX ONE (07:15)
[2022-03-09] MEDS ORDERED: LIDOCAINE 2% 100MG/5ML SDV (FOR ANES.) As Ordered ONE (07:15)
[2022-03-09] MEDS ORDERED: dexameTHASONE 10MG/1ML VIAL PRES.FREE (J1100 PER 1MG) XX ONE (07:15)
[2022-03-09] MEDS ORDERED: propofoL 200 MG/20 ML VIAL As Ordered ONE (07:15)
[2022-03-09] MEDS ORDERED: BUPIVACAINE HCL 0.25% 30ML VIAL As Ordered ONE (07:16)
[2022-03-09] MEDS ORDERED: ONDANSETRON 4MG/2ML VIAL As Ordered ONE (07:16)
[2022-03-09] MEDS ORDERED: dexameTHASONE 4 MG/ML 1ML VIAL (J1100 PER 1MG) As Ordered ONE (07:16)
[2022-03-09] MEDS ORDERED: BACITRACIN OINTMENT 30GM TUBE As Ordered ONE (07:16)
[2022-03-09] MEDS: MIDAZOLAM INJ 2MG/2ML VIAL (J2250 PER 1MG) IV PRN ×2 (07:26→07:33)
[2022-03-09] MEDS ORDERED: ePHEDrine SULFATE 25 MG/5 ML(5MG/ML) SYRINGE As Ordered ONE (08:01)
[2022-03-09] MEDS ORDERED: LIDOCAINE W/EPINEPHRINE 1% 20ML VIAL As Ordered ONE (08:03)
[2022-03-09] MEDS ORDERED: fentaNYL 100 MCG/2 ML INJECTION As Ordered ONE (09:13)
[2022-03-09] MEDS ORDERED: ACETAMINOPHEN 1000MG 100ML IV BTL (OFIRMEV) (J0131 PER 10MG) As Ordered ONE (09:14)
[2022-03-09] MEDS ORDERED: KETOROLAC 60MG 2ML VIAL As Ordered ONE (09:58)
[2022-03-09] MEDS ORDERED: PERC5TAB12 PO (11:08)
[2022-03-09] MEDS ORDERED: ALBUTEROL SULFATE 2.5 MG/0.5 ML INH NEB SOLN As Ordered ONE (11:31)
[2022-03-09] MEDS ORDERED: LR 1,000 ML IV SCH (11:35)
[2022-03-09] MEDS ORDERED: ALBUTEROL SULFATE 2.5 MG/0.5 ML INH NEB SOLN INH ONE (11:35)
[2022-03-09] MEDS ORDERED: ONDANSETRON 4MG/2ML VIAL IV PRN (11:35)
[2022-03-09] MEDS ORDERED: oxyCODONE 5MG TAB PO PRN (12:25)
[2022-03-09] MEDS: fentaNYL 100 MCG/2 ML INJECTION IV PRN ×2 (12:33→12:57)
[2022-03-09] MEDS ORDERED: FUROSEMIDE 20MG/2ML VIAL (J1940) As Ordered ONE (13:42)
[2022-03-09] MEDS ORDERED: FUROSEMIDE 40MG/4ML VIAL (J1940) IV ONE (13:45)
[2022-03-09] MEDS ORDERED: BUPR1TAB56 PO (13:55)
[2022-03-09] MEDS ORDERED: OMEP-173 PO (13:55)
[2022-03-09] MEDS ORDERED: GABA-1171 PO (13:55)
[2022-03-09] MEDS ORDERED: ROPI1TAB3 PO (14:07)
[2022-03-09 14:09] LABS: ABG O2 SATURATION 96.3 % (95.0-99.0); ABG PARTIAL PRESSURE CO2 35.5 mmHg (35.0-45.0); ABG PARTIAL PRESSURE O2 79.4 mmHg (75.0-100.0); ABG STANDARD HCO3 22.8 MEQ/L (22.0-26.0); ABG TOTAL CO2 23.1 MEQ/L (23.0-31.0); ABG pH (ARTERIAL) 7.411 UNITS (7.350-7.450)
[2022-03-09] MEDS ORDERED: HOME MED LIST COMPLETE! XX SCH (14:10)
[2022-03-09 14:13] LABS: HEMATOCRIT 37.6 % (36.0-47.0); HEMOGLOBIN 12.4 g/dl (12.0-15.5); MEAN CORPUSCULAR HEMOGLOBIN 31.6 pg (27.0-33.0); MEAN CORPUSCULAR VOLUME 95.7 fl (80.0-96.0); PLATELET COUNT, AUTOMATED 176 10^3/uL (150-450); RED BLOOD COUNT 3.93 10^6/uL (4.00-5.40); WHITE BLOOD COUNT 10.3 10^3/uL (4.0-10.0)
[2022-03-09 14:25] LABS: INR 1.15; PROTHROMBIN TIME 15.1 SECONDS (12.7-14.5)
[2022-03-09 14:32] LABS: BLOOD UREA NITROGEN 16 MG/DL (7-18); CARBON DIOXIDE LEVEL 24 MEQ/L (21-32); CHLORIDE LEVEL 109 MEQ/L (98-107); CREATININE FOR GFR 0.74 MG/DL (0.55-1.30); GLOMERULAR FILTRATION RATE > 60.0 (>39); GLUCOSE, FASTING 156 MG/DL (70-100); POTASSIUM SERUM 3.5 MEQ/L (3.5-5.1); SODIUM LEVEL 141 MEQ/L (136-145)
[2022-03-09 14:37] LABS: CK-MB VALUE MASS 3.9 NG/ML (<3.6); MB/CK RELATIVE INDEX 2.47 (< OR =4)
[2022-03-09] MEDS ORDERED: ACETAMINOPHEN 500 MG TAB PO PRN (15:20)
[2022-03-09] MEDS: MORPHINE 4 MG/ML 1ML VIAL/SYRINGE IV PRN ×2 (16:27→23:33)
[2022-03-09] MEDS ORDERED: WARFARIN SOD 5MG TAB PO SCH (17:00)
[2022-03-09] MEDS: GABAPENTIN 400MG CAP PO SCH ×2 (17:26→20:53)
[2022-03-09] MEDS: rOPINIRole 1MG TAB PO SCH ×2 (17:26→20:53)
[2022-03-09] MEDS: SYMBICORT 160/4.5MCG INHALER 6GM INH SCH (19:11)
[2022-03-09 20:48] LABS: CK-MB VALUE MASS 6.1 NG/ML (<3.6); MB/CK RELATIVE INDEX 1.99 (< OR =4)
[2022-03-09] MEDS: METOCLOPRAMIDE 10MG TAB PO SCH (20:53)
[2022-03-09] MEDS: GABAPENTIN 100 MG CAP PO SCH (20:53)
[2022-03-10] VITALS (18 sets, daily range): BP systolic 96–142; BP diastolic 51–78; O2SAT 90–93
[2022-03-10] MEDS: MORPHINE 4 MG/ML 1ML VIAL/SYRINGE IV PRN ×3 (04:01→20:07)
[2022-03-10 05:14] LABS: HEMOGLOBIN 11.7 g/dl (12.0-15.5); MEAN CORPUSCULAR HGB CONC 33.4 g/dl (32.0-36.5); MEAN CORPUSCULAR VOLUME 92.8 fl (80.0-96.0); PLATELET COUNT, AUTOMATED 172 10^3/uL (150-450); RED BLOOD COUNT 3.77 10^6/uL (4.00-5.40); WHITE BLOOD COUNT 7.2 10^3/uL (4.0-10.0)
[2022-03-10 05:24] LABS: INR 1.15; PROTHROMBIN TIME 15.1 SECONDS (12.7-14.5)
[2022-03-10 05:44] LABS: BLOOD UREA NITROGEN 17 MG/DL (7-18); CALCIUM LEVEL 8.9 MG/DL (8.8-10.2); CARBON DIOXIDE LEVEL 31 MEQ/L (21-32); CHLORIDE LEVEL 106 MEQ/L (98-107); CREATININE FOR GFR 0.68 MG/DL (0.55-1.30); GLOMERULAR FILTRATION RATE > 60.0 (>39); GLUCOSE, FASTING 95 MG/DL (70-100); POTASSIUM SERUM 3.8 MEQ/L (3.5-5.1); SODIUM LEVEL 141 MEQ/L (136-145)
[2022-03-10 05:45] LABS: MB/CK RELATIVE INDEX 1.19 (< OR =4)
[2022-03-10] MEDS: SYMBICORT 160/4.5MCG INHALER 6GM INH SCH ×2 (07:34→19:19)
[2022-03-10] MEDS: GABAPENTIN 400MG CAP PO SCH ×3 (09:01→20:07)
[2022-03-10] MEDS: rOPINIRole 1MG TAB PO SCH ×3 (09:01→20:07)
[2022-03-10] MEDS: METOCLOPRAMIDE 10MG TAB PO SCH ×2 (09:01→20:07)
[2022-03-10] MEDS: ENOXAPARIN 40MG/0.4ML SYRINGE (J1650 PER 10MG) SC SCH ×2 (09:02→20:07)
[2022-03-10] MEDS: PERCOCET 5MG/325MG TAB PO PRN ×3 (09:09→23:56)
[2022-03-10] MEDS ORDERED: WARFARIN SOD 2.5MG TAB PO SCH (17:00)
[2022-03-10] MEDS ORDERED: WARFARIN SOD 7.5MG TAB PO ONE (17:00)
[2022-03-10] MEDS: GABAPENTIN 100 MG CAP PO SCH (20:07)
[2022-03-11] VITALS: BP 166/72
[2022-03-11 04:00] VITALS: BP 144/71
[2022-03-11] MEDS: MORPHINE 4 MG/ML 1ML VIAL/SYRINGE IV PRN (04:18)
[2022-03-11] MEDS: PERCOCET 5MG/325MG TAB PO PRN (05:55)
[2022-03-11 06:31] LABS: HEMATOCRIT 38.2 % (36.0-47.0); HEMOGLOBIN 12.2 g/dl (12.0-15.5); MEAN CORPUSCULAR HEMOGLOBIN 30.7 pg (27.0-33.0); MEAN CORPUSCULAR HGB CONC 31.9 g/dl (32.0-36.5); PLATELET COUNT, AUTOMATED 172 10^3/uL (150-450); RED BLOOD COUNT 3.98 10^6/uL (4.00-5.40); WHITE BLOOD COUNT 6.9 10^3/uL (4.0-10.0)
[2022-03-11 06:41] LABS: INR 1.53; PROTHROMBIN TIME 18.8 SECONDS (12.7-14.5)
[2022-03-11 06:42] LABS: PARTIAL THROMBOPLASTIN TIME 38.4 SECONDS (25.9-37.0)
[2022-03-11 07:02] LABS: ALBUMIN 3.3 GM/DL (3.2-5.2); ALT/SGPT 26 U/L (12-78); BILIRUBIN,TOTAL 1.1 MG/DL (0.2-1.0); BLOOD UREA NITROGEN 20 MG/DL (7-18); CALCIUM LEVEL 9.1 MG/DL (8.8-10.2); CARBON DIOXIDE LEVEL 31 MEQ/L (21-32); CHLORIDE LEVEL 108 MEQ/L (98-107); CREATININE FOR GFR 0.72 MG/DL (0.55-1.30); GLOMERULAR FILTRATION RATE > 60.0 (>39); GLUCOSE, FASTING 91 MG/DL (70-100); POTASSIUM SERUM 4.2 MEQ/L (3.5-5.1); SODIUM LEVEL 144 MEQ/L (136-145); TOTAL PROTEIN 6.8 GM/DL (6.4-8.2)
[2022-03-11 07:49] VITALS: BP 132/71
[2022-03-11] MEDS: ENOXAPARIN 40MG/0.4ML SYRINGE (J1650 PER 10MG) SC SCH (07:51)
[2022-03-11] MEDS: METOCLOPRAMIDE 10MG TAB PO SCH (07:52)
[2022-03-11] MEDS: rOPINIRole 1MG TAB PO SCH (07:52)
[2022-03-11] MEDS: GABAPENTIN 400MG CAP PO SCH (07:52)
[2022-03-11] MEDS: SYMBICORT 160/4.5MCG INHALER 6GM INH SCH (08:23)
== END 2022-03-11 12:02 | disposition home or self-care (01) | DRG 510 ==
LOC: M SDC 06:05 → M ICU 14:41
PROVIDERS: ADMIT Internal Medicine; ATTEND Internal Medicine
PROC: 0PUH07Z Supplement Right Radius with Autologous Tissue Substitute, Open Approach (ICD-10-PCS; 2022-03-09)
PROC: BP1 Imaging, Non-Axial Upper Bones, Fluoroscopy (ICD-10-PCS; 2022-03-09)
PROC: 0PSH04Z Reposition Right Radius with Internal Fixation Device, Open Approach (ICD-10-PCS; principal; 2022-03-09 07:30)
DX: S52.501K Unspecified fracture of the lower end of right radius, subsequent encounter for closed fracture with nonunion (principal); J96.01 Acute respiratory failure with hypoxia; J81.1 Chronic pulmonary edema; D64.9 Anemia, unspecified; Z95.2 Presence of prosthetic heart valve; Z79.01 Long term (current) use of anticoagulants; I10 Essential (primary) hypertension; E78.5 Hyperlipidemia, unspecified; J44.9 Chronic obstructive pulmonary disease, unspecified; Z79.899 Other long term (current) drug therapy; Z87.891 Personal history of nicotine dependence; E87.70 Fluid overload, unspecified; I95.9 Hypotension, unspecified; R77.8 Other specified abnormalities of plasma proteins

== ENCOUNTER → 2022-03-13 | Outpatient (CLI) | payer MEDICARE ==
[~2022-03-13] MED LIST changes: -ALBU2.5V10 NEB; +ALBU83IN NEB; +ENOX80IN3 SQ; -LIDOCAINE 1% MDV 20ML VIAL SQ PRN; -LR 1,000 ML IV ONE; +ROPI1TAB3 PO; -ceFAZolin SOD 2 GM in IV 1 EA IV ONE
[2022-03-13 14:27] LABS: INR 2.12; PROTHROMBIN TIME 24.1 SECONDS (12.7-14.5)
== END ==
LOC: M LAB 13:51
PROVIDERS: ATTEND Internal Medicine Cardiovascular Disease
DX: Z95.2 Presence of prosthetic heart valve (principal)

== ENCOUNTER → 2022-03-24 | Outpatient (CLI) | payer MEDICARE ==
[~2022-03-24] MED LIST changes: +ALBU2.5V10 NEB; -ALBU83IN NEB
== END ==
LOC: M SOG 13:39
PROVIDERS: ATTEND Physician Assistant
DX: S52.571P Other intraarticular fracture of lower end of right radius, subsequent encounter for closed fracture with malunion (principal)

== ENCOUNTER 2022-04-02 19:11 | Emergency (ER) | payer MEDICARE ==
[~2022-04-02] VITALS: Ht 154.9 cm; Wt 58.2 kg
[2022-04-02] MEDS ORDERED: PANTOPRAZOLE 40MG VIAL IV ONE (19:30)
[2022-04-02] MEDS ORDERED: NS 1,000 ML IV ONE ×2 (19:40→20:55)
[2022-04-02 19:47] LABS: BASO % 0.1 % (0.0-1.0); EOS % 0.1 % (0.0-3.0); LYMPH # 1.8 10^3/uL (1.5-5.0); LYMPH % 15.8 % (24.0-44.0); MEAN CORPUSCULAR HEMOGLOBIN 31.5 pg (27.0-33.0); MEAN CORPUSCULAR HGB CONC 30.6 g/dl (32.0-36.5); MONO # 0.7 10^3/uL (0.0-0.8); MONO % 6.1 % (2.0-8.0); NEUTROPHILS # 8.4 10^3/uL (1.5-8.5); NEUTROPHILS % 75.5 % (36.0-66.0); PLATELET COUNT, AUTOMATED 265 10^3/uL (150-450); RED BLOOD COUNT 1.68 10^6/uL (4.00-5.40); WHITE BLOOD COUNT 11.1 10^3/uL (4.0-10.0)
[2022-04-02 19:53] LABS: HEMATOCRIT 17.3 % (36.0-47.0); HEMOGLOBIN 5.3 g/dl (12.0-15.5)
[2022-04-02 19:59] LABS: PARTIAL THROMBOPLASTIN TIME 62.9 SECONDS (25.9-37.0)
[2022-04-02 20:00] LABS: PROTHROMBIN TIME 123.8 SECONDS (12.7-14.5)
[2022-04-02 20:01] LABS: INR 18.05
[2022-04-02 20:10] LABS: ALBUMIN 2.8 GM/DL (3.2-5.2); BILIRUBIN,DIRECT 0.1 MG/DL (0.0-0.2); BILIRUBIN,TOTAL 0.7 MG/DL (0.2-1.0); CALCIUM LEVEL 8.6 MG/DL (8.8-10.2); CREATININE FOR GFR 1.18 MG/DL (0.55-1.30); GLOMERULAR FILTRATION RATE 48.1 (>39); POTASSIUM SERUM 4.5 MEQ/L (3.5-5.1); TOTAL PROTEIN 5.4 GM/DL (6.4-8.2)
[2022-04-02] MEDS ORDERED: PHYTONADIONE INJection 10 MG in NS 50 ML IV ONE (20:10)
[2022-04-02] MEDS ORDERED: ISOVUE-370 76% 100ML VIAL As Ordered ONE (20:15)
[2022-04-02] MEDS ORDERED: DILUENT IV ONE (20:40)
[2022-04-02] MEDS ORDERED: PROTHROMBIN COMPLEX CONCEN IV ONE (20:40)
[2022-04-02 21:12] VITALS: BP 78/44
[2022-04-02 21:35] VITALS: BP 89/56
[2022-04-02 21:56] VITALS: BP 83/57
[2022-04-02 22:46] VITALS: BP 119/54
[2022-04-02 22:56] VITALS: BP 118/68
== END 2022-04-02 23:26 | disposition short-term general hospital (02) ==
LOC: M ED 19:11 → EDBD 19:11 → M ED 23:26
DX: K55.059 Acute (reversible) ischemia of intestine, part and extent unspecified (principal); R79.1 Abnormal coagulation profile; D64.9 Anemia, unspecified; K92.2 Gastrointestinal hemorrhage, unspecified; I95.9 Hypotension, unspecified; R93.2 Abnormal findings on diagnostic imaging of liver and biliary tract; I48.91 Unspecified atrial fibrillation; J44.9 Chronic obstructive pulmonary disease, unspecified; I10 Essential (primary) hypertension; Z79.01 Long term (current) use of anticoagulants; Z79.899 Other long term (current) drug therapy
CPT/HCPCS: 36430; 70450; 71045; 73502; 74177; 80048; 80076; 83605; 83690; 84484; 85025; 85610; 85730; 86850; 86900; 86901; 86920; 87486; 87581; 87633; 87798; 93005; 93041; 96361; 96365; 96375; 99285; C9113; J3430; J7168; P9016; Q9967

== ENCOUNTER → 2022-04-24 | Outpatient (REF) | payer MEDICARE ==
[2022-04-24 16:24] LABS: INR 3.64; PROTHROMBIN TIME 36.5 SECONDS (12.7-14.5)
== END ==
LOC: M LAB REF 15:48
PROVIDERS: ATTEND Internal Medicine Cardiovascular Disease
DX: K55.059 Acute (reversible) ischemia of intestine, part and extent unspecified (principal)

== ENCOUNTER → 2022-05-05 | Outpatient (REF) | payer MEDICARE ==
[2022-05-05 16:34] LABS: INR 2.88; PROTHROMBIN TIME 30.5 SECONDS (12.7-14.5)
== END ==
LOC: M LAB REF 15:59
PROVIDERS: ATTEND Internal Medicine Cardiovascular Disease
DX: K55.059 Acute (reversible) ischemia of intestine, part and extent unspecified (principal)

== ENCOUNTER → 2022-05-15 | Outpatient (CLI) | payer MEDICARE ==
[2022-05-15 08:52] LABS: INR 2.41; PROTHROMBIN TIME 26.6 SECONDS (12.7-14.5)
== END ==
LOC: M LAB 07:47
PROVIDERS: ATTEND Nurse Practitioner Family
DX: I48.0 Paroxysmal atrial fibrillation (principal)

== ENCOUNTER → 2022-05-18 | Outpatient (CLI) | payer MEDICARE | LOC: M PAIN 14:00 | PROVIDERS: ATTEND Nurse Practitioner Family | DX: M47.816 Spondylosis without myelopathy or radiculopathy, lumbar region (principal); G89.29 Other chronic pain; K21.9 Gastro-esophageal reflux disease without esophagitis; J44.9 Chronic obstructive pulmonary disease, unspecified; Z87.891 Personal history of nicotine dependence; Z79.01 Long term (current) use of anticoagulants; Z79.899 Other long term (current) drug therapy ==

== ENCOUNTER → 2022-05-21 | Outpatient (CLI) | payer MEDICARE | LOC: M SOG 08:09 | PROVIDERS: ATTEND Physician Assistant | DX: S52.551D Other extraarticular fracture of lower end of right radius, subsequent encounter for closed fracture with routine healing (principal); M12.531 Traumatic arthropathy, right wrist ==

== ENCOUNTER → 2022-05-22 | Outpatient (CLI) | payer MEDICARE ==
[2022-05-22 09:26] LABS: INR 3.52; PROTHROMBIN TIME 35.5 SECONDS (12.7-14.5)
== END ==
LOC: M LAB 08:30
PROVIDERS: ATTEND Nurse Practitioner Family
DX: I48.0 Paroxysmal atrial fibrillation (principal)

== ENCOUNTER → 2022-05-25 | Outpatient (CLI) | payer MEDICARE | LOC: M PAIN 15:00 | PROVIDERS: ATTEND Nurse Practitioner Family | DX: M47.816 Spondylosis without myelopathy or radiculopathy, lumbar region (principal); G89.29 Other chronic pain; J44.9 Chronic obstructive pulmonary disease, unspecified; Z87.891 Personal history of nicotine dependence; Z79.01 Long term (current) use of anticoagulants; Z79.899 Other long term (current) drug therapy ==

== ENCOUNTER → 2022-06-10 | Outpatient (CLI) | payer MEDICARE ==
[2022-06-10 10:17] LABS: INR 2.62; PROTHROMBIN TIME 28.4 SECONDS (12.7-14.5)
== END ==
LOC: M LAB 08:51
PROVIDERS: ATTEND Internal Medicine Cardiovascular Disease
DX: I48.0 Paroxysmal atrial fibrillation (principal)

== ENCOUNTER → 2022-06-11 | Outpatient (CLI) | payer MEDICARE | LOC: M WHC 07:47 | PROVIDERS: ATTEND Nurse Practitioner Family | DX: Z12.31 Encounter for screening mammogram for malignant neoplasm of breast (principal); Z13.820 Encounter for screening for osteoporosis; M81.0 Age-related osteoporosis without current pathological fracture ==

== ENCOUNTER 2022-06-15 12:12 | Emergency (ER) | payer MEDICARE ==
[~2022-06-15] VITALS: Ht 149.9 cm; Wt 49.8 kg
[2022-06-15 12:13] VITALS: BP 137/93
== END 2022-06-15 13:12 | disposition left against medical advice (07) ==
LOC: M ED 12:12
DX: Z53.21 Procedure and treatment not carried out due to patient leaving prior to being seen by health care provider (principal)

== ENCOUNTER → 2022-06-15 | Outpatient (CLI) | payer MEDICARE | LOC: M PAIN 10:45 | PROVIDERS: ATTEND Nurse Practitioner Family | DX: M47.816 Spondylosis without myelopathy or radiculopathy, lumbar region (principal); Z79.01 Long term (current) use of anticoagulants; Z79.899 Other long term (current) drug therapy; M81.0 Age-related osteoporosis without current pathological fracture; K21.9 Gastro-esophageal reflux disease without esophagitis; G89.29 Other chronic pain; Z87.81 Personal history of (healed) traumatic fracture; Z87.891 Personal history of nicotine dependence ==

== ENCOUNTER → 2022-06-16 | Outpatient (CLI) | payer MEDICARE | LOC: M PAIN 15:00 | PROVIDERS: ATTEND Nurse Practitioner Family | DX: M47.816 Spondylosis without myelopathy or radiculopathy, lumbar region (principal); G89.29 Other chronic pain; K21.9 Gastro-esophageal reflux disease without esophagitis; J44.9 Chronic obstructive pulmonary disease, unspecified; Z87.891 Personal history of nicotine dependence; Z88.5 Allergy status to narcotic agent; Z79.01 Long term (current) use of anticoagulants; Z79.899 Other long term (current) drug therapy ==

== ENCOUNTER → 2022-07-22 | Outpatient (CLI) | payer MEDICARE | LOC: M PAIN 09:30 | PROVIDERS: ATTEND Nurse Practitioner Family | DX: M47.816 Spondylosis without myelopathy or radiculopathy, lumbar region (principal); G89.29 Other chronic pain; K21.9 Gastro-esophageal reflux disease without esophagitis; J44.9 Chronic obstructive pulmonary disease, unspecified; Z87.891 Personal history of nicotine dependence; Z88.5 Allergy status to narcotic agent; Z79.01 Long term (current) use of anticoagulants; Z79.899 Other long term (current) drug therapy ==

== ENCOUNTER → 2022-07-31 | Outpatient (CLI) | payer MEDICARE ==
[2022-07-31 11:13] LABS: INR 2.76; PROTHROMBIN TIME 29.5 SECONDS (12.7-14.5)
== END ==
LOC: M LAB 09:40
PROVIDERS: ATTEND Nurse Practitioner Family
DX: I48.0 Paroxysmal atrial fibrillation (principal)

== ENCOUNTER → 2022-08-06 | Outpatient (CLI) | payer MEDICARE ==
[2022-08-06 14:21] LABS: INR 2.01; PROTHROMBIN TIME 23.1 SECONDS (12.5-14.5)
== END ==
LOC: M LAB 13:24
PROVIDERS: ATTEND Nurse Practitioner Family
DX: I48.0 Paroxysmal atrial fibrillation (principal)

== ENCOUNTER → 2022-08-14 | Outpatient (CLI) | payer MEDICARE | LOC: M PAIN 13:45 | PROVIDERS: ATTEND Nurse Practitioner Family | DX: M47.816 Spondylosis without myelopathy or radiculopathy, lumbar region (principal); G89.29 Other chronic pain; K21.9 Gastro-esophageal reflux disease without esophagitis; J44.9 Chronic obstructive pulmonary disease, unspecified; Z87.891 Personal history of nicotine dependence; Z88.5 Allergy status to narcotic agent; Z79.01 Long term (current) use of anticoagulants; Z79.899 Other long term (current) drug therapy ==

== ENCOUNTER → 2022-08-20 | Outpatient (CLI) | payer MEDICARE ==
[2022-08-20 15:00] LABS: INR 2.94; PROTHROMBIN TIME 31.1 SECONDS (12.5-14.5)
== END ==
LOC: M LAB 13:48
PROVIDERS: ATTEND Nurse Practitioner Family
DX: I48.0 Paroxysmal atrial fibrillation (principal)

== ENCOUNTER → 2022-09-03 | Outpatient (CLI) | payer MEDICARE ==
[2022-09-03 12:34] LABS: INR 2.52; PROTHROMBIN TIME 27.6 SECONDS (12.5-14.5)
== END ==
LOC: M LAB 10:40
PROVIDERS: ATTEND Internal Medicine Cardiovascular Disease
DX: Z95.2 Presence of prosthetic heart valve (principal); Z79.01 Long term (current) use of anticoagulants

== ENCOUNTER → 2022-10-08 | Outpatient (CLI) | payer MEDICARE ==
[2022-10-08 10:33] LABS: INR 2.81
== END ==
LOC: M LAB 09:44
PROVIDERS: ATTEND Internal Medicine Cardiovascular Disease
DX: Z51.81 Encounter for therapeutic drug level monitoring (principal); Z79.01 Long term (current) use of anticoagulants; Z95.2 Presence of prosthetic heart valve

== ENCOUNTER → 2022-10-23 | Outpatient (CLI) | payer MEDICARE | LOC: M PAIN 13:45 | PROVIDERS: ATTEND Nurse Practitioner Family | DX: M47.816 Spondylosis without myelopathy or radiculopathy, lumbar region (principal); G89.29 Other chronic pain; K21.9 Gastro-esophageal reflux disease without esophagitis; J44.9 Chronic obstructive pulmonary disease, unspecified; Z87.891 Personal history of nicotine dependence; Z88.5 Allergy status to narcotic agent; Z79.01 Long term (current) use of anticoagulants; Z79.899 Other long term (current) drug therapy ==

== ENCOUNTER → 2022-11-02 | Outpatient (CLI) | payer MEDICARE | LOC: M PAIN 15:15 | PROVIDERS: ATTEND Nurse Practitioner Family | DX: M47.816 Spondylosis without myelopathy or radiculopathy, lumbar region (principal); G89.29 Other chronic pain; K21.9 Gastro-esophageal reflux disease without esophagitis; J44.9 Chronic obstructive pulmonary disease, unspecified; Z87.891 Personal history of nicotine dependence; Z88.5 Allergy status to narcotic agent; Z79.01 Long term (current) use of anticoagulants; Z79.899 Other long term (current) drug therapy ==

== ENCOUNTER → 2022-11-12 | Outpatient (CLI) | payer MEDICARE ==
[2022-11-12 11:03] LABS: HEMATOCRIT 40.5 % (36.0-47.0); HEMOGLOBIN 12.8 g/dl (12.0-15.5); MEAN CORPUSCULAR HEMOGLOBIN 28.6 pg (27.0-33.0); MEAN CORPUSCULAR HGB CONC 31.6 g/dl (32.0-36.5); MEAN CORPUSCULAR VOLUME 90.4 fl (80.0-96.0); PLATELET COUNT, AUTOMATED 218 10^3/uL (150-450); RED BLOOD COUNT 4.48 10^6/uL (4.00-5.40); WHITE BLOOD COUNT 4.2 10^3/uL (4.0-10.0)
[2022-11-12 11:15] LABS: INR 2.28; PROTHROMBIN TIME 25.5 SECONDS (12.5-14.5)
[2022-11-12 11:30] LABS: ALBUMIN 3.7 G/DL (3.2-5.2); ALKALINE PHOSPHATASE 69 U/L (46-116); ALT/SGPT 18 U/L (7.0-40); AST/SGOT 19 U/L (<34); BILIRUBIN,TOTAL 1.1 MG/DL (0.3-1.2); BLOOD UREA NITROGEN 17 MG/DL (9-23); CALCIUM LEVEL 8.9 MG/DL (8.3-10.6); CARBON DIOXIDE LEVEL 27 MMOL/L (20-31); CHLORIDE LEVEL 109 MMOL/L (98-107); CHOLESTEROL LEVEL 188 MG/DL (<200); CPK CREATINE PHOSPHOKINASE 63 U/L (34-145); CREATININE FOR GFR 0.66 MG/DL (0.55-1.30); GLOMERULAR FILTRATION RATE > 60.0 (>39); GLUCOSE, FASTING 72 MG/DL (74-106); LDL CHOLESTEROL 102.2 MG/DL (<100); NON-HDL-C 121 MG/DL; POTASSIUM SERUM 4.2 MMOL/L (3.5-5.1); SODIUM LEVEL 144 MMOL/L (136-145); TOTAL PROTEIN 6.6 G/DL (5.7-8.2); TRIGLYCERIDES LEVEL 94 MG/DL (<150)
== END ==
LOC: M LAB 09:39
PROVIDERS: ATTEND Nurse Practitioner Family
DX: E78.5 Hyperlipidemia, unspecified (principal); I10 Essential (primary) hypertension; Z95.2 Presence of prosthetic heart valve; Z79.01 Long term (current) use of anticoagulants

== ENCOUNTER → 2022-12-07 | Outpatient (CLI) | payer MEDICARE | LOC: M PAIN 10:00 | PROVIDERS: ATTEND Nurse Practitioner Family | DX: M47.816 Spondylosis without myelopathy or radiculopathy, lumbar region (principal); G89.29 Other chronic pain; K21.9 Gastro-esophageal reflux disease without esophagitis; J44.9 Chronic obstructive pulmonary disease, unspecified; Z87.891 Personal history of nicotine dependence; Z88.5 Allergy status to narcotic agent; Z79.01 Long term (current) use of anticoagulants; Z79.899 Other long term (current) drug therapy ==

== ENCOUNTER → 2022-12-10 | Outpatient (CLI) | payer MEDICARE ==
[2022-12-10 10:13] LABS: INR 2.75; PROTHROMBIN TIME 29.5 SECONDS (12.5-14.5)
== END ==
LOC: M LAB 08:34
PROVIDERS: ATTEND Internal Medicine Cardiovascular Disease
DX: Z95.2 Presence of prosthetic heart valve (principal); Z79.01 Long term (current) use of anticoagulants

== ENCOUNTER → 2023-01-07 | Outpatient (CLI) | payer MEDICARE ==
[2023-01-07 09:55] LABS: INR 2.39; PROTHROMBIN TIME 26.5 SECONDS (12.5-14.5)
== END ==
LOC: M LAB 08:52
PROVIDERS: ATTEND Internal Medicine Cardiovascular Disease
DX: I48.0 Paroxysmal atrial fibrillation (principal); Z95.2 Presence of prosthetic heart valve

== ENCOUNTER → 2023-01-18 | Outpatient (CLI) | payer MEDICARE | LOC: M PAIN 16:00 | PROVIDERS: ATTEND Anesthesiology | DX: M79.18 Myalgia, other site (principal); M54.6 Pain in thoracic spine; K21.9 Gastro-esophageal reflux disease without esophagitis; J44.9 Chronic obstructive pulmonary disease, unspecified; Z87.891 Personal history of nicotine dependence; Z88.5 Allergy status to narcotic agent; Z79.899 Other long term (current) drug therapy ==

== ENCOUNTER → 2023-02-11 | Outpatient (CLI) | payer MEDICARE ==
[2023-02-11 13:45] LABS: INR 2.36; PROTHROMBIN TIME 26.2 SECONDS (12.5-14.5)
== END ==
LOC: M LAB 13:03
PROVIDERS: ATTEND Internal Medicine Cardiovascular Disease
DX: Z95.2 Presence of prosthetic heart valve (principal); Z79.01 Long term (current) use of anticoagulants

== ENCOUNTER → 2023-02-11 | Outpatient (CLI) | payer MEDICARE | LOC: M PAIN 14:30 | PROVIDERS: ATTEND Nurse Practitioner Family | DX: M47.816 Spondylosis without myelopathy or radiculopathy, lumbar region (principal); G89.29 Other chronic pain; K21.9 Gastro-esophageal reflux disease without esophagitis; J44.9 Chronic obstructive pulmonary disease, unspecified; Z87.891 Personal history of nicotine dependence; Z88.5 Allergy status to narcotic agent; Z79.01 Long term (current) use of anticoagulants; Z79.899 Other long term (current) drug therapy; Z95.2 Presence of prosthetic heart valve | CPT/HCPCS: 36415; 85610; G0463 ==

== ENCOUNTER → 2023-03-02 | Outpatient (CLI) | payer MEDICARE | LOC: M PAIN 15:15 | PROVIDERS: ATTEND Nurse Practitioner Family | DX: M47.816 Spondylosis without myelopathy or radiculopathy, lumbar region (principal); G89.29 Other chronic pain; K21.9 Gastro-esophageal reflux disease without esophagitis; J44.9 Chronic obstructive pulmonary disease, unspecified; Z87.891 Personal history of nicotine dependence; Z88.5 Allergy status to narcotic agent; Z79.01 Long term (current) use of anticoagulants; Z79.899 Other long term (current) drug therapy ==

== ENCOUNTER → 2023-03-09 | Outpatient (CLI) | payer MEDICARE ==
[2023-03-09 14:48] LABS: INR 1.82; PROTHROMBIN TIME 21.4 SECONDS (12.5-14.5)
== END ==
LOC: M LAB 13:14
PROVIDERS: ATTEND Nurse Practitioner Family
DX: Z95.5 Presence of coronary angioplasty implant and graft (principal); Z79.01 Long term (current) use of anticoagulants

== ENCOUNTER → 2023-04-01 | Outpatient (CLI) | payer MEDICARE | LOC: M PAIN 14:15 | PROVIDERS: ATTEND Nurse Practitioner Family | DX: M47.816 Spondylosis without myelopathy or radiculopathy, lumbar region (principal); M81.0 Age-related osteoporosis without current pathological fracture; K21.9 Gastro-esophageal reflux disease without esophagitis; G89.29 Other chronic pain; Z87.891 Personal history of nicotine dependence; Z79.01 Long term (current) use of anticoagulants; Z79.891 Long term (current) use of opiate analgesic; Z79.899 Other long term (current) drug therapy; Z88.5 Allergy status to narcotic agent ==

== ENCOUNTER → 2023-04-09 | Outpatient (CLI) | payer MEDICARE ==
[2023-04-09 10:56] LABS: INR 2.84; PROTHROMBIN TIME 30.3 SECONDS (12.5-14.5)
== END ==
LOC: M LAB 10:08
PROVIDERS: ATTEND Nurse Practitioner Family
DX: Z95.2 Presence of prosthetic heart valve (principal); Z79.01 Long term (current) use of anticoagulants

== ENCOUNTER → 2023-05-13 | Outpatient (CLI) | payer MEDICARE ==
[~2023-05-13] MED LIST changes: -GABA-283; -GABA-283 PO; +GABA-284; +GABA-284 PO; -ROPI0.253 PO; -ROPI1TAB3 PO; +ROPI1TAB73 PO; +ROPI5TAB19 PO
== END ==
LOC: M PAIN 13:45
PROVIDERS: ATTEND Nurse Practitioner Family
DX: M47.816 Spondylosis without myelopathy or radiculopathy, lumbar region (principal); G89.29 Other chronic pain; M25.511 Pain in right shoulder; M25.512 Pain in left shoulder; M81.0 Age-related osteoporosis without current pathological fracture; K21.9 Gastro-esophageal reflux disease without esophagitis; J44.9 Chronic obstructive pulmonary disease, unspecified; M54.50 Low back pain, unspecified; H40.9 Unspecified glaucoma; Z87.891 Personal history of nicotine dependence; Z79.01 Long term (current) use of anticoagulants; Z79.891 Long term (current) use of opiate analgesic; Z79.899 Other long term (current) drug therapy; Z88.5 Allergy status to narcotic agent; Z95.2 Presence of prosthetic heart valve
CPT/HCPCS: 36415; 85610; G0463

== ENCOUNTER → 2023-05-13 | Outpatient (CLI) | payer MEDICARE ==
[2023-05-13 14:08] LABS: INR 2.45
== END ==
LOC: M LAB 13:05
PROVIDERS: ATTEND Internal Medicine Cardiovascular Disease
DX: Z95.2 Presence of prosthetic heart valve (principal); Z79.01 Long term (current) use of anticoagulants

== ENCOUNTER → 2023-06-08 | Outpatient (CLI) | payer MEDICARE ==
[2023-06-08 11:35] LABS: INR 2.47; PROTHROMBIN TIME 26.2 SECONDS (12.5-14.5)
== END ==
LOC: M LAB 10:52
PROVIDERS: ATTEND Nurse Practitioner Family
DX: Z79.01 Long term (current) use of anticoagulants (principal); Z95.4 Presence of other heart-valve replacement

== ENCOUNTER → 2023-06-14 | Outpatient (CLI) | payer MEDICARE | LOC: M WHC 09:22 | PROVIDERS: ATTEND Nurse Practitioner Family | DX: Z12.31 Encounter for screening mammogram for malignant neoplasm of breast (principal) ==

== ENCOUNTER → 2023-07-12 | Outpatient (CLI) | payer MEDICARE ==
[2023-07-12 12:25] LABS: INR 2.3; PROTHROMBIN TIME 24.7 SECONDS (12.5-14.5)
== END ==
LOC: M LAB 10:54
PROVIDERS: ATTEND Internal Medicine Cardiovascular Disease
DX: Z95.2 Presence of prosthetic heart valve (principal); Z79.01 Long term (current) use of anticoagulants

== ENCOUNTER → 2023-09-10 | Outpatient (CLI) | payer MEDICARE ==
[~2023-09-10] MED LIST changes: -CEFD300C41 PO; +CEFD300C42 PO
== END ==
LOC: M PAIN 14:15
PROVIDERS: ATTEND Nurse Practitioner Family
DX: M47.816 Spondylosis without myelopathy or radiculopathy, lumbar region (principal); G89.29 Other chronic pain; Z80.3 Family history of malignant neoplasm of breast; Z87.891 Personal history of nicotine dependence; Z88.5 Allergy status to narcotic agent; Z79.01 Long term (current) use of anticoagulants; Z79.899 Other long term (current) drug therapy

== ENCOUNTER → 2023-10-11 | Outpatient (CLI) | payer MEDICARE ==
[~2023-10-11] MED LIST changes: +CEFD1CAP9 PO; -CEFD300C42 PO
[2023-10-11 10:04] LABS: INR 3.12; PROTHROMBIN TIME 30.9 SECONDS (12.5-14.5)
== END ==
LOC: M LAB 08:02
PROVIDERS: ATTEND Nurse Practitioner Family
DX: Z79.01 Long term (current) use of anticoagulants (principal); Z95.2 Presence of prosthetic heart valve

== ENCOUNTER → 2023-11-09 | Outpatient (CLI) | payer MEDICARE ==
[2023-11-09 11:01] LABS: INR 2.24
== END ==
LOC: M LAB 10:01
PROVIDERS: ATTEND Nurse Practitioner Family
DX: Z79.01 Long term (current) use of anticoagulants (principal); Z95.2 Presence of prosthetic heart valve; M47.816 Spondylosis without myelopathy or radiculopathy, lumbar region

== ENCOUNTER → 2023-11-09 | Outpatient (CLI) | payer MEDICARE | LOC: M PAIN 10:45 | PROVIDERS: ATTEND Nurse Practitioner Family | DX: M47.816 Spondylosis without myelopathy or radiculopathy, lumbar region (principal); Z95.2 Presence of prosthetic heart valve; Z79.01 Long term (current) use of anticoagulants; G89.29 Other chronic pain; M54.2 Cervicalgia; M25.512 Pain in left shoulder; M54.6 Pain in thoracic spine; M81.0 Age-related osteoporosis without current pathological fracture; K21.9 Gastro-esophageal reflux disease without esophagitis; J44.9 Chronic obstructive pulmonary disease, unspecified; H40.9 Unspecified glaucoma; Z79.891 Long term (current) use of opiate analgesic; Z79.899 Other long term (current) drug therapy; Z87.891 Personal history of nicotine dependence; Z88.5 Allergy status to narcotic agent; Z88.6 Allergy status to analgesic agent | CPT/HCPCS: 36415; 85610; G0463 ==

== ENCOUNTER → 2023-12-14 | Outpatient (CLI) | payer MEDICARE ==
[2023-12-14 09:56] LABS: INR 2.64; PROTHROMBIN TIME 27.2 SECONDS (12.5-14.5)
== END ==
LOC: M LAB 09:11
PROVIDERS: ATTEND Nurse Practitioner Family
DX: Z79.01 Long term (current) use of anticoagulants (principal); Z95.2 Presence of prosthetic heart valve

== ENCOUNTER → 2024-01-07 | Outpatient (CLI) | payer MEDICARE | LOC: M PAIN 09:00 | PROVIDERS: ATTEND Nurse Practitioner Family | DX: M47.816 Spondylosis without myelopathy or radiculopathy, lumbar region (principal); Z79.891 Long term (current) use of opiate analgesic; M79.18 Myalgia, other site; G89.29 Other chronic pain; M81.0 Age-related osteoporosis without current pathological fracture; K21.9 Gastro-esophageal reflux disease without esophagitis; J44.9 Chronic obstructive pulmonary disease, unspecified; M54.50 Low back pain, unspecified; H40.9 Unspecified glaucoma; Z87.891 Personal history of nicotine dependence; Z79.899 Other long term (current) drug therapy; Z88.5 Allergy status to narcotic agent ==

== ENCOUNTER → 2024-02-09 | Outpatient (CLI) | payer MEDICARE ==
[2024-02-09 07:40] LABS: BASO % 0.4 % (0.0-1.0); EOS # 0.1 10^3/uL (0.0-0.5); EOS % 1.3 % (0.0-3.0); HEMATOCRIT 41.2 % (36.0-47.0); HEMOGLOBIN 13.1 g/dl (12.0-15.5); LYMPH # 0.8 10^3/uL (1.5-5.0); MEAN CORPUSCULAR HEMOGLOBIN 29.8 pg (27.0-33.0); MEAN CORPUSCULAR HGB CONC 31.8 g/dl (32.0-36.5); MEAN CORPUSCULAR VOLUME 93.8 fl (80.0-96.0); MONO # 0.5 10^3/uL (0.0-0.8); MONO % 10.9 % (2.0-8.0); NEUTROPHILS # 3.1 10^3/uL (1.5-8.5); PLATELET COUNT, AUTOMATED 218 10^3/uL (150-450); RED BLOOD COUNT 4.39 10^6/uL (4.00-5.40); WHITE BLOOD COUNT 4.5 10^3/uL (4.0-10.0)
[2024-02-09 07:51] LABS: INR 2.69; PROTHROMBIN TIME 27.7 SECONDS (12.5-14.5)
[2024-02-09 08:02] LABS: ALKALINE PHOSPHATASE 76 U/L (46-116); ALT/SGPT 17 U/L (7.0-40); AST/SGOT 20 U/L (<34); BILIRUBIN,TOTAL 1.5 MG/DL (0.3-1.2); BLOOD UREA NITROGEN 20 MG/DL (9-23); CALCIUM LEVEL 9.1 MG/DL (8.3-10.6); CARBON DIOXIDE LEVEL 29 MMOL/L (20-31); CHLORIDE LEVEL 107 MMOL/L (98-107); CHOLESTEROL LEVEL 183 MG/DL (<200); CHOLESTEROL RISK RATIO 2.53 (<5); CPK CREATINE PHOSPHOKINASE 63 U/L (34-145); CREATININE FOR GFR 0.72 MG/DL (0.55-1.30); GLOMERULAR FILTRATION RATE > 60.0 (>39); GLUCOSE, FASTING 76 MG/DL (74-106); HDL CHOLESTEROL 72.2 MG/DL (>40); LDL CHOLESTEROL 92.4 MG/DL (<100); NON-HDL-C 110.8 MG/DL; POTASSIUM SERUM 4.2 MMOL/L (3.5-5.1); SODIUM LEVEL 139 MMOL/L (136-145); TOTAL PROTEIN 6.8 G/DL (5.7-8.2); TRIGLYCERIDES LEVEL 92 MG/DL (<150)
[2024-02-09 08:04] LABS: TOTAL 25(OH) VITAMIN D 21.8 NG/ML (20.0-100.0)
== END ==
LOC: M LAB 06:50
PROVIDERS: ATTEND Nurse Practitioner Family
DX: E78.5 Hyperlipidemia, unspecified (principal); Z79.01 Long term (current) use of anticoagulants; Z95.2 Presence of prosthetic heart valve; Z79.899 Other long term (current) drug therapy

== ENCOUNTER → 2024-03-09 | Outpatient (CLI) | payer MEDICARE | LOC: M PAIN 09:00 | PROVIDERS: ATTEND Nurse Practitioner Family | DX: M47.816 Spondylosis without myelopathy or radiculopathy, lumbar region (principal); G89.29 Other chronic pain; M81.0 Age-related osteoporosis without current pathological fracture; K21.9 Gastro-esophageal reflux disease without esophagitis; J44.9 Chronic obstructive pulmonary disease, unspecified; Z87.891 Personal history of nicotine dependence; Z79.01 Long term (current) use of anticoagulants; Z79.891 Long term (current) use of opiate analgesic; Z79.899 Other long term (current) drug therapy; Z88.5 Allergy status to narcotic agent; Z88.6 Allergy status to analgesic agent ==

== ENCOUNTER → 2024-04-11 | Outpatient (CLI) | payer OTHER ==
[2024-04-11 10:17] LABS: BASO % 0.2 % (0.0-1.0); HEMATOCRIT 39.4 % (36.0-47.0); HEMOGLOBIN 12.9 g/dl (12.0-15.5); LYMPH # 0.6 10^3/uL (1.5-5.0); LYMPH % 15.2 % (24.0-44.0); MEAN CORPUSCULAR HEMOGLOBIN 30.2 pg (27.0-33.0); MEAN CORPUSCULAR HGB CONC 32.7 g/dl (32.0-36.5); MEAN CORPUSCULAR VOLUME 92.3 fl (80.0-96.0); MONO # 0.4 10^3/uL (0.0-0.8); MONO % 8.9 % (2.0-8.0); NEUTROPHILS # 3.1 10^3/uL (1.5-8.5); NEUTROPHILS % 74.2 % (36.0-66.0); PLATELET COUNT, AUTOMATED 208 10^3/uL (150-450); RED BLOOD COUNT 4.27 10^6/uL (4.00-5.40); WHITE BLOOD COUNT 4.2 10^3/uL (4.0-10.0)
[2024-04-11 10:28] LABS: INR 3.32; PROTHROMBIN TIME 32.5 SECONDS (12.5-14.5)
[2024-04-11 10:44] LABS: CPK CREATINE PHOSPHOKINASE 65 U/L (34-145)
[2024-04-11 10:45] LABS: ALBUMIN 3.8 G/DL (3.2-5.2); ALKALINE PHOSPHATASE 75 U/L (46-116); ALT/SGPT 17 U/L (7.0-40); AST/SGOT 17 U/L (<34); BILIRUBIN,TOTAL 1.1 MG/DL (0.3-1.2); BLOOD UREA NITROGEN 14 MG/DL (9-23); CALCIUM LEVEL 9.1 MG/DL (8.3-10.6); CARBON DIOXIDE LEVEL 29 MMOL/L (20-31); CHLORIDE LEVEL 108 MMOL/L (98-107); CHOLESTEROL LEVEL 176 MG/DL (<200); CHOLESTEROL RISK RATIO 2.72 (<5); CREATININE FOR GFR 0.68 MG/DL (0.55-1.30); GLOMERULAR FILTRATION RATE > 60.0 (>39); GLUCOSE, FASTING 83 MG/DL (74-106); HDL CHOLESTEROL 64.5 MG/DL (>40); LDL CHOLESTEROL 88.9 MG/DL (<100); NON-HDL-C 111.5 MG/DL; POTASSIUM SERUM 4.1 MMOL/L (3.5-5.1); SODIUM LEVEL 142 MMOL/L (136-145); TOTAL PROTEIN 6.8 G/DL (5.7-8.2); TRIGLYCERIDES LEVEL 113 MG/DL (<150)
[2024-04-11 10:46] LABS: TOTAL 25(OH) VITAMIN D 21.9 NG/ML (20.0-100.0)
== END ==
LOC: M LAB 09:11
PROVIDERS: ATTEND Nurse Practitioner Family
DX: E78.5 Hyperlipidemia, unspecified (principal); Z95.2 Presence of prosthetic heart valve; Z79.01 Long term (current) use of anticoagulants; Z79.899 Other long term (current) drug therapy

== ENCOUNTER → 2024-05-09 | Outpatient (CLI) | payer OTHER | LOC: M PAIN 09:00 | PROVIDERS: ATTEND Nurse Practitioner Family | DX: M47.816 Spondylosis without myelopathy or radiculopathy, lumbar region (principal); G89.29 Other chronic pain; M81.0 Age-related osteoporosis without current pathological fracture; K21.9 Gastro-esophageal reflux disease without esophagitis; J44.9 Chronic obstructive pulmonary disease, unspecified; Z87.891 Personal history of nicotine dependence; Z79.01 Long term (current) use of anticoagulants; Z79.891 Long term (current) use of opiate analgesic; Z79.899 Other long term (current) drug therapy; Z95.2 Presence of prosthetic heart valve; Z88.5 Allergy status to narcotic agent | CPT/HCPCS: 36415; 85610; G0463 ==

== ENCOUNTER → 2024-05-09 | Outpatient (CLI) | payer OTHER ==
[2024-05-09 10:42] LABS: INR 3.26
== END ==
LOC: M LAB 09:58
PROVIDERS: ATTEND Nurse Practitioner Family
DX: Z79.01 Long term (current) use of anticoagulants (principal); Z95.2 Presence of prosthetic heart valve

== ENCOUNTER → 2024-06-08 | Outpatient (CLI) | payer OTHER ==
[2024-06-08 11:19] LABS: INR 3.66
== END ==
LOC: M LAB 09:33
PROVIDERS: ATTEND Nurse Practitioner Family
DX: Z79.01 Long term (current) use of anticoagulants (principal); Z95.2 Presence of prosthetic heart valve

== ENCOUNTER → 2024-07-25 | Outpatient (CLI) | payer OTHER ==
[2024-07-25 09:00] LABS: BLOOD UREA NITROGEN 25 MG/DL (9-23); CREATININE FOR GFR 0.67 MG/DL (0.55-1.30); GLOMERULAR FILTRATION RATE > 60.0 (>39)
== END ==
LOC: M LAB 07:46
PROVIDERS: ATTEND Otolaryngology
DX: R13.10 Dysphagia, unspecified (principal); R49.0 Dysphonia

== ENCOUNTER → 2024-07-25 | Outpatient (CLI) | payer OTHER ==
[2024-07-25 09:05] LABS: INR 3.18; PROTHROMBIN TIME 31.4 SECONDS (12.5-14.5)
== END ==
LOC: M LAB 07:47
PROVIDERS: ATTEND Nurse Practitioner Family
DX: Z95.2 Presence of prosthetic heart valve (principal); Z79.01 Long term (current) use of anticoagulants

== ENCOUNTER → 2024-07-27 | Outpatient (CLI) | payer OTHER ==
[~2024-07-27] MED LIST changes: +ISOVUE-370 76% 100ML VIAL As Ordered ONE
== END ==
LOC: M RAD 08:15
PROVIDERS: ATTEND Otolaryngology
DX: R13.10 Dysphagia, unspecified (principal); R49.0 Dysphonia; R91.8 Other nonspecific abnormal finding of lung field; M47.812 Spondylosis without myelopathy or radiculopathy, cervical region
CPT/HCPCS: 70491; Q9967

== ENCOUNTER → 2024-08-18 | Outpatient (CLI) | payer OTHER ==
[~2024-08-18] MED LIST changes: +E-Z-GAS II EFFERVESCENT PACKET (SODIUM BICARB./CITRIC ACID/SIMETHICONE) As Ordered ONE; +E-Z-HD 98% w/w 340GM SUSP BTL As Ordered ONE; +E-Z-PAQUE 96% w/w SUSP 176GM BTL As Ordered ONE; -ISOVUE-370 76% 100ML VIAL As Ordered ONE
== END ==
LOC: M RAD 10:01
PROVIDERS: ATTEND Otolaryngology
DX: R13.10 Dysphagia, unspecified (principal); R49.0 Dysphonia; M41.9 Scoliosis, unspecified; I71.9 Aortic aneurysm of unspecified site, without rupture

== ENCOUNTER → 2024-09-05 | Outpatient (CLI) | payer OTHER ==
[~2024-09-05] MED LIST changes: -CYCL5TAB PO; +CYCL5TAB4 PO; -E-Z-GAS II EFFERVESCENT PACKET (SODIUM BICARB./CITRIC ACID/SIMETHICONE) As Ordered ONE; -E-Z-HD 98% w/w 340GM SUSP BTL As Ordered ONE; -E-Z-PAQUE 96% w/w SUSP 176GM BTL As Ordered ONE
[2024-09-05 11:04] LABS: INR 2.3; PROTHROMBIN TIME 25.4 SECONDS (12.5-14.5)
== END ==
LOC: M LAB 09:58
PROVIDERS: ATTEND Nurse Practitioner Family
DX: Z79.01 Long term (current) use of anticoagulants (principal); Z95.2 Presence of prosthetic heart valve

== ENCOUNTER → 2024-10-10 | Outpatient (CLI) | payer OTHER ==
[2024-10-10 11:08] LABS: INR 2.67; PROTHROMBIN TIME 28.4 SECONDS (12.5-14.5)
== END ==
LOC: M LAB 10:17
PROVIDERS: ATTEND Nurse Practitioner Family
DX: Z95.2 Presence of prosthetic heart valve (principal)

== ENCOUNTER → 2024-11-07 | Outpatient (CLI) | payer OTHER ==
[2024-11-07 14:19] LABS: INR 4.44; PROTHROMBIN TIME 41.8 SECONDS (12.5-14.5)
== END ==
LOC: M LAB 13:37
PROVIDERS: ATTEND Nurse Practitioner Family
DX: Z95.2 Presence of prosthetic heart valve (principal)

== ENCOUNTER → 2024-11-27 | Outpatient (CLI) | payer OTHER ==
[~2024-11-27] MED LIST changes: +BACL5TAB2 PO; +BUPR150T12 PO; +CARI-555 PO; -CARI1TAB7 PO; +GABA-1172 PO; +PANT40TA29 PO; +ROPI2TAB46 PO
== END ==
LOC: M PAIN 10:00
PROVIDERS: ATTEND Nurse Practitioner Family
DX: M47.816 Spondylosis without myelopathy or radiculopathy, lumbar region (principal); G89.29 Other chronic pain; M54.50 Low back pain, unspecified; K21.9 Gastro-esophageal reflux disease without esophagitis; J44.9 Chronic obstructive pulmonary disease, unspecified; Z87.891 Personal history of nicotine dependence; Z79.891 Long term (current) use of opiate analgesic; Z79.01 Long term (current) use of anticoagulants; Z79.899 Other long term (current) drug therapy; Z88.5 Allergy status to narcotic agent

== ENCOUNTER → 2024-12-04 | Outpatient (CLI) | payer OTHER ==
[~2024-12-04] MED LIST changes: -CARI-555 PO; +CARI1TAB7 PO
[2024-12-04 08:22] LABS: INR 1.82; PROTHROMBIN TIME 21.3 SECONDS (12.5-14.5)
== END ==
LOC: M LAB 07:08
PROVIDERS: ATTEND Nurse Practitioner Family
DX: Z95.2 Presence of prosthetic heart valve (principal)

== ENCOUNTER 2024-12-20 15:41 | Emergency (ER) | payer OTHER ==
[~2024-12-20] VITALS: Ht 124.5 cm; Wt 67.7 kg
[2024-12-20 15:43] VITALS: TEMP 98.4
[2024-12-20 18:48] LABS: PROTHROMBIN TIME 65.8 SECONDS (12.5-14.5)
[2024-12-20 19:13] LABS: INR 8.09
[2024-12-20] MEDS: PHYTONADIONE 5 MG TAB PO ONE (19:30)
[2024-12-20 19:41] VITALS: O2SAT 95
[2024-12-20 19:44] VITALS: BP 182/81
== END 2024-12-20 19:49 | disposition home or self-care (01) ==
LOC: M ED 15:41
DX: R79.1 Abnormal coagulation profile (principal); I10 Essential (primary) hypertension; E78.5 Hyperlipidemia, unspecified; K21.9 Gastro-esophageal reflux disease without esophagitis; F32.9 Major depressive disorder, single episode, unspecified; F41.9 Anxiety disorder, unspecified; Z79.01 Long term (current) use of anticoagulants; Z79.899 Other long term (current) drug therapy; Z95.2 Presence of prosthetic heart valve

== ENCOUNTER 2024-12-20 20:44 | Emergency (ER) | payer OTHER ==
[~2024-12-20] VITALS: Ht 124.5 cm; Wt 51.8 kg
[2024-12-20 21:18] VITALS: TEMP 98
[2024-12-20] MEDS ORDERED: ISOVUE-370 76% 100ML VIAL As Ordered ONE (21:41)
[2024-12-20 21:50] LABS: BASO % 0.1 % (0.0-1.0); EOS % 0.3 % (0.0-3.0); HEMATOCRIT 35.5 % (36.0-47.0); HEMOGLOBIN 11.2 g/dl (12.0-15.5); LYMPH # 0.4 10^3/uL (1.5-5.0); LYMPH % 4.9 % (24.0-44.0); MEAN CORPUSCULAR HEMOGLOBIN 28.9 pg (27.0-33.0); MEAN CORPUSCULAR HGB CONC 31.5 g/dl (32.0-36.5); MEAN CORPUSCULAR VOLUME 91.5 fl (80.0-96.0); MONO # 0.5 10^3/uL (0.0-0.8); MONO % 6.9 % (2.0-8.0); NEUTROPHILS # 6.4 10^3/uL (1.5-8.5); PLATELET COUNT, AUTOMATED 232 10^3/uL (150-450); RED BLOOD COUNT 3.88 10^6/uL (4.00-5.40); WHITE BLOOD COUNT 7.4 10^3/uL (4.0-10.0)
[2024-12-20] MEDS: PROTHROMBIN COMPLEX CONCEN 1,000 UNIT in APPROPRIATE DILUENT 40 ML IV ONE (22:08)
[2024-12-20 22:21] LABS: ALBUMIN 3.3 G/DL (3.2-5.2); BILIRUBIN,DIRECT 0.4 MG/DL (<0.4); BILIRUBIN,TOTAL 1.3 MG/DL (0.3-1.2); TOTAL PROTEIN 6.2 G/DL (5.7-8.2)
[2024-12-20 22:25] LABS: PARTIAL THROMBOPLASTIN TIME 61.1 SECONDS (24.8-34.2)
[2024-12-20 22:40] LABS: PROTHROMBIN TIME 63.4 SECONDS (12.5-14.5)
[2024-12-20] MEDS: MORPHINE 2 MG/ML 1ML VIAL IV ONE (22:42)
[2024-12-20] MEDS: ONDANSETRON 4MG 2ML VIAL IV ONE (22:42)
[2024-12-20 22:44] LABS: INR 7.7
[2024-12-20 23:45] VITALS: BP 140/84; O2SAT 96
== END 2024-12-21 00:14 | disposition short-term general hospital (02) ==
LOC: EDBD 20:44 → M ED 20:44
DX: R79.1 Abnormal coagulation profile (principal); S22.43XA Multiple fractures of ribs, bilateral, initial encounter for closed fracture; S22.060A Wedge compression fracture of T7-T8 vertebra, initial encounter for closed fracture; S01.532A Puncture wound without foreign body of oral cavity, initial encounter; V49.9XXA Car occupant (driver) (passenger) injured in unspecified traffic accident, initial encounter; Y92.410 Unspecified street and highway as the place of occurrence of the external cause; Y93.9 Activity, unspecified; Y99.9 Unspecified external cause status; I71.21 Aneurysm of the ascending aorta, without rupture; R91.8 Other nonspecific abnormal finding of lung field; I25.10 Atherosclerotic heart disease of native coronary artery without angina pectoris; M85.88 Other specified disorders of bone density and structure, other site; I10 Essential (primary) hypertension; E78.5 Hyperlipidemia, unspecified; K21.9 Gastro-esophageal reflux disease without esophagitis; M54.50 Low back pain, unspecified; F41.9 Anxiety disorder, unspecified; F32.9 Major depressive disorder, single episode, unspecified; Z79.01 Long term (current) use of anticoagulants; Z79.899 Other long term (current) drug therapy
CPT/HCPCS: 70450; 70486; 71045; 71260; 72125; 74177; 80047; 80076; 85025; 85610; 85730; 86850; 86900; 86901; 93005; 93041; 94760; 96365; 96375; 99285; J2405; J7168; Q9967

== ENCOUNTER → 2024-12-20 | Outpatient (CLI) | payer OTHER ==
[~2024-12-20] MED LIST changes: +CARI-555 PO; -CARI1TAB7 PO
[2024-12-20 07:58] LABS: PROTHROMBIN TIME 69.4 SECONDS (12.5-14.5)
[2024-12-20 08:28] LABS: INR 8.68
== END ==
LOC: M LAB 07:11
PROVIDERS: ATTEND Nurse Practitioner Family
DX: Z95.2 Presence of prosthetic heart valve (principal)

== ENCOUNTER → 2025-02-02 | Outpatient (REF) | payer OTHER | LOC: M LAB REF 12:35 → M SHH 12:35 | PROVIDERS: ATTEND Nurse Practitioner Family | DX: Z53.9 Procedure and treatment not carried out, unspecified reason (principal) ==

== ENCOUNTER → 2025-02-05 | Outpatient (REF) | payer OTHER ==
[2025-02-05 12:39] LABS: INR 4.53; PROTHROMBIN TIME 42.4 SECONDS (12.5-14.5)
== END ==
LOC: M SHH 12:15
PROVIDERS: ATTEND Nurse Practitioner Family
DX: Z95.2 Presence of prosthetic heart valve (principal); Z79.01 Long term (current) use of anticoagulants

== ENCOUNTER → 2025-02-09 | Outpatient (CLI) | payer OTHER | LOC: M RAD 13:40 | PROVIDERS: ATTEND Nurse Practitioner Family | DX: S00.83XA Contusion of other part of head, initial encounter (principal); W19.XXXA Unspecified fall, initial encounter; Y92.9 Unspecified place or not applicable; Y93.9 Activity, unspecified; Y99.9 Unspecified external cause status ==

== ENCOUNTER → 2025-02-22 | Outpatient (REF) | payer OTHER ==
[~2025-02-22] MED LIST changes: +BUPR-670 PO; -BUPR1TAB52 PO; -BUPR1TAB56 PO; +BUPR200T45 PO
[2025-02-22 14:40] LABS: INR 1.98; PROTHROMBIN TIME 22.7 SECONDS (12.5-14.5)
== END ==
LOC: M SHH 14:23
PROVIDERS: ATTEND Nurse Practitioner Family
DX: I08.0 Rheumatic disorders of both mitral and aortic valves (principal); Z95.2 Presence of prosthetic heart valve

== ENCOUNTER → 2025-03-01 | Outpatient (CLI) | payer OTHER | LOC: M WUC 09:16 | PROVIDERS: ATTEND Surgery | DX: S62.524A Nondisplaced fracture of distal phalanx of right thumb, initial encounter for closed fracture (principal); Y93.9 Activity, unspecified; Y92.9 Unspecified place or not applicable ==

== ENCOUNTER → 2025-03-05 | Outpatient (REF) | payer OTHER ==
[~2025-03-05] MED LIST changes: +CHOL50006 PO; -D3 M5000 PO
[2025-03-05 13:26] LABS: INR 4.85; PROTHROMBIN TIME 44.7 SECONDS (12.5-14.5)
== END ==
LOC: M LABDRWAD 12:48 → M SHH 12:48
PROVIDERS: ATTEND Nurse Practitioner Family
DX: Z95.2 Presence of prosthetic heart valve (principal); Z79.01 Long term (current) use of anticoagulants

== ENCOUNTER → 2025-09-26 | Outpatient (REF) | payer OTHER, MEDICAID ==
[2025-09-26 13:21] LABS: INR 2.04
== END ==
LOC: M LAB REF 13:06
PROVIDERS: ATTEND Internal Medicine Cardiovascular Disease
DX: Z79.01 Long term (current) use of anticoagulants (principal)